=== PATIENT | female | born 2000 | race Caucasian/White ===

== ENCOUNTER → 2025-04-22 | Outpatient (CLI) | payer BC, SELFPAY ==
[2025-04-22 12:18] LABS: Absolute Lymphocyte Count 1.57 X10^3/uL (0.83-4.51); Absolute Neutrophil Count 5.7 X10^3/uL (2.0-7.7); Basophil# 0.04 X10^3/uL; Basophil% 0.5 % (0-1); Eosinophil# 0.02 X10^3/uL; Eosinophils% 0.3 % (0-5); Hematocrit 38.8 % (37-47); Hemoglobin 12.9 g/dL (12.0-15.0); Lymphocyte # 1.57 X10^3/ul (0.83-4.51); Lymphocyte % 19.8 % (19-41); Mean Corp Hgb Conc 33.2 g/dL (32-36); Mean Corpuscular Hgb 27.4 pg (27.0-32.0); Mean Corpuscular Volume 82.6 fL (81-99); Mean Platelet Vol. 10.8 fl (6.2-12.0); Monocyte# 0.48 X10^3/uL; Monocyte% 6.1 % (0-10); NRBC Flagged by Analyzer 0 % (0-5); Neutrophil # 5.73 X10^3/uL (2.7-7.7); Neutrophil % 72.4 % (47-70); Platelet Count 220 K/mm3 (150-450); RBC Distribution Width CV 13.2 % (11.6-14.6); RBC Distribution Width SD 39.8 fl (35.1-43.9); White Blood Count 7.9 K/mm3 (4.4-11.0)
[2025-04-22 12:56] LABS: HIV Nonreactive (Nonreactive); Hepatitis B Surface Antigen Nonreactive (Nonreactive); Hepatitis C Antibody Nonreactive (Nonreactive); Rubella IgG REAC (Nonreactive); Syphilis Antibodies Nonreactive (Nonreactive)
[2025-04-26 03:07] LABS: Chlamydia By Nucleic Acid AMP Negative (Negative); Gonococcus By Nucleic Acid AMP Negative (Negative)
== END | disposition home or self-care (01) ==
LOC: BWCLAB 09:10
PROVIDERS: PCP Family Medicine; Referring Provider Obstetrics & Gynecology; Visit Provider Obstetrics & Gynecology
DX: Z34.00 Encounter for supervision of normal first pregnancy, unspecified trimester (principal)
CPT/HCPCS: 36415; 84439; 84443; 85025; 86703; 86762; 86780; 86803; 86850; 86900; 86901; 87086; 87340; 87491; 87591

== ENCOUNTER 2025-07-10 08:55 | Outpatient (CLI) | payer BC, SELFPAY ==
--- OUTSIDE RECORDS SUMMARY | 2025-07-10 08:59 | XMS RPT_ITS | CCD ---
Author Organization [facility] Care Team Providers Care Campaign Assistant Name Role Phone CHERYLE BAZAN Attending Unavailable CHERYLE BAZAN Consulting Unavailable CHERYLE BAZAN Primary Care Unavailable CHERYLE BAZAN Admitting Unavailable PROVIDER, UNKNOWN Consulting Unavailable Beni CHENG, Cheryle Martinez Unavailable [phone] Beni CHENG, Cheryle Martinez Unavailable Priti FARM HAND, Radha Unavailable Gogoi (scribe), Hemanta Unavailable Unavaila jessica Gamble PA-C, Rosario Gibson Unavailable [phone] Emeka WONG, Jaye Unavailable Unavailable Senthil FARM HAND, Gwen Unavailable Unavaila ble Marthey FARM HAND, Abby Unavailable Unavailable Alexi FARM HAND, Homero Unavailable Unavailable Casi RN, Sanjaan Y Unavailable Unavailable Jasbir FARM HAND, Daija Unavailable Unavailable Dale FARM HAND, Becky M Unavailable Unavailab jamee Mueller FARM HAND, Noris Sarkar Unavailable Unavailab Anthony Young MD Unavailable Janny JETERN, Tammy Unavailable Unavailbasil Ley FARM HAND, Nisha Jernigan Unavailable Unavaila ble Lydia FARM HAND, Yuliya Unavailable Unavailable Unavailable Unavailable Modesto Bosch MD Unavailable Dr. Anthony Mercedes MD Primary Care Provider Dr. Anthony Mercedes MD Referring Provider Iris Santiago Attending Provider Dr. Tammy Cooley DO Attending Provider Dr. Tammy Cooley DO Referring Provider Keith Archuleta CNM Attending Provider Daren, Anthony Primary Care Unavailable Keith Archuleta Attending Unavailable Vaccariello, Anthony Referring Unavailable Vaccariello, Anthony Primary Care Unavailable Keith Archuleta Attending Unavailable Vaccarianuja, Anthony Referring Unavailable Tammy Cooley Attending Unavailbasil e Tammy Cooley Referring Unavailabl e Vaccarianuja, Anthony Primary Care Unavailable Tammy Cooley Attending Unavailabl e Eufemiaarianuja, Anthony Primary Care Unavailable Daren, Anthony Referring Unavailable Iris Singer NP Attending Unavailable Vaccarianuja, Anthony Primary Care Unavailable Vaccarianuja, Anthony Referring Unavailable MELODIE GARCIAS Attending Unavailable EUFEMIAARIANUJA, TAMARA Primary Care Unavailable KEITH ARCHULETA S Referring Unavailable Allergies Allergy Classification Reported Allergen(s) Allergy Type Date of Onset Reaction(s) Facility (6 sources) Chocolate; Translations: [chocolate] Allergy to substance 04-05-2025 [facility] Comment on above: Migraine headache Medications Current Medications Medication Drug Class(es) Dates Sig (Normalized) Sig (Original) busPIRone hydrochloride 5 mg oral tablet (16 sources) Start: 01-14-2025 busPIRone 5 mg tablet ; 1 (one) tablet BID for 0 days Quantity: 60 {Tablet} Refills: 5 Ordered: 14-Jan-2025 PROSPER Bazan Start: 14-Jan-2025 Start: 12-20-2024 busPIRone 5 mg tablet ; 1 (one) tablet BID for 0 days Quantity: 60 {Tablet} Refills: 5 Ordered: 20-Dec-2024 PROSPER Bazan Start: 20-Dec-2024 Start: 10-25-2024 busPIRone 5 mg tablet ; 1 (one) tablet BID for 0 days Quantity: 60 {Tablet} Refills: 1 Ordered: 25-Oct-2024 PADMINI Truong Start: 25-Oct-2024 Comment on above: Mail order. Ethinyl Estradiol / norgestimate (16 sources) Progestin, Estrogen Start: 08-10-2024 Sprintec (28) 0.25 mg-35 mcg tablet ; 1 (one) Tablet daily for 0 days Quantity: 3 {Tablet} Refills: 4 Ordered: 10-Aug-2024 PROSPER Bazan Start: 10-Aug-2024 Comments: Mail order. Start: 08-09-2024 Sprintec (28) 0.25 mg-35 mcg tablet ; 1 (one) Tablet daily for 0 days Quantity: 3 {Packet} Refills: 4 Ordered: 09-Aug-2024 PROSPER Bazan Start: 09-Aug-2024 Start: 08-09-2024 Sprintec (28) 0.25 mg-35 mcg tablet ; 1 (one) Tablet daily for 0 days Quantity: 3 {Tablet} Refills: 4 Ordered: 09-Aug-2024 PROSPER Bazan Start: 09-Aug-2024 Comments: Mail order. Comment on above: Mail order. Multivit 84-Gtxr-Mwvtzj 1-Dha (Pnv-Dha) 27 mg iron-1 mg -300 mg capsule (5 sources) Start: 04-05-2025 Multivit 47-Ir on-Folate 1-Dha (Pnv-Dha) 27 mg iron-1 mg -300 mg capsule Active NMA PO April 05, 2025 12:00am Completed/Discontinued Medications Medication Drug Class(es) Dates Sig (Normalized) Sig (Original) amoxicillin 250 mg oral capsule (14 sources) Penicillin-class Antibacterial Start: 03-07-2011 End: 08-16-2011 take 1 capsule by mouth three times daily AMOXICILLIN, 250MG (Oral Capsule) ; 1 Capsule tid for 0 days Quantity: 30 {Capsule} Refills: 0 Ordered: 16-Aug-2011 PADMINI Marcos Start: 07-Mar-2011 End: 16-Aug-2011 Status: Inactive azithromycin 500 mg oral tablet (14 sources) Macrolide Antimicrobial Start: 05-03-2019 End: 05-06-2019 take 1 tablet by mouth once daily Azithromycin 500 MG Oral Tablet ; 1 (one) Tablet daily for 3 days Quantity: 3 {Tablet} Refills: 0 Ordered: 03-May-2019 Start: 03-May-2019 End: 06-May-2019 Status: Inactive clobetasol propionate 0.5 mg/ml topical solution (20 sources) Corticosteroid Start: 08-04-2023 End: 12-13-2024 clobetasoL 0.05 % scalp solution ; 1 (one) application to affected area (ears) BID for 0 days Quantity: 50 {Milliliter} Refills: 0 Ordered: 13-Dec-2024 PADMINI Truong Start: 04-Aug-2023 End: 13-Dec-2024 Status: Inactive Comment on above: Mail order. Ethinyl Estradiol / Levonorgestrel (14 sources) Progestin, Estrogen, Progestin-containing Intrauterine Device Start: 06-13-2021 End: 07-05-2021 take 1 tablet by mouth once daily Aviane 0.1-20 MG-MCG Oral Tablet ; 1 (one) Tablet daily for 0 days Quantity: 1 {Package} Refills: 1 Ordered: 05-Jul-2021 PROSPER Bazan Start: 13-Jun-2021 End: 05-Jul-2021 Status: Inactive predniSONE 20 mg oral tablet (9 sources) Start: 12-13-2024 End: 01-16-2025 predniSONE 20 mg tablet ; 1 (one) Tablet as directed for 0 days Quantity: 20 {Tablet} Refills: 0 Ordered: 16-Jan-2025 PROSPER Bazan Start: 13-Dec-2024 End: 16-Jan-2025 Status: Inactive Comments: Take 1 tab tid for 3 days thenTake 1 tab bid for 3 days thenTake 1 tab qd for 3 days thenTake 1/2 tab qd for 4 days. Comment on above: Take 1 tab tid for 3 days thenTake 1 tab bid for 3 days thenTake 1 tab qd for 3 days thenTake 1/2 tab qd for 4 days. promethazine hydrochloride 12.5 mg rectal suppository (14 sources) Phenothiazine Start: 08-02-2010 End: 08-16-2011 PROMETHAZINE HCL, 12.5MG (Rectal Suppository) ; 1 Suppository Every 6 hours for nausea and vomiting for 0 days Quantity: 12 {Suppository} Refills: 2 Ordered: 16-Aug-2011 PADMINI Marcos Start: 02-Aug-2010 End: 16-Aug-2011 Status: Inactive Problems Active Problems Problem Classification Problem Date Documented Date Episodic/Chronic Abdominal pain (14 sources) Abdominal pain; Translations: [Unspecified abdominal pain] 02-18-2020 Episodic Acute bronchitis (14 sources) Acute bronchitis; Translations: [Acute bronchitis, unspecified] 05-03-2019 Episodic Anxiety disorders (20 sources) Anxiety; Translations: [Anxiety disorder, unspecified] 10-25-2024 Chronic Cardiac dysrhythmias (20 sources) Palpitations; Translations: [Palpitations] 08-09-2024 Episodic Contraceptive and procreative management (20 sources) Patient encounter status; Translations: [Encounter for contraceptive management, unspecified] 08-09-2024 Episodic Headache; including migraine (20 sources) Migraine; Translations: [Migraine, unspecified, not intractable, without status migrainosus] 05-28-2012 Chronic Immunizations and screening for infectious disease (20 sources) Needs influenza immunization; Translations: [Encounter for immunization] 08-09-2016 Episodic Menstrual disorders (16 sources) Secondary amenorrhea; Translations: [Secondary amenorrhea] Onset: 06-17-2025 04-05-2025 Chronic Comment on above: +UPT Other connective tissue disease (18 sources) Disorder of rotator cuff; Translations: [Unspecified disorder of synovium and tendon, left shoulder] 12-13-2024 Episodic Other inflammatory condition of skin (20 sources) Psoriasis; Translations: [Psoriasis, unspecified] 08-09-2024 Chronic Other and delivery including normal (20 sources) Normal ; Translations: [Encounter for supervision of normal first , unspecified trimester] Onset: 04-22-2025 04-05-2025 Episodic Comment on above: , [place] 11/29/25, Hu sband Jose Declined NIPT & Yates ier testing PRR, , [place] 6, Jose Other skin disorders (20 sources) [place] - lesion ; Translations: [Corns and callosities] 08-09-2024 Episodic Other upper respiratory infections (14 sources) Acute pharyngitis; Translations: [Acute pharyngitis, unspecified] 03-07-2011 Episodic Residual codes; unclassified (1 source) 16 weeks gestation of ; Translations: [16 weeks gestation of ] Onset: 06-17-2025 Episodic Thyroid disorders (20 sources) Cyst of thyroid; Translations: [Nontoxic single thyroid nodule] Onset: 06-17-2025 08-09-2024 Chronic Comment on above: no treatment to date no treatment to date Negative Receptor antibody test Unclassified (14 sources) Well child visit #4 - 13 to 17 years - The child is here for a 16 to 17 year well-child visit. The primary caregiver is the mother and father. Family status: coping adequately. There are no behavioral problems. The patient has a balanced diet. There are no eating difficulties. Meals/day: 3. The child sleeps 8 hours at night. Menstruation: regular periods (should be starting soon - is not sexually active). The child performs well in school, interacts well with peers and participates in extracurricular activities. Safety measures taken include appropriate use of safety belts, home smoke detectors, avoiding exposure to passive smoke, counseling regarding substance abuse, counseling regarding safe sex/HIV and counseling regarding control. 05-19-2019 Past or Other Problems Problem Classification Problem Date Documented Da te Episodic/Chronic Unclassified (14 sources) Well adult female - The patient feels well with minor complaints (wants thyroid checked, irregular heart rate at times, has had anxiety, not sleeping well), has good energy level and is sleeping poorly. The first day of the last menstrual period was : (08/09/2024). The current method of contraception is: oral contraceptives. The patient has a balanced diet and takes supplemental vitamins. The patient does not exercise. The patient sleeps 5 hours per night. Note for Well adult female: [place] like this with wedding planning and thought it would get better after the wedding but it hasn't. [place] it skip a beat every few minutes. Happens once or twice within a few minutes; no dizziness or SOB; notices more when lying down at night but does feel it on occasion during the day. 08-09-2024 Unclassified (14 sources) Well adult female - The patient feels well with no complaints, has good energy level and is sleeping well. The first day of the last menstrual period was : (07/14/2023). The current method of contraception is: oral contraceptives. The patient has a balanced diet and takes no supplemental vitamins & iron. The patient exercises 3 - 4 times per week. The patient sleeps 7 hours per night. 08-04-2023 Unclassified (14 sources) Warts - Note for Warts: Pt here for wart removal on side of left foot.Saw podiatry in the past and was told it was not a wart. They cut away at it but it returned.Initially started when she was working at [employer] and walking 5+ miles at work daily.Tender if puts lots of pressure on it.No recent treatment. 04-30-2023 Unclassified (14 sources) Ear pain - The onset of the pain has been acute and has been occurring in an intermittent pattern for 2 months. The course has been increasing. The pain is described as moderate. The pain is described as being located in the inner ear. The pain is felt in both ears. There has been no associated chills, decreased hearing, fever, inability to 'pop' ear drum, non-purulent discharge from ear, protrusion of ear, purulent discharge from ear, sore throat, runny nose, cough, tinnitus or vertigo. Medical History does not include ear infections, seasonal allergies or recurrent sinusitis. Note for Ear pain: Tried baby oil on it which helps temporarily.Maternal aunt with psoriasis. No other patches of scale noted on other areas of body. 03-12-2023 Unclassified (14 sources) Well adult female - The patient feels well with no complaints, has good energy level and is sleeping well. The first day of the last menstrual period was : (07/14/2022). The current method of contraception is: oral contraceptives. The patient has a balanced diet. The patient exercises 3 - 4 times per week. The patient sleeps 8 hours per night. Note for Well adult female: No concerns today. Doing well on OCP and wants to continue. 07-24-2022 Unclassified (14 sources) Well adult female - The patient feels well with no complaints, has good energy level and is sleeping well. The first day of the last menstrual period was : (06/17/2021). The patient has a balanced diet. The patient exercises daily. The patient sleeps 8 (7-8) hours per night. 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 07-05-2021 Unclassified (14 sources) Nausea - The onset of the nausea has been variable and has been occurring in an intermittent pattern for 6 days. The course has been increasing. The nausea occurs approximately one hour after meals. The symptoms are aggravated by eating. The symptoms have no relieving factors. The symptoms have been associated with abdominal pain, but there has been no associated altered sensorium, aspiration into lungs, chest pain, dark urine, diarrhea, dysentery, dysphagia, dysuria, fever, headache, hematemesis, jaundice, melena, myalgia, neck stiffness, , renal disease, tinnitus, upper respiratory infection symptoms, use of alcohol, use of medications, vertigo, weight loss or vomiting. Note for Nausea: Mother palpated on her abdomen last night and pt states she had pain in her LUQ. Has no abd pain now. When she does it is 4/10 at most. Nausea seems to be more food related to but no specific trigger. LMP was 14-16 days ago - normal. Taking OCP daily without missed doses.Having trouble with it being her senior year and not able to go back to school. Plans are set for college.Some heartburn recently. 02-18-2020 Unclassified (14 sources) Cold Symptoms - Symptoms include sneezing, sore throat (slight), hoarseness, dry cough, fever (102 over the weekend), chills, general malaise and headache, but do not include nasal congestion, runny nose, ear pain, ear fullness or facial pain. The onset was sudden 2 week(s) ago. The symptoms occur constantly. The patient describes this as moderate in severity and worsening. Current treatment includes NSAIDs. Patient denies history of seasonal allergies or asthma. Note for Upper respiratory infection: Patient reports of on going cough for a couple of weeks. 05-03-2019 Unclassified (14 sources) Well child visit #4 - 13 to 17 years - The child is here for a 16 to 17 year well-child visit. The primary caregiver is the mother and father. Family status: coping adequately. There are no behavioral problems. The patient has a balanced diet. There are no eating difficulties. Meals/day: 3. The child sleeps 8 hours at night. Menstruation: regular periods. The child performs well in school, interacts well with peers and participates in extracurricular activities. Safety measures taken include appropriate use of safety belts, home smoke detectors, avoiding exposure to passive smoke, counseling regarding substance abuse, counseling regarding safe sex/HIV and counseling regarding control. Note for Well child visit #4 - 13 to 17 years: No concerns today. 06-15-2018 Unclassified (14 sources) Well child visit #4 - 13 to 17 years - The child is here for a 15 to 16 year well-child visit. The primary caregiver is the mother and father. Family status: coping adequately. There are no behavioral problems. The patient has a balanced diet. There are no eating difficulties. Meals/day: 3. The child sleeps 8 hours at night. Menstruation: regular periods (current). The child performs well in school, interacts well with peers and participates in extracurricular activities. Safety measures taken include appropriate use of safety belts, home smoke detectors, avoiding exposure to passive smoke and counseling regarding substance abuse. Note for Well child visit #4 - 13 to 17 years: Plays basketball. 08-08-2017 Unclassified (14 sources) Well child visit #4 - 13 to 17 years - The child is here for a 14 to 15 year well-child visit. The primary caregiver is the mother and father. Family status: coping adequately. There are no behavioral problems. The patient has a balanced diet. There are no eating difficulties. Meals/day: 3. The child sleeps 8 hours at night. Menstruation: regular periods. The child performs well in school, interacts well with peers and participates in extracurricular activities. Safety measures taken include appropriate use of safety belts. Note for Well child visit #4 - 13 to 17 years: No concerns per patient. Will be playing basketball. 08-09-2016 Unclassified (14 sources) Form Completion Physicals - The patient feels well with no complaints, has good energy level and is sleeping well. There are no current symptoms. The patient exercises daily. The patient has an appropriate balanced diet, eats a variety of foods and takes no supplemental vitamins or iron and sleeps on average 8 hours per night. Safety measures include appropriate use of car seats/safety belts, appropriate use of helmets, appropriate use of safety belts, avoiding exposure to passive smoke and awareness of dangers of passenger-side air bags. There are no behavioral problems. Note for Form completion physical: Periods are regular. Will be playing basketball - needs form completed. 08-01-2015 Unclassified (14 sources) Well child visit #3 - 4 to 12 years - The child is here for a 14 year well-child visit. The primary caregiver is mother and father. Family status: coping adequately. There are no behavioral problems. The patient has a balanced diet. There are no eating difficulties. Meals/day: 3. The child sleeps 9 hours at night. The child performs well in school, interacts well with peers and participates in extracurricular activities. Safety measures taken include appropriate use of car seats/safety belts, home smoke detectors, avoiding exposure to passive smoke and pool/water/drowning precautions. Note for Well child visit #3 - 4 to 12 years: Pt is in 7th grade. No concerns. Planning to play basketball - has played x years. 07-22-2014 Unclassified (14 sources) Headache - The onset of the headache has been acute and has been occurring in a persistent pattern for 2 days. The course has been constant. The headache is characterized as severe and pounding. The headache is described as being located in the entire head. The symptoms are aggravated by bright light. The symptoms have been associated with migraine in the past (last was 07/2010 - at that point they thought there was a food trigger (chocolate) however child has not had chocolate in years, so mom mentions that she worries it might be hormonally triggered...), nausea, vertigo and vomiting, while the symptoms have not been associated with blurring of vision, confusion, ear pain, eye pain, fever, flashing lights, focal neurological deficit, head trauma, nasal discharge/stuffy nose, neck pain, neck stiffness, prodrome or sore throat. Note for Headache: Pt woke up yesterday am with c/o dizziness. Pt vomited x 1 yesterday. This am woke up with severe headache, nausea and vomiting. 05-28-2012 Unclassified (14 sources) Headache - The onset of the headache has been acute and has been occurring in a persistent (awoke with mild h/a yest am, vomitted 3 times throughout the day) pattern for 1 day. The course has been increasing in severity. The headache is characterized as severe. The symptoms are aggravated by bright light. The symptoms have been associated with migraine in the past and nausea (this am n/v with every slight movement.). 08-02-2010 Unclassified (9 sources) Shoulder pain - The onset of the shoulder pain has been gradual following an incident not at work (slept wrong, dog walking) and has been occurring in a persistent pattern for 2 weeks. The course has been increasing. The pain is characterized as a cramping. The pain is described as being located in the left shoulder and is aggravated by any movement. Relieving factors include ice. The symptoms have been associated with painful ROM and decreased ROM. Note for Shoulder pain: reviewed by [facility] 12-13-2024 Results Test Name Value Interpretation Reference Range Facility Accounts Payable Professional Office Visit Reporton 06-17-2025 Accounts Payable Professional Office Visit Report [facility] [address], [address] [place] [address] OFFICE VISIT Date of Service: 06/17/25 MR#: [id number] Acct: [id number] Name: CHARLIE GORDON Rep #: [id number] : 2000 Provider: JODI Borrero ams Age/Sex: 25/F Location: [facility] Status: Signed Intake Vital Signs 04/22/25 08:22 05/20/25 13:53 06/17/25 14:39 Height 5 ft 8 in 5 ft 8 in 5 ft 8 in Weight: 196 lb 7 oz BMI 29.8 BP 119/74 Intake Visit Reasons: 16wk ob 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: No Is patient in pain?: No Allergies chocolate Allergy (Intermediate, Verified 06/17/25 14:40) Vomiting Medications ???Medication ???Instructions ???Recorded ???Confirmed ???Type multivitamin no.47-iron fum 27 cap PO 04/05/25 06/17/25 History mg-folate no.1 1 mg-dha 300 mg capsule (PNV-DHA) Last Menstrual Period: 02/22/25 Zika: Zika virus screening: Negative : No PFSH PFSH Surgical History H/O myringotomy Family History Mother Hypertension High cholesterol Gestational diabetes Migraine Father High cholesterol Migraine Grandmother Hypertension Maternal Cancer, Onset Age: 70 - Smoker Maternal Lung cancer Thyroid disorder Maternal- Hyperthyroidism Migraine Maternal Grandfather Migraine MaTERNAL Cancer, Onset Age: 70 Lung Cancer-Maternal Smoker High cholesterol Maternal Grandmother Hypertension Paternal Dementia, Onset Age: 80 Paternal Grandfather Kidney disease Paternal Alzheimer's dementia, Onset Age: 70 Paternal Social History adopted: No household members: spouse housing: house current occupational status: employed current occupation: [employer] current occupational exposures/hazards: No pets and animals: Yes pets and animals: dog(s) history of recent travel: Yes ([place] in February) out of state: Yes out of country: No sexually active: Yes Smoking Status: Never smoker alcohol intake: never substance use type: does not use well-balanced diet: daily or most days caffeine: No eating out: 1-3 times/week during the past year weight has: remained stable what type of physical activity do you participate in: walking and bicycling frequency: 3-4 times per week duration: 15-30 minutes/day jimi/zoroastrianism: Sabianist seatbelt use: always do you feel safe at home: Yes additional social history: [employer] History 1 Elective abortions Hx Para 0 Spontaneous abortions Hx # Term Pregnancies Ectopic pregnancies Hx # Pregnancies Multiple births # of living children HPI 16wk ob Details: CHARLIE GORDON is a 25 year old who presents for routine OB visit. OB Visit [place] Calculator Estimated Delivery Date Method Current WG Current Estimate 11/29/25 LMP (Certain) 16w 3d Expected Delivery Route/Plan Labor Preferences- CB/BF classes: [] labor support person: [] labor intervention preferences: [] pain management options preferred: [] cut cord/dad catch: [] : [] PP control planned: [] discussed possible routes of delivery and associated risks: [] special requests: [] Specific Issue/Plans Covid status: [] Flu vaccine: [] Tdap vaccine: [] Rhogam: [] LARC form signed: [] Problem list reviewed and updated with the most current plan of care details and appropriate orders placed. Relevant counseling for the gestational age provided. Continue routine care and follow up unless otherwise noted in visit notes/problem list details Initial Weight: Not Recorded Date -???-???-???-???-?? ?-???-???-???-???-? ??-???-???- EGA Weight BP Urine Prot -???-???-???-???-?? ?-???-???-???-???-? ??-???-???- Glucose FHR FuHt Pres Dilation -???-???-???-???-?? ?-???-???-???-???-? ??-???-???- Effaced St Visit Note 04/22/25 -???-???-???-???-?? ?-???-???-???-???-? ??-???-???- 8w 3d 187 lb 6 oz 104/63 -???-???-???-???-?? ?-???-???-???-???-? ??-???-???- 175 -???-???-???-???-?? ?-???-???-???-???-? ??-???-???- JV- CRL cons istent with LMP. no nausea. declines NIPT. will do baseline new ob labs today. 05/20/25 -???-???-???-???-?? ?-???-???-???-???-? ??-???-???- 12w 3d 189 lb 8 oz 120/72 Negative -???-???-???-???-?? ?-???-???-???-???-? ??-???-???- Negative 163 -???-???-???-???-?? ?-???-???-???-???-? ??-???-???- kw- no vb/cr amping. anatomy US ordered. colace and magnesium for constipation 06/17/25 -???-???-???-???-?? ?-???-???-???-???-? ??-???-???- 16w 3d 196 lb 7 oz 119/74 Negative -???-???-???-???-?? ?-???-???-???-???-? ??-???-???- Negative 155 -???-???-???-???-?? ?-???-???-???-???-? ??-???-???- KW- Work in (more content not included)... Normal [facility] - Chemistry and C hemistry - challengeOrdered By: Keith Archuleta on 05-20-2025 Glucose Ql (U) Negative [facility] - UrinalysisOrder ed By: Keith Archuleta on 05-20-2025 Protein Ql (U) Negative [facility] Accounts Payable Professional Office Visit Reporton 05-20-2025 Accounts Payable Professional Office Visit Report [facility] [address], [address] [place] [address] OFFICE VISIT Date of Service: 05/20/25 MR#: [id number] Acct: [id number] Name: CHARLIE GORDON Rep #: [id number] : 2000 Provider: JODI Borrero ams Age/Sex: 25/F Location: [facility] Status: Signed Intake Vital Signs 04/22/25 08:22 05/20/25 13:53 Height 5 ft 8 in 5 ft 8 in Weight: 189 lb 8 oz BMI 28.8 BP 120/72 Intake Visit Reasons: 12 WK OB Chief Complaint: 12 Week OB 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: No Is patient in pain?: No Allergies chocolate Allergy (Intermediate, Verified 05/20/25 13:57) Vomiting Medications ???Medication ???Instructions ???Recorded ???Confirmed ???Type multivitamin no.47-iron fum 27 cap PO 04/05/25 05/20/25 History mg-folate no.1 1 mg-dha 300 mg capsule (PNV-DHA) Last Menstrual Period: 02/22/25 Zika: Zika virus screening: Negative : No PFSH PFSH Surgical History H/O myringotomy Family History Mother Hypertension High cholesterol Gestational diabetes Migraine Father High cholesterol Migraine Grandmother Hypertension Maternal Cancer, Onset Age: 70 - Smoker Maternal Lung cancer Thyroid disorder Maternal- Hyperthyroidism Migraine Maternal Grandfather Migraine MaTERNAL Cancer, Onset Age: 70 Lung Cancer-Maternal Smoker High cholesterol Maternal Grandmother Hypertension Paternal Dementia, Onset Age: 80 Paternal Grandfather Kidney disease Paternal Alzheimer's dementia, Onset Age: 70 Paternal Social History adopted: No household members: spouse housing: house current occupational status: employed current occupation: [employer] current occupational exposures/hazards: No pets and animals: Yes pets and animals: dog(s) history of recent travel: Yes ([place] in February) out of state: Yes out of country: No sexually active: Yes Smoking Status: Never smoker alcohol intake: never substance use type: does not use well-balanced diet: daily or most days caffeine: No eating out: 1-3 times/week during the past year weight has: remained stable what type of physical activity do you participate in: walking and bicycling frequency: 3-4 times per week duration: 15-30 minutes/day jimi/zoroastrianism: Sabianist seatbelt use: always do you feel safe at home: Yes additional social history: [employer]- [employer] History 1 Elective abortions Hx Para 0 Spontaneous abortions Hx # Term Pregnancies Ectopic pregnancies Hx # Pregnancies Multiple births # of living children HPI 12 WK OB Details: CHARLIE GORDON is a 25 year old who presents for routine OB visit. OB Visit [place] Calculator Estimated Delivery Date Method Current WG Current Estimate 11/29/25 LMP (Certain) 12w 3d Expected Delivery Route/Plan Labor Preferences- CB/BF classes: [] labor support person: [] labor intervention preferences: [] pain management options preferred: [] cut cord/dad catch: [] : [] PP control planned: [] discussed possible routes of delivery and associated risks: [] special requests: [] Specific Issue/Plans Covid status: [] Flu vaccine: [] Tdap vaccine: [] Rhogam: [] LARC form signed: [] Problem list reviewed and updated with the most current plan of care details and appropriate orders placed. Relevant counseling for the gestational age provided. Continue routine care and follow up unless otherwise noted in visit notes/problem list details Initial Weight: Not Recorded Date -???-???-???-???-?? ?-???-???-???-???-? ??-???-???- EGA Weight BP Urine Prot -???-???-???-???-?? ?-???-???-???-???-? ??-???-???- Glucose FHR FuHt Pres Dilation -???-???-???-???-?? ?-???-???-???-???-? ??-???-???- Effaced St Visit Note 04/22/25 -???-???-???-???-?? ?-???-???-???-???-? ??-???-???- 8w 3d 187 lb 6 oz 104/63 -???-???-???-???-?? ?-???-???-???-???-? ??-???-???- 175 -???-???-???-???-?? ?-???-???-???-???-? ??-???-???- JV- CRL cons istent with LMP. no nausea. declines NIPT. will do baseline new ob labs today. 05/20/25 -???-???-???-???-?? ?-???-???-???-???-? ??-???-???- 12w 3d 189 lb 8 oz 120/72 Negative -???-???-???-???-?? ?-???-???-???-???-? ??-???-???- Negative 163 -???-???-???-???-?? ?-???-???-???-???-? ??-???-???- kw- no vb/cr amping. anatomy US ordered. colace and magnesium for constipation ACOG First Trimester First Trimester: Desire for , Alcohol, Tobacco Cessation, Illicit/Recreationa l Drug/Substance Use, Intimate Partner Violence, Barriers to care, Unstable Housing, Communication B (more content not included)... Normal [facility] L3410.9992on 05-04-2025 [facility] Misc. COMMENT Normal . [facility] Comment on above: Order Comment: [id number] 8TSH R AB SERUM FZ Result Comment: Test Ordered: [id number] TSH Receptor Antibody (TBII) TSH Receptor Antibody (TBII) <0.3 U/L ES Reference Range: . Reference Range: Antibody Titer: <1.0 U/L = Negative 1.1 - 1.5 U/L = Equivocal >1.5 U/L = Positive Performed at: [facility] [address] [place] [id number] Production Assembly Operator: Sander Daugherty MD, Phone: [phone] Performed at: [facility] [id number] Production Assembly Operator: Fredis Pendleton PhD, Phone: [phone] Performed By: #### L 3890.6102, L100.0100, L3890.6006, BTS, L3410.9992, L506.0400, L501.9520, L3890.6301, L509.4006, L509.8002 ####[facility] [address] [place], [address] Chlamydia/GC VANCE aptimaon CHLAMY,NUC ACID Negative Normal Negative [facility] Comment on above: Performed By: #### L 7000.1800, M100.2200 #### [facility] [address] [place], [address] GC BY NUC ACID Negative Normal Negative [facility] Comment on above: Result Comment: Perf ormed at: =G - [facility] [place] [address] [place] [id number] Production Assembly Operator: Kailey Petit MD, Phone: [phone] Performed By: #### L 7000.1800, M100.2200 #### [facility] [address] [place], [place], [id number] Urine Cultureon 04-23-2025 [facility] Culture exhibits no growth. Normal [facility] Comment on above: Performed By: #### L 0.1800, M100.2200 #### [facility] [address] [place], [place], [id number] Absolute lymphocyte countOrd ered By: Tammy Wagner on 04-22-2025 Lymphocytes Auto (Unsp spec) [#/Vol] 1.57 10*3/uL 0.83-4.51 [facility] Absolute neutrophil countOrd ered By: Tammy Wagner on 04-22-2025 Neutrophils (Bld) [#/Vol] 5.7 10*3/uL 2.0-7.7 [facility] Automated lymphocyte count a s percentage of total leukocytesOrdered By: Tammy Wagner on 04-22-2025 Lymphocytes/100 WBC Auto (Unsp spec) 19.8 % 19-41 [facility] Basophil percentageOrdered B y: Tammy Wagner on 04-22-2025 Basophils/100 WBC (Bld) 0.5 % 0-1 [facility] CBC W/Diff, Automatedon 03-28 Absolute Lymph 1.57 X10 3/uL Normal 0.83-4.51 [facility] Comment on above: Performed By: #### L 3890.6102, L100.0100, L3890.6006, BTS, L3410.9992, L506.0400, L501.9520, L3890.6301, L509.4006, L509.8002 #### [facility] [address] [place], [place], [id number] Absolute Neut 5.7 X10 3/uL Normal 2.0-7.7 [facility] Comment on above: Performed By: #### L 3890.6102, L100.0100, L3890.6006, BTS, L3410.9992, L506.0400, L501.9520, L3890.6301, L509.4006, L509.8002 #### [facility] [address] [place], [address] Basophils/100 WBC (Bld) 0.5 % Normal 0-1 [facility] Comment on above: Performed By: #### L 3890.6102, L100.0100, L3890.6006, BTS, L3410.9992, L506.0400, L501.9520, L3890.6301, L509.4006, L509.8002 #### [facility] [address] [place], [address] Eosinophils/100 WBC (Bld) 0.3 % Normal 0-5 [facility] Comment on above: Performed By: #### L 3890.6102, L100.0100, L3890.6006, BTS, L3410.9992, L506.0400, L501.9520, L3890.6301, L509.4006, L509.8002 #### [facility] [address] [place], [address] Erythrocyte distribution width (RBC) [Ratio] 13.2 % Normal 11.6-14.6 [facility] Comment on above: Performed By: #### L 3890.6102, L100.0100, L3890.6006, BTS, L3410.9992, L506.0400, L501.9520, L3890.6301, L509.4006, L509.8002 #### [facility] [address] [place], [address] Hematocrit (Bld) [Volume fraction] 38.8 % Normal 37-47 [facility] Comment on above: Performed By: #### L 3890.6102, L100.0100, L3890.6006, BTS, L3410.9992, L506.0400, L501.9520, L3890.6301, L509.4006, L509.8002 #### [facility] [address] [place], [address] Hemoglobin (Bld) [Mass/Vol] 12.9 g/dL Normal 12.0-15.0 [facility] Comment on above: Performed By: #### L 3890.6102, L100.0100, L3890.6006, BTS, L3410.9992, L506.0400, L501.9520, L3890.6301, L509.4006, L509.8002 #### [facility] [address] [place], [address] IG% 0.900 Normal 0.0-0.9 [facility] Comment on above: Result Comment: IG% - Immature Granulocytes (promyelocytes, myelocytes and metamyelocytes) > 1% indicates that a LEFT SHIFT is Present. Performed By: #### L 3890.6102, L100.0100, L3890.6006, BTS, L3410.9992, L506.0400, L501.9520, L3890.6301, L509.4006, L509.8002 #### [facility] [address] [place], [address] Lymphocytes/100 WBC (Bld) 19.8 % Normal 19-41 [facility] Comment on above: Performed By: #### L 3890.6102, L100.0100, L3890.6006, BTS, L3410.9992, L506.0400, L501.9520, L3890.6301, L509.4006, L509.8002 #### [facility] [address] [place], [address] MCH (RBC) [Entitic mass] 27.4 pg Normal 27.0-32.0 [facility] Comment on above: Performed By: #### L 3890.6102, L100.0100, L3890.6006, BTS, L3410.9992, L506.0400, L501.9520, L3890.6301, L509.4006, L509.8002 #### [facility] [address] [place], [address] MCHC (RBC) [Mass/Vol] 33.2 g/dL Normal 32-36 [facility] Comment on above: Performed By: #### L 3890.6102, L100.0100, L3890.6006, BTS, L3410.9992, L506.0400, L501.9520, L3890.6301, L509.4006, L509.8002 #### [facility] [address] [place], [address] MCV (RBC) [Entitic vol] 82.6 fL Normal 81-99 [facility] Comment on above: Performed By: #### L 3890.6102, L100.0100, L3890.6006, BTS, L3410.9992, L506.0400, L501.9520, L3890.6301, L509.4006, L509.8002 #### [facility] [address] [place], [address] Monocytes/100 WBC (Bld) 6.1 % Normal 0-10 [facility] Comment on above: Performed By: #### L 3890.6102, L100.0100, L3890.6006, BTS, L3410.9992, L506.0400, L501.9520, L3890.6301, L509.4006, L509.8002 #### [facility] [address] [place], [address] Neutrophils/100 WBC (Bld) 72.4 % High 47-70 [facility] Comment on above: Performed By: #### L 3890.6102, L100.0100, L3890.6006, BTS, L3410.9992, L506.0400, L501.9520, L3890.6301, L509.4006, L509.8002 #### [facility] [address] [place], [address] Nucleated RBC (Bld) [#/Vol] 0 10*3/uL Normal 0-5 [facility] Comment on above: Performed By: #### L 3890.6102, L100.0100, L3890.6006, BTS, L3410.9992, L506.0400, L501.9520, L3890.6301, L509.4006, L509.8002 #### [facility] [address] [place], [address] Platelet mean volume (Bld) [Entitic vol] 10.8 fL Normal 6.2-12.0 [facility] Comment on above: Performed By: #### L 3890.6102, L100.0100, L3890.6006, BTS, L3410.9992, L506.0400, L501.9520, L3890.6301, L509.4006, L509.8002 #### [facility] [address] [place], [address] Platelets (Bld) [#/Vol] 220 10*3/uL Normal 150-450 [facility] Comment on above: Performed By: #### L 3890.6102, L100.0100, L3890.6006, BTS, L3410.9992, L506.0400, L501.9520, L3890.6301, L509.4006, L509.8002 #### [facility] [address] [place], [address] RBC (Bld) [#/Vol] 4.70 10*6/uL Normal 4.2-5.4 [facility] Comment on above: Performed By: #### L 3890.6102, L100.0100, L3890.6006, BTS, L3410.9992, L506.0400, L501.9520, L3890.6301, L509.4006, L509.8002 #### [facility] [address] [place], [place], [id number] (719) RDW SD 39.8 fl Normal 35.1-43.9 [facility] Comment on above: Performed By: #### L 3890.6102, L100.0100, L3890.6006, BTS, L3410.9992, L506.0400, L501.9520, L3890.6301, L509.4006, L509.8002 #### [facility] [address] [place], [address] WBC (Bld) [#/Vol] 7.9 10*3/uL Normal 4.4-11.0 [facility] Comment on above: Performed By: #### L 3890.6102, L100.0100, L3890.6006, BTS, L3410.9992, L506.0400, L501.9520, L3890.6301, L509.4006, L509.8002 #### [facility] [address] [place], [place], [id number] Chlamydia trachomatis rRNA d etection by probe and target amplification methodOrdered By: Tammy Wagner on 04-22-2025 C. trachomatis rRNA VANCE+probe Ql (Unsp spec) Negative Negative [facility] Eosinophil percentageOrdered By: Tammy Wagner on 04-22-2025 Eosinophils/100 WBC (Bld) 0.3 % 0-5 [facility] Erythrocyte distribution wid th ratioOrdered By: Tammy Wagner on 04-22-2025 Erythrocyte distribution width (RBC) [Ratio] 13.2 % 11.6-14.6 [facility] Erythrocyte distribution wid th standard deviationOrdered By: Tammy Wagner on 04-22-2025 Erythrocyte distribution width (RBC) [Ratio] 39.8 fl 35.1-43.9 [facility] HIVon 04-22-2025 HIV Non-Reactive Normal Nonreactive [facility] Comment on above: Result Comment: Non- Reactive Reactive Repeatedly reactive samples must be confirmed according to CDC recommended confirmatory algorithms. The subresults for either HIVAG or AHIV can be used as an aid in the selection of the confirmation algorithm for reactive samples. Send out specimens with Reactive results to [facility] for confirmation. Order the HIV antibody detection and differentiation: lc#[id number] Performed By: #### L 3890.6102, L100.0100, L3890.6006, BTS, L3410.9992, L506.0400, L501.9520, L3890.6301, L509.4006, L509.8002 ####[facility] [address] [place], [address] Hematocrit Auto (Bld) [Volum e fraction]Ordered By: Tammy Wagner on 04-22-2025 Hematocrit (Bld) [Volume fraction] 38.8 % 37-47 [facility] Hemoglobin measurementOrdere d By: Tammy Wagner on 04-22-2025 Hemoglobin (Bld) [Mass/Vol] 12.9 g/dL 12.0-15.0 [facility] Hepatitis C Antibodyon 04-22 Hepatitis C Ab Non-Reactive Normal Nonreactive [facility] Comment on above: Result Comment: Reac tive: Presumptive evidence of antibodies to HCV. Follow CDC recommendations for supplemental testing. Non-Reactive: Antibodies to HCV were not detected; does not exclude the possibility of exposure to HCV Reactive Results are presumptive evidence of antibodies to HCV. Follow CDC recommendations for supplemental testing. Order confirmation testing: HCV Quant by PCR testing - HCVPCR #[id number] Non Reactive: < 0.8 Equivocal: >/= 0.8 to < 1.0 Reactive: >/= 1.0 The CDC requires that a reactive/equivocal HCV antibody result be sent out for confirmation. HCV Quant by PCR testing. Performed By: #### L 3890.6102, L100.0100, L3890.6006, BTS, L3410.9992, L506.0400, L501.9520, L3890.6301, L509.4006, L509.8002 ####[facility] [id number] [facility] [place], [place], [id number] Immature granulocytes/100 WB C Auto (Bld)Ordered By: Tammy Wagner on 04-22-2025 Immature granulocytes/100 WBC (Bld) 0.900 % 0.0-0.9 [facility] Comment on above: IG% - Immature Granu locytes (promyelocytes, myelocytes and metamyelocytes) > 1% indicates that a LEFT SHIFT is Present. L3890.6102on 04-22-2025 HEP B Surf Ag Non-Reactive Normal Nonreactive [facility] Comment on above: Result Comment: Reac tive: Presumptive evidence of HBV. Repeatedly reactive samples must be confirmed using a neutralization test ([employer] HBsAg Confirmatory Test) Non-Reactive: HBsAg not detected; does not exclude the possibility of exposure to HBV Performed By: #### L 3890.6102, L100.0100, L3890.6006, BTS, L3410.9992, L506.0400, L501.9520, L3890.6301, L509.4006, L509.8002 ####[facility] [address] [place], [place], [phone] L509.4006on 04-22-2025 Rubella IgG REAC Normal Nonreactive [facility] Comment on above: Result Comment: Anti body Result: Interpretation Non-Reactive: Non-Immune Reactive: Immune The following results were obtained with the [employer] Rubella IgG assay. Results from assays of other manufacturers cannot be used interchangeably. Performed By: #### L 3890.6102, L100.0100, L3890.6006, BTS, L3410.9992, L506.0400, L501.9520, L3890.6301, L509.4006, L509.8002 #### [facility] [place], [address] Laboratory - Microbiology an d Antimicrobial susceptibilityOrdered By: Tammy Wagner on 04-22-2025 HBV surface Ag Ql (S) Non-Reactive Nonreactive [facility] Comment on above: Reactive: Presumptiv e evidence of HBV. Repeatedly reactive samples must be confirmed using a neutralization test ([employer] HBsAg Confirmatory Test)Non-Reactive: HBsAg not detected; does not exclude the possibility of exposure to HBV MCV (mean corpuscular volume ) determinationOrdered By: Tammy Wagner on 04-22-2025 MCV (RBC) [Entitic vol] 82.6 fL 81-99 [facility] Mean corpuscular hemoglobin (MCH) determinationOrdered By: Tammy Wagner on 04-22-2025 MCH (RBC) [Entitic mass] 27.4 pg 27.0-32.0 [facility] Mean corpuscular hemoglobin concentration (MCHC) determinationOrdered By: Tammy Wagner on 04-22-2025 MCHC (RBC) [Mass/Vol] 33.2 g/dL 32-36 [facility] Mean platelet volume determi nationOrdered By: Tammy Wagner on 04-22-2025 Platelet mean volume (Bld) [Entitic vol] 10.8 fL 6.2-12.0 [facility] Monocyte percentageOrdered B y: Tammy Wagner on 04-22-2025 Monocytes/100 WBC (Bld) 6.1 % 0-10 [facility] Neisseria gonorrhoeae nuclei c acid detection by amplified probe techniqueOrdered By: Tammy Wagner on 04-22-2025 N. gonorrhoeae DNA VANCE+probe Ql (Unsp spec) Negative Negative [facility] Comment on above: Performed at: = [place] [address] [id number] Director: Kailey Petit MD, Phone: [phone] Neutrophil percentageOrdered By: Tammy Wagner on 04-22-2025 Neutrophils/100 WBC (Bld) 72.4 % High 47-70 [facility] No Panel InformationOrdered By: Tammy Wagner on 04-22-2025 HIV (1&2) Antibody Non-Reactive Nonreactive [facility] Comment on above: Non-ReactiveReactive Repeatedly reactive samples must be confirmed according to CDC recommended confirmatory algorithms. The subresults for either HIVAG or AHIV can be used as an aid in the selection of the confirmation algorithm for reactive samples.Send out specimens with Reactive results to [facility] for confirmation.Order the HIV antibody detection and differentiation: #[id number] Nucleated red blood cell per centageOrdered By: Tammy Wagner on 04-22-2025 Nucleated RBC/100 WBC (Bld) [Ratio] 0 % 0-5 [facility] Accounts Payable Professional Office Visit Reporton 04-22-2025 Accounts Payable Professional Office Visit Report [facility] [address], [address] [place] [address] OFFICE VISIT Date of Service: 04/22/25 MR#: [id number] Acct: [id number] Name: CHARLIE GORDON Rep #: [id number] : 2000 Provider: Dr. Tammy Lozano DO Age/Sex: 25/F Location: [facility] Status: Signed Intake Vital Signs 04/05/25 09:08 04/22/25 08:22 Height 5 ft 8 in 5 ft 8 in Weight: 187 lb 6 oz BMI 28.5 BP 104/63 Intake Visit Reasons: *NEW* NOB LMP 02/22, [place] 2/3 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: No Is patient in pain?: No Allergies chocolate Allergy (Intermediate, Verified 04/22/25 08:23) Vomiting Medications ???Medication ???Instructions ???Recorded ???Confirmed ???Type multivitamin no.47-iron fum 27 cap PO 04/05/25 04/22/25 History mg-folate no.1 1 mg-dha 300 mg capsule (PNV-DHA) Last Menstrual Period: 02/22/25 Zika: Zika virus screening: Negative : No PFSH PFSH Surgical History H/O myringotomy Family History Mother Hypertension High cholesterol Gestational diabetes Migraine Father High cholesterol Migraine Grandmother Hypertension Maternal Cancer, Onset Age: 70 - Smoker Maternal Lung cancer Thyroid disorder Maternal- Hyperthyroidism Migraine Maternal Grandfather Migraine MaTERNAL Cancer, Onset Age: 70 Lung Cancer-Maternal Smoker High cholesterol Maternal Grandmother Hypertension Paternal Dementia, Onset Age: 80 Paternal Grandfather Kidney disease Paternal Alzheimer's dementia, Onset Age: 70 Paternal Social History adopted: No household members: spouse housing: house current occupational status: employed current occupation: [employer] current occupational exposures/hazards: No pets and animals: Yes pets and animals: dog(s) history of recent travel: Yes ([place] in February) out of state: Yes out of country: No sexually active: Yes Smoking Status: Never smoker alcohol intake: never substance use type: does not use well-balanced diet: daily or most days caffeine: No eating out: 1-3 times/week during the past year weight has: remained stable what type of physical activity do you participate in: walking and bicycling frequency: 3-4 times per week duration: 15-30 minutes/day jimi/zoroastrianism: Sabianist seatbelt use: always do you feel safe at home: Yes additional social history: [employer]- [employer] History 1 Elective abortions Hx Para 0 Spontaneous abortions Hx # Term Pregnancies Ectopic pregnancies Hx # Pregnancies Multiple births # of living children HPI *NEW* NOB LMP 02/22, [place] 11/29 Details: CHRALIE GORDON is a 25 year old who presents for New OB visit. OB Visit [place] Calculator Estimated Delivery Date Method Current WG Current Estimate 11/29/25 LMP (Certain) 8w 3d Comments: HIV: Urine Culture: Sequential Screen: NIPT Screen: Estimated Due Date: 11/29/25 Expected Delivery Route/Plan Labor Preferences- CB/BF classes: [] labor support person: [] labor intervention preferences: [] pain management options preferred: [] cut cord/dad catch: [] : [] PP control planned: [] discussed possible routes of delivery and associated risks: [] special requests: [] Specific Issue/Plans Covid status: [] Flu vaccine: [] Tdap vaccine: [] Rhogam: [] LARC form signed: [] Problem list reviewed and updated with the most current plan of care details and appropriate orders placed. Relevant counseling for the gestational age provided. Continue routine care and follow up unless otherwise noted in visit notes/problem list details Initial Weight: Not Recorded Date -???-???-???-???-?? ?-???-???-???-???-? ??-???-???- EGA Weight BP Urine Prot -???-???-???-???-?? ?-???-???-???-???-? ??-???-???- Glucose FHR FuHt Pres Dilation -???-???-???-???-?? ?-???-???-???-???-? ??-???-???- Effaced St Visit Note 04/22/25 -???-???-???-???-?? ?-???-???-???-???-? ??-???-???- 8w 3d 187 lb 6 oz 104/63 -???-???-???-???-?? ?-???-???-???-???-? ??-???-???- 175 -???-???-???-???-?? ?-???-???-???-???-? ??-???-???- JV- CRL cons istent with LMP. no nausea. declines NIPT. will do baseline new ob labs today. Menstrual History Last Menstrual Period: 02/22/25 Reported LMP: definite Normal amount/duration: Yes Frequency in days: 28 On hormonal BC at conception: No hCG+: 03/21/25 Antepartum Record Genetic Screening: Congenital Heart Defect: Other, Neural Tube Defect: Other, Hemoglobinopathy Or Carrier: Other, Cystic Fibrosis: Other, Chromosome Abnormality: Other, Brodie-Sachs: Other, Hemophilia: (more content not included)... Normal [facility] Platelet countOrdered By: Ranjan craig Kristy on 04-22-2025 Platelets (Bld) [#/Vol] 220 10*3/uL 150-450 [facility] RBC Auto (Bld) [#/Vol]Ordere d By: Tammy Wagner on 04-22-2025 RBC (Bld) [#/Vol] 4.70 10*6/uL 4.2-5.4 [facility] Syphilis Antibodieson 2024 Syphilis Abs Non-Reactive Normal Nonreactive [facility] Comment on above: Performed By: #### L 3890.6102, L100.0100, L3890.6006, BTS, L3410.9992, L506.0400, L501.9520, L3890.6301, L509.4006, L509.8002 #### [facility] [address] [place], [place], [id number] T4 Free Directon 04-22-2025 T4 FREE DIRECT 1.20 ng/dL Normal 0.76-1.46 [facility] Comment on above: Performed By: #### L 3890.6102, L100.0100, L3890.6006, BTS, L3410.9992, L506.0400, L501.9520, L3890.6301, L509.4006, L509.8002 #### [facility] [address] [place], [place], [id number] T4 freeOrdered By: Tammy Wagner on 04-22-2025 Free T4 [Mass/Vol] 1.20 ng/dL 0.76-1.46 [facility] TSH DL <= 0.005 mIU/L QnOrde red By: Tammy Wagner on 04-22-2025 TSH Qn 1.250 uIU/mL 0.300-4.200 [facility] Thyroid Stim Hormone (TSH)on 04-22-2025 TSH 1.250 uIU/mL Normal 0.300-4.200 [facility] Comment on above: Performed By: #### L 3890.6102, L100.0100, L3890.6006, BTS, L3410.9992, L506.0400, L501.9520, L3890.6301, L509.4006, L509.8002 #### [facility] [address] [place], [address] Type AND Screenon 04-22-2025 Ab SCREEN GEL Negative Normal [facility] Comment on above: Order Comment: PN Performed By: #### L 3890.6102, L100.0100, L3890.6006, BTS, L3410.9992, L506.0400, L501.9520, L3890.6301, L509.4006, L509.8002 ####[facility] [address] [place], [place], [id number] Urine cultureOrdered By: Nell Wagner on 04-22-2025 Bacteria identified Cx Nom (U) Culture exhibits no growth. [facility] White blood cell (WBC) count Ordered By: Tammy Wagner on 04-22-2025 WBC (Bld) [#/Vol] 7.9 10*3/uL 4.4-11.0 [facility] Laboratory - Chemistry and C hemistry - challengeOrdered By: Iris Singer on 04-05-2025 HCG ( test) Ql (U) Positive [facility] Office Visit Reporton 2024 Office Visit Report [facility] [address] [place] [address] OFFICE VISIT Date of Service: 04/05/25 MR#: [id number] Acct: [id number] Patient: CHARLIE GORDON Rep #: [id number] : 2000 Provider: JOANNA brasher Age/Sex: 25/F Location: [facility] Status: Signed Intake Vital Signs 04/05/25 09:08 Height 5 ft 8 in Weight: 186 lb 8 oz BMI 28.3 BP 108/58 L Blood Pressure Location Lt brachial Position Sitting Intake Visit Reasons: Pre new ob, confirm preg, vitals 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: No Is patient in pain?: No Allergies chocolate Allergy (Intermediate, Verified 04/05/25 09:10) Vomiting Medications ???Medication ???Instructions ???Recorded ???Confirmed ???Type multivitamin no.47-iron fum 27 cap PO 04/05/25 04/05/25 History mg-folate no.1 1 mg-dha 300 mg capsule (PNV-DHA) Is last menstrual period known: Yes Last menstrual period: 02/22/25 Post menopausal: No Patient : Yes Current gender identity: female Nurse's Note: Pt here for secondary amenorrhea. Office UPT: positive. Vitals WNL. PNOB questions completed. Problem list, allergies, and medications updated. First trimester ACOG education completed. Results POC Urine Office , Urine Positive Last Edit by Mel Givens on 04/05/25 09:12 Assessment and Plan Assessment and Plan (1) Secondary amenorrhea: Status: Acute Comment: +UPT Orders: Orders POC Urine Today N91.1 - Secondary amenorrhea Plan confirmed. RTO NOB appointment 04/05/25 1027 Date Iris Singer NP FACILITY PRACTICE SPECIALIST-C Cosigner Signature: Date (if applicable) CC: Normal [facility] CBC (INCLUDES DIFF/PLT)on Basophils (Bld) [#/Vol] 0.03 10*3/uL Normal 0-200 [facility] Comment on above: Performed By: #### 6 399, 724, 866, 41165 #### [facility] [address], [address] [place] [address] Register In Chancery: Tucker Hoyos MD Basophils/100 WBC (Bld) 0.7 % Normal [facility] Comment on above: Performed By: #### 6 399, 899, 866, 81775 #### [facility] of [address], [address] [place] [address] Register In Chancery: Tucker Hoyos MD Eosinophils (Bld) [#/Vol] 0.039 10*3/uL Normal 15-500 [facility] Comment on above: Performed By: #### 6 399, 899, 866, 46424 #### [facility] of [address], [address] [place] [address] Register In Chancery: Tucker Hoyos MD Eosinophils/100 WBC (Bld) 0.9 % Normal [facility] Comment on above: Performed By: #### 6 399, 899, 866, 11099 #### [facility] of [place] [address] Register In Chancery: Tucker Hoyos MD Erythrocyte distribution width (RBC) [Ratio] 13.2 % Normal 11.0-15.0 [facility] Comment on above: Performed By: #### 6 399, 899, 866, 37027 #### [facility] of [place] [address] Register In Chancery: Tucker Hoyos MD Hematocrit (Bld) [Volume fraction] 41.5 % Normal 35.0-45.0 [facility] Comment on above: Performed By: #### 6 399, 899, 866, 56059 #### [facility] of [place] [address] Register In Chancery: Tucker Hoyos MD Hemoglobin (Bld) [Mass/Vol] 13.7 g/dL Normal 11.7-15.5 [facility] Comment on above: Performed By: #### 6 399, 899, 866, 00936 #### [facility] of [place] [address] Register In Chancery: Tucker Hoyos MD Lymphocytes (Bld) [#/Vol] 1.509 10*3/uL Normal 850-3900 [facility] Comment on above: Performed By: #### 6 399, 899, 866, 83774 #### [facility] of [address], [address] [place] [address] Register In Chancery: Tucker Hoyos MD Lymphocytes/100 WBC (Bld) 35.1 % Normal [facility] Comment on above: Performed By: #### 6 399, 899, 866, 72724 #### [facility] of [place] [address] Register In Chancery: Tucker Hoyos MD MCH (RBC) [Entitic mass] 27.2 pg Normal 27.0-33.0 [facility] Comment on above: Performed By: #### 6 399, 899, 866, 04765 #### [facility] of [place] [address] Register In Chancery: Tucker Hoyos MD MCHC (RBC) [Mass/Vol] 33.0 g/dL Normal 32.0-36.[address] [facility] Comment on above: Result Comment: For adults, a slight decrease in the calculated MCHC value (in the range of 30 to 32 g/dL) is most likely not clinically significant; however, it should be interpreted with caution in correlation with other red cell parameters and the patient's clinical condition. Performed By: #### 6 399, 899, 866, 91608 #### [facility] of [place] [address] Register In Chancery: Tucker Hoyos MD MCV (RBC) [Entitic vol] 82.5 fL Normal 80.0-100.0 [facility] Comment on above: Performed By: #### 6 399, 899, 866, 43280 #### [facility] of [place] [address] Register In Chancery: Tucker Hoyos MD Monocytes (Bld) [#/Vol] 0.262 10*3/uL Normal 200-950 [facility] Comment on above: Performed By: #### 6 399, 899, 866, 51587 #### [facility] of [place] [address] Register In Chancery: Tucker Hoyos MD Monocytes/100 WBC (Bld) 6.1 % Normal [facility] Comment on above: Performed By: #### 6 399, 899, 866, 35877 #### [facility] of [address], [address] [place] [address] Register In Chancery: Tucker Hoyos MD Neutrophils (Bld) [#/Vol] 2.46 10*3/uL Normal 0636-2179 [facility] Comment on above: Performed By: #### 6 399, 899, 866, 77270 #### [facility] of [address], [address] [place] [address] Register In Chancery: Tucker Hoyos MD Neutrophils/100 WBC (Bld) 57.2 % Normal [facility] Comment on above: Performed By: #### 6 399, 899, 866, 63030 #### [facility] of [address], [address] [place] [address] Register In Chancery: Tucker Hoyos MD Platelet mean volume (Bld) [Entitic vol] 11.3 fL Normal 7.5-12.5 [facility] Comment on above: Performed By: #### 6 399, 899, 866, 93765 #### [facility] of [address], [address] [place] [address] Register In Chancery: Tucker Hoyos MD Platelets (Bld) [#/Vol] 225 10*3/uL Normal 140-400 [facility] Comment on above: Performed By: #### 6 399, 899, 866, 91545 #### [facility] of [address], [address] [place] [address] Register In Chancery: Tucker Hoyos MD RBC (Bld) [#/Vol] 5.03 10*6/uL Normal 3.80-5.10 [facility] Comment on above: Performed By: #### 6 399, 899, 866, 73331 #### [facility] of [address], [address] [place] [address] Register In Chancery: Tucker Hoyos MD WBC (Bld) [#/Vol] 4.3 10*3/uL Normal 3.8-10.8 [facility] Comment on above: Performed By: #### 6 399, 899, 866, 22574 #### [facility] of [address], [address] [place] [address] Register In Chancery: Tucker Hoyos MD [facility] 08-10-2024 Albumin [Mass/Vol] 4.2 g/dL Normal 3.6-5.1 [facility] Comment on above: Performed By: #### 6 399, 899, 866, 72806 #### [facility] of [place] [address] Register In Chancery: Tucker Hoyos MD Albumin/Globulin [Mass ratio] 1.7 {ratio} Normal 1.0-2.5 [facility] Comment on above: Performed By: #### 6 399, 899, 866, 47953 #### [facility] of [address], [address] [place] [address] Register In Chancery: Tucker Hoyos MD ALP [Catalytic activity/Vol] 39 U/L Normal 31-125 [facility] Comment on above: Performed By: #### 6 399, 899, 866, 18637 #### [facility] of [place] [address] Register In Chancery: Tucker Hoyos MD ALT [Catalytic activity/Vol] 17 U/L Normal 6-29 [facility] Comment on above: Performed By: #### 6 399, 899, 866, 15709 #### [facility] of [address], [address] [place] [address] Register In Chancery: Tucker Hoyos MD AST [Catalytic activity/Vol] 17 U/L Normal 10-30 [facility] Comment on above: Performed By: #### 6 399, 899, 866, 83226 #### [facility] of [place] [address] Register In Chancery: Tucker Hoyos MD Bilirubin [Mass/Vol] 0.7 mg/dL Normal 0.2-1.2 [facility] Comment on above: Performed By: #### 6 399, 899, 866, 84916 #### [facility] [place] [address] Register In Chancery: Tucker Hoyos MD BUN/CREATININE RATIO SEE NOTE: Normal 6-22 [facility] Comment on above: Result Comment: Not Reported: BUN and Creatinine are within reference range. Performed By: #### 6 399, 899, 866, 81889 #### [facility] [place] [address] Register In Chancery: Tucker Hoyos MD Calcium [Mass/Vol] 9.1 mg/dL Normal 8.6-10.2 [facility] Comment on above: Performed By: #### 6 399, 899, 866, 09698 #### [facility] [place] [address] Register In Chancery: Tucker Hoyos MD Chloride [Moles/Vol] 106 mmol/L Normal 98-110 [facility] Comment on above: Performed By: #### 6 399, 899, 866, 97482 #### [facility] [place] [address] Register In Chancery: Tucker Hoyos MD CO2 [Moles/Vol] 26 mmol/L Normal 20-32 [facility] Comment on above: Performed By: #### 6 399, 899, 866, 22483 #### [facility] [place] [address] Register In Chancery: Tucker Hoyos MD Creatinine [Mass/Vol] 0.74 mg/dL Normal 0.50-0.[address] [facility] [address] [facility] Comment on above: Performed By: #### 6 399, 899, 866, 60115 #### [facility] [place] [address] Register In Chancery: Tucker Hoyos MD GFR/1.73 sq M.predicted among non-blacks MDRD (S/P/Bld) [Vol rate/Area] 117 mL/min/{1.73_m2} Normal > OR = 60 [facility] Comment on above: Performed By: #### 6 399, 899, 866, 49213 #### [facility] [address], [address] [place] [address] Register In Chancery: Tucker Hoyos MD Globulin (S) [Mass/Vol] 2.5 g/dL Normal 1.9-3.7 [facility] Comment on above: Performed By: #### 6 399, 899, 866, 48099 #### [facility] [place] [address] Register In Chancery: Tucker Hoyos MD Glucose [Mass/Vol] 81 mg/dL Normal 65-99 [facility] Comment on above: Result Comment: Fasting reference interval Performed By: #### 6 399, 899, 866, 23271 #### [facility] of [address], [address] [place] [address] Register In Chancery: Tucker Hoyos MD Potassium [Moles/Vol] 4.1 mmol/L Normal 3.5-5.[address] [facility] Comment on above: Performed By: #### 6 399, 899, 866, 15140 #### [facility] [place] [address] Register In Chancery: Tucker Hoyos MD Protein [Mass/Vol] 6.7 g/dL Normal 6.1-8.1 [facility] Comment on above: Performed By: #### 6 399, 899, 866, 33376 #### [facility] of [place] [address] Register In Chancery: Tucker Hoyos MD Sodium [Moles/Vol] 138 mmol/L Normal 135-146 [facility] Comment on above: Performed By: #### 6 399, 899, 866, 34526 #### [facility] [place] [address] Register In Chancery: Tucker Hoyos MD Urea nitrogen [Mass/Vol] 11 mg/dL Normal 7-25 [facility] Comment on above: Performed By: #### 6 399, 899, 866, 62553 #### [facility] [place] [address] Register In Chancery: Tucker Hoyos MD FERRITINon 08-10-2024 Ferritin [Mass/Vol] 36 ng/mL Normal 16-154 [facility] Comment on above: Performed By: #### 6 399, 899, 866, 97299 #### [facility] [place] [address] Register In Chancery: Tucker Hoyos MD T4, FREEon 08-10-2024 Free T4 [Mass/Vol] 1.4 ng/dL Normal 0.8-1.8 [facility] Comment on above: Performed By: #### 6 399, 899, 866, 32239 #### [facility] [place] [address] Register In Chancery: Tucker Hoyos MD TSHon 08-10-2024 TSH Qn 1.18 m[IU]/L Normal [facility] Comment on above: Result Comment: Refe rence Range > or = 20 Years 0.40-4.50 Ranges First trimester 0.26-2.66 Second trimester 0.55-2.73 Third trimester 0.43-2.91 Performed By: #### 6 399, 899, 866, 31035 #### [facility] [place] [address] Register In Chancery: Tucker Hoyos MD Laboratory - Chemistry and C hemistry - challengeon 08-09-2024 Albumin [Mass/Vol] 4.2 g/dL Normal 3.6 - 5.1 g/dL [facility], [facility].; [facility] Albumin/Globulin [Mass ratio] 1.7 {ratio} Normal 1.0 - 2.5 [facility], [facility].; [facility] ALP [Catalytic activity/Vol] 39 U/L Normal 31 - 125 U/L [facility], [facility].; [facility], [facility]. ALT [Catalytic activity/Vol] 17 U/L Normal 6 - 29 U/L [facility].; [facility], [facility]. AST [Catalytic activity/Vol] 17 U/L Normal 10 - 30 U/L [facility], [facility].; [facility], [facility] Bilirubin [Mass/Vol] 0.7 mg/dL Normal 0.2 - 1 .2 mg/dL [facility].; [facility], [facility]. Calcium [Mass/Vol] 9.1 mg/dL Normal 8.6 - 10. 2 mg/dL [facility], [facility].; [facility], [facility] Chloride [Moles/Vol] 106 mmol/L Normal 98 - 11 0 mmol/L [facility].; [facility], [facility]. CO2 [Moles/Vol] 26 mmol/L Normal 20 - 32 mmol/L [facility].; [facility], [facility] Creatinine [Mass/Vol] 0.74 mg/dL Normal 0.50 - 0.96 mg/dL [facility], [facility].; [facility], [facility]. Ferritin [Mass/Vol] 36 ng/mL Normal 16 - 154 ng/mL [facility]; [facility], [facility] Free T4 [Mass/Vol] 1.4 ng/dL Normal 0.8 - 1.8 ng/dL [facility], [facility].; [facility], [facility] GFR/1.73 sq M.predicted among non-blacks MDRD (S/P/Bld) [Vol rate/Area] 117 mL/min/{1.73_m2} Normal [facility], [facility].; [facility], [facility] Glucose [Mass/Vol] 81 mg/dL Normal 65 - 99 mg/dL [facility].; [facility], [facility]. Potassium [Moles/Vol] 4.1 mmol/L Normal 3.5 - 5.3 mmol/L [facility], [facility].; [facility], [facility] Protein [Mass/Vol] 6.7 g/dL Normal 6.1 - 8.1 g/dL [facility] [employer] [facility]. Sodium [Moles/Vol] 138 mmol/L Normal 135 - 146 mmol/L [facility].; [email or web address] [email or web address] [facility]. TSH Qn 1.18 m[IU]/L Normal [facility].; [place] [employer], [facility] Urea nitrogen [Mass/Vol] 11 mg/dL Normal 7 - 25 mg/d L [facility].; [place] [employer] [facility]. Laboratory - Hematology and Cell countson 08-09-2024 Basophils (Bld) [#/Vol] 0.03 10*3/uL Normal 0 - 200 {cells/uL} [facility].; [email or web address] [email or web address] [facility] Basophils/100 WBC (Bld) 0.7 % Normal [facility].; [email or web address] [email or web address] [facility], [facility] Eosinophils (Bld) [#/Vol] 0.039 10*3/uL Normal 15 - 500 {cells/uL} [email or web address] [facility].; [place] [employer]. Eosinophils/100 WBC (Bld) 0.9 % Normal [email or web address] [facility].; [place] [employer]. Erythrocyte distribution width (RBC) [Ratio] 13.2 % Normal 11.0 - 15.0 % [facility].; [place] [email or web address] [facility], [facility]. Hematocrit (Bld) [Volume fraction] 41.5 % Normal 35.0 - 45.0 % [email or web address] [facility].; [place] [employer], [facility]. Hemoglobin (Bld) [Mass/Vol] 13.7 g/dL Normal 11.7 - 15.5 g/dL [email or web address] [facility].; [place] [employer] [facility]. Lymphocytes (Bld) [#/Vol] 1.509 10*3/uL Normal 850 - 3900 {cells/uL} [place] [employer] [facility].; [place] [employer]. Lymphocytes/100 WBC (Bld) 35.1 % Normal [email or web address] [facility].; [place] [employer], [employer] MCH (RBC) [Entitic mass] 27.2 pg Normal 27.0 - 33.0 pg [place] [employer] [facility].; [place] [employer], [employer] MCHC (RBC) [Mass/Vol] 33.0 g/dL Normal 32.0 - 36.0 g/dL [facility], [facility].; [place] [employer], [employer] MCV (RBC) [Entitic vol] 82.5 fL Normal 80.0 - 100.0 fL [facility], [facility].; [facility] [employer] Monocytes (Bld) [#/Vol] 0.262 10*3/uL Normal 200 - 950 {cells/uL} [facility] [place] [employer] Monocytes/100 WBC (Bld) 6.1 % Normal [facility], [facility].; [place] [employer] Neutrophils (Bld) [#/Vol] 2.46 10*3/uL Normal 1500 - 7800 {cells/uL} [facility] [employer], [facility].; [place] [employer] Neutrophils/100 WBC (Bld) 57.2 % Normal [facility], [facility].; [place] [employer] Platelet mean volume (Bld) [Entitic vol] 11.3 fL Normal 7.5 - 12.5 fL [facility], [facility].; [place] [employer] Platelets (Bld) [#/Vol] 225 10*3/uL Normal 140 - 400 [place] [employer] [facility].; [place] [employer] RBC (Bld) [#/Vol] 5.03 10*6/uL Normal 3.80 - 5.1 0 {Million/uL} [place] [employer], [facility].; [place] [employer] WBC (Bld) [#/Vol] 4.3 10*3/uL Normal 3.8 - 10.8 [place] [employer], [employer] [place] [employer] No Panel Informationon 08-09 BUN/CREATININE RATIO SEE NOTE: Normal 6 - 22 [facility] [employer] GLOBULIN 2.5 Normal 1.9 - 3.7 [place] [employer], [employer] [place] [employer] No Panel Informationon 08-04 [id number] SEE NOTE Normal [place] [employer] CLINICAL INFORMATION: SEE NOTE Normal [facility], [facility].; [employer] CAD MANAGER: SEE NOTE Normal [place] [employer] INTERPRETATION/RESULT: SEE NOTE Normal [facility] [employer] LMP: SEE NOTE Normal [employer] PREV. BX: SEE NOTE Normal [employer] PREV. PAP: SEE NOTE Normal [employer] SOURCE: SEE NOTE Normal [employer] STATEMENT OF ADEQUACY: SEE NOTE Normal [facility] [employer] THYROIDon 07-11-2021 [place] [address] Patient: CHARLIE HESS Phone#: : 2000 Age: 21 Gender: F Pt. Type: Out Account: [id number] Location: Ordering: [facility] Exam Date: 07/11/2021/11:48 Family Phys: Charge Code: [id number] Physician: Isabela Order #: [id number] [id number] Dose#: PROCEDURE: THYROID ULTRASOUND COMPARISON: None. INDICATIONS: Enlarged thyroid. TECHNIQUE: High-resolution ultrasound was performed of the thyroid gland. FINDINGS: RIGHT LOBE: Normal. No visible mass, cyst, calcification, enlargement, or abnormal echotexture. Right lobe measures 4.9 x 1.5 x 1.3 cm, with a volume of 4.5 mL. LEFT LOBE: There is a small cyst containing punctate echogenicity in the left upper pole measuring 0.2 x 0.4 cm, not meeting criteria for follow-up. The left thyroid measures 4.3 x 1.0 x 1.6 cm with a volume of 3.3 mL. ISTHMUS: Normal. No visible mass, cyst, calcification, enlargement, or abnormal echotexture. Isthmus measures 0.2 cm. OTHER: None. CONCLUSION: 1. Small left thyroid cyst. Otherwise unremarkable thyroid ultrasound. Dictated by: Magy Blanco MD on 07/11/2021 at 13:38 Approved by: Magy Blanco MD on 07/11/2021 at 13:42 Normal [facility] Laboratory - Chemistry and C hemistry - challengeon 07-05-2021 Free T4 [Mass/Vol] 1.2 ng/dL Normal 0.8 - 1.4 ng/dL [facility].; [facility], [facility] [facility] TSH Qn 1.27 m[IU]/L Normal [facility]; [facility] Vital Signs Date Time Vital Sign Value Performing Clinician Facility 06-17-2025 14:39-0400 Body height 172.[address] Anthony Mercedes MD Work Phone: 3(941)[phone] [address] 06-17-2025 14:39-0400 Body mass index (BMI) [Ratio] 29.8 kg/m2 Dr. Anthony Mercedes MD Work Phone: 4(491)745-426505 [address] 06-17-2025 14:39-0400 Body weight 89.[address] Anthony Mercedes MD Work Phone: 7(093)[phone] [address] 06-17-2025 14:39-0400 Diastolic blood pressure 74 mm[Hg] Dr. Anthony Mercedes MD Work Phone: 2(295)325-550405 [address] 06-17-2025 14:39-0400 Systolic blood pressure 119 mm[Hg] Dr. Anthony Mercedes MD Work Phone: 6(187)557-680013 [place] [address] 05-20-2025 13:53-0400 Body height 172.[address] Anthony Mercedes MD Work Phone: 0(890)[phone] [address] 05-20-2025 13:53-0400 Body mass index (BMI) [Ratio] 28.8 kg/m2 Dr. Anthony Mercedes MD Work Phone: 4(431)182-211905 [address] 05-20-2025 13:53-0400 Body weight 85.[address] Anthony Mercedes MD Work Phone: 9(779)493-874205 [address] 05-20-2025 13:53-0400 Diastolic blood pressure 72 mm[Hg] Dr. Anthony Mercedes MD Work Phone: 9(755)946-466805 [address] 05-20-2025 13:53-0400 Systolic blood pressure 120 mm[Hg] Dr. Anthony Mercedes MD Work Phone: 5(341)407-440713 [place] [address] 04-22-2025 08:22-0400 Body height 172.[address] Anthony Mercedes MD Work Phone: 3(756)606-549105 [address] 04-22-2025 08:22-0400 Body mass index (BMI) [Ratio] 28.5 kg/m2 Dr. Anthony Mercedes MD Work Phone: 1(546)650-292418 [place] [address] 04-22-2025 08:22-0400 Body weight 84.[address] Anthony Mercedes MD Work Phone: 1(152)438-783118 [place] [address] 04-22-2025 08:22-0400 Diastolic blood pressure 63 mm[Hg] Dr. Anthony Mercedes MD Work Phone: 8(366)503-538118 [place] [address] 04-22-2025 08:22-0400 Systolic blood pressure 104 mm[Hg] Dr. Anthony Mercedes MD Work Phone: 0(025)043-033918 [place] [address] 04-05-2025 09:08-0400 Body mass index (BMI) [Ratio] 28.3 kg/m2 Dr. Anthony Mercedes MD Work Phone: 7(950)593-370018 [place] [address] 04-05-2025 09:08-0400 Body weight 84.[address] Anthony Mercedes MD Work Phone: 3(231)763-002418 [place] [address] 04-05-2025 09:08-0400 Diastolic blood pressure 58 mm[Hg] Dr. Anthony Mercedes MD Work Phone: 0(003)220-466418 [place] [address] 04-05-2025 09:08-0400 Systolic blood pressure 108 mm[Hg] Dr. Anthony Mercedes MD Work Phone: 0(568)005-049918 [place] [address] 12-13-2024 09:29-0500 Body height 172.72 cm Homero Truong LPN [facility], [facility].; [facility]. 12-13-2024 09:29-0500 Body mass index (BMI) [Ratio] 27.22 kg/m2 Homero Truong LPN [facility], [facility].; [facility]. 12-13-2024 09:29-0500 Body surface area Derived from formula 1.95 m2 Homero Alexichava [place] [facility], [facility].; [facility], [facility]. 12-13-2024 09:29-0500 Body weight 81.19 kg Homero Alexi [place] [facility], [facility]. 12-13-2024 09:29-0500 Diastolic blood pressure 75 mm[Hg] Homero Alexichava [place] [facility], [facility].; [place] [email or web address] [facility], [employer] Comment on above: Patient Position: Sitting; Cuff Location : Left Arm; Cuff Size: Standard 12-13-2024 09:29-0500 Heart rate 88 /min Homero Alexi FARM HAND [facility], [facility].; [facility] Comment on above: Pattern: Regular 12-13-2024 09:29-0500 Systolic blood pressure 114 mm[Hg] Homero Alexi FARM HAND [facility], [facility].; [place] [email or web address] [facility], [employer]. Comment on above: Patient Position: Sitting; Cuff Location : Left Arm; Cuff Size: Standard 08-09-2024 09:16-0400 Body height 168.91 cm Becky Hunter FARM HAND [facility], [facility].; [place] [email or web address] [facility], [facility]. 08-09-2024 09:16-0400 Body mass index (BMI) [Ratio] 28.14 kg/m2 Becky Hunter FARM [employer] [facility], [facility].; [facility], [facility]. 08-09-2024 09:160400 Body surface area Derived from formula 1.91 m2 Becky Hunter FARM HAND [facility], [facility].; [facility], [facility]. 08-09-2024 09:16-0400 Body weight 80.29 kg Becky Hunter [facility], [facility].; [place] [email or web address] [facility], [facility]. 08-09-2024 09:16-0400 Diastolic blood pressure 73 mm[Hg] Becky Hunter FARM HAND [facility], [facility].; [place] [employer], [employer] Comment on above: Patient Position: Sitting; Cuff Location : Left Arm; Cuff Size: Standard 08-09-2024 09:16-0400 Heart rate 81 /min Becky Wilson Dale [facility], [facility].; [employer] [facility] Comment on above: Pattern: Regular 08-09-2024 09:16-0400 Systolic blood pressure 117 mm[Hg] Becky Hunter [facility] [employer]. Comment on above: Patient Position: Sitting; Cuff Location : Left Arm; Cuff Size: Standard 08-04-2023 09:31-0400 Body height 168.91 cm Becky Wilson Dale [facility], [facility].; [place] [email or web address] [facility] 08-04-2023 09:31-0400 Body mass index (BMI) [Ratio] 28.94 kg/m2 Becky Wilson Dale [facility], [facility].; [employer], [employer] 08-04-2023 09:31-0400 Body surface area Derived from formula 1.93 m2 Becky Wilson Dale [facility], [facility].; [employer]. 08-04-2023 09:31-0400 Body weight 82.56 kg Becky Espinozalabach [facility], [facility].; [employer]. 08-04-2023 09:31-0400 Diastolic blood pressure 77 mm[Hg] Becky Hunter [facility], [facility].; [employer]. Comment on above: Patient Position: Sitting; Cuff Location : Left Arm; Cuff Size: Standard 08-04-2023 09:31-0400 Heart rate 81 /min Becky Espinozalabach [facility], [facility].; [employer]. Comment on above: Pattern: Regular 08-04-2023 09:31-0400 Systolic blood pressure 127 mm[Hg] Beck[facility] [employer]. Comment on above: Patient Position: Sitting; Cuff Location : Left Arm; Cuff Size: Standard 04-30-2023 08:51-0400 Body weight 81.65 kg Homero Truong [facility], [employer].; [employer]. 04-30-2023 08:51-0400 Diastolic blood pressure 61 mm[Hg] Homero Truong LPN [facility], [facility].; [place] [email or web address] [facility], [employer]. Comment on above: Patient Position: Sitting; Cuff Location : Left Arm; Cuff Size: Standard 04-30-2023 08:51-0400 Heart rate 87 /min Homero Truong LPN [facility] [employer] Comment on above: Pattern: Regular 04-30-2023 08:51-0400 Systolic blood pressure 106 mm[Hg] Homero Truong LPN [facility], [facility].; [employer] Comment on above: Patient Position: Sitting; Cuff Location : Left Arm; Cuff Size: Standard 03-12-2023 08:110400 Body height 168.91 cm Jaye Hendrickson MA [facility], [facility].; [place] [email or web address] [facility], [facility]. 03-12-2023 08:11-0400 Body mass index (BMI) [Ratio] 28.78 kg/m2 Jaye Hendrickson MA [facility], [facility].; [place] [email or web address] [facility], [facility]. 03-12-2023 08:11-0400 Body surface area Derived from formula 1.93 m2 Jaye Hendrickson MA [facility], [facility].; [facility], [facility]. 03-12-2023 08:11-0400 Body weight 82.1 kg Jaye Hendrickson MA [facility], [facility].; [place] [email or web address] [facility], [facility]. 03-12-2023 08:11-0400 Diastolic blood pressure 80 mm[Hg] Jaye Hendrickson MA [facility], [facility].; [employer] [facility], [employer]. Comment on above: Patient Position: Sitting; Cuff Location : Left Arm; Cuff Size: Standard 03-12-2023 08:11-0400 Heart rate 76 /min Jaye Hendrickson MA [facility], [facility].; [employer], [employer]. Comment on above: Pattern: Regular 03-12-2023 08:11-0400 Systolic blood pressure 116 mm[Hg] Jaye Hendrickson MA [facility], [facility].; [employer], [employer] Comment on above: Patient Position: Sitting; Cuff Location : Left Arm; Cuff Size: Standard 07-24-2022 09:18-0400 Body height 168.91 cm Becky Hunter LPN [facility], [facility].; [place] [email or web address] [facility]. 07-24-2022 09:18-0400 Body mass index (BMI) [Ratio] 26.87 kg/m2 Becky Wilson [place] [facility].; [place] [email or web address] [facility]. 07-24-2022 09:18-0400 Body surface area Derived from formula 1.87 m2 Becky Wilson Dale [facility], [facility].; [place] [email or web address] [facility]. 07-24-2022 09:18-0400 Body weight 76.66 kg Becky Wilson [place] [facility], [facility].; [place] [email or web address] [facility]. 07-24-2022 09:18-0400 Diastolic blood pressure 69 mm[Hg] Becky Wilson Dale [facility].; [employer]. Comment on above: Patient Position: Sitting; Cuff Location : Left Arm; Cuff Size: Standard 07-24-2022 09:18-0400 Heart rate 71 /min Becky Wilson Dale [facility].; [employer]. Comment on above: Pattern: Regular 07-24-2022 09:18-0400 Systolic blood pressure 111 mm[Hg] Becky Espinozalabach [facility], [facility].; [place] [employer]. Comment on above: Patient Position: Sitting; Cuff Location : Left Arm; Cuff Size: Standard 07-05-2021 14:16-0400 Body height 168.91 cm Daija Martell LPN [facility], [facility].; [place] [email or web address] [facility] 07-05-2021 14:16-0400 Body mass index (BMI) [Percentile] Per age and sex 82 % Daija Martell [facility], [facility].; [employer]. 07-05-2021 14:16-0400 Body mass index (BMI) [Ratio] 25.44 kg/m2 Daija Martell LPN [facility], [facility].; [employer]. 07-05-2021 14:16-0400 Body surface area Derived from formula 1.83 m2 Daija Martell LPN [place] [email or web address] [facility], [facility].; [employer]. 07-05-2021 14:16-0400 Body weight 72.58 kg Daija Martell [facility], [facility].; [place] [email or web address] [facility], [facility]. 07-05-2021 14:16-0400 Diastolic blood pressure 71 mm[Hg] Daija Martell [facility], [facility].; [employer], [employer] Comment on above: Patient Position: Sitting; Cuff Location : Left Arm; Cuff Size: Standard 07-05-2021 14:16-0400 Heart rate 76 /min Daija Martell [facility], [facility].; [employer] Comment on above: Pattern: Regular 07-05-2021 14:16-0400 Systolic blood pressure 115 mm[Hg] Daija Martell [facility], [facility].; [place] [email or web address] [facility], [facility] Comment on above: Patient Position: Sitting; Cuff Location : Left Arm; Cuff Size: Standard 02-18-2020 08:22-0400 Body height 168.91 cm Yuliya Freeman LPN [facility], [facility].; [place] [email or web address] [facility], [facility]. 02-18-2020 08:22-0400 Body mass index (BMI) [Percentile] Per age and sex 83 % Yuliya Freeman [facility], [facility].; [place] [email or web address] [facility], [facility]. 02-18-2020 08:22-0400 Body mass index (BMI) [Ratio] 25.12 kg/m2 Yuliya Freeman FARM HAND [facility] [employer], [facility]. 02-18-2020 08:22-0400 Body surface area Derived from formula 1.82 m2 Yuliya Freeman LPN [facility], [facility].; [employer], [facility]. 02-18-2020 08:22-0400 Body temperature 98.9 [degF] Yuliya Freeman [facility] [email or web address] [facility], [facility].; [employer], [employer] Comment on above: Method: Tympanic 02-18-2020 08:22-0400 Body weight 71.67 kg Yuliya Freeman LPN [place] [email or web address] [facility], [facility].; [employer], [employer] 02-18-2020 08:22-0400 Diastolic blood pressure 84 mm[Hg] Yuliya Freeman LPN [place] [employer], [employer] Comment on above: Patient Position: Sitting; Cuff Location : Left Arm; Cuff Size: Standard 02-18-2020 08:22-0400 Heart rate 109 /min Yuliya Freeman LPN [place] [email or web address] [facility], [facility] [employer] Comment on above: Pattern: Regular 02-18-2020 08:22-0400 Systolic blood pressure 127 mm[Hg] Yuliya Freeman F[employer] HAND [place] [employer], [employer] Comment on above: Patient Position: Sitting; Cuff Location : Left Arm; Cuff Size: Standard 05-19-2019 13:46-0400 Body height 168.91 cm Tammy Soliman LPN [email or web address] [email or web address] [facility], [facility].; [employer], [employer] 05-19-2019 13:46-0400 Body mass index (BMI) [Percentile] Per age and sex 86 % Tammy Soliman LPN [place] [employer] 05-19-2019 13:46-0400 Body mass index (BMI) [Ratio] 25.62 kg/m2 Tammy Soliman LPN [place] [employer] 05-19-2019 13:46-0400 Body surface area Derived from formula 1.83 m2 Tammy Soliman LPN [place] [email or web address] [facility], [facility].; [employer], [employer] 05-19-2019 13:46-0400 Body weight 73.09 kg Tammy Soliman LPN [place] [employer], [employer] 05-19-2019 13:46-0400 Diastolic blood pressure 71 mm[Hg] Tammy Soliman LPN [employer], [employer].; [employer], [employer] Comment on above: Patient Position: Sitting; Cuff Location : Left Arm; Cuff Size: Standard 05-19-2019 13:46-0400 Heart rate 77 /min Tammy Soliman LPN [place] [employer], [employer] Comment on above: Pattern: Regular 05-19-2019 13:46-0400 Systolic blood pressure 115 mm[Hg] Tammy Wengerd [facility].; [employer] [facility]. Comment on above: Patient Position: Sitting; Cuff Location : Left Arm; Cuff Size: Standard 05-03-2019 10:41-0400 Body height 171.45 cm Noris Mueller [facility].; [employer], [employer] 05-03-2019 10:41-0400 Body mass index (BMI) [Percentile] Per age and sex 82 % Noris Mueller [facility].; [place] [email or web address] [facility], [employer]. 05-03-2019 10:41-0400 Body mass index (BMI) [Ratio] 24.69 kg/m2 Shasta Ervin [facility] [employer], [employer] 05-03-2019 10:41-0400 Body surface area Derived from formula 1.85 m2 Noris Mueller [facility] [employer], [employer]. 05-03-2019 10:41-0400 Body temperature 98.1 [degF] Noris Mueller [facility].; [employer]. Comment on above: Method: Tympanic 05-03-2019 10:41-0400 Body weight 72.58 kg Noris Mueller [facility] [employer], [employer] 05-03-2019 10:41-0400 Inhaled oxygen concentration 21 % ShastaAntonina Mueller [facility] [employer]. Comment on above: Room air 05-03-2019 10:41-0400 SaO2% (BldA) [Mass fraction] 99 % Noris Mueller [facility] [employer], [employer] 06-15-2018 10:56-0400 Body height 170.18 cm Tammy Soliman [facility], [employer].; [employer] 06-15-2018 10:56-0400 Body mass index (BMI) [Percentile] Per age and sex 92 % Tammy Soliman [facility].; [place] [employer]. 06-15-2018 10:56-0400 Body mass index (BMI) [Ratio] 27.27 kg/m2 Tammy Welisandro [place] [facility] [employer] 06-15-2018 10:56-0400 Body surface area Derived from formula 1.91 m2 Tammy Janny [place] [facility] [employer] 06-15-2018 10:56-0400 Body weight 78.98 kg [facility]anny [facility].; [employer], [employer] 06-15-2018 10:56-0400 Diastolic blood pressure 64 mm[Hg] Tammy Janny [facility] [employer] Comment on above: Patient Position: Sitting; Cuff Location : Left Arm; Cuff Size: Standard 06-15-2018 10:56-0400 Heart rate 76 /min Tammy Janny [place] [facility] [employer] Comment on above: Pattern: Regular 06-15-2018 10:56-0400 Systolic blood pressure 105 mm[Hg] Tammy Welisandro [place] [email or web address] [facility], [facility] [employer] Comment on above: Patient Position: Sitting; Cuff Location : Left Arm; Cuff Size: Standard 08-08-2017 15:070400 Body height 167.64 cm Tammy Janny [place] [email or web address] [facility] [employer] 08-08-2017 15:07-0400 Body mass index (BMI) [Percentile] Per age and sex 93 % Tammycarleen Soliman LPN [place] [email or web address] [facility], [facility] [employer] 08-08-2017 15:07-0400 Body mass index (BMI) [Ratio] 26.95 kg/m2 Tammy Janny [facility] [email or web address] [facility], [facility].; [employer] 08-08-2017 15:07-0400 Body surface area Derived from formula 1.85 m2 Tammy Janny [place] [email or web address] [facility], [facility].; [employer] 08-08-2017 15:070400 Body weight 75.75 kg Tammy Soliman LPN [place] [email or web address] [facility], [facility].; [employer] 08-08-2017 15:07-0400 Diastolic blood pressure 69 mm[Hg] Tammy Janny [place] [email or web address] [facility], [facility].; [employer], [employer] Comment on above: Patient Position: Sitting; Cuff Location : Left Arm; Cuff Size: Standard 08-08-2017 15:07-0400 Heart rate 61 /min Tammy Soliman LPN [place] [email or web address] [facility], [facility].; [employer], [employer] Comment on above: Pattern: Regular 08-08-2017 15:07-0400 Systolic blood pressure 112 mm[Hg] Tammy Janny JETERN [employer].; [employer], [employer] Comment on above: Patient Position: Sitting; Cuff Location : Left Arm; Cuff Size: Standard 08-09-2016 15:42-0400 Body height 167.64 cm Tammycarleen Soliman LPN [place] [email or web address] [facility], [facility].; [employer], [employer] 08-09-2016 15:42-0400 Body mass index (BMI) [Percentile] Per age and sex 93 % [facility] [employer] 08-09-2016 15:42-0400 Body mass index (BMI) [Ratio] 26.15 kg/m2 Tammycarleen Soliman LPN [place] [employer] [employer] 08-09-2016 15:42-0400 Body surface area Derived from formula 1.83 m2 Tammy Soliman LPN [place] [email or web address] [facility], [facility].; [employer], [employer] 08-09-2016 15:42-0400 Body weight 73.48 kg Tammycarleen Soliman LPAl[facility] ClinicBancha, Inc.; [employer], [employer] 08-09-2016 15:42-0400 Diastolic blood pressure 76 mm[Hg] Tammy Soliman LPN [employer], [employer] Comment on above: Patient Position: Sitting; Cuff Location : Left Arm; Cuff Size: Standard 08-09-2016 15:42-0400 Heart rate 60 /min Tammy Soliman LPN [employer].; [employer]. Comment on above: Pattern: Regular 08-09-2016 15:42-0400 Systolic blood pressure 121 mm[Hg] Tammy Soliman LPN [employer].; [employer]. Comment on above: Patient Position: Sitting; Cuff Location : Left Arm; Cuff Size: Standard 08-01-2015 16:36-0400 Body height 163.83 cm Cheryle Michelle Talberter PA-C Work Phone: [employer].; [employer]. 08-01-2015 16:36-0400 Body mass index (BMI) [Percentile] Per age and sex 95 % Cheryle Michelle Bazan PA-C Work Phone: [employer].; [employer]. 08-01-2015 16:36-0400 Body mass index (BMI) [Ratio] 26.53 kg/m2 Cheryle Martinez Bazan PA-C Work Phone: [employer]; [employer]. 08-01-2015 16:36-0400 Body surface area Derived from formula 1.77 m2 Cheryle Martinez Bazan PA-C Work Phone: [employer]; [employer]. 08-01-2015 16:36-0400 Body weight 71.22 kg Cheryle Martinez Bazan PA-C Work Phone: [employer].; [employer]. 08-01-2015 16:36-0400 Heart rate 79 /min Cheryle Martinez Bazan PA-C Work Phone: [employer].; [employer]. Comment on above: Pattern: Regular 07-22-2014 15:26-0400 Body height 162.56 cm Tammy Soliman LPN [employer].; [employer]. 07-22-2014 15:26-0400 Body mass index (BMI) [Percentile] Per age and sex 93 % Tammy Soliman LPN [facility], [facility].; [facility], [facility]. 07-22-2014 15:26-0400 Body mass index (BMI) [Ratio] 24.56 kg/m2 Tammy Janny [place] [facility], [facility].; [facility], [facility]. 07-22-2014 15:26-0400 Body surface area Derived from formula 1.7 m2 Tammy Soliman LPN [facility], [facility].; [place] [email or web address] [facility], [facility]. 07-22-2014 15:26-0400 Body weight 64.89 kg Tammy Janny [place] [facility], [facility].; [place] [email or web address] [facility], [facility]. 07-22-2014 15:26-0400 Diastolic blood pressure 64 mm[Hg] Tammy Janny [place] [facility], [facility].; [place] [email or web address] [facility], [employer] Comment on above: Patient Position: Sitting; Cuff Location : Left Arm; Cuff Size: Standard 07-22-2014 15:26-0400 Heart rate 73 /min Tammy Soliman LPN [facility], [facility].; [place] [employer] Comment on above: Pattern: Regular 07-22-2014 15:26-0400 Systolic blood pressure 111 mm[Hg] Tammy Janny [place] [facility], [facility].; [place] [email or web address] [facility], [employer] Comment on above: Patient Position: Sitting; Cuff Location : Left Arm; Cuff Size: Standard 05-28-2012 08:06-0400 Body temperature 97.7 [degF] Sanjana Lance RN [facility], [facility].; [place] [employer]. Comment on above: Method: Tympanic 05-28-2012 08:06-0400 Body weight 45.36 kg Sanjana Lance RN [facility], [facility].; [place] [email or web address] [facility]. 05-28-2012 08:06-0400 Diastolic blood pressure 77 mm[Hg] Sanjana Lance RN [facility].; [place] [employer], [employer] Comment on above: Patient Position: Sitting; Cuff Location : Left Arm; Cuff Size: Standard 05-28-2012 08:06-0400 Heart rate 108 /min Sanjana Lance RN [facility], [employer]; [facility]. Comment on above: Pattern: Regular 05-28-2012 08:06-0400 Systolic blood pressure 122 mm[Hg] Sanjana Lance RN [facility]; [facility] Comment on above: Patient Position: Sitting; Cuff Location : Left Arm; Cuff Size: Standard 08-02-2010 08:52-0400 Body temperature 98.3 [degF] Technical Machine PA-C Work Phone: [facility] [place]; [facility] Comment on above: Method: Tympanic 08-02-2010 08:52-0400 Body weight 36.29 kg Technical Machine PA-C [facility] Phone: [facility] En[facility]ters Encounter Date Encounter Type Care Provider Facility Start: 07-05-2025 End: 07-05-2025 ambulatory [facility] Start: 06-17-2025 End: 06-17-2025 Patient encounter procedure Keith Archuleta CNM -[facility] Work Phone: Start: 06-17-2025 End: 06-17-[address] Anthony Mercedes MD Work Phone: [facility] Start: 05-20-2025 End: 05-20-2025 Patient encounter procedure Keith Archuleta CNM -[facility] Work Phone: Start: 05-20-2025 End: 05-20-[address] Anthony Mercedes MD Work Phone: -[facility] Start: 04-22-2025 End: 04-22-[address] Tammy Cooley DO -[facility] Work Phone: Start: 04-22-2025 End: 04-22-[address] Anthony Mercedes MD Work Phone: [facility] Work Phone: Start: 04-22-2025 End: 04-22-2025 ambulatory Tammy Cooley Facility:[facility] Start: 04-05-2025 End: 04-05-2025 Patient encounter procedure Iris ERICC -[facility] Work Phone: Start: 04-05-2025 End: 04-05-[address] Anthony Mercedes MD Work Phone: [facility] Work Phone: Start: 12-13-2024 End: 12-13-2024 Office outpatient visit 15 minutes Cheryle Bazan PA-C Work Phone: [facility]. Start: 12-13-2024 Review Cheryle Bazan PA-C Work Phone: [facility]. Start: 10-25-2024 End: 10-25-2024 Medication Cheryle Bazan PA-C Work Phone: [facility]. Start: 08-09-2024 End: 08-09-2024 Patient encounter procedure Cheryle Martinez Bazan PA-C Work Phone: [facility]. Start: 08-09-2024 End: 08-09-2024 Periodic preventive med est patient 18-39 yrs Cheryle Bazan PA-C Work Phone: [facility]. Start: 09-03-2023 End: 09-04-2023 Orders Cheryle Bazan PA-C Work Phone: [facility]. Start: 08-04-2023 End: 08-04-2023 Medication Cheryle Bazan PA-C Work Phone: [facility]. Start: 08-04-2023 End: 08-04-2023 Patient encounter procedure Cheryle Talberter PA-C Work Phone: [facility]. Start: 08-04-2023 End: 08-04-2023 Patient encounter status Cheryle Talberter PA-C Work Phone: [facility] Start: 04-30-2023 End: 04-30-2023 Patient encounter procedure Cheryle Bazan PA-C [facility] Phone: [facility] Start: 03-12-2023 End: 03-12-2023 Patient encounter procedure Cheryle Talberter PA-C Work Phone: [facility]. Start: 08-22-2022 End: 08-23-2022 Orders Cheryle Talberter PA-C Work Phone: [facility] [employer]. Start: 07-24-2022 End: 07-24-2022 Patient encounter procedure Cherylekatie Talberter PA-C Work Phone: [facility] Start: 10-08-2021 End: 10-08-2021 Nursing evaluation of patient and report Cheryle Talberter PA-C Work Phone: [facility]. Start: 07-11-2021 End: 07-11-2021 ambulatory CHERYLE BAZAN [facility] Start: 07-05-2021 End: 07-05-2021 Patient encounter procedure Cheryle Talberter PA-C [facility] Phone: [facility] Start: 09-04-2020 End: 09-04-2020 Nursing evaluation of patient and report Cheryle Talberter PA-C Work Phone: [facility] Start: 02-18-2020 End: 02-18-2020 Patient encounter procedure Cheryle Bazan PA-C Work Phone: [facility] Start: 08-11-2019 End: 08-11-2019 Nursing evaluation of patient and report Cherylekatie Talberter PA-C Work Phone: [facility] Start: 07-22-2019 End: 07-22-2019 Medication Cheryle Talberter PA-C Work Phone: [facility] Start: 05-19-2019 End: 05-19-2019 Patient encounter procedure Cheryle Bazan PA-C Work Phone: [facility]. Start: 05-19-2019 End: 05-19-2019 Patient encounter status Cheryle Bazan PA-C Work Phone: [facility].; [facility]. Start: 05-03-2019 End: 05-03-2019 Office outpatient visit 15 minutes Cheryle Bazan PA-C Work Phone: [facility]. Start: 08-13-2018 End: 08-13-2018 Nursing evaluation of patient and report Cheryle Bazan PA-C Work Phone: [facility]. Start: 06-15-2018 End: 06-15-2018 Patient encounter procedure Cheryle Bazan PA-C Work Phone: [facility]. Start: 06-15-2018 End: 06-15-2018 Patient encounter status Tammy Soliman LPN [facility].; [facility]. Start: 08-08-2017 End: 08-08-2017 Patient encounter procedure Cheryle Bazan PA-C Work Phone: [facility]. Start: 08-08-2017 End: 08-08-2017 Patient encounter status Cheryle Bazan PA-C Work Phone: [facility]. Start: 08-09-2016 End: 08-09-2016 Patient encounter procedure Cheryle Bazan PA-C Work Phone: [facility]. Start: 08-09-2016 End: 08-09-2016 Patient encounter status Cheryle DELGADILLO-C Work Phone: [facility]. Start: 08-01-2015 End: 08-01-2015 Patient encounter procedure Cheryle SAUNDERSC Work Phone: [facility]. Start: 08-01-2015 End: 08-01-2015 Patient encounter status Cheryle Bazan PA-C Work Phone: [facility]. Start: 09-02-2014 End: 09-02-2014 Historical Summary Cheryle DELGADILLO-C Work Phone: [facility]. Start: 07-22-2014 End: 07-22-2014 Patient encounter procedure Cheryle Bazan PA-C Work Phone: [facility]. Start: 07-22-2014 End: 07-22-2014 Routine or child health check Cheryle Bazan PA-C Work Phone: [facility].; [facility]. Start: 03-16-2014 End: 03-16-2014 Nursing evaluation of patient and report Cheryle Bazan PA-C Work Phone: [facility] Start: 08-12-2013 End: 08-12-2013 Office outpatient visit 5 minutes Cheryle Bazan PA-C Work Phone: [facility] Start: 09-01-2012 End: 09-01-2012 Nursing evaluation of patient and report Cheryle Talberter PA-C Work Phone: [facility] Start: 05-28-2012 End: 05-28-2012 Patient encounter procedure Cheryle Bazan PA-C Work Phone: [facility] Start: 08-16-2011 End: 08-16-2011 Nursing evaluation of patient and report Cheryle Talberter PA-C Work Phone: [facility]. Start: 03-07-2011 End: 03-07-2011 Medication Cheryle Talberter PA-C Work Phone: [facility]. Start: 09-01-2010 End: 09-01-2010 Nursing evaluation of patient and report Cheryle Talberter PA-C Work Phone: [facility] Start: 08-02-2010 End: 08-02-2010 Patient encounter procedure Cherylekatie Talberter PA-C Work Phone: [facility] Patient encounter status Becky [place] [facility]; [facility] Patient encounter status Cheryle Bazan PA-C Work Phone: [facility]; [facility] Procedures Date Procedure Procedure Detail Performing Clinician Start: 04-22-[address] Anthony Mercedes MD Work Phone: Start: 04-22-2025 Hep[address] C antibody measurement Dr. Anthony Mercedes MD Work Phone: Comment on above: Reactive: Presumptiv e evidence of antibodies to HCV. Follow CDC recommendations for supplemental testing.Non-Reactive: Antibodies to HCV were not detected; does not exclude the possibility of exposure to HCVReactive Results are presumptive evidence of antibodies to HCV. Follow CDC recommendations for supplemental testing.Order confirmation testing: HCV Quant by PCR testing - HCVPCR #[id number] Non Reactive: < 0.8 Equivocal: >/= 0.8 to < 1.0 Reactive: >/= 1.0The CDC requires that a reactive/equivocal HCV antibody result be sent out for confirmation. HCV Quant by PCR testing. Start: 04-22-[address] Anthony abernathy MD Work Phone: Comment on above: Test Ordered: [id number] TSH Receptor Antibody (TBII)TSH Receptor Antibody (TBII) <0.3 U/L ES Reference Range: .Reference Range:Antibody Titer:<1.0 U/L = Negative1.1 - 1.5 U/L = Equivocal>1.5 U/L = PositivePerformed at: ES - [facility] [id number] [place], [place] [id number] Director: Sander Daugherty MD, Phone: [phone] at: - [facility] [id number] Director: Fredis Pendleton PhD, Phone: [phone] Start: 04-22-[address] Anthony Mercedes MD Work Phone: Comment on above: Antibody Result: Int erpretationNon-Reactive: Non- ImmuneReactive: ImmuneThe following results were obtained with the [employer] Rubella IgG assay. Results from assays of other manufacturers cannot be used interchangeably. Start: 04-22-2025 Serologic test for syphilis Dr. Anthony Mercedes MD Work Phone: Start: 08-09-2024 End: 08-09-2024 Depression screening Cheryle Talberter PA -C Work Phone: Start: 08-09-2024 End: 08-09-2024 Flu immunize order/admin Cheryle Talberte r PA-C Work Phone: Start: 08-09-2024 End: 08-09-2024 Scr dep neg, no plan reqd Cheryle Martinez Palm er PA-C Work Phone: Start: 09-03-2023 End: 09-03-2023 Flu immunize order/admin Cheryle Talberte r PA-C Work Phone: Start: 08-04-2023 End: 08-04-2023 Depression screening Cheryle Martinez Bazan PA -C Work Phone: Start: 08-04-2023 End: 08-04-2023 Scr dep neg, no plan reqd Cheryle Martinez Palm er PA-C Work Phone: Start: 03-12-2023 End: 03-12-2023 No Known Past Surgical History Becky Hunter LPN Start: 08-22-2022 End: 08-22-2022 Flu immunize order/admin Cheryle Talberte r PA-C Work Phone: Start: 07-24-2022 End: 07-24-2022 Depression screening Cheryle Martinez Bazan PA -C Work Phone: Start: 07-24-2022 End: 07-24-2022 Scr dep neg, no plan reqd Cheryle Martinez Palm er PA-C Work Phone: Start: 07-05-2021 End: 07-11-2021 Us soft tissue head & neck real time imge docm Cheryle Martinez Bazan PA-C Work Phone: Start: 07-05-2021 End: 07-05-2021 Depression screening Cheryle Talberter PA -C Work Phone: Start: 07-05-2021 End: 07-05-2021 Scr dep neg, no plan reqd Cheryle Talbert er PA-C Work Phone: Start: 09-04-2020 End: 09-04-2020 Flu immunize order/admin FLOAT NURSE Start: 05-19-2019 End: 05-19-2019 Screening test visual acuity quantitative tera Talberter PA-C Work Phone: Start: 06-15-2018 End: 06-15-2018 Screening test visual acuity quantitative tera Talberter PA-C Work Phone: Start: 08-08-2017 End: 08-08-2017 Screening test visual acuity quantitative tera Martinez Bazan PA-C Work Phone: Start: 08-09-2016 End: 08-09-2016 Screening test visual acuity quantitative tera Martinez Bazan PA-C Work Phone: Start: 08-01-2015 End: 08-01-2015 Screening test visual acuity quantitative tera Martinez Bazan PA-C Work Phone: Start: 07-22-2014 End: 07-22-2014 Screening test visual acuity quantitative bilchioma Martinez Bazan PA-C Work Phone: Start: 05-28-2012 End: 05-28-2012 Ketorolac tromethamine inj Rosario acs PA-C Work Phone: Comment on above: 45mg Start: 08-02-2010 End: 09-26-2010 Iv infusion hydration initial 31 min-1 hour Anthony Mercedes MD Work Phone: Comment on above: admin. 500cc normal saline iv Start: 08-02-2010 End: 08-02-2010 Meperidine hydrochl /100 MG Anthony parsons MD Work Phone: Comment on above: giving 6.25 mg IM wi th phenergan IM combined giving 12.5 mg im Plan of Treatment Date Care Activity Detail Author Start: 04-22-2025 CBC W Auto Differential panel - Blood [facility] Start: 04-22-2025 Hepatitis C antibody measurement [facility] Start: 04-22-2025 Procedure [facility] Start: 04-22-2025 Rubella IgG measurement [facility] Start: 04-22-2025 Serologic test for syphilis [facility] Start: 04-22-2025 T4 free measurement [facility] Start: 04-22-2025 Thyroid stimulating hormone measurement [facility] Start: 04-22-2025 [facility] Start: 08-09-2024 Iiv4 vacc presrv free 0.5 ml dos for im use Influenza vaccine, quadrivalent (40091) Date: 09-Aug-2024 [facility]; [facility] Start: 08-09-2024 Provider Instructions for Treatment [facility] HM Issues, 20-39 female Indication: Annual physical exam Start: 09-Aug-2024 Instruction Type: Provider Instructions for Treatment [facility]; [facility] Start: 08-09-2024 Assay of free thyroxine T4 FREE (45683) Start: 09-Aug-2024 09:51-04:00 Request [facility]; [facility] Start: 08-09-2024 Assay of thyroid stimulating hormone tsh TSH (THYROID STIMULATING HORMONE) (96762) Start: 09-Aug-2024 09:50-04:00 Request [facility]; [facility]. Start: 08-09-2024 Comprehensive metabolic panel CMP w/ GFR* (84613) Start: 09-Aug-2024 09:50-04:00 Request [facility]; [facility] Start: 08-09-2024 Assay of ferritin FERRITIN (12344) Start: 09-Aug-2024 09:50-04:00 Request [facility]; [facility] Start: 08-09-2024 Blood count complete auto&auto difrntl wbc CBC, PLATELETS & AUT DIFF (F) (22434) Start: 09-Aug-2024 09:50-04:00 [facility]. Chlamydia deoxyribon ucleic acid detection [facility] Erythrocyte mean corpuscular volume determination [facility] Hematocrit [Volume Fraction] of Blood [facility] Hemoglobin [Mass/vol ume] in Blood [facility] Hepatitis B virus roberson rface Ag [Presence] in Serum [facility] Leukocytes [#/volume ] in Blood [facility] Mean corpuscular hem oglobin concentration determination [facility] Mean corpuscular hem oglobin determination [facility] Neutrophil count [facility] Neutrophil percent differential count [facility] Platelets [#/volume] in Blood [facility] Red blood cell count [facility] Red cell distributio n width determination [facility] Phenergan 50 mg/ mL injection solution Ordered: 02-Aug-2010 MD Anthony Mercedes Intent [facility], [facility]. Work Phone: Phenergan 50 mg/ mL injection solution Ordered: 28-May-2012 PROSPER Gamble Intent [facility].; [facility], [facility]. Work Phone: Influenza vaccin e, quadrivalent (IIV4), 0.5 mL Scheduled for Administration [facility].; [facility], [facility]. Immunizations Immunization Date Immunization Notes Care Provider Scott watts 08-09-2024 influenza, injectabl e, quadrivalent, preservative free Cheryle Bazan PA-C Work Phone: [facility]. Comment on above: Site: Right DeltoidV IS Given: * Influenza (Flu) Vaccine (Inactivated or Recombinant) (06/01/21) 09-03-2023 influenza, injectabl e, quadrivalent, preservative free Cheryle Bazan PA-C Work Phone: [facility].; [employer]. Comment on above: Site: Right ArmVIS G iven: * Influenza (Flu) Vaccine (Inactivated or Recombinant) (06/01/21) 08-22-2022 influenza, injectabl e, quadrivalent, contains preservative Cheryle Bazan PA-C Work Phone: [facility]; [facility]. Comment on above: Site: Right ArmVIS Dilcia iven: * Influenza Inactivated (06/01/21) 10-08-2021 influenza, injectabl e, quadrivalent, contains preservative Cheryle Bazan PA-C Work Phone: [facility].; [facility]. Comment on above: Site: Left DeltoidVI S Given: * Influenza - Inactivated (06/10/19) 09-04-2020 influenza, injectabl e, quadrivalent, contains preservative Cheryle Bazan PA-C Work Phone: [facility]; [facility]. Comment on above: Site: Right DeltoidV IS Given: * Influenza - Inactivated (06/10/19) 08-11-2019 influenza, injectabl e, quadrivalent, contains preservative Cheryle Bazan PA-C Work Phone: [facility].; [facility]. Comment on above: Site: Right DeltoidV IS Given: * Influenza - Inactivated (06/02/15) 08-11-2019 Counseled parent on risks/benefits of vaccines (77571) Cheryle Bazan PA-C Work Phone: [facility].; [facility]. 05-19-2019 Meningococcal, MCV4, unspecified conjugate formulation(groups A, C, Y and W-135) Cheryle Bazan PA-C Work Phone: [facility]. 05-19-2019 Counseled parent on risks/benefits of vaccines (98230) Cheryle Bazan PA-C Work Phone: [facility].; [facility]. 05-19-2019 meningococcal polysaccharide (groups A, C, Y and W-135) diphtheria toxoid conjugate vaccine (MCV4P) Cheryle Bazan PA-C Work Phone: [facility]; [facility] Comment on above: Site: Left DeltoidVI S Given: * MenACWY (06/19/18) 08-13-2018 influenza, injectabl e, quadrivalent, contains preservative Cheryle Bazan PA-C Work Phone: [facility]; [facility] Comment on above: Site: Left DeltoidVI S Given: * Influenza - Inactivated (06/02/15) 08-13-2018 Counseled parent on risks/benefits of vaccines (40029) Cheryle Bazan PA-C Work Phone: [facility]; [facility] 08-08-2017 influenza, injectabl e, quadrivalent, contains preservative Cheryle Bazan PA-C Work Phone: [facility]; [facility] Comment on above: Site: Deltoid (Left) VIS Given: * Influenza - Inactivated (06/02/15) 08-09-2016 influenza, injectabl e, quadrivalent, contains preservative Cheryle Bazan PA-C Work Phone: [facility]; [facility]. Comment on above: Site: Deltoid (Left) VIS Given: * Influenza - Inactivated (06/02/15) 08-09-2016 unknown vaccine or i mmune globulin Cheryle Bazan PA-C Work Phone: [facility]; [facility]. 08-01-2015 influenza, seasonal, injectable Cheryle Bazan PA-C Work Phone: [facility]; [facility] Comment on above: Site: Deltoid (Left) VIS Given: * Inactivated Influenza (06/02/2015) 08-01-2015 IMMUNIZATION ADMIN ([id number]) Cheryle Bazan PA-C Work Phone: [facility]; [facility]. 09-02-2014 influenza, seasonal, injectable Cheryle Bazan PA-C Work Phone: [facility]; [facility] Comment on above: Site: Deltoid (Left) VIS Given: * Influenza, Inactivated ([phone]) 09-02-2014 IMMUNIZATION ADMIN ([id number]) Cheryle Bazan PA-C Work Phone: [facility]; [facility]. 03-16-2014 tetanus toxoid, redu ranjan diphtheria toxoid, and acellular pertussis vaccine, adsorbed Cheryle Bazan PA-C Work Phone: [facility]; [facility]. Comment on above: VIS Given: * TDAP, T d (03/04/2013) * Tetanus/Diphtheria/(Pertussis) (Td/Tdap) (09/13/08) * Tetanus/Diptheria/Pertussis (Tdap/Td) 11/19/11 08-12-2013 influenza, seasonal, injectable Cheryle Bazan PA-C Work Phone: [facility]; [facility]. Comment on above: Site: Deltoid (Left) VIS Given: * Inactivated Influenza Vaccine (06/06/09) * Inactivated Influenza Vaccine (05/21/11) * Influenza vaccine , inactivated (04/27/2012) * VIS Given (Unspecified) 08-12-2013 IMMUNIZATION ADMIN ([id number]) Cheryle Bazan PA-C Work Phone: [facility]; [facility]. 09-01-2012 influenza, seasonal, injectable Cheryle Bazan PA-C Work Phone: [facility]; [facility] Comment on above: Site: Deltoid (Left) VIS Given: * Inactivated Influenza Vaccine (06/06/09) * Inactivated Influenza Vaccine (05/21/11) * Influenza vaccine , inactivated (04/27/2012) * VIS Given (Unspecified) 09-01-2012 IMMUNIZATION ADMIN ([id number]) Cheryle Bazan PA-C Work Phone: [facility]; [facility] 08-16-2011 influenza, seasonal, injectable Cheryle Bazan PA-C [facility] Phone: [facility]; [facility]. Comment on above: Site: Deltoid (Left) VIS Given: * Inactivated Influenza Vaccine (06/06/09) * Inactivated Influenza Vaccine (05/21/11) * Inactivated Influenza Vaccine (05/21/11) * Inactivated Influenza Vaccine (05/21/11) * Inactivated Influenza Vaccine (05/21/11) * Inactivated Influenza Vaccine (05/21/11) * Inactivated Influenza Vaccine (05/21/11) * VIS Given (Unspecified) * VIS Given (Unspecified) 08-16-2011 IMMUNIZATION ADMIN ([id number]) Cheryle Bazan PA-C Work Phone: [facility]; [facility]. 09-01-2010 influenza, seasonal, injectable Cheryle Bazan PA-C Work Phone: [facility]; [facility]. Comment on above: Site: Deltoid (Left) VIS Given: * Inactivated Influenza Vaccine (06/06/09) 09-01-2010 IMMUNIZATION ADMIN ([id number]) Cheryle Bazan PA-C Work Phone: [facility]; [facility] 09-22-2009 Influenza, pandemic formulation, split, adj, IM Cheryle Bazan PA-C Work Phone: [facility].; [facility]. 08-15-2009 Influenza, pandemic formulation, split, adj, IM Cheryle Bazan PA-C Work Phone: [facility].; [facility]. 05-08-2007 diphtheria, tetanus toxoids and pertussis vaccine Cheryle Bazan PA-C Work Phone: [facility].; [facility]. 05-08-2007 measles, mumps and rubella virus vaccine Cheryle Bazan PA-C Work Phone: [facility].; [facility] 05-08-2007 poliovirus vaccine, inactivated Cheryle Bazan PA-C Work Phone: [facility].; [facility] 07-26-2003 diphtheria, tetanus toxoids and pertussis vaccine Cheryle Bazan PA-C Work Phone: [facility].; [facility] 07-26-2003 poliovirus vaccine, inactivated Cheryle Bazan PA-C Work Phone: [facility].; [facility] 04-18-2003 haemophilus influenz ae type b conjugate and Hepatitis B vaccine Cheryle Bazan PA-C Work Phone: [facility].; [facility] 01-24-2003 measles, mumps and rubella virus vaccine Cheryle Bazan PA-C Work Phone: [facility].; [facility] 2002 diphtheria, tetanus toxoids and pertussis vaccine Cheryle Bazan PA-C Work Phone: [facility].; [facility] 2002 diphtheria, tetanus toxoids and pertussis vaccine Cheryle Bazan PA-C Work Phone: [facility].; [facility] 2002 haemophilus influenz ae type b conjugate and Hepatitis B vaccine Cheryle Bazan PA-C Work Phone: [facility].; [facility] 2002 poliovirus vaccine, inactivated Cheryle Bazan PA-C Work Phone: [facility].; [facility] 2002 diphtheria, tetanus toxoids and pertussis vaccine Cheryle Bazan PA-C Work Phone: [facility].; [facility] 2002 haemophilus influenz ae type b conjugate and Hepatitis B vaccine Cheryle Bazan PA-C Work Phone: [facility]. 2002 poliovirus vaccine, inactivated Cheryle Talbertdawit CHENG Work Phone: [facility]; [facility]. varicella virus vaccine Liane Bazan PROSPER Work Phone: [facility].; [facility]. Comment on above: had disease Payers Date Payer Category Payer Self-pay 2025 Unknown [id number] 2007 Unknown MARIA DEL CARMEN [id number] 2002 Unknown [id number] 2002 Unknown [id number] Unknown [id number] Unknown Unknown [id number] 2.16.8 [id number] Unknown [id number] 2.16.8 [id number] Unknown [id number] 2.16.8 [id number] Unknown [id number] 2.16.8 [id number] Unknown [id number] 2.16.8 [id number] Social History Date Type Detail Facility Caffeine Use Caffeine Use [facility]. Tobacco/Smoke Exposure: Tobacco/Smoke Exposure: ; None. [facility]. Start: 2002 Female [facility] None [facility]; [facility]. Work Phone: Start: 04-05-2025 Tobacco smoking stat us NHIS Never smoked tobacco (finding) [facility] Gender Identity Identifies as fe male gender (finding) [facility] Clinical Notes 04-05-2025 to 06-17-2025 Note Date & Type Note Facility 06-17-2025 Progress note [facility] 06-17-2025 Progress note Note Date/Time June 17, 2025 3:12pm [facility] [address], [address] [place] [address] OFFICE VISIT Date of Service: 06/17/25 MR#: [id number] Acct: [id number] Name: CHARLIE GORDON Rep #: [id number] : 2000 Provider: JODI Archuleta Age/Sex: 25/F Location: [facility] Status: Signed Intake Vital Signs 04/22/25 08:22 05/20/25 13:53 06/17/25 14:39 Height 5 ft 8 in 5 ft 8 in 5 ft 8 in Weight: 196 lb 7 oz BMI 29.8 BP 119/74 Intake Visit Reasons: 16wk ob 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: No Is patient in pain?: No Allergies chocolate Allergy (Intermediate, Verified 06/17/25 14:40) Vomiting Medications ?Medication ?Instructions ?Recorded ?Confirmed ?Type multivitamin no.47-iron fum 27 cap PO 04/05/25 5 History mg-folate no.1 1 mg-dha 300 mg capsule (PNV-DHA) Last Menstrual Period: 02/22/25 Zika: Zika virus screening: Negative : No PFSH PFSH Surgical History H/O myringotomy Family History Mother Hypertension High cholesterol Gestational diabetes Migraine Father High cholesterol Migraine Grandmother Hypertension Maternal Cancer, Onset Age: 70 - Smoker Maternal Lung cancer Thyroid disorder Maternal- Hyperthyroidism Migraine Maternal Grandfather Migraine MaTERNAL Cancer, Onset Age: 70 Lung Cancer-Maternal Smoker High cholesterol Maternal Grandmother Hypertension Paternal Dementia, Onset Age: 80 Paternal Grandfather Kidney disease Paternal Alzheimer's dementia, Onset Age: 70 Paternal Social History adopted: No household members: spouse housing: house current occupational status: employed current occupation: [employer] current occupational exposures/hazards: No pets and animals: Yes pets and animals: dog(s) history of recent travel: Yes ([place] in February) out of state: Yes out of country: No sexually active: Yes Smoking Status: Never smoker alcohol intake: never substance use type: does not use well-balanced diet: daily or most days caffeine: No eating out: 1-3 times/week during the past year weight has: remained stable what type of physical activity do you participate in: walking and bicycling frequency: 3-4 times per week duration: 15-30 minutes/day jimi/zoroastrianism: Sabianist seatbelt use: always do you feel safe at home: Yes additional social history: [employer] History 1 Elective abortions Hx Para 0 Spontaneous abortions Hx # Term Pregnancies Ectopic pregnancies Hx # Pregnancies Multiple births # of living children HPI 16wk ob Details: CHARLIE GORDON is a 25 year old who presents for routine OB visit. OB Visit [place] Calculator Estimated Delivery Date Method Current WG Current Estimate 11/29/25 LMP (Certain) 16w 3d Expected Delivery Route/Plan Labor Preferences- CB/BF classes: [] labor support person: [] labor intervention preferences: [] pain management options preferred: [] cut cord/dad catch: [] : [] PP control planned: [] discussed possible routes of delivery and associated risks: [] special requests: [] Specific Issue/Plans Covid status: [] Flu vaccine: [] Tdap vaccine: [] Rhogam: [] LARC form signed: [] Problem list reviewed and updated with the most current plan of care details and appropriate orders placed. Relevant counseling for the gestational age provided. Continue routine care and follow up unless otherwise noted in visit notes/problem list details Initial Weight: Not Recorded Date -?-?-?-?-?-?-?-?-?-?-?-?- EGA Weight BP Urine Prot -?-?-?-?-?-?-?-?-?-?-?-?- Glucose FHR FuHt Pres Dilation -?-?-?-?-?-?-?-?-?-?-?-?- Effaced St Visit Note 04/22/25 -?-?-?-?-?-?-?-?-?-?-?-?- 8w 3d 187 lb 6 oz 104/63 -?-?-?-?-?-?-?-?-?-?-?-?- 175 -?-?-?-?-?-?-?-?-?-?-?-?- JV- CRL consiste nt with LMP. no nausea. declines NIPT. will do baseline new ob labs today. 05/20/25 -?-?-?-?-?-?-?-?-?-?-?-?- 12w 3d 189 lb 8 oz 120/72 Nega tive -?-?-?-?-?-?-?-?-?-?-?-?- Negative 163 -?-?-?-?-?-?-?-?-?-?-?-?- kw- no vb/crampi ng. anatomy US ordered. 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 no vb/cramping. declines AFP. US scheduled. no concerns ACOG First Trimester First Trimester: Desire for , Alcohol, Tobacco Cessation, Illicit/Recreational Drug/Substance Use, Intimate Partner Violence, Barriers to care, Unstable Housing, Communication Barriers, Environmental/Work Hazards, Anticipated Course of Care, Toxoplasmosis Precations, Use of Any medications, Sexual activity, Exercise, Dental Care, Sauna/Hot tub use, Seat Belt use, Childbirth classes/Hospital facilities, Travel, Indications for Ultrasound and Screening for Aneuploidy; Discussed ROS Const Reports system reviewed and no additional complaints, except as documented Eyes Reports system reviewed and no additional complaints, except as documented ENT Reports system reviewed and no additional complaints, except as documented Card Reports system reviewed and no additional complaints, except as documented Resp Reports system reviewed and no additional complaints, except as documented GI Reports system reviewed and no additional complaints, except as documented, Denies nausea and Denies vomiting Reports system reviewed and no additional complaints, except as documented Musc Reports system reviewed and no additional complaints, except as documented Skin/Breast Reports system reviewed and no additional complaints, except as documented Neuro Yes system reviewed and no additional complaints, except as documented Psych Reports system reviewed and no additional complaints, except as documented Endo Reports system reviewed and no additional complaints, except as documented Arley/Lymph Reports system reviewed and no additional complaints, except as documented Aller/Immun Reports system reviewed and no additional complaints, except as documented Exam Const General: cooperative, healthy appearing and no acute distress Orientation: alert, awake and oriented x3 Neck Neck: normal visual inspection and full ROM Resp Effort & Inspection: normal respiratory effort, able to speak in complete sentences and symmetric chest movement GI Inspection: normal to inspection Palpation: soft and other Other: gravid Skin General: no rashes or lesions noted Neuro General: patient alert, patient awake and patient oriented x3 Cognition: normal cognition Speech: speech normal Gait: normal gait Motor: muscle tone normal throughout Extrem General: normal to inspection and full ROM Psych Appearance: grossly normal Mental Status: mental status grossly normal Mood: congruent mood Affect: normal affect Speech and Movement: speech and movement normal Attitude: cooperative Thought Process: normal Thought Content: normal Judgment: judgment good Results POC Urinalysis 2 Dip (Clinic) Office Urine Glucose Negative Last Edit by Iris Melgoza on 06/17/25 14:45 Office Urine Protein Negative Last Edit by Iris Melgoza on 06/17/25 14:45 Coding Level of Care Code OB Routine Diagnoses Secondary amenorrhea N91.1 Supervision of normal first Z34.00 16 weeks gestation of Z3A.16 Weeks of gestation: 16 weeks Thyroid nodule E04.1 Assessment and Plan Assessment and Plan (1) Secondary amenorrhea: Status: Acute Comment: +UPT (2) Supervision of normal first : Status: Acute Comment: PRR, , [place] 11/29/25, [place] (3) : Status: Acute Qualifiers: Weeks of gestation: 16 weeks Qualified Code(s): Z3A.16 - 16 weeks gestation of Comment: Declined NIPT & Carrier testing (4) Thyroid nodule: Status: Acute Comment: no treatment to date Negative Receptor antibody test Orders: Orders POC Urinalysis 2 Dip (Clinic) Today Plan Details Additional Comments: ACOG trimester education reviewed and updated. see problem list details for updated plan management information and see below for orders placed at this visit. [place] appropriate handout given. 06/17/25 1512 <Electronically signed by Keith fox CNM> Date _ Keith Archuleta CNM [facility] Signature: Date (if applicable) CC: ~ [employer] Work Phone: [phone]) 971-499507-25-2025 [facility] [address], [address] [place] [address] OFFICE VISIT Date of Service: 05/20/25 MR#: [id number] Acct: [id number] Name: CHARLIE GORDON Rep #: [id number] : 2000 Provider: JODI Archuleta Age/Sex: 25/F Location: [facility] [place] Status: Signed Intake Vital Signs 04/22/25 08:22 05/20/25 13:53 Height 5 ft 8 in 5 ft 8 in Weight: 189 lb 8 oz BMI 28.8 BP 120/72 Intake Visit Reasons: 12 WK OB Chief Complaint: 12 Week OB 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: No Is patient in pain?: No Allergies chocolate Allergy (Intermediate, Verified 05/20/25 13:57) Vomiting Medications ?Medication ?Instructions ?Recorded ?Confirmed ?Type multivitamin no.47-iron fum 27 cap PO 04/05/25 5 History mg-folate no.1 1 mg-dha 300 mg capsule (PNV-DHA) Last Menstrual Period: 02/22/25 Zika: Zika virus screening: Negative : No PFSH PFSH Surgical History H/O myringotomy Family History Mother Hypertension High cholesterol Gestational diabetes Migraine Father High cholesterol Migraine Grandmother Hypertension Maternal Cancer, Onset Age: 70 - Smoker Maternal Lung cancer Thyroid disorder Maternal- Hyperthyroidism Migraine Maternal Grandfather Migraine MaTERNAL Cancer, Onset Age: 70 Lung Cancer-Maternal Smoker High cholesterol Maternal Grandmother Hypertension Paternal Dementia, Onset Age: 80 Paternal Grandfather Kidney disease Paternal Alzheimer's dementia, Onset Age: 70 Paternal Social History adopted: No household members: spouse housing: house current occupational status: employed current occupation: [employer] current occupational exposures/hazards: No pets and animals: Yes pets and animals: dog(s) history of recent travel: Yes ([place] in February) out of state: Yes out of country: No sexually active: Yes Smoking Status: Never smoker alcohol intake: never substance use type: does not use well-balanced diet: daily or most days caffeine: No eating out: 1-3 times/week during the past year weight has: remained stable what type of physical activity do you participate in: walking and bicycling frequency: 3-4 times per week duration: 15-30 minutes/day jimi/zoroastrianism: Sabianist seatbelt use: always do you feel safe at home: Yes additional social history: [employer] History 1 Elective abortions Hx Para 0 Spontaneous abortions Hx # Term Pregnancies Ectopic pregnancies Hx # Pregnancies Multiple births # of living children HPI 12 WK OB Details: CHARLIE GORDON is a 25 year old who presents for routine OB visit. OB Visit [place] Calculator Estimated Delivery Date Method Current WG Current Estimate 11/29/25 LMP (Certain) 12w 3d Expected Delivery Route/Plan Labor Preferences- CB/BF classes: [] labor support person: [] labor intervention preferences: [] pain management options preferred: [] cut cord/dad catch: [] : [] PP control planned: [] discussed possible routes of delivery and associated risks: [] special requests: [] Specific Issue/Plans Covid status: [] Flu vaccine: [] Tdap vaccine: [] Rhogam: [] LARC form signed: [] Problem list reviewed and updated with the most current plan of care details and appropriate ordersplaced. Relevant counseling for the gestational age provided. Continue routine care and follow up unless otherwise noted in visit notes/problem list details Initial Weight: Not Recorded Date -?-?-?-?-?-?-?-?-?-?-?-?- EGA Weight BP Urine Prot -?-?-?-?-?-?-?-?-?-?-?-?- Glucose FHR FuHt Pres Dilation -?-?-?-?-?-?-?-?-?-?-?-?- Effaced St Visit Note 04/22/25 -?-?-?-?-?-?-?-?-?-?-?-?- 8w 3d 187 lb 6 oz 104/63 -?-?-?-?-?-?-?-?-?-?-?-?- 175 -?-?-?-?-?-?-?-?-?-?-?-?- JV- CRL consiste nt with LMP. no nausea. declines NIPT. will do baseline new ob labs today. 05/20/25 -?-?-?-?-?-?-?-?-?-?-?-?- 12w 3d 189 lb 8 oz 120/72 Nega tive -?-?-?-?-?-?-?-?-?-?-?-?- Negative 163 -?-?-?-?-?-?-?-?-?-?-?-?- kw- no vb/crampi ng. anatomy US ordered. colace and magnesium for constipation ACOG First Trimester First Trimester: Desire for , Alcohol, Tobacco Cessation, Illicit/Recreational Drug/Substance Use, Intimate Partner Violence, Barriers to care, Unstable Housing, Communication Barriers, Environmental/Work Hazards, Anticipated Course of Care, Toxoplasmosis Precations, Use of Any med ications, Sexual activity, Exercise, Dental Care, Sauna/Hot tub use, Seat Belt use, Childbirth classes/Hospital facilities, Travel, Indications for Ultrasound and Screening for Aneuploidy; Discussed ROS Const Reports system reviewed and no additional complaints, except as documented Eyes Reports system reviewed and no additional complaints, except as documented ENT Reports system reviewed and no additional complaints, except as documented Card Reports system reviewed and no additional complaints, except as documented Resp Reports system reviewed and no additional complaints, except as documented GI Reports system reviewed and no additional complaints, except as documented, Denies nausea and Denies vomiting Reports system reviewed and no additional complaints, except as documented Musc Reports system reviewed and no additional complaints, except as documented Skin/Breast Reports system reviewed and no additional complaints, except as documented Neuro Yes system reviewed and no additional complaints, except as documented Psych Reports system reviewed and no additional complaints, except as documented Endo Reports system reviewed and no additional complaints, except as documented Arley/Lymph Reports system reviewed and no additional complaints, except as documented Aller/Immun Reports system reviewed and no additional complaints, except as documented Exam Const General: cooperative, healthy appearing and no acute distress Orientation: alert, awake and oriented x3 Neck Neck: normal visual inspection and full ROM Resp Effort & Inspection: normal respiratory effort, able to speak in complete sentences and symmetric chest movement GI Inspection: normal to inspection Palpation: soft and other Other: gravid Skin General: no rashes or lesions noted Neuro General: patient alert, patient awake and patient oriented x3 Cognition: normal cognition Speech: speech normal Gait: normal gait Motor: muscle tone normal throughout Extrem General: normal to inspection and full ROM Psych Appearance: grossly normal Mental Status: mental status grossly normal Mood: congruent mood Affect: normal affect Speech and Movement: speech and movement normal Attitude: cooperative Thought Process: normal Thought Content: normal Judgment: judgment good Results POC Urinalysis 2 Dip (Clinic) Office Urine Glucose Negative Last Edit by Rachana Hess on 05/20/25 14 :02 Office Urine Protein Negative Last Edit by Rachana Hess on 05/20/25 14 :02 Coding Level of Care Code OB Routine Diagnoses 12 weeks gestation of Z3A.12 Weeks of gestation: 12 weeks Supervision of normal first Z34.00 Secondary amenorrhea N91.1 Thyroid nodule E04.1 Assessment and Plan Assessment and Plan (1) : Status: Acute Qualifiers: Weeks of gestation: 12 weeks Qualified Code(s): Z3A.12 - 12 weeks gestation of Comment: Declined NIPT & Carrier testing (2) Supervision of normal first : Status: Acute Comment: PRR, , [place] 11/29/25, [place] (3) Secondary amenorrhea: Status: Acute Comment: +UPT (4) Thyroid nodule: Status: Acute Comment: no treatment to date Negative Receptor antibody test Orders: Orders POC Urinalysis 2 Dip (Clinic) Today Plan Details Additional Comments: ACOG trimester education reviewed and updated. see problem list details for updated plan management information and see below for orders placed atthis visit. [place] appropriate handout given. 05/20/25 1424 s CNM> Date _ Keith Km JODI Cosigner Signature: Date (if applicable) CC: ~ [facility]07-25-2025 Progress note Author Keith Archuleta [employer] [facility] Note Date/Time May 20, 2025 2:23 pm [facility] [employer] [facility] [address], [address] [place] [address] OFFICE VISIT Date of Service: 05/20/25 MR#: [id number] Acct: [id number] Name: CHARLIE GORDON Rep #: [id number] : 2000 Provider: JODI Archuleta Age/Sex: 25/F Location: [facility] Status: Signed Intake Vital Signs 04/22/25 08:22 05/20/25 13:53 Height 5 ft 8 in 5 ft 8 in Weight: 189 lb 8 oz BMI 28.8 BP 120/72 Intake Visit Reasons: 12 WK OB Chief Complaint: 12 Week OB 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: No Is patient in pain?: No Allergies chocolate Allergy (Intermediate, Verified 05/20/25 13:57) Vomiting Medications ?Medication ?Instructions ?Recorded ?Confirmed ?Type multivitamin no.47-iron fum 27 cap PO 04/05/25 5 History mg-folate no.1 1 mg-dha 300 mg capsule (PNV-DHA) Last Menstrual Period: 02/22/25 Zika: Zika virus screening: Negative : No PFSH PFSH Surgical History H/O myringotomy Family History Mother Hypertension High cholesterol Gestational diabetes Migraine Father High cholesterol Migraine Grandmother Hypertension Maternal Cancer, Onset Age: 70 - Smoker Maternal Lung cancer Thyroid disorder Maternal- Hyperthyroidism Migraine Maternal Grandfather Migraine MaTERNAL Cancer, Onset Age: 70 Lung Cancer-Maternal Smoker High cholesterol Maternal Grandmother Hypertension Paternal Dementia, Onset Age: 80 Paternal Grandfather Kidney disease Paternal Alzheimer's dementia, Onset Age: 70 Paternal Social History adopted: No household members: spouse housing: house current occupational status: employed current occupation: [employer] current occupational exposures/hazards: No pets and animals: Yes pets and animals: dog(s) history of recent travel: Yes ([place] in February) out of state: Yes out of country: No sexually active: Yes Smoking Status: Never smoker alcohol intake: never substance use type: does not use well-balanced diet: daily or most days caffeine: No eating out: 1-3 times/week during the past year weight has: remained stable what type of physical activity do you participate in: walking and bicycling frequency: 3-4 times per week duration: 15-30 minutes/day jimi/zoroastrianism: Sabianist seatbelt use: always do you feel safe at home: Yes additional social history: [employer] History 1 Elective abortions Hx Para 0 Spontaneous abortions Hx # Term Pregnancies Ectopic pregnancies Hx # Pregnancies Multiple births # of living children HPI 12 WK OB Details: CHARLIE GORDON is a 25 year old who presents for routine OB visit. OB Visit [place] Calculator Estimated Delivery Date Method Current WG Current Estimate 11/29/25 LMP (Certain) 12w 3d Expected Delivery Route/Plan Labor Preferences- CB/BF classes: [] labor support person: [] labor intervention preferences: [] pain management options preferred: [] cut cord/dad catch: [] : [] PP control planned: [] discussed possible routes of delivery and associated risks: [] special requests: [] Specific Issue/Plans Covid status: [] Flu vaccine: [] Tdap vaccine: [] Rhogam: [] LARC form signed: [] Problem list reviewed and updated with the most current plan of care details and appropriate orders placed. Relevant counseling for the gestational age provided. Continue routine care and follow up unless otherwise noted in visit notes/problem list details Initial Weight: Not Recorded Date -?-?-?-?-?-?-?-?-?-?-?-?- EGA Weight BP Urine Prot -?-?-?-?-?-?-?-?-?-?-?-?- Glucose FHR FuHt Pres Dilation -?-?-?-?-?-?-?-?-?-?-?-?- Effaced St Visit Note 04/22/25 -?-?-?-?-?-?-?-?-?-?-?-?- 8w 3d 187 lb 6 oz 104/63 -?-?-?-?-?-?-?-?-?-?-?-?- 175 -?-?-?-?-?-?-?-?-?-?-?-?- JV- CRL consiste nt with LMP. no nausea. declines NIPT. will do baseline new ob labs today. 05/20/25 -?-?-?-?-?-?-?-?-?-?-?-?- 12w 3d 189 lb 8 oz 120/72 Nega tive -?-?-?-?-?-?-?-?-?-?-?-?- Negative 163 -?-?-?-?-?-?-?-?-?-?-?-?- kw- no vb/crampi ng. anatomy US ordered. colace and magnesium for constipation ACOG First Trimester First Trimester: Desire for , Alcohol, Tobacco Cessation, Illicit/Recreational Drug/Substance Use, Intimate Partner Violence, Barriers to care, Unstable Housing, Communication Barriers, Environmental/Work Hazards, Anticipated Course of Care, Toxoplasmosis Precations, Use of Any medications, Sexual activity, Exercise, Dental Care, Sauna/Hot tub use, Seat Belt use, Childbirth classes/Hospital facilities, Travel, Indications for Ultrasound and Screening for Aneuploidy; Discussed ROS Const Reports system reviewed and no additional complaints, except as documented Eyes Reports system reviewed and no additional complaints, except as documented ENT Reports system reviewed and no additional complaints, except as documented Card Reports system reviewed and no additional complaints, except as documented Resp Reports system reviewed and no additional complaints, except as documented GI Reports system reviewed and no additional complaints, except as documented, Denies nausea and Denies vomiting Reports system reviewed and no additional complaints, except as documented Musc Reports system reviewed and no additional complaints, except as documented Skin/Breast Reports system reviewed and no additional complaints, except as documented Neuro Yes system reviewed and no additional complaints, except as documented Psych Reports system reviewed and no additional complaints, except as documented Endo Reports system reviewed and no additional complaints, except as documented Arley/Lymph Reports system reviewed and no additional complaints, except as documented Aller/Immun Reports system reviewed and no additional complaints, except as documented Exam Const General: cooperative, healthy appearing and no acute distress Orientation: alert, awake and oriented x3 Neck Neck: normal visual inspection and full ROM Resp Effort & Inspection: normal respiratory effort, able to speak in complete sentences and symmetric chest movement GI Inspection: normal to inspection Palpation: soft and other Other: gravid Skin General: no rashes or lesions noted Neuro General: patient alert, patient awake and patient oriented x3 Cognition: normal cognition Speech: speech normal Gait: normal gait Motor: muscle tone normal throughout Extrem General: normal to inspection and full ROM Psych Appearance: grossly normal Mental Status: mental status grossly normal Mood: congruent mood Affect: normal affect Speech and Movement: speech and movement normal Attitude: cooperative Thought Process: normal Thought Content: normal Judgment: judgment good Results POC Urinalysis 2 Dip (Clinic) Office Urine Glucose Negative Last Edit by Rachana Hess on 05/20/25 14 :02 Office Urine Protein Negative Last Edit by Rachana Hess on 05/20/25 14 :02 Coding Level of Care Code OB Routine Diagnoses 12 weeks gestation of Z3A.12 Weeks of gestation: 12 weeks Supervision of normal first Z34.00 Secondary amenorrhea N91.1 Thyroid nodule E04.1 Assessment and Plan Assessment and Plan (1) : Status: Acute Qualifiers: Weeks of gestation: 12 weeks Qualified Code(s): Z3A.12 - 12 weeks gestation of Comment: Declined NIPT & Carrier testing (2) Supervision of normal first : Status: Acute Comment: PRR, , [place] 11/29/25, [place] (3) Secondary amenorrhea: Status: Acute Comment: +UPT (4) Thyroid nodule: Status: Acute Comment: no treatment to date Negative Receptor antibody test Orders: Orders POC Urinalysis 2 Dip (Clinic) Today Plan Details Additional Comments: ACOG trimester education reviewed and updated. see problem list details for updated plan management information and see below for orders placed at this visit. [place] appropriate handout given. 05/20/25 1424 <Electronically signed by Keith fox CNM> Date _ Keith Archuleta CNM Cosign Signature: Date (if applicable) CC: ~ [employer] Work Phone: [phone]) 716-697806-27-2025 [facility] [address], [address] [place] [address] OFFICE VISIT Date of Service: 04/22/25 MR#: [id number] Acct: [id number] Name: CHARLIE GORDON Rep #: [id number] : 2000 Provider: Dr. Niurka Cooley DO Age/Sex: 25/F Location: [facility] Status: Signed Intake Vital Signs 04/05/25 09:08 04/22/25 08:22 Height 5 ft 8 in 5 ft 8 in Weight: 187 lb 6 oz BMI 28.5 BP 104/63 Intake Visit Reasons: *NEW* NOB LMP 02/22, [place] 2/3 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: No Is patient in pain?: No Allergies chocolate Allergy (Intermediate, Verified 04/22/25 08:23) Vomiting Medications ?Medication ?Instructions ?Recorded ?Confirmed ?Type multivitamin no.47-iron fum 27 cap PO 04/05/25 5 History mg-folate no.1 1 mg-dha 300 mg capsule (PNV-DHA) Last Menstrual Period: 02/22/25 Zika: Zika virus screening: Negative : No PFSH PFSH Surgical History H/O myringotomy Family History Mother Hypertension High cholesterol Gestational diabetes Migraine Father High cholesterol Migraine Grandmother Hypertension Maternal Cancer, Onset Age: 70 - Smoker Maternal Lung cancer Thyroid disorder Maternal- Hyperthyroidism Migraine Maternal Grandfather Migraine MaTERNAL Cancer, Onset Age: 70 Lung Cancer-Maternal Smoker High cholesterol Maternal Grandmother Hypertension Paternal Dementia, Onset Age: 80 Paternal Grandfather Kidney disease Paternal Alzheimer's dementia, Onset Age: 70 Paternal Social History adopted: No household members: spouse housing: house current occupational status: employed current occupation: [employer] current occupational exposures/hazards: No pets and animals: Yes pets and animals: dog(s) history of recent travel: Yes ([place] in February) out of state: Yes out of country: No sexually active: Yes Smoking Status: Never smoker alcohol intake: never substance use type: does not use well-balanced diet: daily or most days caffeine: No eating out: 1-3 times/week during the past year weight has: remained stable what type of physical activity do you participate in: walking and bicycling frequency: 3-4 times per week duration: 15-30 minutes/day jimi/zoroastrianism: Sabianist seatbelt use: always do you feel safe at home: Yes additional social history: [employer] History 1 Elective abortions Hx Para 0 Spontaneous abortions Hx # Term Pregnancies Ectopic pregnancies Hx # Pregnancies Multiple births # of living children HPI *NEW* NOB LMP 02/22, [place] 2/ Details: CHARLIE GORDON is a 25 year old who presents for New OB visit. OB Visit [place] Calculator Estimated Delivery Date Method Current WG Current Estimate 11/29/25 LMP (Certain) 8w 3d Comments: HIV: Urine Culture: Sequential Screen: NIPT Screen: Estimated Due Date: 11/29/25 Expected Delivery Route/Plan Labor Preferences- CB/BF classes: [] labor support person: [] labor intervention preferences: [] pain management options preferred: [] cut cord/dad catch: [] : [] PP control planned: [] discussed possible routes of delivery and associated risks: [] special requests: [] Specific Issue/Plans Covid status: [] Flu vaccine: [] Tdap vaccine: [] Rhogam: [] LARC form signed: [] Problem list reviewed and updated with the most current plan of care details and appropriate ordersplaced. Relevant counseling for the gestational age provided. Continue routine care and follow up unless otherwise noted in visit notes/problem list details Initial Weight: Not Recorded Date -?-?-?-?-?-?-?-?-?-?-?-?- EGA Weight BP Urine Prot -?-?-?-?-?-?-?-?-?-?-?-?- Glucose FHR FuHt Pres Dilation -?-?-?-?-?-?-?-?-?-?-?-?- Effaced St Visit Note 04/22/25 -?-?-?-?-?-?-?-?-?-?-?--?- 8w 3d 187 lb 6 oz 104/63 -?-?-?-?-?-?-?-?-?-?-?-?- 175 -?-?-?-?-?-?-?-?-?-?-?-?- JV- CRL consiste nt with LMP. no nausea. declines NIPT. will do baseline new ob labs today. Menstrual History Last Menstrual Period: 02/22/25 Reported LMP: definite Normal amount/duration: Yes Frequency in days: 28 On hormonal BC at conception: No hCG+: 03/21/25 Antepartum Record Genetic Screening: Congenital Heart Defect: Other, Neural Tube Defect: Other, Hemoglobinopathy Or Carrier: Other, Cystic Fibrosis: Other, Chromosome Abnormality: Other, Brodie-Sachs: Other, Hemophilia: Other, Intellectual Disability/Autism: Other, Recurrent Loss/Stillbirth: Other, Other Structural Defect: Other, Other Genetic Disease: Other and Maternal Metabolic Disorder: Patient (Mother) Infection History: Live with someone with TB or Exposed to TB: No, Patient or Partner has history of Genital Herpes: No, Rash or Viral illness since last mentrual period: No, Prior GBS-Infected child: No, History of STD: No, HIV Infection: No, History of Hepatitis: No, Recent travel outside of [place]: No, Concern for hepatitis exposure: No, Varicella immune: Yes (immune- virus) and Covid Vaccinated: Yes (J&J, No Boosters) Medical History Medical History: Positive: Thyroid dysfunction (thyroid nodule), Drug/latex allergies/reactions (Chocolate), Operations/hospitalizations (myringotomy) and Relevant family history (See PFSH) and Negative: Diabetes, Hypertension, Heart disease, Auto-immune disorder, Kidney disease/UTI, Neurologic/epilepsy, Psychiatric, Depression/ depression, Hepatitis/liver disease, Varicosities/phlebitis, Trauma/domestic violence, History of blood transfusions, D (Rh) Sensitized, Pulmonary (e.g.,TB,Asthma), Seasonal allergies, Breast, Crystalizer Tender surgery, Anesthetic complications, History of abnormal pap (Last pap 2022), Uterine anomaly/hermelinda, Infertility, Anti-retroviral treatment and Other ACOG First Trimester First Trimester: Desire for , Alcohol, Tobacco Cessation, Illicit/Recreational Drug/Substance Use, Intimate Partner Violence, Barriers to care, Unstable Housing, Communication Barriers, Environmental/Work Hazards, Anticipated Course of Care, Nurtrition and weight gain, Toxoplasmosis Precations, Use of Any medications, Sexual activity, Exercise, Dental Care, Sauna/Hot tub use, Seat Belt use, Childbirth classes/Hospital facilities, Travel, Indications for Ultrasound and Screening for Aneuploidy; Discussed ROS Const Reports system reviewed and no additional complaints, except as documented, Reports fatigue and Denies fever(s) Eyes Reports system reviewed and no additional complaints, except as documented ENT Reports system reviewed and no additional complaints, except as documented Card Denies chest pain and Denies dyspnea Resp Reports system reviewed and no additional complaints, except as documented, Denies cough and Deniesdyspnea GI Denies abdominal pain and Reports nausea Reports system reviewed and no additional complaints, except as documented Musc Reports system reviewed and no additional complaints, except as documented Skin/Breast Reports system reviewed and no additional complaints, except as documented Neuro Yes system reviewed and no additional complaints, except as documented Psych Reports system reviewed and no additional complaints, except as documented Endo Reports system reviewed and no additional complaints, except as documented and Reports fatigue Exam Const General: healthy appearing, comfortable and no acute distress Orientation: alert [facility] Head: normal to inspection, normocephalic and atraumatic Ears: hearing grossly normal bilaterally and external ears normal Nose: external nose normal and nares normal Mouth: oral mucosae normal Teeth and gingiva: dentition normal Eyes General: appearance normal, both eyes and all related structures Neck Neck: normal visual inspection, no lymphadenopathy and supple Thyroid: thyroid normal Chest Chest palpation & inspection: normal inspection of the chest Breast inspection: normal inspection of the breasts and normal inspection of the axillae Breast palpation: normal palpation of the breasts and normal palpation of the axillae Resp Effort & Inspection: normal respiratory effort GI Inspection: normal to inspection Palpation: soft and no hepatosplenomegaly General: bladder normal to palpation External Female Exam: normal external appearance and normal appearance of the urethra Urethra: normal appearance of the urethra Speculum Exam - Vagina: normal appearance of the vagina and normal vaginal discharge Speculum Exam - Cervix: normal appearance of the cervix Bimanual Exam- Vagina & Uterus: normal bimanual exam, bladder normal to palpation, non-tender and other Bimanual Exam- Adnexa, other: non-tender Skin General: no rashes or lesions noted Neuro Motor: muscle tone normal throughout and no movement abnormalities noted Extrem General: normal to inspection and full ROM Supplemental Info ACOG book given and patient encouraged to read about nutrition, exercise, weight gain, and food avoidance in . Coding Level of Care Code OB Routine Diagnoses Secondary amenorrhea N91.1 Supervision of normal first Z34.00 Z34.90 Thyroid nodule E04.1 Assessment and Plan Assessment and Plan (1) Secondary amenorrhea: Status: Acute Comment: +UPT (2) Supervision of normal first : Status: Acute Comment: , [place] 11/29/25, [place] (3) : Status: Acute Comment: Declined NIPT & Carrier testing (4) Thyroid nodule: Status: Acute Comment: no treatment to date Orders: Orders CBC W/Diff, Automated 04/05/25 Z34.00 - Encounter for supervision of normal first , unspecified trimester Type & Screen 04/05/25 Z34.00 - Encounter for supervision of normal first , unspecified trimester Rubella IgG 04/05/25 Z34.00 - Encounter for supervision of normal first , unspecified trimester Hepatitis C Antibody 04/05/25 Z34.00 - Encounter for supervision of normal first , unspecified trimester Hepatitis B Surface Antigen 04/05/25 Z34.00 - Encounter for supervision of normal first , unspecified trimester Culture, Urine 04/05/25 Z34.00 - Encounter for supervision of normal first , unspecified trimester Syphilis Antibodies 04/05/25 Z34.00 - Encounter for supervision of normal first , unspecified trimester Chlamydia/GC VANCE aptima 04/05/25 Z34.00 - Encounter for supervision of normal first , unspecified trimester HIV 04/05/25 Z34.00 - Encounter for supervision of normal first , unspecified trimester Thyroid Stim Hormone (TSH) 04/05/25 Z34.00 - Encounter for supervision of normal first , unspecified trimester T4 Free Direct 04/05/25 Z34.00 - Encounter for supervision of normal first , unspecified trimester [facility] Misc. 04/05/25 Z34.00 - Encounter for supervision of normal first , unspecified trimester Plan Patient oriented to practice and discussed care expectations and screenings. ACOG book offered to patient. Discussed routine and specially indicated labs if needed- patient consents to testing. See problem list details for plan information. Optional screening including maternal carrier screenings, neural tube defect screening, genetic screening options including quad screen, nuchal translucency, sequential screening, and NIPT screening offered to patient and patient chose: none 04/22/25 0910 e Kristy DO> Date _ Tammy Cooley DO Giovany Signature: Date (if applicable) CC: ~ [facility]06-10-2025 Evaluation note* Diagnosis Onset Date Resolution Status Admit Date Secondary amenorrhea acute April 05, 2025 7:54am acute April 22 8:16am Secondary amenorrhea acute April 22, 2025 8:16am Supervision of normal first acute April 22, 2025 8:16am Thyroid nodule acute April 22, 2025 8:16am [facility] Work Phone: [phone] Evaluation note* Diagnosis Onset Date Resolution Status Admit Date Secondary amenorrhea acute April 05, 2025 7:54am acute April 22 8:16am Secondary amenorrhea acute April 22, 2025 8:16am Supervision of normal first acute April 22, 2025 8:16am Thyroid nodule acute April 22, 2025 8:16am acute May 20 1:50pm Secondary amenorrhea acute May 20, 2025 1:50pm Supervision of normal first acute May 20, 2025 1:50pm Thyroid nodule acute May 20, 2025 1:50pm [facility] Work Phone: [phone] Evaluation note* Diagnosis Onset Date Resolution Status Admit Date Secondary amenorrhea acute April 05, 2025 7:54am acute April 22 8:16am Secondary amenorrhea acute April 22, 2025 8:16am Supervision of normal first acute April 22, 2025 8:16am Thyroid nodule acute April 22, 2025 8:16am acute May 20 1:50pm Secondary amenorrhea acute May 20, 2025 1:50pm Supervision of normal first acute May 20, 2025 1:50pm Thyroid nodule acute May 20, 2025 1:50pm acute June 17 2:28pm Secondary amenorrhea acute 2024 2:28pm Supervision of normal first acute June 17 2:28pm Thyroid nodule acute May 2:28pm [facility] Work Phone: Evaluation noteNo assessment information available [facility] Work Phone: Progress note Author Tammy Wagner [facility] Note Date/Time April 22, 2025 9:10 am [facility] [address] [place] [address], [address] [place] [id number] OFFICE VISIT Date of Service: 04/22/25 MR#: [id number] Acct: [id number] Name: CHARLIE GORDON Rep #: [id number] : 2000 Provider: Dr. Niurka Cooley DO Age/Sex: 25/F Location: [facility] Status: Signed Intake Vital Signs 04/05/25 09:08 04/22/25 08:22 Height 5 ft 8 in 5 ft 8 in Weight: 187 lb 6 oz BMI 28.5 BP 104/63 Intake Visit Reasons: *NEW* NOB LMP 02/22, [place] 2/3 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: No Is patient in pain?: No Allergies chocolate Allergy (Intermediate, Verified 04/22/25 08:23) Vomiting Medications ?Medication ?Instructions ?Recorded ?Confirmed ?Type multivitamin no.47-iron fum 27 cap PO 04/05/25 5 History mg-folate no.1 1 mg-dha 300 mg capsule (PNV-DHA) Last Menstrual Period: 02/22/25 Zika: Zika virus screening: Negative : No PFSH PFSH Surgical History H/O myringotomy Family History Mother Hypertension High cholesterol Gestational diabetes Migraine Father High cholesterol Migraine Grandmother Hypertension Maternal Cancer, Onset Age: 70 - Smoker Maternal Lung cancer Thyroid disorder Maternal- Hyperthyroidism Migraine Maternal Grandfather Migraine MaTERNAL Cancer, Onset Age: 70 Lung Cancer-Maternal Smoker High cholesterol Maternal Grandmother Hypertension Paternal Dementia, Onset Age: 80 Paternal Grandfather Kidney disease Paternal Alzheimer's dementia, Onset Age: 70 Paternal Social History adopted: No household members: spouse housing: house current occupational status: employed current occupation: [employer] current occupational exposures/hazards: No pets and animals: Yes pets and animals: dog(s) history of recent travel: Yes ([place] in February) out of state: Yes out of country: No sexually active: Yes Smoking Status: Never smoker alcohol intake: never substance use type: does not use well-balanced diet: daily or most days caffeine: No eating out: 1-3 times/week during the past year weight has: remained stable what type of physical activity do you participate in: walking and bicycling frequency: 3-4 times per week duration: 15-30 minutes/day jimi/zoroastrianism: Sabianist seatbelt use: always do you feel safe at home: Yes additional social history: [employer] History 1 Elective abortions Hx Para 0 Spontaneous abortions Hx # Term Pregnancies Ectopic pregnancies Hx # Pregnancies Multiple births # of living children HPI *NEW* NOB LMP 02/22, [place] 2/3 Details: CHARLIE GORDON is a 25 year old who presents for New OB visit. OB Visit [place] Calculator Estimated Delivery Date Method Current WG Current Estimate 11/29/25 LMP (Certain) 8w 3d Comments: HIV: Urine Culture: Sequential Screen: NIPT Screen: Estimated Due Date: 11/29/25 Expected Delivery Route/Plan Labor Preferences- CB/BF classes: [] labor support person: [] labor intervention preferences: [] pain management options preferred: [] cut cord/dad catch: [] : [] PP control planned: [] discussed possible routes of delivery and associated risks: [] special requests: [] Specific Issue/Plans Covid status: [] Flu vaccine: [] Tdap vaccine: [] Rhogam: [] LARC form signed: [] Problem list reviewed and updated with the most current plan of care details and appropriate orders placed. Relevant counseling for the gestational age provided. Continue routine care and follow up unless otherwise noted in visit notes/problem list details Initial Weight: Not Recorded Date -?-?-?-?-?-?-?-?-?-?-?-?- EGA Weight BP Urine Prot -?-?-?-?-?-?-?-?-?-?-?-?- Glucose FHR FuHt Pres Dilation -?-?-?-?-?-?-?-?-?-?-?-?- Effaced St Visit Note 04/22/25 -?-?-?-?-?-?-?-?-?-?-?--?- 8w 3d 187 lb 6 oz 104/63 -?-?-?-?-?-?-?-?-?-?-?-?- 175 -?-?-?-?-?-?-?-?-?-?-?-?- JV- CRL consiste nt with LMP. no nausea. declines NIPT. will do baseline new ob labs today. Menstrual History Last Menstrual Period: 02/22/25 Reported LMP: definite Normal amount/duration: Yes Frequency in days: 28 On hormonal BC at conception: No hCG+: 03/21/25 Antepartum Record Genetic Screening: Congenital Heart Defect: Other, Neural Tube Defect: Other, Hemoglobinopathy Or Carrier: Other, Cystic Fibrosis: Other, Chromosome Abnormality: Other, Brodie-Sachs: Other, Hemophilia: Other, Intellectual Disability/Autism: Other, Recurrent Loss/Stillbirth: Other, Other Structural Defect: Other, Other Genetic Disease: Other and Maternal Metabolic Disorder: Patient (Mother) Infection History: Live with someone with TB or Exposed to TB: No, Patient or Partner has history of Genital Herpes: No, Rash or Viral illness since last mentrual period: No, Prior GBS-Infected child: No, History of STD: No, HIV Infection: No, History of Hepatitis: No, Recent travel outside of [place]: No, Concern for hepatitis exposure: No, Varicella immune: Yes (immune- virus) and Covid Vaccinated: Yes (J&J, No Boosters) Medical History Medical History: Positive: Thyroid dysfunction (thyroid nodule), Drug/latex allergies/reactions (Chocolate), Operations/hospitalizations (myringotomy) and Relevant family history (See PFSH) and Negative: Diabetes, Hypertension, Heart disease, Auto-immune disorder, Kidney disease/UTI, Neurologic/epilepsy, Psychiatric, Depression/ depression, Hepatitis/liver disease, Varicosities/phlebitis, Trauma/domestic violence, History of blood transfusions, D (Rh) Sensitized, Pulmonary (e.g.,TB,Asthma), Seasonal allergies, Breast, Crystalizer Tender surgery, Anesthetic complications, History of abnormal pap (Last pap 2022), Uterine anomaly/hermelinda, Infertility, Anti-retroviral treatment and Other ACOG First Trimester First Trimester: Desire for , Alcohol, Tobacco Cessation, Illicit/Recreational Drug/Substance Use, Intimate Partner Violence, Barriers to care, Unstable Housing, Communication Barriers, Environmental/Work Hazards, Anticipated Course of Care, Nurtrition and weight gain, Toxoplasmosis Precations, Use of Any medications, Sexual activity, Exercise, Dental Care, Sauna/Hot tub use, Seat Belt use, Childbirth classes/Hospital facilities, Travel, Indications for Ultrasound and Screening for Aneuploidy; Discussed ROS Const Reports system reviewed and no additional complaints, except as documented, Reports fatigue and Denies fever(s) Eyes Reports system reviewed and no additional complaints, except as documented ENT Reports system reviewed and no additional complaints, except as documented Card Denies chest pain and Denies dyspnea Resp Reports system reviewed and no additional complaints, except as documented, Denies cough and Denies dyspnea GI Denies abdominal pain and Reports nausea Reports system reviewed and no additional complaints, except as documented Musc Reports system reviewed and no additional complaints, except as documented Skin/Breast Reports system reviewed and no additional complaints, except as documented Neuro Yes system reviewed and no additional complaints, except as documented Psych Reports system reviewed and no additional complaints, except as documented Endo Reports system reviewed and no additional complaints, except as documented and Reports fatigue Exam Const General: healthy appearing, comfortable and no acute distress Orientation: alert [facility] Head: normal to inspection, normocephalic and atraumatic Ears: hearing grossly normal bilaterally and external ears normal Nose: external nose normal and nares normal Mouth: oral mucosae normal Teeth and gingiva: dentition normal Eyes General: appearance normal, both eyes and all related structures Neck Neck: normal visual inspection, no lymphadenopathy and supple Thyroid: thyroid normal Chest Chest palpation & inspection: normal inspection of the chest Breast inspection: normal inspection of the breasts and normal inspection of the axillae Breast palpation: normal palpation of the breasts and normal palpation of the axillae Resp Effort & Inspection: normal respiratory effort GI Inspection: normal to inspection Palpation: soft and no hepatosplenomegaly General: bladder normal to palpation External Female Exam: normal external appearance and normal appearance of the urethra Urethra: normal appearance of the urethra Speculum Exam - Vagina: normal appearance of the vagina and normal vaginal discharge Speculum Exam - Cervix: normal appearance of the cervix Bimanual Exam- Vagina & Uterus: normal bimanual exam, bladder normal to palpation, non-tender and other Bimanual Exam- Adnexa, other: non-tender Skin General: no rashes or lesions noted Neuro Motor: muscle tone normal throughout and no movement abnormalities noted Extrem General: normal to inspection and full ROM Supplemental Info ACOG book given and patient encouraged to read about nutrition, exercise, weight gain, and food avoidance in . Coding Level of Care Code OB Routine Diagnoses Secondary amenorrhea N91.1 Supervision of normal first Z34.00 Z34.90 Thyroid nodule E04.1 Assessment and Plan Assessment and Plan (1) Secondary amenorrhea: Status: Acute Comment: +UPT (2) Supervision of normal first : Status: Acute Comment: , [place] 11/29/25, [place] (3) : Status: Acute Comment: Declined NIPT & Carrier testing (4) Thyroid nodule: Status: Acute Comment: no treatment to date Orders: Orders CBC W/Diff, Automated 04/05/25 Z34.00 - Encounter for supervision of normal first , unspecified trimester Type & Screen 04/05/25 Z34.00 - Encounter for supervision of normal first , unspecified trimester Rubella IgG 04/05/25 Z34.00 - Encounter for supervision of normal first , unspecified trimester Hepatitis C Antibody 04/05/25 Z34.00 - Encounter for supervision of normal first , unspecified trimester Hepatitis B Surface Antigen 04/05/25 Z34.00 - Encounter for supervision of normal first , unspecified trimester Culture, Urine 04/05/25 Z34.00 - Encounter for supervision of normal first , unspecified trimester Syphilis Antibodies 04/05/25 Z34.00 - Encounter for supervision of normal first , unspecified trimester Chlamydia/GC VANCE aptima 04/05/25 Z34.00 - Encounter for supervision of normal first , unspecified trimester HIV 04/05/25 Z34.00 - Encounter for supervision of normal first , unspecified trimester Thyroid Stim Hormone (TSH) 04/05/25 Z34.00 - Encounter for supervision of normal first , unspecified trimester T4 Free Direct 04/05/25 Z34.00 - Encounter for supervision of normal first , unspecified trimester [facility] Misc. 04/05/25 Z34.00 - Encounter for supervision of normal first , unspecified trimester Plan Patient oriented to practice and discussed care expectations and screenings. ACOG book offered to patient. Discussed routine and specially indicated labs if needed- patient consents to testing. See problem list details for plan information. Optional screening including maternal carrier screenings, neural tube defect screening, genetic screening options including quad screen, nuchal translucency, sequential screening, and NIPT screening offered to patient and patient chose: none 04/22/25 0910 <Electronically signed by Tammy Murphy DO> Date _ Tammy Cooley DO Cosigner Signature: Date (if applicable) CC: ~ [facility] Work Phone: Reason for referral (narrative)No reason for referral information available[facility] Work Phone: Summary Purpose Family History No Family History Records Found Lung Cancer Status:Active Comments:Materna l Grandfather. Lung Cancer Status:Active Comments:Materna l Grandfather. Lung Cancer Status:Active Comments:Materna l Grandfather. Lung Cancer Status:Active Comments:Materna l Grandfather. Lung Cancer Status:Active Comments:Materna l Grandfather. Lung Cancer Status:Active Comments:Materna l Grandfather. Lung Cancer Status:Active Comments:Materna l Grandfather. Lung Cancer Status:Active Comments:Materna l Grandfather. Lung Cancer Status:Active Comments:Materna l Grandfather. Lung Cancer Status:Active Comments:Materna l Grandfather. Relationship Condition Age at Onset Recorded Date/T maksim mother Hypertension Unknown High blood cholesterol Unknown Gestational diabetes mellitus (GDM) Unkno wn Migraine headache Unknown father High blood cholesterol Unknown grandmother Hypertension Unknown Malignant neoplasm 70 Disorder of thyroid Unknown grandfather Migraine headache Unknown Dementia 80 grandfather Kidney disorder Unknown Alzheimer's dementia 70 Lung Cancer Status:Active Comments:Materna l Grandfather. Lung Cancer Status:Active Comments:Materna l Grandfather. Lung Cancer Status:Active Comments:Materna l Grandfather. Lung Cancer Status:Active Comments:Materna l Grandfather. Advance Directives No Advanced Directives Records FoundNo Advanced Directives Records FoundNo Advanced Directives Records FoundNo Advanced Directives Records Found Chief Complaint and Reason for Visit Chief Complaint Admit Date Pre new ob, confirm preg, vitals April 052024 7:54am Chief Complaint Admit Date Pre new ob, confirm preg, vitals April 052024 7:54am *NEW* NOB LMP 02/22, [place] 2/April 22, 025 8:16am Reason for Visit Admit Date Secondary amenorrhea April 05, 2025 7:5 4am April 22, 2025 8:16 am Secondary amenorrhea April 22, 2025 8:1 6am Supervision of normal first Ju ne 2024 8:16am Thyroid nodule April 22, 2025 8:16 am Chief Complaint Admit Date Pre new ob, confirm preg, vitals April 052024 7:54am *NEW* NOB LMP 02/22, [place] 11/29April 22, 2 025 8:16am 12 WK OB May 20, 2025 1:50 pm Reason for Visit Admit Date Secondary amenorrhea April 05, 2025 7:5 4am April 22, 2025 8:16 am Secondary amenorrhea April 22, 2025 8:1 6am Supervision of normal first Ju ne 2024 8:16am Thyroid nodule April 22, 2025 8:16 am May 20, 2025 1:50 pm Secondary amenorrhea May 20, 2025 1:5 0pm Supervision of normal first Ju ly 2024 1:50pm Thyroid nodule May 20, 2025 1:50 pm Chief Complaint Admit Date Pre new ob, confirm preg, vitals April 052024 7:54am *NEW* NOB LMP 02/22, [place] 11/29April 22, 2 025 8:16am 12 WK OB May 20, 2025 1:50 pm 16wk ob June 17, 2025 2: 28pm Reason for Visit Admit Date Secondary amenorrhea April 05, 2025 7:5 4am April 22, 2025 8:16 am Secondary amenorrhea April 22, 2025 8:1 6am Supervision of normal first Ju ne 2024 8:16am Thyroid nodule April 22, 2025 8:16 am May 20, 2025 1:50 pm Secondary amenorrhea May 20, 2025 1:5 0pm Supervision of normal first Ju ly 2024 1:50pm Thyroid nodule May 20, 2025 1:50 pm June 17, 2025 2: 28pm Secondary amenorrhea June 17, 2025 2 :28pm Supervision of normal first Au alyson 2024 2:28pm Thyroid nodule June 17, 2025 2: 28pm Additional Source Comments INFORMATION SOURCE (unrecogn ized section and content) DATE CREATED AUTHOR 07/13/2021 Esau Lozada [facility] DATE CREATED AUTHOR AUTHOR'S ORGANIZ ATION 08/11/2024 [facility] DATE CREATED AUTHOR AUTHOR'S ORGANIZ ATION 06/19/2025 [facility] DATE CREATED AUTHOR AUTHOR'S ORGANIZ ATION 07/07/2025 [facility] Teams (unrecognized sec tion and content) Team Status: Active Member Role Status Dates Dr. Anthony Mercedes MD Family Provider Active Dr. Anthony Mercedes MD Primary Care Provider Active Team Status: Inactive Member Role Status Dates Dr. Anthony Mercedes MD Primary Care Provider Active Start: April 05, 2025 End: April 05, 2025 Dr. Anthony Mercedes MD Referring Provider Active Start: April 05, 2025 End: April 05, 2025 Iris Singer FACILITY PRACTICE SPECIALIST, FACILITY PRACTICE SPECIALIST-C Attending Provider Active Start: April 05, 2025 End: April 05, 2025 Team Status: Active Member Role Status Dates Dr. Anthony Mercedes MD Primary Care Provider Active Team Status: Inactive Member Role Status Dates Dr. Anthony Mercedes MD Primary Care Provider Active Start: April 22, 2025 End: April 22, 2025 Dr. Anthony Mercedes MD Referring Provider Active Start: April 22, 2025 End: April 22, 2025 Dr. Tammy Cooley DO Attending Provider Activ e Start: April 22, 2025 End: April 22, 2025 Team Status: Active Member Role Status Dates Dr. Anthony Mercedes MD Primary Care Provider Active Start: April 22, 2025 Dr. Tammy Cooley DO Attending Provider Activ e Start: April 22, 2025 Dr. Tammy Cooley DO Referring Provider Activ e Start: April 22, 2025 Team Status: Active Member Role/Relationship Status Dates Dr. Anthony Mercedes MD Primary Care Provider Active Team Status: Inactive Member Role/Relationship Status Dates Dr. Anthony Mercedes MD Primary Care Provider Active Start: April 05, 2025 End: April 05, 2025 Dr. Anthony Mercedes MD Referring Provider Active Start: April 05, 2025 End: April 05, 2025 Iris Singer NP, FACILITY PRACTICE SPECIALIST-C Attending Provider Active Start: April 05, 2025 End: April 05, 2025 Team Status: Inactive Member Role/Relationship Status Dates Dr. Anthony Mercedes MD Primary Care Provider Active Start: April 22, 2025 End: April 22, 2025 Dr. Anthony Mercedes MD Referring Provider Active Start: April 22, 2025 End: April 22, 2025 Dr. Tammy Cooley DO Attending Provider Activ e Start: April 22, 2025 End: April 22, 2025 Team Status: Inactive Member Role/Relationship Status Dates Dr. Anthony Mercedes MD Primary Care Provider Active Start: April 22, 2025 End: April 22, 2025 Dr. Tammy Cooley DO Attending Provider Activ e Start: April 22, 2025 End: April 22, 2025 Dr. Tammy Cooley DO Referring Provider Activ e Start: April 22, 2025 End: April 22, 2025 Team Status: Inactive Member Role/Relationship Status Dates Dr. Anthony Mercedes MD Primary Care Provider Active Start: May 20, 2025 End: May 20, 2025 Dr. Anthony Mercedes MD Referring Provider Active Start: May 20, 2025 End: May 20, 2025 Keith Archuleta CNM Attending Provider Active S tart: May 20, 2025 End: May 20, 2025 Team Status: Inactive Member Role/Relationship Status Dates Dr. Anthony Mercedes MD Primary Care Provider Active Start: June 17, 2025 End: June 17, 2025 Dr. Anthony Mercedes MD Referring Provider Active Start: June 17, 2025 End: June 17, 2025 Keith Archuleta CNM Attending Provider Active S tart: June 17, 2025 End: June 17, 2025 Goals (unrecognized section and content) Goals may be documented in a n alternate sectionGoals may be documented in an alternate sectionGoals may be documented in an alternate sectionGoals may be documented in an alternate sectionGoals may be documented in an alternate section FOR RECORDS PERTAINING TO PATIENTS WHO ARE OR HAVE BEEN ENROLLED IN A CHEMICAL DEPENDENCY/SUBSTANCEABUSE PROGRAM, SOME INFORMATION MAY BE OMITTED. This clinical summary was aggregated from multiple sources. Caution should be exercised in using it in the provision of clinical care. This summary normalizes information from multiple sources, and as a consequence, information in this document may materially change the coding, format and clinical context of patient data. In addition, data may be omitted in some cases. CLINICAL DECISIONS SHOULD BE BASED ON THE PRIMARY CLINICAL RECORDS. [facility] [employer] provides no warranty or guarantee of the accuracy or completeness of information in this document.
[2025-07-10 09:48] VITALS: BP 124/58; PULSE 79; O2SAT 96
[2025-07-10 09:49] VITALS: RESP 16; TEMP 37
[2025-07-10 10:07] LABS: Glucose, Dipstick Normal (Normal); Ketone-Dipstick Negative (Negative); Leukocyte Esterase-Dipstick Negative /ul (Negative); Nitrite-Dipstick Negative (Negative); Occult Blood-Urine 250 /ul (Negative); Protein-Dipstick 30 mg/dl (Negative); Specific Gravity, Urine 1.010 (1.002-1.030); Urine Bilirubin Dipstick Negative (Negative)
[2025-07-10 10:07] LABS: Hematocrit 34.0 % (37-47); Hemoglobin 11.5 g/dL (12.0-15.0); Immature Granulocytes Count 0.140 X10^3/uL (0.0-0.0); Mean Corp Hgb Conc 33.8 g/dL (32-36); Mean Corpuscular Volume 80.8 fL (81-99); Mean Platelet Vol. 10.9 fl (6.2-12.0); NRBC Flagged by Analyzer 0 % (0-5); Platelet Count 163 K/mm3 (150-450); RBC Distribution Width CV 13.3 % (11.6-14.6); RBC Distribution Width SD 38.5 fl (35.1-43.9); Red Blood Count 4.21 M/mm3 (4.2-5.4); White Blood Count 10.1 K/mm3 (4.4-11.0)
[2025-07-10 10:15] LABS: Color, Urine SEE COMMENT BELOW (Yellow)
[2025-07-10 10:27] VITALS: BMI 30.2
--- NOTE | 2025-07-10 10:53 | US_ITS ---
PROCEDURE: KIDNEY AND BLADDER 07/10/2025 REASON FOR EXAM: RULE OUT KIDNEY STONE 2nd trimester . TECHNIQUE: Procedure Code: USKI Modality: US Procedure: KIDNEY AND BLADDER COMPARISON: None FINDINGS: Kidneys: The right kidney measures 13.4 x 6.7 x 5.3 cm. Moderate hydronephrosis. Likely more than anticipated for stage of . The left kidney measures 11.9 x 5.6 x 5.9 cm. No hydronephrosis. Normal echotexture. Retroperitoneum: Negative. Urinary bladder: Urinary bladder negative. Bilateral ureteral jets. Other findings: US/Kidney and Bladder IMPRESSION: Moderate right hydronephrosis more than anticipated for patient's stage of preg kalee. However both ureteral jets are patent and functional.. Reading Location: [id number]
--- NOTE | 2025-07-10 11:25 | OB.TRI.HP_ITS ---
HPI - General General Date of Admission: 07/10/25 Date of Service: 07/10/25 HPI Narrative CHARLIE GORDON, is a 25 F who presents with bleeding. Patient unsure if it is vaginal she sees it with upon wiping. She denies any regular cramping but has some right lower abdominal pain especially with urination. Patient has no history of UTIs or kidney stones. She denies any regular contractions or pelvic pressure. Maternal Data Information [place] Calculator Estimated Delivery Date Method Current WG Current Estimate 11/29/25 LMP (Certain) 19w 5d PFSH PFSH Home Medications ?Medication ?Instructions ?Recorded ?Last Taken ?Type multivitamin no.47-iron fum 27 1 cap PO DAILY pregnanc y 04/05/25 07/09/25 20:00 History mg-folate no.1 1 mg-dha 300 mg 1 cap capsule (PNV-DHA) Allergy/AdvReac Type Severity Reaction Status Date / Time chocolate Allergy Intermediate Vomiting Verified 07/10/25 10:48 Family History Mother Hypertension High cholesterol Gestational diabetes Migraine Father High cholesterol Migraine Grandmother Hypertension Maternal Cancer, Onset Age: 70 - Smoker Maternal Lung cancer Thyroid disorder Maternal- Hyperthyroidism Migraine Maternal Grandfather Migraine MaTERNAL Cancer, Onset Age: 70 Lung Cancer-Maternal Smoker High cholesterol Maternal Grandmother Hypertension Paternal Dementia, Onset Age: 80 Paternal Grandfather Kidney disease Paternal Alzheimer's dementia, Onset Age: 70 Paternal Surgical History H/O myringotomy Social History adopted: No household members: spouse housing: house current occupational status: employed current occupation: [employer] current occupational exposures/hazards: No pets and animals: Yes pets and animals: dog(s) history of recent travel: Yes ([place] in February) out of state: Yes out of country: No sexually active: Yes Smoking Status: Never smoker alcohol intake: never substance use type: does not use well-balanced diet: daily or most days caffeine: No eating out: 1-3 times/week during the past year weight has: remained stable what type of physical activity do you participate in: walking and bicycling frequency: 3-4 times per week duration: 15-30 minutes/day jimi/adventist: Shinto seatbelt use: always do you feel safe at home: Yes additional social history: [employer]- [employer] History 1 Elective abortions Hx Para 0 Spontaneous abortions Hx # Term Pregnancies Ectopic pregnancies Hx # Pregnancies Multiple births # of living children Visit Details Expected Delivery Route/Plan Labor Preferences- CB/BF classes: [] labor support person: [] labor intervention preferences: [] pain management options preferred: [] cut cord/dad catch: [] : [] PP control planned: [] discussed possible routes of delivery and associated risks: [] special requests: [] Plans Covid status: [] Flu vaccine: [] Tdap vaccine: [] Rhogam: [] LARC form signed: [] Problem list reviewed and updated with the most current plan of care details and appropriate orders placed. Relevant counseling for the gestational age provided. Continue routine care and follow up unless otherwise noted in visit notes/problem list details OB Flowsheet Initial Weight: Not Recorded Date -?-?-?-?-?-?-?-?-?-?-?-?- EGA Weight BP Urine Prot -?-?-?-?-?-?-?-?-?-?-?-?- Glucose FHR FuHt Pres Dilation -?-?-?-?-?-?-?-?-?-?-?-?- Effaced St Visit Note 04/22/25 -?-?-?-?-?-?-?-?--?-?-?-?- 8w 3d 187 lb 6 oz 104/63 -?-?-?-?-?-?-?-?-?-?-?-?- 175 -?-?-?-?-?-?-?-?-?-?-?-?- JV- CRL consiste nt with LMP. no nausea. declines NIPT. will do baseline new ob labs today. 05/20/25 -?-?-?-?-?-?-?-?-?-?-?-?- 12w 3d 189 lb 8 oz 120/72 Nega tive -?-?-?-?-?-?-?-?-?-?-?-?- Negative 163 -?-?-?-?-?-?-?-?-?-?-?-?- kw- no vb/crampi ng. anatomy US ordered. 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 no vb/cramping. declines AFP. US scheduled. no concerns ROS Constitutional Constitutional: Reports systems reviewed and no addt'l complaints, except as documented Gastrointestinal Gastrointestinal: Reports as per HPI Physical Exam Const alert, oriented x3 and no apparent distress HEENT Head and Scalp: normocephalic and atraumatic Neck full ROM and no lymphadenopathy Chest inspection of chest normal Resp normal respiratory effort GI GI Narrative: gravid, abdomen nontender, AGA NST FHR Rate Baby A Baseline: 140 Assessment & Plan (1) Nephrolithiasis: COMMENT: Suspected, renal ultrasound ordered. Keflex ordered urine culture sent (2) Hematuria: (3) : QUALIFIERS: Weeks of gestation: 16 weeks Qualified Code(s): Z3A.16 - 16 weeks gestation of COMMENT: Declined NIPT & Carrier testing (4) Supervision of normal first : COMMENT: PRR, , [place] 11/29/25, Jose (5) Rh negative status during : COMMENT: RhoGAM given 07/10/2025 in triage PLAN: Plan CBC type and screen RhoGAM given due to bleeding. Renal ultrasound ordered, oral fluid resuscitation. Keflex given. Will discharge home with Keflex prescription UA and culture sent Charges/Coding Multi Select Codes Visit Charges Office Visit/Consults: 61294 OV L3 Est 20min
[2025-07-10 12:32] VITALS: BP 128/61; PULSE 70
[2025-07-10 12:33] VITALS: RESP 16; TEMP 36.6
[2025-07-10] MEDS: Rho(D) Immune Globulin 300 MCG (1500 Unit) Syringe IV (12:34)
[2025-07-10] MEDS: 0.9% Saline Lock 10 ML Syringe IV (12:34)
== END 2025-07-10 14:40 | disposition home or self-care (01) ==
LOC: WPOUT 08:57 → WP 08:59
PROVIDERS: PCP Family Medicine; Visit Provider Obstetrics & Gynecology
DX: O99.891 Other specified diseases and conditions complicating pregnancy (principal); N20.0 Calculus of kidney; Z3A.16 16 weeks gestation of pregnancy; R31.9 Hematuria, unspecified
CPT/HCPCS: 96374; 59050; 76770; 81002; 85025; 85461; 86850; 86900; 86901; 87086; 90384; 99221; A4216; G0378; J2790; J2791

== ENCOUNTER → 2025-09-09 | Outpatient (CLI) | payer BC, SELFPAY ==
[2025-09-09 17:10] LABS: Hematocrit 34.0 % (37-47); Hemoglobin 11.2 g/dL (12.0-15.0); Immature Granulocytes Count 0.320 X10^3/uL (0.0-0.0); Mean Corp Hgb Conc 32.9 g/dL (32-36); Mean Corpuscular Volume 83.1 fL (81-99); Mean Platelet Vol. 11.4 fl (6.2-12.0); NRBC Flagged by Analyzer 0 % (0-5); Platelet Count 151 K/mm3 (150-450); RBC Distribution Width CV 13.3 % (11.6-14.6); RBC Distribution Width SD 40.0 fl (35.1-43.9); Red Blood Count 4.09 M/mm3 (4.2-5.4); White Blood Count 9.3 K/mm3 (4.4-11.0)
--- OUTSIDE RECORDS SUMMARY | 2025-09-09 17:12 | XMS RPT_ITS | CCD ---
Author Organization [facility] Care Team Providers Care Door Framer Name Role Phone CHERYLE BAZAN Attending Unavailable CHERYLE BAZAN Consulting Unavailable CHERYLE BAZAN Primary Care Unavailable CHERYLE BAZAN Admitting Unavailable PROVIDER, UNKNOWN Consulting Unavailable Beni CHENG, Cheryle Martinez Unavailable [phone] Beni CHENG, Cheryle Martinez Unavailable Priti RETURNED GOODS SORTER, Radha Unavailable Gogoi (scribe), Hemanta Unavailable Unavaila jessica Gamble PA-C, Rosario Gibson Unavailable Emeka WONG, Jaye Unavailable Unavailable Senthil RETURNED GOODS SORTER, Gwen Unavailable Unavaila ble Marthey RETURNED GOODS SORTER, Abby Unavailable Unavailable Alexi RETURNED GOODS SORTER, Homero Unavailable Unavailable Casi RN, Sanjana Y Unavailable Unavailable Jasbir RETURNED GOODS SORTER, Daija Unavailable Unavailable Dale RETURNED GOODS SORTER, Becky M Unavailable Unavailab jamee Mueller RETURNED GOODS SORTER, Noris Sarkar Unavailable Unavailab Anthony Young MD Unavailable Janny JETERN, Tammy Unavailable Unavailbasil Ley RETURNED GOODS SORTER, Nisha Jernigan Unavailable Unavaila ble Zawalter RETURNED GOODS SORTER, Yuliya Unavailable Unavailable Unavailable Unavailable Modesto Bosch MD Unavailable Dr. Anthony Mercedes MD Primary Care Provider Dr. Anthony Mercedes MD Referring Provider [phone] Iris Santiago Attending Provider Dr. Tammy Cooley DO Attending Provider Dr. Tammy Cooley DO Referring Provider Keith Archuleta CNM Attending Provider [phone] Dr. Tiffany Melendez MD Attending Provider [phone] Nora FELDMAN, Dr. Allen Other Provider [phone] MELODIE GARCIAS Attending Unavailable KEITH ARCHULETA S Referring Unavailable VACCARIELLO, TAMARA Primary Care Unavailable OZIEL DALTON Attending Unavailable KEITH ARCHULETA S Referring Unavailable VACCARIELLO, TAMARA Primary Care Unavailable Daren FELDMAN, Dr. Cruz Primary Care Physician Lucrecia FROTHING MACHINE OPERATOR-Iris Givens Attending Physician [phone] Dr. Tammy Cooley DO Attending Physician Km ZAPATA, Keith Attending Physician [phone] Nora FELDMAN, Dr. Allen Attending Physician Nora FELDMAN, Dr. Allen Nurse Practitioner Daren FELDMAN, Dr. Cruz Primary Care Physician Daren FELDMAN, Dr. Cruz Referring Provider Vaccariello, Anthony Primary Care Unavailable Tammy Cooley Attending Unavailabl e Tammy Cooley Referring Unavailabl e Keith Archuleta Attending Unavailable Vaccariello, Anthony Primary Care Unavailable Vaccariello, Anthony Referring Unavailable Vaccariello, [facility] Primary Care Unavailable Tiffany Melendez Consulting Unavailable Tiffany Melendez Attending Unavailable Vaccariello, Anthony Primary Care Unavailable Keith Archuleta Attending Unavailable Vaccariello, Anthony Referring Unavailable Vaccariello, Anthony Primary Care Unavailable Keith Archuleta Attending Unavailable Vaccariello, Anthony Referring Unavailable Vaccariello, Anthony Primary Care Unavailable Tiffany Melendez Attending Unavailable Vaccariello, Anthony Referring Unavailable Vaccariello, Anthony Primary Care Unavailable Iris Singer NP Attending Unavailable Vaccariello, Anthony Referring Unavailable Vaccariello, Anthony Primary Care Unavailable Tammy Cooley Attending Unavailabl e Vaccariello, Anthony Referring Unavailable Keith Archuleta Attending Unavailable Vaccariello, Anthony Primary Care Unavailable Vaccariello, Anthony Referring Unavailable MarcanthTiffany carney Attending Unavailable Vaccariello, Anthony Primary Care Unavailable Allergies Allergy Classification Reported Allergen(s) Allergy Type Date of Onset Reaction(s) Facility (9 sources) Chocolate; Translations: [chocolate] Allergy to substance 04-05-2025 [facility] Comment on above: Migraine headache Medications Current [...] order. Comment on above: Mail order. Multivit 76-Kflo-Mdsvrs 1-Dha (Pnv-Dha) 27 mg iron-1 mg -300 mg capsule (8 sources) Start: 04-05-2025 Multivit 47-Ir on-Folate 1-Dha (Pnv-Dha) 27 mg iron-1 mg -300 mg capsule Active 1 NMA PO DAILY April 05, 2025 12:00am Complies with drug therapy Start: 04-05-2025 Multivit 47-Ir on-Folate 1-Dha (Pnv-Dha) 27 mg iron-1 mg -300 mg capsule Active 1 NMA PO DAILY April 05, 2025 12:00am Start: 04-05-2025 Multivit 47-Ir on-Folate 1-Dha (Pnv-Dha) [...] 03-May-2019 Start: 03-May-2019 End: 06-May-2019 Status: Inactive cephalexin 500 mg oral capsule (3 sources) Cephalosporin Antibacterial Start: 07-10-2025 End: 08-12-2025 take 1 capsule by mouth every eight hours Cephalexin 500 mg capsule Discontinued 500 mg PO Q8H 21 7 0 July 10, 2025 12:00am August 12, 2025 4:08pm clobetasol propionate 0.5 mg/ml topical solution (20 [...] Anxiety; Translations: [Anxiety disorder, unspecified] 10-25-2024 Chronic Calculus of urinary tract (10 sources) Kidney stone; Translations: [Calculus of kidney] Onset: 07-15-2025 07-10-2025 Episodic Comment on above: Suspected, renal ult rasound ordered. Keflex ordered urine culture sent Cardiac dysrhythmias (20 sources) Palpitations; Translations: [Palpitations] 08-09-2024 Episodic Contraceptive and procreative management (20 sources) Patient encounter status; Translations: [Encounter for contraceptive management, unspecified] 08-09-2024 Episodic Genitourinary symptoms and ill-defined conditions (10 sources) Blood in urine; Translations: [Hematuria, unspecified] Onset: 07-15-2025 07-10-2025 Episodic Headache; including migraine (20 sources) Migraine; Translations: [Migraine, unspecified, not intractable, without status migrainosus] 05-28-2012 Chronic Immunizations and screening for infectious disease (20 sources) Needs influenza immunization; Translations: [Encounter for immunization] 08-09-2016 Episodic Menstrual disorders (20 sources) Secondary amenorrhea; Translations: [Secondary amenorrhea] Onset: 07-15-2025 04-05-2025 Chronic Comment on above: +UPT Other complications of (6 sources) ultrasound scan abnormal; Translations: [Abnormal ultrasonic finding on screening of mother] 07-08-2025 Episodic Comment on above: ICEF offer NIPT Other complications of (9 sources) RhD negative; Translations: [Other specified related conditions, unspecified trimester] 07-10-2025 Episodic Comment on above: RhoGAM given 07/10/20 25 in triage Other complications of (2 sources) Other specified related conditions, unspecified trimester; Translations: [Other specified related conditions, unspecified trimester] Onset: 07-22-2025 Episodic Other complications of (1 source) Abnormal ultrasonic finding on screening of mother; Translations: [Abnormal ultrasonic finding on screening of mother] Onset: 08-12-2025 Episodic Other connective tissue disease (18 sources) Disorder [...] Comment on above: , [place] 11/29/25, Hu rk Garcia Declined NIPT & Yates ier testing PRR, , [place] 6, Jose PRR, , [place] 6, girl lilia Jose Declined NIPT & Yates ier testing. nl anatomy Other skin disorders (20 sources) [place] - lesion ; Translations: [Corns and callosities] 08-09-2024 Episodic Other upper respiratory infections (14 sources) Acute pharyngitis; Translations: [Acute pharyngitis, unspecified] 03-07-2011 Episodic Residual codes; unclassified (2 sources) Unspecified blood type, Rh negative; Translations: [Unspecified blood type, Rh negative] Onset: 07-22-2025 Episodic Residual codes; unclassified (1 source) 24 weeks gestation of ; Translations: [24 weeks gestation of ] Onset: 08-12-2025 Episodic Residual codes; unclassified (1 source) 20 weeks gestation of ; Translations: [20 weeks gestation of ] Onset: 07-15-2025 Episodic Residual codes; unclassified (2 sources) 16 weeks gestation of ; Translations: [16 weeks gestation of ] Onset: 06-17-2025 Episodic Thyroid disorders (20 sources) Cyst of thyroid; Translations: [Nontoxic single thyroid nodule] Onset: 08-12-2025 08-09-2024 Chronic Comment on above: no treatment [...] safe sex/HIV and counseling regarding control. 05-19-2019 Unclassified (1 source) Other specified diseases and conditions complicating ; Translations: [Other specified diseases and conditions complicating ] Onset: 07-22-2025 Past or Other Problems Problem Classification Problem [...] sleeps 5 hours per night. Note for "Well adult female": [place] like this with wedding planning and thought it would get better after the wedding but it hasn't. [place] it skip a beat every few minutes. [...] Unclassified (14 sources) Warts - Note for "Warts": Pt here for wart removal on side of left foot.Saw podiatry in the past and was told it was not a wart. They cut away at it but it returned.Initially started when she was working at [employer] and walking 5+ miles at work daily.Tender [...] seasonal allergies or recurrent sinusitis. Note for "Ear pain": Tried baby oil on it which helps [...] sleeps 8 hours per night. Note for "Well adult female": No concerns today. Doing well on OCP [...] 8 (7-8) hours per night. 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 07-05-2021 Unclassified (14 sources) Nausea - The [...] vertigo, weight loss or vomiting. Note for "Nausea": Mother palpated on her abdomen last night [...] of seasonal allergies or asthma. Note for "Upper respiratory infection": Patient reports of on going cough for [...] child visit #4 - 13 to 17 years": No concerns today. 06-15-2018 Unclassified (14 sources) [...] and counseling regarding substance abuse. Note for "Well child visit #4 - 13 to 17 years": Plays basketball. 08-08-2017 Unclassified (14 sources) Well [...] child visit #4 - 13 to 17 years": No concerns per patient. Will be playing [...] There are no behavioral problems. Note for "Form completion physical": Periods are regular. Will be playing basketball [...] child visit #3 - 4 to 12 years": Pt is in 7th grade. No concerns. [...] stiffness, prodrome or sore throat. Note for "Headache": Pt woke up yesterday am with c/o [...] painful ROM and decreased ROM. Note for "Shoulder pain": reviewed by [facility] 12-13-2024 Results Test Name Value Interpretation Reference Range Facility Senior Finance Manager Office Visit Reporton 08-12-2025 Senior Finance Manager Office Visit Report [facility] [address], [address] [place] [address] OFFICE VISIT Date of Service: 08/12/25 MR#: [id number] Acct: [id number] Name: CHARLIE GORDON Rep #: [id number] : 2000 Provider: Dr. Tiffany braun MD Age/Sex: 25/F [place] [facility] [place]: [place] Intake Vital Signs 05/20/25 13:53 07/15/25 15:10 08/12/25 16:08 08/12/25 16:14 Height 5 ft 8 in 5 ft 8 in 5 ft 8 in 5 ft 8 in Weight: 208 lb 6 oz BMI 31.6 BP 108/69 Intake Visit Reasons: 24w 3d OB Pipe Installer Required: No Is patient in pain?: No Allergies chocolate Allergy (Intermediate, Verified 08/12/25 16:07) Vomiting Medications ???Medication ???Instructions ???Recorded ???Confirmed ???Type multivitamin no.47-iron fum 27 1 cap PO DAILY 04/05/25 08/12/25 History mg-folate no.1 1 mg-dha 300 mg [...] house current occupational status: employed current occupation: [employer] current occupational exposures/hazards: No pets and animals: Yes pets and animals: dog(s) history of recent travel: [place] out of state: Yes out [...] 3-4 times per week duration: 15-30 minutes/day jimi/jehovah's witness: Rastafarian seatbelt use: always do you feel safe at home: Yes additional social history: [employer] History 1 Elective abortions Hx Para 0 Spontaneous abortions Hx # Term Pregnancies Ectopic pregnancies Hx # Pregnancies Multiple births # of living children HPI 24w 3d OB Details: CHARLIE GORDON is a 25 year old who presents for routine OB visit. OB Visit [place] Calculator Estimated Delivery Date Method Current WG Current Estimate 11/29/25 LMP (Certain) 24w 3d Expected Delivery Route/Plan Labor Preferences- CB/BF classes: [] labor support person: [] labor intervention preferences: [] pain management options preferred: [] cut cord/dad catch: [] : [] PP control planned: [] discussed possible routes of delivery and associated risks: [] special requests: [] Specific Issue/Plans Covid status: [] Flu vaccine: given Tdap vaccine: [] Rhogam: [] LARC form [...] oz 119/74 Negative -???-???-???-???-?? ?-???-???-???-???-? ??-???-???- Negative 15 (more content not included)... Normal [facility] - Chemistry and C hemistry - challengeOrdered By: Keith Archuleta on 07-15-2025 Glucose Ql (U) Negative [facility] - UrinalysisOrder ed By: Keith Archuleta on 07-15-2025 Protein Ql (U) Negative [facility] Senior Finance Manager Office Visit Reporton 07-15-2025 Senior Finance Manager Office Visit Report [facility] [address], [address] [place] [address] OFFICE VISIT Date of Service: 07/15/25 MR#: [id number] Acct: [id number] Name: CHARLIE GORDON Rep #: [id number] : 2000 Provider: JODI Borrero ams Age/Sex: 25/F [place] [facility] [place]: Signed Intake Vital Signs 04/22/25 08:22 07/10/25 10:27 07/15/25 15:09 07/15/25 15:10 Height 5 ft 8 in 5 ft 8 in 5 ft 8 in 5 ft 8 in Weight: 202 lb 1 oz BMI 30.7 BP 116/71 Intake Visit Reasons: 20wk ob Pipe Installer Required: No Is patient in pain?: No Allergies chocolate Allergy (Intermediate, Verified 07/15/25 15:09) Vomiting Medications ???Medication ???Instructions ???Recorded ???Confirmed ???Type multivitamin no.47-iron fum 27 1 cap PO DAILY 04/05/25 07/15/25 History mg-folate no.1 1 mg-dha 300 mg capsule (PNV-DHA) cephalexin 500 mg capsule 500 mg PO Q8H 7 days #21 caps 06/2707/15/25 Rx Last Menstrual Period: 02/22/25 Zika: Zika virus screening: Negative : No Have you fallen in the past year?: No PFSH PFSH Surgical History H/O myringotomy [...] house current occupational status: employed current occupation: [employer] current occupational exposures/hazards: No pets and animals: Yes pets and animals: dog(s) history of recent travel: [place] out of state: Yes out [...] 3-4 times per week duration: 15-30 minutes/day jimi/jehovah's witness: Rastafarian seatbelt use: always do you feel safe at home: Yes additional social history: [employer]- [employer] History 1 Elective abortions Hx Para 0 Spontaneous abortions Hx # Term Pregnancies Ectopic pregnancies Hx # Pregnancies Multiple births # of living children HPI 20wk ob Details: CHARLIE GORDON is a 25 year old who presents for routine OB visit. OB Visit [place] Calculator Estimated Delivery Date Method Current WG Current Estimate 11/29/25 LMP (Certain) 20w 3d Expected Delivery Route/Plan Labor Preferences- CB/BF [...] for constipation 06/17/25 -???-???-???-???-?? ?-???-???-???-???-? ??-???-???- 16w 3 (more content not included)... Normal [facility] Urine Cultureon 07-11-2025 URC Culture exhibits no growth. Normal [facility] Comment on above: Performed By: #### M 100.2200 #### [facility] [address] [place], [address] Absolute lymphocyte countOrd ered By: Tiffany Brownnaresh on 07-10-2025 Lymphocytes Auto (Unsp spec) [#/Vol] 1.32 10*3/uL 0.83-4.51 [facility] Absolute neutrophil countOrd ered By: Tiffany Brownnaresh on 07-10-2025 Neutrophils (Bld) [#/Vol] 8.1 10*3/uL High 2.0-7.7 [facility] Automated lymphocyte count a s percentage of total leukocytesOrdered By: Tiffany Brownnaresh on 07-10-2025 Lymphocytes/100 WBC Auto (Unsp spec) 13.1 % Low 19-41 [facility] BRho(D) IGon 07-10-2025 Rho(D) IG Normal [facility] Comment on above: Result Comment: [id number] Rho(D) IG PRSMD TRFSD 07/10/25 1210 Performed By: #### B Rho(D) IG, BRHNM #### [facility] [address] [place], [address] Basophil percentageOrdered B y: Tiffany Brownnaresh on 07-10-2025 Basophils/100 WBC (Bld) 0.4 % 0-1 [facility] Bilirubin Test strip Ql (U)O rdered By: Tiffany Brownnaresh on 07-10-2025 Bilirubin Ql (U) Negative Negative [facility] CBC W/Diff, Automatedon 09-1 Absolute Lymph 1.32 X10 3/uL Normal 0.83-4.51 [facility] Comment on above: Performed By: #### L 100.0100 #### [facility] [address] [place], [address] Absolute Neut 8.1 X10 3/uL High 2.0-7.7 [facility] Comment on above: Performed By: #### L 100.0100 #### [facility] [address] [place], [address] Basophils/100 WBC (Bld) 0.4 % Normal 0-1 [facility] Comment on above: Performed By: #### L 100.0100 #### [facility] [address] [place], [address] Eosinophils/100 WBC (Bld) 0.3 % Normal 0-5 [facility] Comment on above: Performed By: #### L 100.0100 #### [facility] [address] [place], [address] Erythrocyte distribution width (RBC) [Ratio] 13.3 % Normal 11.6-14.6 [facility] Comment on above: Performed By: #### L 100.0100 #### [facility] [address] [place], [address] Hematocrit (Bld) [Volume fraction] 34.0 % Low 37-47 [facility] Comment on above: Performed By: #### L 100.0100 #### [facility] [address] [place], [address] Hemoglobin (Bld) [Mass/Vol] 11.5 g/dL Low 12.0-15.0 [facility] Comment on above: Performed By: #### L 100.0100 #### [facility] [address] [place], [address] IG% 1.400 High 0.0-0.9 [facility] Comment on above: Result Comment: IG% - Immature Granulocytes (promyelocytes, myelocytes and metamyelocytes) > 1% indicates that a LEFT SHIFT is Present. Performed By: #### L 100.0100 #### [facility] [address] [place], [address] Lymphocytes/100 WBC (Bld) 13.1 % Low 19-41 [facility] Comment on above: Performed By: #### L 100.0100 #### [facility] [address] [place], [address] MCH (RBC) [Entitic mass] 27.3 pg Normal 27.0-32.0 [facility] Comment on above: Performed By: #### L 100.0100 #### [facility] [address] [place], [address] MCHC (RBC) [Mass/Vol] 33.8 g/dL Normal 32-36 [facility] Comment on above: Performed By: #### L 100.0100 #### [facility] [address] [place], [address] MCV (RBC) [Entitic vol] 80.8 fL Low 81-99 [facility] Comment on above: Performed By: #### L 100.0100 #### [facility] [address] [place], [address] Monocytes/100 WBC (Bld) 4.8 % Normal 0-10 [facility] Comment on above: Performed By: #### L 100.0100 #### [facility] [address] [place], [address] Neutrophils/100 WBC (Bld) 80.0 % High 47-70 [facility] Comment on above: Performed By: #### L 100.0100 #### [facility] [address] [place], [address] Nucleated RBC (Bld) [#/Vol] 0 10*3/uL Normal 0-5 [facility] Comment on above: Performed By: #### L 100.0100 #### [facility] [address] [place], [address] Platelet mean volume (Bld) [Entitic vol] 10.9 fL Normal 6.2-12.0 [facility] Comment on above: Performed By: #### L 100.0100 #### [facility] [address] [place], [address] Platelets (Bld) [#/Vol] 163 10*3/uL Normal 150-450 [facility] Comment on above: Performed By: #### L 100.0100 #### [facility] [address] [place], [address] RBC (Bld) [#/Vol] 4.21 10*6/uL Normal 4.2-5.4 [facility] Comment on above: Performed By: #### L 100.0100 #### [facility] [address] [place], [address] RDW SD 38.5 fl Normal 35.1-43.9 [facility] Comment on above: Performed By: #### L 100.0100 #### [facility] [address] [place], [address] WBC (Bld) [#/Vol] 10.1 10*3/uL Normal 4.4-11.0 [facility] Comment on above: Performed By: #### L 100.0100 #### [facility] [address] [place], [address] Eosinophil percentageOrdered By: Tiffany Melendez on 07-10-2025 Eosinophils/100 WBC (Bld) 0.3 % 0-5 [facility] Erythrocyte distribution wid th ratioOrdered By: Tiffany Melendez on 07-10-2025 Erythrocyte distribution width (RBC) [Ratio] 13.3 % 11.6-14.6 [facility] Erythrocyte distribution wid th standard deviationOrdered By: Tiffany Melendez on 07-10-2025 Erythrocyte distribution width (RBC) [Ratio] 38.5 fl 35.1-43.9 [facility] Hematocrit Auto (Bld) [Volum e fraction]Ordered By: Tiffany Melendez on 07-10-2025 Hematocrit (Bld) [Volume fraction] 34.0 % Low 37-47 [facility] Hemoglobin measurementOrdere d By: Tiffany Melendez on 07-10-2025 Hemoglobin (Bld) [Mass/Vol] 11.5 g/dL Low 12.0-15.0 [facility] Immature granulocytes/100 WB C Auto (Bld)Ordered By: Tiffany Melendez on 07-10-2025 Immature granulocytes/100 WBC (Bld) 1.400 % High 0.0-0.9 [facility] Comment on above: IG% - Immature Granu locytes (promyelocytes, myelocytes and metamyelocytes) > 1% indicates that a LEFT SHIFT is Present. Ketones Test strip Ql (U)Ord ered By: Tiffany Melendez on 07-10-2025 Ketones Ql (U) Negative Negative [facility] Kidney and Bladderon 025 Kidney and Bladder [facility] [address] [place], [place] [address] Kidney and Bladder MR#: [id number] Acct: [id number] Name: CHARLIE GORDON Rep #: [id number] : 2000 F 25 From: Lino Phillip MD PCP: Dr. Anthony Mercedes MD Status: REG CLI Study: Kidney and Bladder Date of Exam: 07/10/25 Exam# [id number] Ordering Dr: Tiffany Melendez PROCEDURE: KIDNEY AND BLADDER 07/10/2025 REASON FOR EXAM: RULE OUT KIDNEY STONE 2nd trimester . TECHNIQUE: Procedure Code: USKI Modality: US Procedure: KIDNEY AND BLADDER COMPARISON: None FINDINGS: Kidneys: The right kidney measures 13.4 x 6.7 x 5.3 cm. Moderate hydronephrosis. Likely more than anticipated for stage of . The left kidney measures 11.9 x 5.6 x 5.9 cm. No hydronephrosis. Normal echotexture. Retroperitoneum: Negative. Urinary bladder: Urinary bladder negative. Bilateral ureteral jets. Other findings: US/Kidney and Bladder IMPRESSION: Moderate right hydronephrosis more than anticipated for patient's stage of . However both ureteral jets are patent and functional.. Reading Location: [id number] CC: Dr. Anthony Mercedes MD; Dr. Tiffany Melendez MD Photoengraving Retoucher: Signed Normal [facility] MCV (mean corpuscular volume ) determinationOrdered By: Tiffany Melendez on 07-10-2025 MCV (RBC) [Entitic vol] 80.8 fL Low 81-99 [facility] Mean corpuscular hemoglobin (MCH) determinationOrdered By: Tiffany Melendez on 07-10-2025 MCH (RBC) [Entitic mass] 27.3 pg 27.0-32.0 [facility] Mean corpuscular hemoglobin concentration (MCHC) determinationOrdered By: Tiffany Melendez on 07-10-2025 MCHC (RBC) [Mass/Vol] 33.8 g/dL 32-36 [facility] Mean platelet volume determi nationOrdered By: Tiffany Melendez on 07-10-2025 Platelet mean volume (Bld) [Entitic vol] 10.9 fL 6.2-12.0 [facility] Monocyte percentageOrdered B y: Tiffany Melendez on 07-10-2025 Monocytes/100 WBC (Bld) 4.8 % 0-10 [facility] Neutrophil percentageOrdered By: Tiffany Melendez on 07-10-2025 Neutrophils/100 WBC (Bld) 80.0 % High 47-70 [facility] Nitrite Test strip Ql (U)Ord ered By: Tiffany Melendez on 07-10-2025 Nitrite Ql (U) Negative Negative [facility] Nucleated red blood cell per centageOrdered By: Tiffany Melendez on 07-10-2025 Nucleated RBC/100 WBC (Bld) [Ratio] 0 % 0-5 [facility] OB Triage Physician Noteon 0 07-10-2025 OB Triage Physician Note [facility] Medical Records Department [address] [place] [address] OB Triage Physician Note 07/10/25 1125 MR#: [id number] Acct: [id number] Name: CHARLIE GORDON Rep #: [id number] : 2000 25 From: Tiffany Melendez MD PCP: Dr. Anthony Mercedes MD Status:REG CLI Y Location: [address] HPI - General General Date of Admission: 07/10/25 Date of Service: 07/10/25 HPI Narrative CHARLIE GORDON, is a 25 F who presents with bleeding. Patient unsure if it is vaginal she sees it with upon wiping. She denies any regular cramping but has some right lower abdominal pain especially with urination. Patient has no history of UTIs or kidney stones. She denies any regular contractions or pelvic pressure. Maternal Data Information [place] Calculator Estimated Delivery Date Method Current WG Current Estimate 11/29/25 LMP (Certain) 19w 5d PFSH PFSH Home Medications ???Medication ???Instructions ???Recorded ???Last Taken ???Type multivitamin no.47-iron fum 27 1 cap PO DAILY 04/05/25 07/09/25 20:00 History mg-folate no.1 1 mg-dha 300 mg 1 cap capsule (PNV-DHA) Allergy/AdvReac Type Severity Reaction Status Date / Time chocolate Allergy Intermediate Vomiting Verified 07/10/25 10:48 Family History Mother Hypertension High cholesterol Gestational diabetes Migraine Father High cholesterol Migraine Grandmother Hypertension Maternal Cancer, Onset Age: 70 - Smoker Maternal Lung cancer Thyroid disorder Maternal- Hyperthyroidism Migraine Maternal Grandfather Migraine MaTERNAL Cancer, Onset Age: 70 Lung Cancer-Maternal Smoker High cholesterol Maternal Grandmother Hypertension Paternal Dementia, Onset Age: 80 Paternal Grandfather Kidney disease Paternal Alzheimer's dementia, Onset Age: 70 Paternal Surgical History H/O myringotomy Social History adopted: No household members: spouse housing: house current occupational status: employed current occupation: [employer] current occupational exposures/hazards: No pets and animals: Yes pets and animals: dog(s) history of recent [place]: [place] out of state: Yes out [...] 3-4 times per week duration: 15-30 minutes/day jimi/jehovah's witness: Rastafarian seatbelt use: always do you feel safe at home: Yes additional social history: [employer] History 1 Elective abortions Hx Para 0 Spontaneous abortions Hx # Term Pregnancies Ectopic pregnancies Hx # Pregnancies Multiple births # of living children Visit Details Expected Delivery Route/Plan Labor Preferences- CB/BF classes: [] labor support person: [] labor intervention preferences: [] pain management options preferred: [] cut cord/dad catch: [] : [] PP control planned: [] discussed possible routes of delivery and associated risks: [] special requests: [] Plans Covid status: [] Flu vaccine: [] Tdap vaccine: [] Rhogam: [] LARC form signed: [] Problem list reviewed and updated with the most current plan of care details and appropriate orders placed. Relevant counseling for the gestational age provided. Continue routine care and follow up unless otherwise noted in visit notes/problem list details OB Flowsheet Initial Weight: Not Recorded Date -???-???-???-???-?? ?-???-???-???-???-? [...] lb 7 oz 119/74 Negative -???-???-???-???-?? ?-???-???-???-???-? ??-???-?? (more content not included)... Normal [facility] Platelet countOrdered By: Dereck Melendez on 07-10-2025 Platelets (Bld) [#/Vol] 163 10*3/uL 150-450 [facility] Protein Test strip Ql (U)Ord ered By: Tiffany Melendez on 07-10-2025 Protein Ql (U) 30 mg/dl High Negative [facility] RBC Auto (Bld) [#/Vol]Ordere d By: Tiffany Melendez on 07-10-2025 RBC (Bld) [#/Vol] 4.21 10*6/uL 4.2-5.4 [facility] Rh Negative Mom Workupon ABO and Rh group Nom (Bld) PRESUMED RH POS Normal [facility] Comment on above: Order Comment: Comme nts: Age > 13 Weeks SHE @WAS A FALL. NO BABY INFO AT THIS TIME PT IS NOT IN LABOR 0 0 0 Performed By: #### B Rho(D) IG, BRHNM #### [facility] [address] [place], [address] DIRECT ANTIGLOB TNP Normal NEGATIVE [facility] Comment on above: Order Comment: Comme nts: Age > 13 Weeks SHE @WAS A FALL. NO BABY INFO AT THIS TIME PT IS NOT IN LABOR 0 0 0 Performed By: #### B Rho(D) IG, BRHNM #### [facility] [address] [place], [place], [id number] ABO and Rh group Nom (Bld) Blood group O Rh(D) negative Normal [facility] Comment on above: Order Comment: Comme nts: Age > 13 Weeks SHE @WAS A FALL. NO BABY INFO AT THIS TIME PT IS NOT IN LABOR 0 0 0 Performed By: #### B Rho(D) IG, BRHNM #### [facility] [address] [place], [place], [id number] SCREEN Negative Normal NEGATIVE [facility] Comment on above: Order Comment: Comme nts: Age > 13 Weeks SHE @WAS A FALL. NO BABY INFO AT THIS TIME PT IS NOT IN LABOR 0 0 0 Performed By: #### B Rho(D) IG, GULSHANM #### [facility] [address] [place], [address] MOM'S ABS Negative Normal [facility] Comment on above: Order Comment: Comme nts: Age > 13 Weeks SHE @WAS A FALL. NO BABY INFO AT THIS TIME PT IS NOT IN LABOR 0 0 0 Performed By: #### B Rho(D) IG, GULSHANM #### [facility] [address] [place], [address] Type AND Screenon 07-10-2025 ABO and Rh group Nom (Bld) Blood group O Rh(D) negative Normal [facility] Comment on above: Order Comment: Has p t arrived? Y R Performed By: #### B TS #### [facility] [address] [place], [address] Urinalysis, Routine (Dipstic k)on 07-10-2025 Color (U) SEE COMMENT BELOW Normal Yellow [facility] Comment on above: Order Comment: ZEUS JURADO TO SPECIFY Result Comment: Visu al Urine Color: PINK Performed By: #### L 400.2010 #### [facility] [address] [place], [address] BILIRUBIN URINE Negative Normal Negative [facility] Comment on above: Order Comment: ZEUS JURADO TO SPECIFY Performed By: #### L 400.2010 #### [facility] [address] [place], [address] Clarity (U) Cloudy Normal Clear [facility] Comment on above: Order Comment: ZEUS JURADO TO SPECIFY Performed By: #### L 400.2010 #### [facility] [address] [place], [address] GLUCOSE, UR Normal Normal Normal [facility] Comment on above: Order Comment: COLLE CTOR TO SPECIFY Performed By: #### L 400.2010 #### [facility] [address] [place], [address] KETONE UR Negative Normal Negative [facility] Comment on above: Order Comment: COLLE CTOR TO SPECIFY Performed By: #### L 400.2010 #### [facility] [address] [place], [address] LEUK ESTERASE Negative Normal Negative [facility] Comment on above: Order Comment: COLLE CTOR TO SPECIFY Performed By: #### L 400.2010 #### [facility] [address] [place], [address] Nitrite Ql (U) Negative Normal Negative [facility] Comment on above: Order Comment: COLLE CTOR TO SPECIFY Performed By: #### L 400.2010 #### [facility] [address] [place], [address] OCCULT BLOOD-UR 250 /ul Abnormal Negative [facility] Comment on above: Order Comment: COLLE CTOR TO SPECIFY Performed By: #### L 400.2010 #### [facility] [address] [place], [address] pH UR 8.0 Normal 5.0 - 8.0 [facility] Comment on above: Order Comment: COLLE CTOR TO SPECIFY Performed By: #### L 400.2010 #### [facility] [address] [place], [address] PROT DIPSTX 30 mg/dl Abnormal Negative [facility] Comment on above: Order Comment: COLLE CTOR TO SPECIFY Performed By: #### L 400.2010 #### [facility] [address] [place], [address] SP.GR. DIPSTX 1.010 Normal 1.002-1.030 [facility] Comment on above: Order Comment: COLLE CTOR TO SPECIFY Performed By: #### L 400.2010 #### [facility] [address] [place], [place], [address] UROBILI Normal Normal Normal [facility] Comment on above: Order Comment: COLLE CTOR TO SPECIFY Performed By: #### L 400.2010 #### [facility] [address] [place], [address] Urine clarityOrdered By: Aj Melendez on 07-10-2025 Clarity (U) Cloudy Clear [facility] Urine color determinationOrd ered By: Tiffany Melendez on 07-10-2025 Color (U) SEE COMMENT BELOW Yellow [facility] Comment on above: Visual Urine Color: PINK Urine cultureOrdered By: Aj Melendez on 07-10-2025 Bacteria identified Cx Nom (U) Culture exhibits no growth. [facility] Urine glucose detectionOrder ed By: Tiffany Melendez on 07-10-2025 Glucose Ql (U) Normal mg/dl Normal [facility] Urine leukocyte esterase det ection by dipstickOrdered By: Tiffany Melendez on 07-10-2025 Leukocyte esterase Test strip Ql (U) Negative Negative [facility] Urine pHOrdered By: Tiffany flynn on 07-10-2025 pH (U) 8.0 [pH] 5.0 - 8.0 [facility] Urine specific gravity measu rementOrdered By: Tiffany Melendez on 07-10-2025 Specific gravity (U) [Rel density] 1.010 1.002-1.030 [facility] Urine urobilinogen measureme ntOrdered By: Tiffany Melendez on 07-10-2025 Urobilinogen Ql (U) Normal mg/dl Normal [facility] White blood cell (WBC) count Ordered By: Tiffany Melendez on 07-10-2025 WBC (Bld) [#/Vol] 10.1 10*3/uL 4.4-11.0 [facility] - Chemistry and C hemistry - challengeOrdered By: Tiffany Melendez on 06-17-2025 Glucose Ql (U) Negative [facility] - UrinalysisOrder ed By: Tiffany Melendez on 06-17-2025 Protein Ql (U) Negative [facility] Senior Finance Manager Office Visit Reporton 06-17-2025 Senior Finance Manager Office Visit Report [facility] [address], [address] [place] [address] OFFICE VISIT Date of Service: 06/17/25 MR#: [id number] Acct: [id number] Name: CHARLIE GORDON Rep #: [id number] : 2000 Provider: JODI Borrero ams Age/Sex: 25/F [place] [facility] [place]: [place]igned Intake Vital Signs 04/22/25 08:22 05/20/25 13:53 06/17/25 14:39 Height 5 ft 8 in 5 ft 8 in 5 ft 8 in Weight: 196 lb 7 oz BMI 29.8 BP 119/74 Intake Visit Reasons: 16wk ob Pipe Installer Required: No Is patient in pain?: No [...] house current occupational status: employed current occupation: [employer] current occupational exposures/hazards: No pets and animals: Yes pets and animals: dog(s) history of recent [place]: [place]) out of state: Yes out [...] 3-4 times per week duration: 15-30 minutes/day jimi/jehovah's witness: Rastafarian seatbelt use: always do you feel safe [...] Work in (more content not included)... Normal [facility] - Chemistry and C hemistry - challengeOrdered By: Keith Archuleta on 05-20-2025 Glucose Ql (U) Negative [facility] - UrinalysisOrder ed By: Keith Archuleta on 05-20-2025 Protein Ql (U) Negative [facility] Senior Finance Manager Office Visit Reporton 05-20-2025 Senior Finance Manager Office Visit Report [facility] [address], [address] [place] [address] OFFICE VISIT Date of Service: 05/20/25 MR#: [id number] Acct: [id number] Name: CHARLEI GORDON Rep #: [id number] : 2000 Provider: JODI Borrero ams Age/Sex: 25/F [place] [facility] [place]: Signed Intake Vital Signs 04/22/25 08:22 05/20/25 13:53 Height 5 ft 8 in 5 ft 8 in Weight: 189 lb 8 oz BMI 28.8 BP 120/72 Intake Visit Reasons: 12 WK OB Chief Complaint: 12 Week OB Pipe Installer Required: No Is patient in pain?: No [...] house current occupational status: employed current occupation: [employer] current occupational exposures/hazards: No pets and animals: Yes pets and animals: dog(s) history of recent [place]: [place] out of state: Yes out [...] 3-4 times per week duration: 15-30 minutes/day jimi/jehovah's witness: Rastafarian seatbelt use: always do you feel safe [...] Communication B (more content not included)... Normal [facility] L3410.9992on 05-04-2025 [facility] Misc. COMMENT Normal . [facility] Comment on above: Order Comment: Comme nts: Age > 13 Weeks SHE @WAS A FALL. NO BABY INFO AT THIS TIME PT IS NOT IN LABOR 0 0 0 Result Comment: Test Ordered: [id number] TSH Receptor Antibody (TBII) TSH Receptor Antibody (TBII) <0.3 U/L ES Reference Range: . Reference Range: Antibody Titer: <1.0 U/L = Negative 1.1 - 1.5 U/L = Equivocal >1.5 U/L = Positive Performed at: [facility] [address] [place] [id number] Steam Pressure Chamber Operator: Sander Daugherty MD, Phone: [phone] Performed at: [facility] [id number] Steam Pressure Chamber Operator: Fredis Pendleton PhD, Phone: [phone] Performed By: #### B Rho(D) IG, BRHNM #### [facility] [address] [place], [address] Chlamydia/GC VANCE aptimaon CHLAMY,NUC ACID Negative Normal Negative [facility] Comment on above: Performed By: #### B Rho(D) IG, BRHNM #### [facility] [address] [place], [address] GC BY NUC ACID Negative Normal Negative [facility] Comment on above: Result Comment: Perf ormed at: =G - [facility] [address] [id number] Steam Pressure Chamber Operator: Kailey Petit MD, Phone: [phone] Performed By: #### B Rho(D) IG, BRHNM #### [facility] [address] [place], [place], [id number] Urine Cultureon 04-23-2025 [facility] Culture exhibits no growth. Normal [facility] Comment on above: Performed By: #### Mehrdad Sandhu(Arthur) ROSALVA THOMAS #### [facility] [address] [place], [place], [id number] Absolute lymphocyte countOrd ered By: Tammy Kristy on 04-22-2025 Lymphocytes Auto (Unsp spec) [#/Vol] 1.57 10*3/uL 0.83-4.51 [facility] Absolute neutrophil countOrd ered By: Tammy Kristy on 04-22-2025 Neutrophils (Bld) [#/Vol] 5.7 10*3/uL 2.0-7.7 [facility] Automated lymphocyte count a s percentage of total leukocytesOrdered By: Tammy Kristy on 04-22-2025 Lymphocytes/100 WBC Auto (Unsp spec) 19.8 % 19-41 [facility] Basophil percentageOrdered B y: Tammy Arevalocara on 04-22-2025 Basophils/100 WBC (Bld) 0.5 % 0-1 [facility] CBC W/Diff, Automatedon 03-28 Absolute Lymph 1.57 X10 3/uL Normal 0.83-4.51 [facility] Comment on above: Performed By: #### L 509.4006, L509.8002, L3890.6102, L100.0100, L3890.6006, BTS, L3410.9992, L506.0400, L501.9520, L3890.6301 #### [facility] [address] [place], [place], [id number] Absolute Neut 5.7 X10 3/uL Normal 2.0-7.7 [facility] Comment on above: Performed By: #### L 509.4006, L509.8002, L3890.6102, L100.0100, L3890.6006, BTS, L3410.9992, L506.0400, L501.9520, L3890.6301 #### [facility] [address] [facility] [place], [address] Basophils/100 WBC (Bld) 0.5 % Normal 0-1 [facility] Comment on above: Performed By: #### L 509.4006, L509.8002, L3890.6102, L100.0100, L3890.6006, BTS, L3410.9992, L506.0400, L501.9520, L3890.6301 #### [facility] [address] [facility] [place], [address] Eosinophils/100 WBC (Bld) 0.3 % Normal 0-5 [facility] Comment on above: Performed By: #### L 509.4006, L509.8002, L3890.6102, L100.0100, L3890.6006, BTS, L3410.9992, L506.0400, L501.9520, L3890.6301 #### [facility] [address] [facility] [place], [place], [address] Erythrocyte distribution width (RBC) [Ratio] 13.2 % Normal 11.6-14.6 [facility] Comment on above: Performed By: #### L 509.4006, L509.8002, L3890.6102, L100.0100, L3890.6006, BTS, L3410.9992, L506.0400, L501.9520, L3890.6301 #### [facility] [address] [place], [address] Hematocrit (Bld) [Volume fraction] 38.8 % Normal 37-47 [facility] Comment on above: Performed By: #### L 509.4006, L509.8002, L3890.6102, L100.0100, L3890.6006, BTS, L3410.9992, L506.0400, L501.9520, L3890.6301 #### [facility] [address] [place], [address] Hemoglobin (Bld) [Mass/Vol] 12.9 g/dL Normal 12.0-15.0 [facility] Comment on above: Performed By: #### L 509.4006, L509.8002, L3890.6102, L100.0100, L3890.6006, BTS, L3410.9992, L506.0400, L501.9520, L3890.6301 #### [facility] [address] [place], [address] IG% 0.900 Normal 0.0-0.9 [facility] Comment on above: Result Comment: IG% - Immature Granulocytes (promyelocytes, myelocytes and metamyelocytes) > 1% indicates that a LEFT SHIFT is Present. Performed By: #### L 509.4006, L509.8002, L3890.6102, L100.0100, L3890.6006, BTS, L3410.9992, L506.0400, L501.9520, L3890.6301 #### [facility] [address] [place] [place], [address] Lymphocytes/100 WBC (Bld) 19.8 % Normal 19-41 [facility] Comment on above: Performed By: #### L 509.4006, L509.8002, L3890.6102, L100.0100, L3890.6006, BTS, L3410.9992, L506.0400, L501.9520, L3890.6301 #### [facility] [address] [place] [place], [address] MCH (RBC) [Entitic mass] 27.4 pg Normal 27.0-32.0 [facility] Comment on above: Performed By: #### L 509.4006, L509.8002, L3890.6102, L100.0100, L3890.6006, BTS, L3410.9992, L506.0400, L501.9520, L3890.6301 #### [facility] [address] [place], [address] MCHC (RBC) [Mass/Vol] 33.2 g/dL Normal 32-36 [facility] Comment on above: Performed By: #### L 509.4006, L509.8002, L3890.6102, L100.0100, L3890.6006, BTS, L3410.9992, L506.0400, L501.9520, L3890.6301 #### [facility] [address] [place], [address] MCV (RBC) [Entitic vol] 82.6 fL Normal 81-99 [facility] Comment on above: Performed By: #### L 509.4006, L509.8002, L3890.6102, L100.0100, L3890.6006, BTS, L3410.9992, L506.0400, L501.9520, L3890.6301 #### [facility] [address] [facility] [address] [facility] [place], [address] Monocytes/100 WBC (Bld) 6.1 % Normal 0-10 [facility] Comment on above: Performed By: #### L 509.4006, L509.8002, L3890.6102, L100.0100, L3890.6006, BTS, L3410.9992, L506.0400, L501.9520, L3890.6301 #### [facility] [address] [facility] [place], [address] Neutrophils/100 WBC (Bld) 72.4 % High 47-70 [facility] Comment on above: Performed By: #### L 509.4006, L509.8002, L3890.6102, L100.0100, L3890.6006, BTS, L3410.9992, L506.0400, L501.9520, L3890.6301 #### [facility] [address] [facility] [place], [address] Nucleated RBC (Bld) [#/Vol] 0 10*3/uL Normal 0-5 [facility] Comment on above: Performed By: #### L 509.4006, L509.8002, L3890.6102, L100.0100, L3890.6006, BTS, L3410.9992, L506.0400, L501.9520, L3890.6301 #### [facility] [address] [facility] [place], [address] Platelet mean volume (Bld) [Entitic vol] 10.8 fL Normal 6.2-12.0 [facility] Comment on above: Performed By: #### L 509.4006, L509.8002, L3890.6102, L100.0100, L3890.6006, BTS, L3410.9992, L506.0400, L501.9520, L3890.6301 #### [facility] [address] [facility] [place], [address] Platelets (Bld) [#/Vol] 220 10*3/uL Normal 150-450 [facility] Comment on above: Performed By: #### L 509.4006, L509.8002, L3890.6102, L100.0100, L3890.6006, BTS, L3410.9992, L506.0400, L501.9520, L3890.6301 #### [facility] [address] [facility] [place], [address] RBC (Bld) [#/Vol] 4.70 10*6/uL Normal 4.2-5.4 [facility] Comment on above: Performed By: #### L 509.4006, L509.8002, L3890.6102, L100.0100, L3890.6006, BTS, L3410.9992, L506.0400, L501.9520, L3890.6301 #### [facility] [address] [place], [address] RDW SD 39.8 fl Normal 35.1-43.9 [facility] Comment on above: Performed By: #### L 509.4006, L509.8002, L3890.6102, L100.0100, L3890.6006, BTS, L3410.9992, L506.0400, L501.9520, L3890.6301 #### [facility] [address] [facility] [place], [address] WBC (Bld) [#/Vol] 7.9 10*3/uL Normal 4.4-11.0 [facility] Comment on above: Performed By: #### L 509.4006, L509.8002, L3890.6102, L100.0100, L3890.6006, BTS, L3410.9992, L506.0400, L501.9520, L3890.6301 #### [facility] [address] [facility] [place], [place], [id number] (470) Chlamydia trachomatis rRNA d etection by probe and target amplification methodOrdered By: Tammy Wagner on 04-22-2025 C. trachomatis rRNA VANCE+probe Ql (Unsp spec) Negative Negative [facility] Eosinophil percentageOrdered By: Tammy Wagner on 04-22-2025 Eosinophils/100 WBC (Bld) 0.3 % 0-5 [facility] Erythrocyte distribution wid th ratioOrdered By: Tammy Wagner on 04-22-2025 Erythrocyte distribution width (RBC) [Ratio] 13.2 % 11.6-14.6 [facility] Erythrocyte distribution wid th standard deviationOrdered By: Tammy Wagner on 04-22-2025 Erythrocyte distribution width (RBC) [Ratio] 39.8 fl 35.1-43.9 [facility] HIVon 04-22-2025 HIV Non-Reactive Normal Nonreactive [facility] Comment on above: Result Comment: Non- Reactive Reactive Repeatedly reactive samples must be confirmed according to CDC recommended confirmatory algorithms. The subresults for either HIVAG or AHIV can be used as an aid in the selection of the confirmation algorithm for reactive samples. Send out specimens with Reactive results to [facility] for confirmation. Order the HIV antibody detection and differentiation: #[id number] Performed By: #### B Rho(D) IGGULSHANM #### [facility] [address] [place], [address] Hematocrit Auto (Bld) [Volum e fraction]Ordered By: Tammy Wagner on 04-22-2025 Hematocrit (Bld) [Volume fraction] 38.8 % 37-47 [facility] Hemoglobin measurementOrdere d By: Tammy Wagner on 04-22-2025 Hemoglobin (Bld) [Mass/Vol] 12.9 g/dL 12.0-15.0 [facility] Hepatitis C Antibodyon 04-22 Hepatitis C Ab Non-Reactive Normal Nonreactive [facility] Comment on above: Result Comment: Reac tive: Presumptive evidence of antibodies to HCV. Follow CDC recommendations for supplemental testing. Non-Reactive: Antibodies to HCV were not detected; does not exclude the possibility of exposure to HCV Reactive Results are presumptive evidence of antibodies to HCV. Follow CDC recommendations for supplemental testing. Order confirmation testing: HCV Quant by PCR testing - [facility]PCR #[id number] Non Reactive: < 0.8 Equivocal: >/= 0.8 to < 1.0 Reactive: >/= 1.0 The CDC requires that a reactive/equivocal HCV antibody result be sent out for confirmation. HCV Quant by PCR testing. Performed By: #### B Rho(D) IG, BRHNM #### [facility] [address] [place], [address] Immature granulocytes/100 WB C Auto (Bld)Ordered By: Tammy Wagner on 04-22-2025 Immature granulocytes/100 WBC (Bld) 0.900 % 0.0-0.9 [facility] Comment on above: IG% - Immature Granu locytes (promyelocytes, myelocytes and metamyelocytes) > 1% indicates that a LEFT SHIFT is Present. L3890.6102on 04-22-2025 HEP B Surf Ag Non-Reactive Normal Nonreactive [facility] Comment on above: Result Comment: Reac tive: Presumptive evidence of HBV. Repeatedly reactive samples must be confirmed using a neutralization test ([facility] HBsAg Confirmatory Test) Non-Reactive: HBsAg not detected; does not exclude the possibility of exposure to HBV Performed By: #### B Rho(D) IG, BRHNM #### [facility] [address] [place], [place], [address] L509.4006on 04-22-2025 Rubella IgG REAC Normal Nonreactive [facility] Comment on above: Result Comment: Anti body Result: Interpretation Non-Reactive: Non-Immune Reactive: Immune The following results were obtained with the [employer] Rubella IgG assay. Results from assays of other manufacturers cannot be used interchangeably. Performed By: #### B Rho(D) IG, BRHNM #### [facility] [address] [place], [place], [id number] Laboratory - Microbiology an d Antimicrobial susceptibilityOrdered By: Tammy Wagner on 04-22-2025 HBV surface Ag Ql (S) Non-Reactive Nonreactive [facility] Comment on above: Reactive: Presumptiv e evidence of HBV. Repeatedly reactive samples must be confirmed using a neutralization test ([employer] HBsAg Confirmatory Test)Non-Reactive: HBsAg not detected; does not exclude the possibility of exposure to HBV MCV (mean corpuscular volume ) determinationOrdered By: Tammy Wagner on 04-22-2025 MCV (RBC) [Entitic vol] 82.6 fL 81-99 [facility] Mean corpuscular hemoglobin (MCH) determinationOrdered By: Tammy Wagner on 04-22-2025 MCH (RBC) [Entitic mass] 27.4 pg 27.0-32.0 [facility] Mean corpuscular hemoglobin concentration (MCHC) determinationOrdered By: Tammy Wagner on 04-22-2025 MCHC (RBC) [Mass/Vol] 33.2 g/dL 32-36 [facility] Mean platelet volume determi nationOrdered By: Tammy Wagner on 04-22-2025 Platelet mean volume (Bld) [Entitic vol] 10.8 fL 6.2-12.0 [facility] Monocyte percentageOrdered B y: Tammy Wagner on 04-22-2025 Monocytes/100 WBC (Bld) 6.1 % 0-10 [facility] Neisseria gonorrhoeae nuclei c acid detection by amplified probe techniqueOrdered By: aTmmy Wagner on 04-22-2025 N. gonorrhoeae DNA VANCE+probe Ql (Unsp spec) Negative Negative [facility] Comment on above: Performed at: =[address] [id number] Director: Kailey Petit MD, Phone: [phone] Neutrophil percentageOrdered By: Tammy Wagner on 04-22-2025 Neutrophils/100 WBC (Bld) 72.4 % High 47-70 [facility] No Panel InformationOrdered By: Tammy Wagner on 04-22-2025 HIV (1&2) Antibody Non-Reactive Nonreactive [facility] Comment on above: Non-ReactiveReactive Repeatedly reactive samples must be confirmed according to CDC recommended confirmatory algorithms. The subresults for either HIVAG or AHIV can be used as an aid in the selection of the confirmation algorithm for reactive samples.Send out specimens with Reactive results to [facility] for confirmation.Order the HIV antibody detection and differentiation: #[id number] Nucleated red blood cell per centageOrdered By: Tammy Wagner on 04-22-2025 Nucleated RBC/100 WBC (Bld) [Ratio] 0 % 0-5 [facility] Senior Finance Manager Office Visit Reporton 04-22-2025 Senior Finance Manager Office Visit Report [facility] [address], [address] [place] [address] OFFICE VISIT Date of Service: 04/22/25 MR#: [id number] Acct: [id number] Name: CHARLIE GORDON EVERARDO Rep #: [id number] : 2000 Provider: Dr. Tammy Lozano, DO Age/Sex: 25/F [place] [facility] [place]: Signed Intake Vital Signs 04/05/25 09:08 04/22/25 08:22 Height 5 ft 8 in 5 ft 8 in Weight: 187 lb 6 oz BMI 28.5 BP 104/63 Intake Visit Reasons: *NEW* NOB LMP 02/22, [place] 2/3 Pipe Installer Required: No Is patient in pain?: No [...] house current occupational status: employed current occupation: [employer] current occupational exposures/hazards: No pets and animals: Yes pets and animals: dog(s) history of recent [place]: [place] out of state: Yes out [...] 3-4 times per week duration: 15-30 minutes/day jimi/jehovah's witness: Rastafarian seatbelt use: always do you feel safe at home: Yes additional social history: [employer] History 1 Elective abortions Hx Para 0 Spontaneous abortions Hx # Term Pregnancies Ectopic pregnancies Hx # Pregnancies Multiple births # of living children HPI *NEW* NOB LMP 02/22, [place] 2 Details: CHARLIE GORDON is a 25 year [...] Other, Hemophilia: (more content not included)... Normal [facility] Platelet countOrdered By: Ranjan Wagner on 04-22-2025 Platelets (Bld) [#/Vol] 220 10*3/uL 150-450 [facility] RBC Auto (Bld) [#/Vol]Ordere d By: Tammy Wagner on 04-22-2025 RBC (Bld) [#/Vol] 4.70 10*6/uL 4.2-5.4 [facility] Syphilis Antibodieson 2024 Syphilis Abs Non-Reactive Normal Nonreactive [facility] Comment on above: Performed By: #### B Rho(D) IG, BRHNM #### [facility] [address] [place], [address] T4 Free Directon 04-22-2025 T4 FREE DIRECT 1.20 ng/dL Normal 0.76-1.46 [facility] Comment on above: Performed By: #### L 509.4006, L509.8002, L3890.6102, L100.0100, L3890.6006, BTS, L3410.9992, L506.0400, L501.9520, L3890.6301 #### [facility] [address] [place], [place], [id number] T4 freeOrdered By: Tammy Wagner on 04-22-2025 Free T4 [Mass/Vol] 1.20 ng/dL 0.76-1.46 [facility] TSH DL <= 0.005 mIU/L QnOrde red By: Tammy Wagner on 04-22-2025 TSH Qn 1.250 uIU/mL 0.300-4.200 [facility] Thyroid Stim Hormone (TSH)on 04-22-2025 TSH 1.250 uIU/mL Normal 0.300-4.200 [facility] Comment on above: Performed By: #### L 509.4006, L509.8002, L3890.6102, L100.0100, L3890.6006, BTS, L3410.9992, L506.0400, L501.9520, L3890.6301 #### [facility] [address] [place], [address] Type AND Screenon 04-22-2025 Ab SCREEN GEL Negative Normal [facility] Comment on above: Order Comment: Comme nts: Age > 13 Weeks SHE @WAS A FALL. NO BABY INFO AT THIS TIME PT IS NOT IN LABOR 0 0 0 Performed By: #### B Rho(D) IG, BRHNM #### [facility] [address] [place], [place], [id number] Urine cultureOrdered By: Nell Wagner on 04-22-2025 Bacteria identified Cx Nom (U) Culture exhibits no growth. [facility] White blood cell (WBC) count Ordered By: Tammy Wagner on 04-22-2025 WBC (Bld) [#/Vol] 7.9 10*3/uL 4.4-11.0 [facility] - Chemistry and C hemistry - challengeOrdered By: Iris Singer on 04-05-2025 HCG ( test) Ql (U) Positive [facility] Office Visit Reporton 2024 Office Visit Report [facility] [address] [place] [address] OFFICE VISIT Date of Service: 04/05/25 MR#: [id number] Acct: [id number] Patient: CHARLIE GORDON Rep #: [id number] : 2000 Provider: JOANNA brasher Age/Sex: 25/F [place] [facility] [place]: Signed Intake Vital Signs 04/05/25 09:08 Height 5 ft 8 in Weight: 186 lb 8 oz BMI 28.3 BP 108/58 L Blood Pressure Location Lt brachial Position Sitting Intake Visit Reasons: Pre new ob, confirm preg, vitals 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 Required: No Is patient in pain?: No [...] RTO NOB appointment 04/05/25 1027 Date Iris Chavisigndawit Signature: Date (if applicable) CC: Normal [facility] CBC (INCLUDES DIFF/PLT)on Basophils (Bld) [#/Vol] 0.03 10*3/uL Normal 0-200 [facility] Comment on above: Performed By: #### 6 399, 899, 866, 68298 #### [facility] of [address], [address] [place] [address] Manager Trust: Tucker Hoyos MD Basophils/100 WBC (Bld) 0.7 % Normal [facility] Comment on above: Performed By: #### 6 399, 899, 866, 29778 #### [facility] of [place] [address] Manager Trust: Tucker Hoyos MD Eosinophils (Bld) [#/Vol] 0.039 10*3/uL Normal 15-500 [facility] Comment on above: Performed By: #### 6 399, 899, 866, 67927 #### [facility] of [place] [address] Manager Trust: Tucker Hoyos MD Eosinophils/100 WBC (Bld) 0.9 % Normal [facility] Comment on above: Performed By: #### 6 399, 899, 866, 98968 #### [facility] of [place] [address] Manager Trust: Tucker Hoyos MD Erythrocyte distribution width (RBC) [Ratio] 13.2 % Normal 11.0-15.0 [facility] Comment on above: Performed By: #### 6 399, 899, 866, 25042 #### [facility] of [place] [address] Manager Trust: Tucker Hoyos MD Hematocrit (Bld) [Volume fraction] 41.5 % Normal 35.0-45.0 [facility] Comment on above: Performed By: #### 6 399, 899, 866, 13167 #### [facility] of [address] [place] [address] Manager Trust: Tucker Hoyos MD Hemoglobin (Bld) [Mass/Vol] 13.7 g/dL Normal 11.7-15.5 [facility] Comment on above: Performed By: #### 6 399, 899, 866, 75261 #### [facility] [address], [address] [place] [address] Manager Trust: Tucker Hoyos MD Lymphocytes (Bld) [#/Vol] 1.509 10*3/uL Normal 850-3900 [facility] Comment on above: Performed By: #### 6 399, 899, 866, 19335 #### [facility] of [place] [address] Manager Trust: Tucker Hoyos MD Lymphocytes/100 WBC (Bld) 35.1 % Normal [facility] Comment on above: Performed By: #### 6 399, 899, 866, 23494 #### [facility] of [place] [address] Manager Trust: Tucker Hoyos MD MCH (RBC) [Entitic mass] 27.2 pg Normal 27.0-33.0 [facility] Comment on above: Performed By: #### 6 399, 899, 866, 39735 #### [facility] [place] [address] Manager Trust: Tucker Hoyos MD MCHC (RBC) [Mass/Vol] 33.0 g/dL Normal 32.0-36.[address] [facility] Comment on above: Result Comment: For adults, a slight decrease in the calculated MCHC value (in the range of 30 to 32 g/dL) is most likely not clinically significant; however, it should be interpreted with caution in correlation with other red cell parameters and the patient's clinical condition. Performed By: #### 6 399, 899, 866, 19947 #### [facility] [place] [address] Manager Trust: Tucker Hoyos MD MCV (RBC) [Entitic vol] 82.5 fL Normal 80.0-100.0 [facility] Comment on above: Performed By: #### 6 399, 899, 866, 25424 #### [facility] of [place] [address] Manager Trust: Tucker Hoyos MD Monocytes (Bld) [#/Vol] 0.262 10*3/uL Normal 200-950 [facility] Comment on above: Performed By: #### 6 399, 899, 866, 16396 #### [facility] of [address], [address] [place] [address] Manager Trust: Tucker Hoyos MD Monocytes/100 WBC (Bld) 6.1 % Normal [facility] Comment on above: Performed By: #### 6 399, 899, 866, 74398 #### [facility] of [place] [address] Manager Trust: Tucker Hoyos MD Neutrophils (Bld) [#/Vol] 2.46 10*3/uL Normal 0429-1366 [facility] Comment on above: Performed By: #### 6 399, 899, 866, 94728 #### [facility] of [place] [address] Manager Trust: Tucker Hoyos MD Neutrophils/100 WBC (Bld) 57.2 % Normal [facility] Comment on above: Performed By: #### 6 399, 899, 866, 49658 #### [facility] [place] [address] Manager Trust: Tucker Hoyos MD Platelet mean volume (Bld) [Entitic vol] 11.3 fL Normal 7.5-12.5 [facility] Comment on above: Performed By: #### 6 399, 899, 866, 43391 #### [facility] [place] [address] Manager Trust: Tucker Hoyos MD Platelets (Bld) [#/Vol] 225 10*3/uL Normal 140-400 [facility] Comment on above: Performed By: #### 6 399, 899, 866, 22661 #### [facility] of [address], [address] [place] [address] Manager Trust: Tucker Hoyos MD RBC (Bld) [#/Vol] 5.03 10*6/uL Normal 3.80-5.10 [facility] Comment on above: Performed By: #### 6 399, 899, 866, 32704 #### [facility] of [address], [address] [place] [address] Manager Trust: Tucker Hoyos MD WBC (Bld) [#/Vol] 4.3 10*3/uL Normal 3.8-10.8 [facility] Comment on above: Performed By: #### 6 399, 899, 866, 85481 #### [facility] of [address], [address] [place] [address] Manager Trust: Tucker Hoyos MD [facility] 08-10-2024 Albumin [Mass/Vol] 4.2 g/dL Normal 3.6-5.1 [facility] Comment on above: Performed By: #### 6 399, 899, 866, 03805 #### [facility] of [place] [address] Manager Trust: Tucker Hoyos MD Albumin/Globulin [Mass ratio] 1.7 {ratio} Normal 1.0-2.5 [facility] Comment on above: Performed By: #### 6 399, 899, 866, 57164 #### [facility] of [place] [address] Manager Trust: Tucker Hoyos MD ALP [Catalytic activity/Vol] 39 U/L Normal 31-125 [facility] Comment on above: Performed By: #### 6 399, 899, 866, 91256 #### [facility] of [place] [address] Manager Trust: Tucker Hoyos MD ALT [Catalytic activity/Vol] 17 U/L Normal 6-29 [facility] Comment on above: Performed By: #### 6 399, 899, 866, 61391 #### [facility] of [place] [address] Manager Trust: Tucker Hoyos MD AST [Catalytic activity/Vol] 17 U/L Normal 10-30 [facility] Comment on above: Performed By: #### 6 399, 899, 866, 77759 #### [facility] [place] [address] Manager Trust: Tucker Hoyos MD Bilirubin [Mass/Vol] 0.7 mg/dL Normal 0.2-1.2 [facility] Comment on above: Performed By: #### 6 399, 899, 866, 93220 #### [facility] [place] [address] Manager Trust: Tucker Hoyos MD BUN/CREATININE RATIO SEE NOTE: Normal 6-22 [facility] Comment on above: Result Comment: Not Reported: BUN and Creatinine are within reference range. Performed By: #### 6 399, 899, 866, 06535 #### [facility] [place] [address] Manager Trust: Tucker Hoyos MD Calcium [Mass/Vol] 9.1 mg/dL Normal 8.6-10.2 [facility] Comment on above: Performed By: #### 6 399, 899, 866, 07842 #### [facility] [place] [address] Manager Trust: Tucker Hoyos MD Chloride [Moles/Vol] 106 mmol/L Normal 98-110 [facility] Comment on above: Performed By: #### 6 399, 899, 866, 96590 #### [facility] [place] [address] Manager Trust: Tucker Hoyos MD CO2 [Moles/Vol] 26 mmol/L Normal 20-32 [facility] Comment on above: Performed By: #### 6 399, 899, 866, 57525 #### [facility] [place] [address] Manager Trust: Tucker Hoyos MD Creatinine [Mass/Vol] 0.74 mg/dL Normal 0.50-0.[address] [facility] [address] [facility] Comment on above: Performed By: #### 6 399, 899, 866, 28196 #### [facility] [address], [address] [place] [address] Manager Trust: Tucker Hoyos MD GFR/1.73 sq M.predicted among non-blacks MDRD (S/P/Bld) [Vol rate/Area] 117 mL/min/{1.73_m2} Normal > OR = 60 [facility] Comment on above: Performed By: #### 6 399, 899, 866, 76985 #### [facility] [place] [address] Manager Trust: Tucker Hoyos MD Globulin (S) [Mass/Vol] 2.5 g/dL Normal 1.9-3.7 [facility] Comment on above: Performed By: #### 6 399, 899, 866, 92161 #### [facility] [place] [address] Manager Trust: Tucker Hoyos MD Glucose [Mass/Vol] 81 mg/dL Normal 65-99 [facility] Comment on above: Result Comment: Fasting reference interval Performed By: #### 6 399, 899, 866, 81641 #### [facility] of [address], [address] [place] [address] Manager Trust: Tucker Hoyos MD Potassium [Moles/Vol] 4.1 mmol/L Normal 3.5-5.[address] [facility] Comment on above: Performed By: #### 6 399, 899, 866, 81940 #### [facility] [place] [address] Manager Trust: Tucker Hoyos MD Protein [Mass/Vol] 6.7 g/dL Normal 6.1-8.1 [facility] Comment on above: Performed By: #### 6 399, 899, 866, 69402 #### [facility] of [place] [address] Manager Trust: Tucker Hoyos MD Sodium [Moles/Vol] 138 mmol/L Normal 135-146 [facility] Comment on above: Performed By: #### 6 399, 899, 866, 32653 #### [facility] of [place] [address] Manager Trust: Tucker Hoyos MD Urea nitrogen [Mass/Vol] 11 mg/dL Normal 7-25 [facility] Comment on above: Performed By: #### 6 399, 899, 866, 92447 #### [facility] of [place] [address] Manager Trust: Tucker Hoyos MD FERRITINon 08-10-2024 Ferritin [Mass/Vol] 36 ng/mL Normal 16-154 [facility] Comment on above: Performed By: #### 6 399, 899, 866, 32322 #### [facility] of [place] [address] Manager Trust: Tucker Hoyos MD T4, FREEon 08-10-2024 Free T4 [Mass/Vol] 1.4 ng/dL Normal 0.8-1.8 [facility] Comment on above: Performed By: #### 6 399, 899, 866, 98912 #### [facility] of [place] [address] Manager Trust: Tucker Hoyos MD TSHon 08-10-2024 TSH Qn 1.18 m[IU]/L Normal [facility] Comment on above: Result Comment: Refe rence Range > or = 20 Years 0.40-4.50 Ranges First trimester 0.26-2.66 Second trimester 0.55-2.73 Third trimester 0.43-2.91 Performed By: #### 6 399, 899, 866, 42266 #### [facility] [address] [facility], [address] [place] [address] Manager Trust: Tucker Hoyos MD Laboratory - Chemistry and C hemistry - challengeon 08-09-2024 Albumin [Mass/Vol] 4.2 g/dL Normal 3.6 - 5.1 g/dL [facility], [facility].; [facility], [facility]. Albumin/Globulin [Mass ratio] 1.7 {ratio} Normal 1.0 - 2.5 [facility], [facility].; [facility], [facility]. ALP [Catalytic activity/Vol] 39 U/L Normal 31 - 125 U/L [facility], [facility].; [facility] [employer] ALT [Catalytic activity/Vol] 17 U/L Normal 6 - 29 U/L [facility], [facility].; [facility] AST [Catalytic activity/Vol] 17 U/L Normal 10 - 30 U/L [facility], [facility].; [facility], [facility]. Bilirubin [Mass/Vol] 0.7 mg/dL Normal 0.2 - 1 .2 mg/dL [facility], [facility].; [facility] Calcium [Mass/Vol] 9.1 mg/dL Normal 8.6 - 10. 2 mg/dL [facility], [facility].; [facility] Chloride [Moles/Vol] 106 mmol/L Normal 98 - 11 0 mmol/L [facility], [facility].; [facility] CO2 [Moles/Vol] 26 mmol/L Normal 20 - 32 mmol/L [facility], [facility].; [facility] Creatinine [Mass/Vol] 0.74 mg/dL Normal 0.50 - 0.96 mg/dL [facility], [facility].; [employer] Ferritin [Mass/Vol] 36 ng/mL Normal 16 - 154 ng/mL [facility], [facility].; [facility] Free T4 [Mass/Vol] 1.4 ng/dL Normal 0.8 - 1.8 ng/dL [facility], [facility].; [facility] GFR/1.73 sq M.predicted among non-blacks MDRD (S/P/Bld) [Vol rate/Area] 117 mL/min/{1.73_m2} Normal [facility]; [facility], [facility] Glucose [Mass/Vol] 81 mg/dL Normal 65 - 99 mg/dL [facility], [facility] Potassium [Moles/Vol] 4.1 mmol/L Normal 3.5 - 5.3 mmol/L [facility]; [facility], [facility] Protein [Mass/Vol] 6.7 g/dL Normal 6.1 - 8.1 g/dL [facility]; [facility], [facility] Sodium [Moles/Vol] 138 mmol/L Normal 135 - 146 mmol/L [facility]; [facility], [facility] TSH Qn 1.18 m[IU]/L Normal [facility]; [facility], [facility] Urea nitrogen [Mass/Vol] 11 mg/dL Normal 7 - 25 mg/d L [facility]; [facility], [facility] Laboratory - Hematology and Cell countson 08-09-2024 Basophils (Bld) [#/Vol] 0.03 10*3/uL Normal 0 - 200 {cells/uL} [facility].; [facility], [facility]. Basophils/100 WBC (Bld) 0.7 % Normal [facility]; [facility], [facility] Eosinophils (Bld) [#/Vol] 0.039 10*3/uL Normal 15 - 500 {cells/uL} [facility].; [facility], [facility] Eosinophils/100 WBC (Bld) 0.9 % Normal [facility]; [facility], [facility] Erythrocyte distribution width (RBC) [Ratio] 13.2 % Normal 11.0 - 15.0 % [facility], [facility].; [facility], [facility] Hematocrit (Bld) [Volume fraction] 41.5 % Normal 35.0 - 45.0 % [facility], [facility].; [facility], [facility] Hemoglobin (Bld) [Mass/Vol] 13.7 g/dL Normal 11.7 - 15.5 g/dL [facility], [facility].; [facility] [employer] [facility]. Lymphocytes (Bld) [#/Vol] 1.509 10*3/uL Normal 850 - 3900 {cells/uL} [facility], [facility].; [facility] [employer] Lymphocytes/100 WBC (Bld) 35.1 % Normal [facility], [facility].; [facility], [facility]. MCH (RBC) [Entitic mass] 27.2 pg Normal 27.0 - 33.0 pg [facility], [facility].; [employer], [facility]. MCHC (RBC) [Mass/Vol] 33.0 g/dL Normal 32.0 - 36.0 g/dL [facility], [facility].; [employer] MCV (RBC) [Entitic vol] 82.5 fL Normal 80.0 - 100.0 fL [facility], [facility].; [facility] [employer] [facility]. Monocytes (Bld) [#/Vol] 0.262 10*3/uL Normal 200 - 950 {cells/uL} [facility], [facility].; [employer] Monocytes/100 WBC (Bld) 6.1 % Normal [facility] [employer] [facility].; [facility], [facility]. Neutrophils (Bld) [#/Vol] 2.46 10*3/uL Normal 1500 - 7800 {cells/uL} [facility] [employer] Neutrophils/100 WBC (Bld) 57.2 % Normal [facility], [facility].; [employer] Platelet mean volume (Bld) [Entitic vol] 11.3 fL Normal 7.5 - 12.5 fL [facility], [facility].; [employer] Platelets (Bld) [#/Vol] 225 10*3/uL Normal 140 - 400 [facility] [employer] [facility].; [employer] RBC (Bld) [#/Vol] 5.03 10*6/uL Normal 3.80 - 5.1 0 {Million/uL} [facility] [employer] WBC (Bld) [#/Vol] 4.3 10*3/uL Normal 3.8 - 10.8 [employer]. No Panel Informationon 08-09 BUN/CREATININE RATIO SEE NOTE: Normal 6 - 22 [facility] [employer] GLOBULIN 2.5 Normal 1.9 - 3.7 [employer], [employer]. No Panel Informationon 08-04 [id number] SEE NOTE Normal [employer]. CLINICAL INFORMATION: SEE NOTE Normal [facility] [employer] MOHEL: SEE NOTE Normal [employer]. INTERPRETATION/RESULT: SEE NOTE Normal [facility] [employer] LMP: SEE NOTE Normal [employer], [employer] PREV. BX: SEE NOTE Normal [employer]. PREV. PAP: SEE NOTE Normal [employer] SOURCE: SEE NOTE Normal [employer] [employer]. STATEMENT OF ADEQUACY: SEE NOTE Normal [facility] [employer] THYROIDon 07-11-2021 [place] [address] Patient: CHARLIE DUMONT Phone#: : [phone] Age: 21 Gender: F Pt. Type: Out Account: [id number] [facility]: [facility] Exam Date: 07/11/2021/11:48 Family Phys: Charge Code: [id number] Physician: [place] Order #: [id number] DLP Dose#: PROCEDURE: THYROID ULTRASOUND COMPARISON: None. [...] Blanco MD on 07/11/2021 at 13:42 Normal [facility] Laboratory - Chemistry and C hemistry - challengeon 07-05-2021 Free T4 [Mass/Vol] 1.2 ng/dL Normal 0.8 - 1.4 ng/dL [facility], [facility].; [facility], [facility] TSH Qn 1.27 m[IU]/L Normal [facility]; [facility], [facility]. Vital Signs Date Time Vital Sign Value Performing Clinician Facility 08-12-2025 16:14-0400 Body height 172.[address] Anthony Mercedes MD Work Phone: [facility] 08-12-2025 16:08-0400 Body mass index (BMI) [Ratio] 31.6 kg/m2 Dr. Anthony Mercedes MD Work Phone: [facility] 08-12-2025 16:08-0400 Body weight 94.[address] Anthony Mercedes MD Work Phone: [facility] 08-12-2025 16:08-0400 Diastolic blood pressure 69 mm[Hg] Dr. Anthony Mercedes MD Work Phone: [facility] 08-12-2025 16:08-0400 Systolic blood pressure 108 mm[Hg] Dr. Anthony Mercedes MD Work Phone: [facility] 07-15-2025 15:10-0400 Body height 172.[address] Anthony Mercedes MD Work Phone: 0(466)583-847060 [address] 07-15-2025 15:09-0400 Body mass index (BMI) [Ratio] 30.7 kg/m2 Dr. Anthony Mercedes MD Work Phone: 4(382)982-907997 [place] [address] 07-15-2025 15:09-0400 Body weight 91.[address] Anthony Mercedes MD Work Phone: 7(250)097-305797 [place] [address] 07-15-2025 15:09-0400 Diastolic blood pressure 71 mm[Hg] Dr. Anthony Mercedes MD Work Phone: 0(907)955-153597 [place] [address] 07-15-2025 15:09-0400 Systolic blood pressure 116 mm[Hg] Dr. Anthony Mercedes MD Work Phone: 4(491)519-880997 [place] [address] 07-10-2025 12:33-0400 Body temperature 97.8 [degF] Dr. Anthony Mercedes MD Work Phone: 3(526)836-744097 [place] [address] 07-10-2025 12:33-0400 Respiratory rate 16 /min Dr. Anthony Mercedes MD Work Phone: 5(054)364-649397 [place] [address] 07-10-2025 12:32-0400 Diastolic blood pressure 61 mm[Hg] Dr. Anthony Mercedes MD Work Phone: 6(178)325-606497 [place] [address] 07-10-2025 12:32-0400 Heart rate 70 /min Dr. Anthony Mercedes MD Work Phone: 5(359)591-189797 [place] [address] 07-10-2025 12:32-0400 Systolic blood pressure 128 mm[Hg] Dr. Anthony Mercedes MD Work Phone: 9(074)173-330997 [place] [address] 07-10-2025 10:27-0400 Body height 172.[address] Anthony Mercedes MD Work Phone: 8(748)674-885897 [place] [address] 07-10-2025 10:27-0400 Body mass index (BMI) [Ratio] 30.2 kg/m2 Dr. Anthony Mercedes MD Work Phone: 4(754)292-214197 [place] [address] 07-10-2025 10:27-0400 Body weight [address] Anthony Mercedes MD Work Phone: 6(853)302-284680 [place] [address] 07-10-2025 09:48-0400 SaO2% (BldA) [Mass fraction] 96 % Dr. Anthony Mercedes MD Work Phone: 1(925)126-707160 [address] 06-17-2025 14:39-0400 Body height 172.[address] Anthony Mercedes MD Work Phone: 9(091)112-791297 [place] [address] 06-17-2025 14:39-0400 Body mass index (BMI) [Ratio] 29.8 kg/m2 Dr. Anthony Mercedes MD Work Phone: 8(395)380-060597 [place] [address] 06-17-2025 14:39-0400 Body weight 89.[address] Anthony Mercedes MD Work Phone: 0(534)886-967297 [place] [address] 06-17-2025 14:39-0400 Diastolic blood pressure 74 mm[Hg] Dr. Anthony Mercedes MD Work Phone: 0(516)790-486797 [place] [address] 06-17-2025 14:39-0400 Systolic blood pressure 119 mm[Hg] Dr. Anthony Mercedes MD Work Phone: 5(965)687-438397 [place] [address] 05-20-2025 13:53-0400 Body height 172.[address] Anthony Mercedes MD Work Phone: 8(860)059-137397 [place] [address] 05-20-2025 13:53-0400 Body mass index (BMI) [Ratio] 28.8 kg/m2 Dr. Anthony Mercedes MD Work Phone: 5(518)441-719760 [address] 05-20-2025 13:53-0400 Body weight 85.[address] Anthony Mercedes MD Work Phone: 3(589)958-094097 [place] [address] 05-20-2025 13:53-0400 Diastolic blood pressure 72 mm[Hg] Dr. Anthony Mercedes MD Work Phone: 0(296)578-637897 [place] [address] 05-20-2025 13:53-0400 Systolic blood pressure 120 mm[Hg] Dr. Anthony Mercedes MD Work Phone: 0(132)167-373297 [place] [address] 04-22-2025 08:22-0400 Body height 172.[address] Anthony Mercedes MD Work Phone: 3(061)622-019980 [place] [address] 04-22-2025 08:22-0400 Body mass index (BMI) [Ratio] 28.5 kg/m2 Dr. Anthony Mercedes MD Work Phone: 7(468)716-910460 [address] 04-22-2025 08:22-0400 Body weight 84.[address] Anthony Mercedes MD Work Phone: 1(386)660-639660 [address] 04-22-2025 08:22-0400 Diastolic blood pressure 63 mm[Hg] Dr. Anthony Mercedes MD Work Phone: 0(494)199-437097 [place] [address] 04-22-2025 08:22-0400 Systolic blood pressure 104 mm[Hg] Dr. Anthony Mercedes MD Work Phone: 3(881)900-157960 [address] 04-05-2025 09:08-0400 Body mass index (BMI) [Ratio] 28.3 kg/m2 Dr. Anthony Mercedes MD Work Phone: 2(411)650-108360 [address] 04-05-2025 09:08-0400 Body weight 84.[address] Anthony Mercedes MD Work Phone: 7(358)486-624960 [address] 04-05-2025 09:08-0400 Diastolic blood pressure 58 mm[Hg] Dr. Anthony Mercedes MD Work Phone: 2(242)788-765060 [address] 04-05-2025 09:08-0400 Systolic blood pressure 108 mm[Hg] Dr. Anthony Mercedes MD Work Phone: 2(669)242-135460 [address] 12-13-2024 09:29-0500 Body height 172.72 cm Homero Truong LPN [facility], [facility].; [facility], [facility]. 12-13-2024 09:29-0500 Body mass index (BMI) [Ratio] 27.22 kg/m2 Homero Truong LPN [facility].; [facility], [facility]. 12-13-2024 09:29-0500 Body surface area Derived from formula 1.95 m2 oHmero Truong LPN [facility], [facility].; [facility], [facility]. 12-13-2024 09:29-0500 Body weight 81.19 kg Homero Alexichava [place] [facility], [facility].; [facility], [employer]. 12-13-2024 09:29-0500 Diastolic blood pressure 75 mm[Hg] Homero Alexichava [place] [facility], [employer]. Comment on above: Patient Position: Sitting; Cuff Location : Left Arm; Cuff Size: Standard 12-13-2024 09:29-0500 Heart rate 88 /min Homero Alexichava [place] [facility].; [facility] Comment on above: Pattern: Regular 12-13-2024 09:29-0500 Systolic blood pressure 114 mm[Hg] Homeromarylin Truong PADMINI [facility], [facility].; [facility] Comment on above: Patient Position: Sitting; Cuff Location : Left Arm; Cuff Size: Standard 08-09-2024 09:16-0400 Body height 168.91 cm Becky Hunter LPN [facility], [facility].; [facility] 08-09-2024 09:16-0400 Body mass index (BMI) [Ratio] 28.14 kg/m2 Becky Hunter [facility], [facility].; [facility] 08-09-2024 09:16-0400 Body surface area Derived from formula 1.91 m2 Becky Hunter [employer] [facility], [facility].; [facility], [facility]. 08-09-2024 09:16-0400 Body weight 80.29 kg Becky Hunter [employer] [facility], [facility].; [facility], [employer]. 08-09-2024 09:16-0400 Diastolic blood pressure 73 mm[Hg] Becky Hunter [employer] [facility], [facility].; [facility], [employer]. Comment on above: Patient Position: Sitting; Cuff Location : Left Arm; Cuff Size: Standard 08-09-2024 09:16-0400 Heart rate 81 /min Becky Hunter [employer] [facility], [facility].; [employer] Comment on above: Pattern: Regular 08-09-2024 09:16-0400 Systolic blood pressure 117 mm[Hg] Becky Hunter [facility], Inc.; [employer]. Comment on above: Patient Position: Sitting; Cuff Location : Left Arm; Cuff Size: Standard 08-04-2023 09:31-0400 Body height 168.91 cm Becky Hunter [facility], Inc.; [place]. 08-04-2023 09:31-0400 Body mass index (BMI) [Ratio] 28.94 kg/m2 Becky [facility], [employer]. 08-04-2023 [id number] Body surface area Derived from formula 1.93 m2 [facility]y M [facility], [facility].; [facility], [employer]. 08-04-2023 09:31-0400 Body weight 82.56 kg Becky Wilson Dale [facility], [employer].; [employer] 08-04-2023 09:31-0400 Diastolic blood pressure 77 mm[Hg] Becky Hunter [facility], [employer].; [employer]. Comment on above: Patient Position: Sitting; Cuff Location : Left Arm; Cuff Size: Standard 08-04-2023 09:31-0400 Heart rate 81 /min Becky Hunter [facility], [employer].; [employer]. Comment on above: Pattern: Regular 08-04-2023 09:31-0400 Systolic blood pressure 127 mm[Hg] Becky Hunter [facility], [employer].; [employer]. Comment on above: Patient Position: Sitting; Cuff Location : Left Arm; Cuff Size: Standard 04-30-2023 08:51-0400 Body weight 81.65 kg Homero Truong [employer] [facility].; [employer] 04-30-2023 08:51-0400 Diastolic blood pressure 61 mm[Hg] Homero Truong [facility], [employer].; [employer]. Comment on above: Patient Position: Sitting; Cuff Location : Left Arm; Cuff Size: Standard 04-30-2023 08:51-0400 Heart rate 87 /min Homero Truong LPN [facility], [facility].; [employer]. Comment on above: Pattern: Regular 04-30-2023 08:51-0400 Systolic blood pressure 106 mm[Hg] Homero Truong LPN [facility], [facility].; [employer]. Comment on above: Patient Position: Sitting; Cuff Location : Left Arm; Cuff Size: Standard 03-12-2023 08:11-0400 Body height 168.91 cm Jaye Hendrickson MA [facility], [facility].; [employer]. 03-12-2023 08:11-0400 Body mass index (BMI) [Ratio] 28.78 kg/m2 Jaye Hendrickson MA [facility], [facility].; [employer]. 03-12-2023 08:11-0400 Body surface area Derived from formula 1.93 m2 Jaye Hendrickson MA [facility], [facility].; [employer] [facility]. 03-12-2023 08:11-0400 Body weight 82.1 kg Jaye Hendrickson MA [facility], [facility].; [facility]. 03-12-2023 08:11-0400 Diastolic blood pressure 80 mm[Hg] Jaye Hendrickson MA [facility].; [employer] Comment on above: Patient Position: Sitting; Cuff Location : Left Arm; Cuff Size: Standard 03-12-2023 08:11-0400 Heart rate 76 /min Jaye Hendrickson MA [facility], [facility].; [employer]. Comment on above: Pattern: Regular 03-12-2023 08:11-0400 Systolic blood pressure 116 mm[Hg] Jaye Hendrickson MA [facility].; [employer] Comment on above: Patient Position: Sitting; Cuff Location : Left Arm; Cuff Size: Standard 07-24-2022 09:18-0400 Body height 168.91 cm Becky Hunter LPN [facility], [employer].; [employer] 07-24-2022 09:18-0400 Body mass index (BMI) [Ratio] 26.87 kg/m2 Becky Wilson Dale [facility], [facility].; [facility]. 07-24-2022 09:18-0400 Body surface area Derived from formula 1.87 m2 Becky Wilson Dale [facility], [facility].; [facility], [facility]. 07-24-2022 09:18-0400 Body weight 76.66 kg Becky Wilson Dale [facility], [facility].; [employer] [facility]. 07-24-2022 09:18-0400 Diastolic blood pressure 69 mm[Hg] Becky Wilson Dale [facility], [facility].; [facility], [employer]. Comment on above: Patient Position: Sitting; Cuff Location : Left Arm; Cuff Size: Standard 07-24-2022 09:18-0400 Heart rate 71 /min Becky Wilson Dale [facility], [facility].; [employer]. Comment on above: Pattern: Regular 07-24-2022 09:18-0400 Systolic blood pressure 111 mm[Hg] Becky Wilson Dale [facility], [facility].; [employer]. Comment on above: Patient Position: Sitting; Cuff Location : Left Arm; Cuff Size: Standard 07-05-2021 14:16-0400 Body height 168.91 cm Daija Martell LPN [facility], [facility].; [employer] 07-05-2021 14:16-0400 Body mass index (BMI) [Percentile] Per age and sex 82 % Daija Martell LPN [facility], [facility].; [employer] 07-05-2021 14:16-0400 Body mass index (BMI) [Ratio] 25.44 kg/m2 Daija Martell [facility], [facility].; [employer] 07-05-2021 14:16-0400 Body surface area Derived from formula 1.83 m2 Daija Martell LPN [facility], [facility].; [employer] 07-05-2021 14:16-0400 Body weight 72.58 kg Daija Martell [facility], [facility].; [employer]. 07-05-2021 14:16-0400 Diastolic blood pressure 71 mm[Hg] Daija Mart[facility], [facility].; [facility], [facility]. Comment on above: Patient Position: Sitting; Cuff Location : Left Arm; Cuff Size: Standard 07-05-2021 14:16-0400 Heart rate 76 /min Daija Martell [facility], Inc.; [facility] Comment on above: Pattern: Regular 07-05-2021 14:16-0400 Systolic blood pressure 115 mm[Hg] Daija Martell [facility], [facility].; [facility], [facility]. Comment on above: Patient Position: Sitting; Cuff Location : Left Arm; Cuff Size: Standard 02-18-2020 08:22-0400 Body height 168.91 cm Yuliya Freeman [facility], [facility].; [facility], [facility]. 02-18-2020 08:22-0400 Body mass index (BMI) [Percentile] Per age and sex 83 % Yuliya Freeman [facility], [facility].; [facility], [facility]. 02-18-2020 08:22-0400 Body mass index (BMI) [Ratio] 25.12 kg/m2 Yuliya Freeman [facility], [facility].; [facility], [facility]. 02-18-2020 08:22-0400 Body surface area Derived from formula 1.82 m2 Yuliya Freeman [facility], [facility].; [facility], [facility]. 02-18-2020 08:22-0400 Body temperature 98.9 [degF] Yuliya Freeman [facility], [facility].; [facility], [employer]. Comment on above: Method: Tympanic 02-18-2020 08:22-0400 Body weight 71.67 kg Yuliya Lydia [facility], [facility].; [facility], [facility]. 02-18-2020 08:22-0400 Diastolic blood pressure 84 mm[Hg] Yuliya Freeman LPN [facility], [facility].; [employer], [employer]. Comment on above: Patient Position: Sitting; Cuff Location : Left Arm; Cuff Size: Standard 02-18-2020 08:22-0400 Heart rate 109 /min Yuliya Freeman PADMINI [facility].; [employer], [employer]. Comment on above: Pattern: Regular 02-18-2020 08:22-0400 Systolic blood pressure 127 mm[Hg] Yuliya Freeman [employer] [facility].; [employer], [employer]. Comment on above: Patient Position: Sitting; Cuff Location : Left Arm; Cuff Size: Standard 05-19-2019 13:46-0400 Body height 168.91 cm Tammy Soliman LPN [facility].; [employer], [employer]. 05-19-2019 13:46-0400 Body mass index (BMI) [Percentile] Per age and sex 86 % Tammy Soliman LP[facility], [facility].; [employer], [employer] 05-19-2019 13:46-0400 Body mass index (BMI) [Ratio] 25.62 kg/m2 Tammy Soliman LPN [employer], [employer]. 05-19-2019 13:46-0400 Body surface area Derived from formula 1.83 m2 Tammycarleen Soliman LPN [employer] [employer].; [employer], [employer] 05-19-2019 13:46-0400 Body weight 73.09 kg Tammy Laminelisandro [place] [facility].; [employer], [employer] 05-19-2019 13:46-0400 Diastolic blood pressure 71 mm[Hg] Tammy Soliman LPN [employer] [employer].; [employer], [employer]. Comment on above: Patient Position: Sitting; Cuff Location : Left Arm; Cuff Size: Standard 05-19-2019 13:46-0400 Heart rate 77 /min Tammy Soliman LPN [facility] [employer], [employer]. Comment on above: Pattern: Regular 05-19-2019 13:46-0400 Systolic blood pressure 115 mm[Hg] Tammy Soliman LPN [facility].; [employer], [employer]. Comment on above: Patient Position: Sitting; Cuff Location : Left Arm; Cuff Size: Standard 05-03-2019 10:41-0400 Body height 171.45 cm Noris Mueller LPN [facility] [employer]. 05-03-2019 10:41-0400 Body mass index (BMI) [Percentile] Per age and sex 82 % Noris Mueller LPN [facility].; [employer], [employer]. 05-03-2019 10:41-0400 Body mass index (BMI) [Ratio] 24.69 kg/m2 Noris Mueller [facility].; [employer]. 05-03-2019 10:41-0400 Body surface area Derived from formula 1.85 m2 Noris Mueller [facility], [employer].; [employer]. 05-03-2019 10:41-0400 Body temperature 98.1 [degF] Noris Mueller [facility].; [employer]. Comment on above: Method: Tympanic 05-03-2019 10:41-0400 Body weight 72.58 kg Noris Mueller [facility], [facility].; [employer]. 05-03-2019 10:41-0400 Inhaled oxygen concentration 21 % Noris Mueller [facility], [employer].; [employer]. Comment on above: Room air 05-03-2019 10:41-0400 SaO2% (BldA) [Mass fraction] 99 % Noris Mueller [facility] [employer]. 06-15-2018 10:56-0400 Body height 170.18 cm Tammy Soliman LPN [facility] [employer]. 06-15-2018 10:56-0400 Body mass index (BMI) [Percentile] Per age and sex 92 % Tammy Soliman LPN [facility] [employer]. 06-15-2018 10:56-0400 Body mass index (BMI) [Ratio] 27.27 kg/m2 Tammy Soliman [employer] [facility], [employer]. 06-15-2018 10:56-0400 Body surface area Derived from formula 1.91 m2 Tammycarleen Soliman LPN [facility].; [facility] 06-15-2018 10:56-0400 Body weight 78.98 kg Tammy Janny [place] [facility].; [employer] 06-15-2018 10:56-0400 Diastolic blood pressure 64 mm[Hg] Tammy Soliman LPN [facility].; [employer], [employer]. Comment on above: Patient Position: Sitting; Cuff Location : Left Arm; Cuff Size: Standard 06-15-2018 10:56-0400 Heart rate 76 /min Tammy Soliman LPN [facility].; [employer], [employer]. Comment on above: Pattern: Regular 06-15-2018 10:56-0400 Systolic blood pressure 105 mm[Hg] Tammycarleen Soliman LPN [facility].; [employer], [employer]. Comment on above: Patient Position: Sitting; Cuff Location : Left Arm; Cuff Size: Standard 08-08-2017 [id number] Body height 167.64 cm Tammycarleen Soliman LPN [facility], [employer]. 08-08-2017 15:07-0400 Body mass index (BMI) [Percentile] Per age and sex 93 % Tammycarleen Soliman LPN [facility] 08-08-2017 15:07-0400 Body mass index (BMI) [Ratio] 26.95 kg/m2 Tammy Soliman LPN [facility], [employer]. 08-08-2017 15:07-0400 Body surface area Derived from formula 1.85 m2 Tammy Soliman LPN [employer] [employer].; [facility] 08-08-2017 15:07-0400 Body weight 75.75 kg Tammy Soliman LPN [facility] [employer] [employer], [employer]. 08-08-2017 15:07-0400 Diastolic blood pressure 69 mm[Hg] Tammy Ramanlisandro [place] [facility].; [employer], [employer]. Comment on above: Patient Position: Sitting; Cuff Location : Left Arm; Cuff Size: Standard 08-08-2017 15:07-0400 Heart rate 61 /min Tammy Welisandro JETERN [facility].; [employer], [employer] Comment on above: Pattern: Regular 08-08-2017 15:07-0400 Systolic blood pressure 112 mm[Hg] Tammy Ramanlisandro JETERN [facility].; [employer], [employer]. Comment on above: Patient Position: Sitting; Cuff Location : Left Arm; Cuff Size: Standard 08-09-2016 15:42-0400 Body height 167.64 cm Tammy Welisandro [place] [facility].; [employer] 08-09-2016 15:42-0400 Body mass index (BMI) [Percentile] Per age and sex 93 % Tammy Welisandro [place] [facility].; [employer] 08-09-2016 15:42-0400 Body mass index (BMI) [Ratio] 26.15 kg/m2 Tammy Ramanlisandro [employer] [facility].; [employer] 08-09-2016 15:42-0400 Body surface area Derived from formula 1.83 m2 Tammy Ramanlisandro [place] [facility].; [employer], [employer] 08-09-2016 15:42-0400 Body weight 73.48 kg Tammy Welisandro [place] [facility].; [employer], [employer]. 08-09-2016 15:42-0400 Diastolic blood pressure 76 mm[Hg] Tammy Ramanlisandro JETERN [facility].; [employer], [employer]. Comment on above: Patient Position: Sitting; Cuff Location : Left Arm; Cuff Size: Standard 08-09-2016 15:42-0400 Heart rate 60 /min Tammy Welisandro JETERN [facility].; [employer]. Comment on above: Pattern: Regular 08-09-2016 15:42-0400 Systolic blood pressure 121 mm[Hg] Tammy Soliman LPN [employer] Comment on above: Patient Position: Sitting; Cuff Location : Left Arm; Cuff Size: Standard 08-01-2015 16:36-0400 Body height 163.83 cm Cheryle Talberter PA-C Work Phone: [employer] [employer] 08-01-2015 16:36-0400 Body mass index (BMI) [Percentile] Per age and sex 95 % Cheryle Martinez Bazan PA-C Work Phone: [employer].; [employer]. 08-01-2015 16:36-0400 Body mass index (BMI) [Ratio] 26.53 kg/m2 Cheryle Martinez Bazan PA-C Work Phone: [employer]; [facility]. 08-01-2015 16:36-0400 Body surface area Derived from formula 1.77 m2 Cheryle Martinez Bazan PA-C Work Phone: [employer] [employer]. 08-01-2015 16:36-0400 Body weight 71.22 kg Cheryle Talberter PA-C Work Phone: [employer]; [employer]. 08-01-2015 16:36-0400 Heart rate 79 /min Cheryle Martinez Bazan PA-C Work Phone: [employer].; [employer]. Comment on above: Pattern: Regular 07-22-2014 15:26-0400 Body height 162.56 cm Tammy Soliman LPN [employer] [employer]. 07-22-2014 15:26-0400 Body mass index (BMI) [Percentile] Per age and sex 93 % Tammy Soliman LPN [employer].; [employer]. 07-22-2014 15:26-0400 Body mass index (BMI) [Ratio] 24.56 kg/m2 Tammy Soliman PADMINI [facility], [facility].; [facility], [facility]. 07-22-2014 15:26-0400 Body surface area Derived from formula 1.7 m2 Tammy Ramanlisandro [place] [facility], [facility].; [facility] 07-22-2014 15:26-0400 Body weight 64.89 kg Tammy Soliman [facility], [facility].; [facility] [employer], [facility]. 07-22-2014 15:26-0400 Diastolic blood pressure 64 mm[Hg] Tammy Soliman [facility]ADMINI [facility].; [facility], [employer]. Comment on above: Patient Position: Sitting; Cuff Location : Left Arm; Cuff Size: Standard 07-22-2014 15:26-0400 Heart rate 73 /min Tammy Ramanlisandro [place] [facility], [facility].; [employer]. Comment on above: Pattern: Regular 07-22-2014 15:26-0400 Systolic blood pressure 111 mm[Hg] Tammy Soliman PADMINI [facility].; [employer]. Comment on above: Patient Position: Sitting; Cuff Location : Left Arm; Cuff Size: Standard 05-28-2012 08:06-0400 Body temperature 97.7 [degF] Sanjana Lance RN [facility], [facility].; [employer]. Comment on above: Method: Tympanic 05-28-2012 08:06-0400 Body weight 45.36 kg Sanjana Lance RN [facility], [facility].; [employer]. 05-28-2012 08:06-0400 Diastolic blood pressure 77 mm[Hg] Sanjana Lance RN [place] [facility].; [employer]. Comment on above: Patient Position: Sitting; Cuff Location : Left Arm; Cuff Size: Standard 05-28-2012 08:06-0400 Heart rate 108 /min Sanjana Lance RN [place] [facility].; [employer]. Comment on above: Pattern: Regular 05-28-2012 08:06-0400 Systolic blood pressure 122 mm[Hg] Sanjana Lance RN [facility] Comment on above: Patient Position: Sitting; Cuff Location : Left Arm; Cuff Size: Standard 08-02-2010 08:52-0400 Body temperature 98.3 [degF] Cheryle Bazan PA-C Work Phone: [facility]; [facility] Comment on above: Method: Tympanic 08-02-2010 08:52-0400 Body weight 36.29 kg Cheryle Bazan PA-C Work Phone: [facility]; [facility] Encounters Encounter Date Encounter Type Care Provider Facility Start: 09-09-2025 ambulatory Anthony Galloway ty:[facility] Start: 08-12-2025 End: 08-12-[address] Tiffany Melendez MD -[facility] Work Phone: Start: 08-12-2025 End: 08-12-[address] Anthony Mercedes MD Work Phone: -[facility] Start: 07-19-2025 End: 07-19-2025 ambulatory [facility] Start: 07-15-2025 End: 07-15-2025 Patient encounter procedure Keith RHOADES -[facility] Work Phone: Start: 07-15-2025 End: 07-15-[address] Anthony Mercedes MD Work Phone: -[facility] Start: 07-10-2025 ambulatory Anthony Galloway ty:[facility] Start: 07-10-2025 Non-patient / Non-visit Dr. Tiffany Melendez MD -[facility] Start: 07-10-2025 End: 07-10-[address] Tiffany Melendez MD -[facility] Work Phone: Start: 07-10-2025 End: 07-10-[address] Anthony Mercedes MD Work Phone: -[facility] Start: 07-05-2025 End: 07-05-2025 ambulatory MELODIE GARCI[facility] Start: 06-17-2025 End: 06-17-2025 Patient encounter procedure Keith Archuleta CN -[facility] Work Phone: Start: 06-17-2025 End: 06-17-[address] Anthony Mercedes MD Work Phone: -[facility] Start: 05-20-2025 End: 05-20-2025 Patient encounter procedure Keith Archuleta CN -[facility] Work Phone: Start: 05-20-2025 End: 05-20-[address] Anthony Mercedes MD Work Phone: -[facility] Start: 04-22-2025 End: 04-22-[address] Tammy Cooley DO -[facility] Work Phone: Start: 04-22-2025 End: 04-22-[address] Anthony Mercedes MD Work Phone: [facility] Work Phone: Start: 04-22-2025 End: 04-22-2025 ambulatory Anthony Mercedes Facility:[facility] Start: 04-05-2025 End: 04-05-2025 Patient encounter procedure Iris MARSHALL -[facility] Work Phone: Start: 04-05-2025 End: 04-05-[address] Anthony Mercedes MD Work Phone: [facility] Work Phone: Start: 12-13-2024 End: 12-13-2024 Office outpatient visit 15 minutes Cheryle Bazan PA-C Work Phone: [facility] Start: 12-13-2024 Review Cheryle Bazan PA-C Work Phone: [facility] Start: 10-25-2024 End: 10-25-2024 Medication Cheryle Bazan PA-C Work Phone: [facility] [employer]. Start: 08-09-2024 End: 08-09-2024 Patient encounter procedure Cheryle Bazan PA-C Work Phone: [facility] [employer].; [employer]. Start: 08-09-2024 End: 08-09-2024 Periodic preventive med est patient 18-39 yrs Cheryle Bazan PA-C Work Phone: [employer]. Start: 09-03-2023 End: 09-04-2023 Orders Cheryle Bazan PA-C [facility] Start: 08-04-2023 End: 08-04-2023 Medication Cheryle Bazan PA-C Work Phone: [employer]. Start: 08-04-2023 End: 08-04-2023 Patient encounter procedure Cheryle Bazan PA-C Work Phone: [employer]. Start: 08-04-2023 End: 08-04-2023 Patient encounter status Cheryle Bazan PA-C Work Phone: [employer].; [facility]. Start: 04-30-2023 End: 04-30-2023 Patient encounter procedure Cheryle Bazan PA-C Work Phone: [employer]. Start: 03-12-2023 End: 03-12-2023 Patient encounter procedure Cheryle Bazan PA-C Work Phone: [employer]. Start: 08-22-2022 End: 08-23-2022 Orders Cheryle Talberter PA-C Work Phone: [employer]. Start: 07-24-2022 End: 07-24-2022 Patient encounter procedure Cherylekatie Talberter PA-C Work Phone: [employer]. Start: 10-08-2021 End: 10-08-2021 Nursing evaluation of patient and report Cheryle Bazan PA-C Work Phone: [facility]. Start: 07-11-2021 End: 07-11-2021 ambulatory CHERYLE BAZAN Es[facility] Start: 07-05-2021 End: 07-05-2021 Patient encounter procedure Cheryle Bazan PA-C Work Phone: [employer] Start: 09-04-2020 End: 09-04-2020 Nursing evaluation of patient and report Cheryle Bazan PA-C Work Phone: [employer] Start: 02-18-2020 End: 02-18-2020 Patient encounter procedure Cheryle Bazan PA-C Work Phone: [employer] Start: 08-11-2019 End: 08-11-2019 Nursing evaluation of patient and report Cheryle Bazan PA-C Work Phone: [employer] Start: 07-22-2019 End: 07-22-2019 Medication Cheryle Bazan PA-C Work Phone: [facility]. Start: 05-19-2019 End: 05-19-2019 Patient encounter procedure Cheryle Bazan PA-C Work Phone: [employer] Start: 05-19-2019 End: 05-19-2019 Patient encounter status Cheryle Bazan PA-C Work Phone: [employer]; [employer]. Start: 05-03-2019 End: 05-03-2019 Office outpatient visit 15 minutes Cheryle Bazan PA-C Work Phone: [employer] Start: 08-13-2018 End: 08-13-2018 Nursing evaluation of patient and report Cheryle Bazan PA-C Work Phone: [employer] Start: 06-15-2018 End: 06-15-2018 Patient encounter procedure Cheryle Bazan PA-C Work Phone: [facility] Start: 06-15-2018 End: 06-15-2018 Patient encounter status Tammy Janny [place] [employer] [employer]. Start: 08-08-2017 End: 08-08-2017 Patient encounter procedure Cheryle Bazan PA-C Work Phone: [employer]. Start: 08-08-2017 End: 08-08-2017 Patient encounter status Cheryle Bazan PA-C Work Phone: [employer]. Start: 08-09-2016 End: 08-09-2016 Patient encounter procedure Cheryle Bazan PA-C Work Phone: [employer]. Start: 08-09-2016 End: 08-09-2016 Patient encounter status Cheryle Bazan PA-C Work Phone: [employer] [employer]. Start: 08-01-2015 End: 08-01-2015 Patient encounter procedure Cheryle Bazan PA-C Work Phone: [employer]. Start: 08-01-2015 End: 08-01-2015 Patient encounter status Cheryle Bazan PA-C Work Phone: [employer] [employer]. Start: 09-02-2014 End: 09-02-2014 Historical Summary Cheryle Bazan PA-C Work Phone: [employer]. Start: 07-22-2014 End: 07-22-2014 Patient encounter procedure Cheryle Bazan PA-C Work Phone: [employer]. Start: 07-22-2014 End: 07-22-2014 Routine or child health check Cheryle Bazan PA-C Work Phone: [employer] [employer]. Start: 03-16-2014 End: 03-16-2014 Nursing evaluation of patient and report Cheryle Bazan PA-C Work Phone: [facility] Start: 08-12-2013 End: 08-12-2013 Office outpatient visit 5 minutes Cher[facility]azan [facility]-C [facility] Start: 09-01-2012 End: 09-01-2012 Nursing evaluation of patient and report Cheryle DELGADILLO-C Work Phone: [employer] Start: 05-28-2012 End: 05-28-2012 Patient encounter procedure Cheryle DELGADILLO-C Work Phone: [employer] Start: 08-16-2011 End: 08-16-2011 Nursing evaluation of patient and report Cheryle DELGADILLO-Chon Work Phone: [employer] Start: 03-07-2011 End: 03-07-2011 Medication Cheryle DELGADILLO-C Work Phone: [employer] Start: 09-01-2010 End: 09-01-2010 Nursing evaluation of patient and report Cheryle DELGADILLO-C Work Phone: [employer] Start: 08-02-2010 End: 08-02-2010 Patient encounter procedure Cheryle SAUNDERSC [facility]: [facility] Patient encounter status Becky Hunter LPN [facility] Patient encounter status Cheryle DELGADILLO-Chon Work Phone: [employer]; [employer] Procedures Date Procedure Procedure Detail Performing Clinician Start: 07-10-[address] Anthony Mercedes MD Work Phone: Start: 07-10-2025 Complete ultrasound of kidneys and bladder Dr. Anthony Mercedes MD Work Phone: Start: 07-10-2025 Urnls dip stick/tabl et reagent auto microscopy Dr. Anthony Mercedes MD Work Phone: Start: 04-22-[address] Anthony Mercedes [...] HCV Quant by PCR testing - HCVPCR #[id number] Non Reactive: < 0.8 Equivocal: >/= 0.8 to < 1.0 Reactive: >/= 1.0The CDC requires that a reactive/equivocal HCV antibody result be sent out for confirmation. HCV Quant by PCR testing. Start: 04-22-[address] Anthony abernathy MD Work Phone: Comment on above: Test Ordered: [id number] TSH Receptor Antibody (TBII)TSH Receptor Antibody (TBII) <0.3 U/L Reference Range: .Reference Range:Antibody Titer:<1.0 U/L = Negative1.1 - 1.5 U/L = Equivocal>1.5 U/L = PositivePerformed at: [facility] [employer] [address] [id number] Director: Sander Daugherty MD, Phone: [phone] at: [facility] [employer] [id number] Director: Fredis Pendleton PhD, Phone: [phone] Start: 04-22-[address] Anthony Mercedes MD Work Phone: Comment on above: Antibody Result: Int erpretationNon-Reactive: Non- ImmuneReactive: ImmuneThe following results were obtained with the [employer] Rubella IgG assay. Results from assays of other manufacturers cannot be used interchangeably. Start: 04-22-2025 Serologic test for syphilis Dr. Anthony Mercedes MD Work Phone: Start: 08-09-2024 End: 08-09-2024 Depression screening Cheryle Barney Work Phone: Start: 08-09-2024 End: 08-09-2024 Flu immunize order/admin Cheryle Talberte r PA-C Work Phone: Start: 08-09-2024 End: 08-09-2024 Scr dep neg, no plan reqd Cheryle Martinez Palm er PA-C Work Phone: Start: 09-03-2023 End: 09-03-2023 Flu immunize order/admin Cheryle Bishop r PA-C Work Phone: Start: 08-04-2023 End: 08-04-2023 Depression screening Cheryle Martinez Bazan PA -C Work Phone: Start: 08-04-2023 End: 08-04-2023 Scr dep neg, no plan reqd Cheryle Martinez Palm er PA-C Work Phone: Start: 03-12-2023 End: 03-12-2023 No Known Past Surgical History Becky Hunter LPN Start: 08-22-2022 End: 08-22-2022 Flu immunize order/admin Cheryle Martinez Palme r PA-C Work Phone: Start: 07-24-2022 End: 07-24-2022 Depression screening Cheryle Martinez Bazan PA -C Work Phone: Start: 07-24-2022 End: 07-24-2022 Scr dep neg, no plan reqd Cheryle Martinez Palm er PA-C Work Phone: Start: 07-05-2021 End: 07-11-2021 Us soft tissue head & neck real time imge docm Cheryle Martinez Bazan PA-C Work Phone: Start: 07-05-2021 End: 07-05-2021 Depression screening Cheryle Martinez Bazan PA -C Work Phone: Start: 07-05-2021 End: 07-05-2021 Scr dep neg, no plan reqd Cheryle Martinez Palm er PA-C Work Phone: Start: 09-04-2020 End: 09-04-2020 Flu immunize order/admin FLOAT NURSE Start: 05-19-2019 End: 05-19-2019 Screening test visual acuity quantitative tera Martinez Bazan PA-C Work Phone: Start: 06-15-2018 End: 06-15-2018 Screening test visual acuity quantitative tera Martinez Bazan PA-C Work Phone: Start: 08-08-2017 End: 08-08-2017 Screening test visual acuity quantitative tera Martinez Bazan PA-C Work Phone: Start: 08-09-2016 End: 08-09-2016 Screening test visual acuity quantitative tera Martinez Bazan PA-C Work Phone: Start: 08-01-2015 End: 08-01-2015 Screening test visual acuity quantitative tera Martinez Bazan PA-C Work Phone: Start: 07-22-2014 End: 07-22-2014 Screening test visual acuity quantitative tera Martinez Bazan PA-C Work Phone: Start: 05-28-2012 End: 05-28-2012 Ketorolac tromethamine inj Rosario Holt osorios PA-C Work Phone: Comment on above: 45mg [...] Treatment Date Care Activity Detail Author Start: 08-12-2025 Measurement of glucose 2 hours after glucose challenge for glucose tolerance test [facility] Start: 08-12-2025 Serologic test for syphilis [facility] Start: 08-12-2025 [facility] Start: 07-10-2025 Administration of drug or medicament by intravenous push THER/PROPH/DIAG INJ IV PUSH [facility] Start: 07-10-2025 Bacteria identified in Urine by Culture Urine Culture [facility] Start: 07-10-2025 End: 07-10-2025 [facility] Start: 07-10-2025 Administration of blood product [facility] Start: 07-10-2025 Obstetric monitoring [facility] Start: 07-10-2025 Vital signs measurements [facility] Start: 07-10-2025 Patient discharge [facility] Start: 04-22-2025 CBC W Auto Differential panel - Blood [facility] Start: 04-22-2025 Hepatitis C antibody measurement [facility] Start: 04-22-2025 Procedure [facility] Start: 04-22-2025 Rubella IgG measurement [facility] Start: 04-22-2025 Serologic test for syphilis [facility] Start: 04-22-2025 T4 free measurement [facility] Start: 04-22-2025 Thyroid stimulating hormone measurement [facility] Start: 04-22-2025 [facility] Start: 08-09-2024 Iiv4 vacc presrv free 0.5 ml dos for im use Influenza vaccine, quadrivalent (33008) Date: 09-Aug-2024 [employer]; [facility]. Start: 08-09-2024 Provider Instructions for Treatment [facility] HM Issues, 20-39 female Indication: Annual physical exam Start: 09-Aug-2024 Instruction Type: Provider Instructions for Treatment [facility]. Start: 08-09-2024 Assay of free thyroxine T4 FREE (91857) Start: 09-Aug-2024 09:51-04:00 Request [facility].; [facility]. Start: 08-09-2024 Assay of thyroid stimulating hormone tsh TSH (THYROID STIMULATING HORMONE) (66615) Start: 09-Aug-2024 09:50-04:00 Request [facility].; [employer], [employer]. Start: 08-09-2024 Comprehensive metabolic panel CMP w/ GFR* (31159) Start: 09-Aug-2024 09:50-04:00 Request [facility].; [facility] Start: 08-09-2024 Assay of ferritin FERRITIN (14720) Start: 09-Aug-2024 09:50-04:00 Request [facility] [employer] [employer] Start: 08-09-2024 Blood count complete auto&auto difrntl wbc CBC, PLATELETS & AUT DIFF (F) (97161) Start: 09-Aug-2024 09:50-04:00 Request [employer].; [facility]. CBC W Auto Different ial panel - Blood [facility] Chlamydia deoxyribon ucleic acid detection [facility] Erythrocyte mean corpuscular volume determination [facility] Hematocrit [Volume Fraction] of Blood [facility] Hemoglobin [Mass/vol ume] in Blood [facility] Hepatitis B virus roberson rface Ag [Presence] in Serum [facility] Leukocytes [#/volume ] in Blood [facility] Mean corpuscular hem oglobin concentration determination [facility] Mean corpuscular hem oglobin determination [facility] Neutrophil count [facility] Neutrophil percent differential count [facility] Platelets [#/volume] in Blood [facility] Red blood cell count [facility] Red cell distributio n width determination [facility] Urine culture [facility] Phenergan 50 mg/ mL injection solution Ordered: 02-Aug-2010 MD Anthony eMrcedes Intent [facility] [employer]. Work Phone: Phenergan 50 mg/ mL injection solution Ordered: 28-May-2012 PROSPER Gamble Intent [facility] [employer].; [employer]. Work Phone: Influenza vaccin e, quadrivalent (IIV4), 0.5 mL Scheduled for Administration Intent [employer].; [employer]. Immunizations Immunization Date Immunization Notes Care Provider Scott watts 08-09-2024 influenza, injectabl e, quadrivalent, preservative free Cheryle Bazan PA-C Work Phone: [employer].; [employer]. Comment on above: Site: Right DeltoidV IS Given: * Influenza (Flu) Vaccine (Inactivated or Recombinant) (06/01/21) 09-03-2023 influenza, injectabl e, quadrivalent, preservative free Cheryle Bazan PA-C Work Phone: [employer]; [employer] Comment on above: Site: Right Yinka Ha iven: * Influenza (Flu) Vaccine (Inactivated or Recombinant) (06/01/21) 08-22-2022 influenza, injectabl e, quadrivalent, contains preservative Cheryle Bazan PA-C Work Phone: [employer]; [employer] Comment on above: Site: Right Yinka Ha iven: * Influenza Inactivated (06/01/21) 10-08-2021 influenza, injectabl e, quadrivalent, contains preservative Cheryle Bazan PA-C Work Phone: [employer]; [employer] Comment on above: Site: Left DeltoidVI S Given: * Influenza - Inactivated (06/10/19) 09-04-2020 influenza, injectabl e, quadrivalent, contains preservative Cheryle Bazan PA-C Work Phone: [employer]; [employer] Comment on above: Site: Right DeltoidV IS Given: * Influenza - Inactivated (06/10/19) 08-11-2019 influenza, injectabl e, quadrivalent, contains preservative Cheryle Bazan PA-C Work Phone: [employer]; [employer] Comment on above: Site: Right DeltoidV IS Given: * Influenza - Inactivated (06/02/15) 08-11-2019 Counseled parent on risks/benefits of vaccines (18517) Cheryle Bazan PA-C Work Phone: [employer]; [employer] 05-19-2019 Meningococcal, MCV4, unspecified conjugate formulation(groups A, C, Y and W-135) Cheryle Bazan PA-C Work Phone: [employer]; [facility] 05-19-2019 Counseled parent on risks/benefits of vaccines (13594) Cheryle Bazan PA-C Work Phone: [employer]; [employer] 05-19-2019 meningococcal polysaccharide (groups A, C, Y and W-135) diphtheria toxoid conjugate vaccine (MCV4P) Cheryle Bazan PA-C Work Phone: [employer]; [employer] Comment on above: Site: Left DeltoidVI S Given: * MenACWY (06/19/18) 08-13-2018 influenza, injectabl e, quadrivalent, contains preservative Cheryle Bazan PA-C Work Phone: [employer]; [employer] Comment on above: Site: Left DeltoidVI S Given: * Influenza - Inactivated (06/02/15) 08-13-2018 Counseled parent on risks/benefits of vaccines (94872) Cheryle Bazan PA-C Work Phone: [employer]; [employer]. 08-08-2017 influenza, injectabl e, quadrivalent, contains preservative Cheryle Bazan PA-C Work Phone: [employer]; [employer]. Comment on above: Site: Deltoid (Left) VIS Given: * Influenza - Inactivated (06/02/15) 08-09-2016 influenza, injectabl e, quadrivalent, contains preservative Cheryle Bazan PA-C Work Phone: [facility]; [facility] Comment on above: Site: Deltoid (Left) VIS Given: * Influenza - Inactivated (06/02/15) 08-09-2016 unknown vaccine or i mmune globulin Cheryle Bazan PA-C Work Phone: [employer]; [employer]. 08-01-2015 influenza, seasonal, injectable Cheryle Bazan PA-C Work Phone: [employer]; [facility]. Comment on above: Site: Deltoid (Left) VIS Given: * Inactivated Influenza (06/02/2015) 08-01-2015 IMMUNIZATION ADMIN ([id number]) Cheryle Bazan PA-C Work Phone: [employer]; [facility]. 09-02-2014 influenza, seasonal, injectable Cheryle Bazan PA-C Work Phone: [employer]; [employer] Comment on above: Site: Deltoid (Left) VIS Given: * Influenza, Inactivated () 09-02-2014 IMMUNIZATION ADMIN ([id number]) Cheryle Bazan PA-C Work Phone: [employer]; [facility]. 03-16-2014 tetanus toxoid, redu ranjan diphtheria toxoid, and acellular pertussis vaccine, adsorbed Cheryle Bazan PA-C Work Phone: [employer]; [facility]. Comment on above: VIS Given: * TDAP, T d (03/04/2013) * Tetanus/Diphtheria/(Pertussis) (Td/Tdap) (09/13/08) * Tetanus/Diptheria/Pertussis (Tdap/Td) 11/19/11 08-12-2013 influenza, seasonal, injectable Cheryle Bazan PA-C Work Phone: [employer]; [facility]. Comment on above: Site: Deltoid (Left) VIS Given: * Inactivated Influenza Vaccine (06/06/09) * Inactivated Influenza Vaccine (05/21/11) * Influenza vaccine [id number], inactivated (04/27/2012) * VIS Given (Unspecified) 08-12-2013 IMMUNIZATION ADMIN ([id number]) Cheryle Bazan PA-C Work Phone: [employer]; [facility]. 09-01-2012 influenza, seasonal, injectable Cheryle Bazan PA-C Work Phone: [employer] [employer]. Comment on above: Site: Deltoid (Left) VIS Given: * Inactivated Influenza Vaccine (06/06/09) * Inactivated Influenza Vaccine (05/21/11) * Influenza vaccine [id number], inactivated (04/27/2012) * VIS Given (Unspecified) 09-01-2012 IMMUNIZATION ADMIN ([id number]) Cheryle Bazan PA-C Work Phone: [employer].; [employer]. 08-16-2011 influenza, seasonal, injectable Cheryle Bazan PA-C Work Phone: [employer].; [employer]. Comment on above: Site: Deltoid (Left) VIS Given: * Inactivated Influenza Vaccine (06/06/09) * Inactivated Influenza Vaccine (05/21/11) * Inactivated Influenza Vaccine (05/21/11) * Inactivated Influenza Vaccine (05/21/11) * Inactivated Influenza Vaccine (05/21/11) * Inactivated Influenza Vaccine (05/21/11) * Inactivated Influenza Vaccine (05/21/11) * VIS Given (Unspecified) * VIS Given (Unspecified) 08-16-2011 IMMUNIZATION ADMIN ([id number]) Cheryle Bazan PA-C Work Phone: [employer] [employer]. 09-01-2010 influenza, seasonal, injectable Cheryle Bazan PA-C Work Phone: [employer] [employer]. Comment on above: Site: Deltoid (Left) VIS Given: * Inactivated Influenza Vaccine (06/06/09) 09-01-2010 IMMUNIZATION ADMIN ([id number]) Cheryle Bazan PA-C Work Phone: [employer] [employer]. 09-22-2009 Influenza, pandemic formulation, split, adj, IM Cheryle Bazan PA-C Work Phone: [employer] [employer]. 08-15-2009 Influenza, pandemic formulation, split, adj, IM Cheryle Bazan PA-C Work Phone: [facility] [facility] 05-08-2007 diphtheria, tetanus toxoids and pertussis vaccine Cheryle Bazan PA-C Work Phone: [facility] 05-08-2007 measles, mumps and rubella virus vaccine Cheryle Bazan PA-C Work Phone: [facility] 05-08-2007 poliovirus vaccine, inactivated Cheryle Bazan PA-C Work Phone: [facility] 07-26-2003 diphtheria, tetanus toxoids and pertussis vaccine Cheryle Bazan PA-C Work Phone: [facility] 07-26-2003 poliovirus vaccine, inactivated Cheryle Bazan PA-C Work Phone: [facility] 04-18-2003 haemophilus influenz ae type b conjugate and Hepatitis B vaccine Cheryle Bazan PA-C Work Phone: [facility] 01-24-2003 measles, mumps and rubella virus vaccine Cheryle Bazan PA-C Work Phone: [facility] 2002 diphtheria, tetanus toxoids and pertussis vaccine Cheryle Bazan PA-C Work Phone: [facility] 2002 diphtheria, tetanus toxoids and pertussis vaccine Cheryle Bazan PA-C Work Phone: [facility] 2002 haemophilus influenz ae type b conjugate and Hepatitis B vaccine Cheryle Bazan PA-C Work Phone: [facility] 2002 poliovirus vaccine, inactivated Cheryle [facility]azan [facility]-C [facility] 2002 diphtheria, tetanus toxoids and pertussis vaccine Cheryle Bazan PA-C Work Phone: [facility] 2002 haemophilus influenz ae type b conjugate and Hepatitis B vaccine Cheryle Bazan PA-C Work Phone: [facility] 2002 poliovirus vaccine, inactivated Cheryle Bazan PA-C Work Phone: [facility] varicella virus vaccine Liane Bazan PA-C Work Phone: [facility]. Comment on above: had disease Payers Date Payer Category Payer Self-pay 2025 Unknown [id number] 2007 Unknown MARIA DEL CARMEN [id number] 2002 Unknown [id number] 2.16.84 [id number] 2002 Unknown [id number] 2.16. [id number] 2002 Unknown [id number] 2.16. [id number] Unknown [id number] Unknown Unknown [id number] 2.16.8 [id number] Unknown [id number] 2.16.8 [id number] Unknown [id number] 2.16.8 [id number] Unknown [id number] 2.16.8 [id number] Unknown [id number] 2.16.8 [id number] Unknown [id number] 2.16.8 [id number] Unknown [id number] 2.16.8 [id number] Unknown [id number] 2.16.8 [id number] Unknown [id number] 2.16.8 [id number] Unknown [id number] 2.16.8 [id number] Social History Date Type Detail Facility Caffeine Use [facility]affeine Use [facility] Tobacco/Smoke Exposure: Tobacco/Smoke Exposure: ; [facility]. [facility] Start: [address] [facility] None [place] [facility] [employer] Work Phone: Start: 04-05-2025 Tobacco smoking stat us RIIS Never smoked tobacco (finding) [facility] Gender Identity Identifies as fe male gender (finding) [facility] Clinical Notes 04-05-2025 to 08-12-2025 Note Date & Type Note Facility 08-12-2025 Progress note [facility] 08-12-2025 Progress note Note Date/Time August 12, 2025 4:33pm [facility] [address], [address] [place] [address] OFFICE VISIT Date of Service: 08/12/25 MR#: [id number] Acct: [id number] Name: CHARLIE GORDON Rep #: [id number] : 2000 Provider: Dr. Paulino Melendez MD Age/Sex: 25/F [place] [facility] [place]: Signed Intake Vital Signs 05/20/25 13:53 07/15/25 15:10 08/12/25 16:08 10/17/25 16:14 Height 5 ft 8 in 5 ft 8 in 5 ft 8 in 5 ft 8 in Weight: 208 lb 6 oz BMI 31.6 BP 108/69 Intake Visit Reasons: 24w 3d OB Pipe Installer Required: No Is patient in pain?: No Allergies chocolate Allergy (Intermediate, Verified 08/12/25 16:07) Vomiting Medications ?Medication ?Instructions ?Recorded ?Confirmed ?Type multivitamin no.47-iron fum 27 1 cap PO DAILY pregnanc y 04/05/25 08/12/25 History mg-folate no.1 1 mg-dha 300 mg [...] house current occupational status: employed current occupation: [employer] current occupational exposures/hazards: No pets and animals: Yes pets and animals: dog(s) history of recent [place]: [place] out of state: Yes out [...] 3-4 times per week duration: 15-30 minutes/day jimi/jehovah's witness: Rastafarian seatbelt use: always do you feel safe at home: Yes additional social history: [employer] History 1 Elective abortions Hx Para 0 Spontaneous abortions Hx # Term Pregnancies Ectopic pregnancies Hx # Pregnancies Multiple births # of living children HPI 24w 3d OB Details: CHARLIE GORDON is a 25 year old who presents for routine OB visit. OB Visit [place] Calculator Estimated Delivery Date Method Current WG Current Estimate 11/29/25 LMP (Certain) 24w 3d Expected Delivery Route/Plan Labor Preferences- CB/BF classes: [] labor support person: [] labor intervention preferences: [] pain management options preferred: [] cut cord/dad catch: [] : [] PP control planned: [] discussed possible routes of delivery and associated risks: [] special requests: [] Specific Issue/Plans Covid status: [] Flu vaccine: given Tdap vaccine: [] Rhogam: [] LARC form [...] vb/cramping. declines AFP. US scheduled. no concerns 07/15/25 -?-?-?-?-?-?-?-?-?-?-?-?- 20w 3d 202 lb 1 oz 116/71 Nega tive -?-?-?-?-?-?-?-?-?-?-?-?- Negative 150 20 -?-?-?-?-?-?-?-?-?-?-?-?- KW- no vb/lof/ct x. moni fm. reviewed US and has follow up on . ACOG First Trimester First Trimester: Desire for , Alcohol, Tobacco Cessation, Illicit/Recreational Drug/Substance Use, Intimate Partner Violence, Barriers to care, Unstable Housing, Communication Barriers, Environmental/Work Hazards, Anticipated Course of Care, Toxoplasmosis Precations, Use of Any medications, Sexual activity, Exercise, Dental Care, Sauna/Hot tub use, Seat Belt use, Childbirth classes/Hospital facilities, Travel, Indications for Ultrasound and Screening for Aneuploidy; Discussed Coding Level of Care Code OB Routine Diagnoses Rh negative status during O26.899; Z67.91 Abnormal ultrasound O28.3 Supervision of normal first Z34.00 24 weeks gestation of Z3A.24 Weeks of gestation: 24 weeks Thyroid nodule E04.1 Assessment and Plan Assessment and Plan (1) Rh negative status during : Status: Acute Comment: RhoGAM given 07/10/2025 in triage (2) Abnormal ultrasound: Status: Acute Comment: ICEF offer NIPT (3) Supervision of normal first : Status: Acute Comment: PRR, , [place] 2/3/26, girl lilia Jose (4) : Status: Acute Qualifiers: Weeks of gestation: 24 weeks Qualified Code(s): Z3A.24 - 24 weeks gestation of Comment: Declined NIPT & Carrier testing. nl anatomy (5) Thyroid nodule: Status: Acute Comment: no treatment to date Negative Receptor antibody test Orders: Orders POC Urinalysis 2 Dip (Clinic) Today Z34.00 - Encounter for supervision of normal first , unspecified trimester CBC W/Diff, Automated Today Z34.00 - Encounter for supervision of normal first , unspecified trimester Glucose Challenge Gest 1H 50g Today Z13.1 - Encounter for screening for diabetes mellitus, Z34.00 - Encounter for supervision of normal first , unspecified trimester Type & Screen Today Z34.00 - Encounter for supervision of normal first , unspecified trimester HIV Today Z34.00 - Encounter for supervision of normal first , unspecified trimester Syphilis Antibodies Today Z34.00 - Encounter for supervision of normal first , unspecified trimester 08/12/25 1633 <Electronically signed by Tiffany arredondo MD> Date _ Tiffany Melendez MD [facility] Signature: Date (if applicable) CC: ~ [facility] Work Phone: 1(728) 987-910509-19-2025 Progress [facility] [address] [place] [address], [address] [place] [address] OFFICE VISIT Date of Service: 07/15/25 MR#: [id number] Acct: [id number] Name: CHARLIE GORDON Rep #: [id number] : 2000 Provider: JODI Archuleta Age/Sex: 25/F [place] [facility] [place]: Signed Intake Vital Signs 04/22/25 08:22 07/10/25 10:27 07/15/25 15:09 09/19/25 15:10 Height 5 ft 8 in 5 ft 8 in 5 ft 8 in 5 ft 8 in Weight: 202 lb 1 oz BMI 30.7 BP 116/71 Intake Visit Reasons: 20wk ob Pipe Installer Required: No Is patient in pain?: No Allergies chocolate Allergy (Intermediate, Verified 07/15/25 15:09) Vomiting Medications ?Medication ?Instructions ?Recorded ?Confirmed ?Type multivitamin no.47-iron fum 27 1 cap PO DAILY pregnanc y 04/05/25 07/15/25 History mg-folate no.1 1 mg-dha 300 mg capsule (PNV-DHA) cephalexin 500 mg capsule 500 mg PO Q8H 7 days #21 cap s 07/10/25 07/15/25 Rx Last Menstrual Period: 02/22/25 Zika: Zika virus screening: Negative : No Have you fallen in the past year?: No PFSH PFSH Surgical History H/O myringotomy [...] house current occupational status: employed current occupation: [employer] current occupational exposures/hazards: No pets and animals: Yes pets and animals: dog(s) history of recent [place]: [place] out of state: Yes out [...] 3-4 times per week duration: 15-30 minutes/day jimi/jehovah's witness: Rastafarian seatbelt use: always do you feel safe at home: Yes additional social history: [employer] History 1 Elective abortions Hx Para 0 Spontaneous abortions Hx # Term Pregnancies Ectopic pregnancies Hx # Pregnancies Multiple births # of living children HPI 20wk ob Details: CHARLIE GORDON is a 25 year old who presents for routine OB visit. OB Visit [place] Calculator Estimated Delivery Date Method Current WG Current Estimate 11/29/25 LMP (Certain) 20w 3d Expected Delivery Route/Plan Labor Preferences- CB/BF [...] vb/cramping. declines AFP. US scheduled. no concerns 07/15/25 -?-?-?-?-?-?-?-?-?-?-?-?- 20w 3d 202 lb 1 oz 116/71 Nega tive -?-?-?-?-?-?-?-?-?-?-?-?- Negative 150 20 -?-?-?-?-?-?-?-?-?-?-?-?- KW- no vb/lof/ct monik. moni loza. reviewed US and has follow up on . ACOG First Trimester First Trimester: Desire for [...] Office Urine Glucose Negative Last Edit by Malini Angulo on 07/15/25 15:13 Office Urine Protein Negative Last Edit by Malini Angulo on 07/15/25 15:13 Coding Level of Care Code OB Routine Diagnoses Rh negative status during O26.899; Z67.91 Hematuria R31.9 Nephrolithiasis N20.0 Abnormal ultrasound O28.3 Secondary amenorrhea N91.1 Supervision of normal first Z34.00 20 weeks gestation of Z3A.20 Weeks of gestation: 20 weeks Thyroid nodule E04.1 Assessment and Plan Assessment and Plan (1) Rh negative status during : Status: Acute Comment: RhoGAM given 07/10/2025 in triage (2) Hematuria: Status: Acute (3) Nephrolithiasis: Status: Acute Comment: Suspected, renal ultrasound ordered. Keflex ordered urine culture sent (4) Abnormal ultrasound: Status: Acute Comment: ICEF offer NIPT (5) Secondary amenorrhea: Status: Acute Comment: +UPT (6) Supervision of normal first : Status: Acute Comment: PRR, , [place] 11/29/25, Jose (7) : Status: Acute Qualifiers: Weeks of gestation: 20 weeks Qualified Code(s): Z3A.20 - 20 weeks gestation of Comment: Declined NIPT & Carrier testing (8) Thyroid nodule: Status: Acute Comment: no treatment to date Negative Receptor antibody test Orders: Orders POC Urinalysis 2 Dip (Clinic) Today Plan Details Additional Comments: ACOG trimester education reviewed and updated. see problem list details for updated plan management information and see below for orders placed atthis visit. GA appropriate handout given. Clinical Quality Measures Falls Risk Screening/Assistive Devices Have you fallen in the past year?: No 07/15/25 1524 s CNM> Date _ Keith Archuleta CNM Cosigner Signature: Date (if applicable) CC: ~ [facility]09-19-2025 Progress note Author Keith Archuleta [facility] Note Date/Time July 15, 2025 3:24pm [facility] [address], [place] [address] OFFICE VISIT Date of Service: 07/15/25 MR#: [id number] Acct: [id number] Name: CHARLIE GORDON Rep #: [id number] : 2000 Provider: JODI Archuleta Age/Sex: 25/F [place] [facility] [place]: Signed Intake Vital Signs 04/22/25 08:22 07/10/25 10:27 07/15/25 15:09 07/15/25 15:10 Height 5 ft 8 in 5 ft 8 in 5 ft 8 in 5 ft 8 in Weight: 202 lb 1 oz BMI 30.7 BP 116/71 Intake Visit Reasons: 20wk ob Pipe Installer Required: No Is patient in pain?: No Allergies chocolate Allergy (Intermediate, Verified 07/15/25 15:09) Vomiting Medications ?Medication ?Instructions ?Recorded ?Confirmed ?Type multivitamin no.47-iron fum 27 1 cap PO DAILY pregnanc y 04/05/25 07/15/25 History mg-folate no.1 1 mg-dha 300 mg capsule (PNV-DHA) cephalexin 500 mg capsule 500 mg PO Q8H 7 days #21 cap s 07/10/25 07/15/25 Rx Last Menstrual Period: 02/22/25 Zika: Zika virus screening: Negative : No Have you fallen in the past year?: No PFSH PFSH Surgical History H/O myringotomy [...] house current occupational status: employed current occupation: [employer] current occupational exposures/hazards: No pets and animals: Yes pets and animals: dog(s) history of recent [place]: [place] out of state: Yes out [...] 3-4 times per week duration: 15-30 minutes/day jimi/jehovah's witness: Rastafarian seatbelt use: always do you feel safe at home: Yes additional social history: [employer] History 1 Elective abortions Hx Para 0 Spontaneous abortions Hx # Term Pregnancies Ectopic pregnancies Hx # Pregnancies Multiple births # of living children HPI 20wk ob Details: CHARLIE GORDON is a 25 year old who presents for routine OB visit. OB Visit [place] Calculator Estimated Delivery Date Method Current WG Current Estimate 11/29/25 LMP (Certain) 20w 3d Expected Delivery Route/Plan Labor Preferences- CB/BF [...] vb/cramping. declines AFP. US scheduled. no concerns 07/15/25 -?-?-?-?-?-?-?-?-?-?-?-?- 20w 3d 202 lb 1 oz 116/71 Nega tive -?-?-?-?-?-?-?-?-?-?-?-?- Negative 150 20 -?-?-?-?-?-?-?-?-?-?-?-?- KW- no vb/lof/ct x. moni fm. reviewed US and has follow up on . ACOG First Trimester First Trimester: Desire for [...] Office Urine Glucose Negative Last Edit by Malini Angulo on 07/15/25 15:13 Office Urine Protein Negative Last Edit by Malini Angulo on 07/15/25 15:13 Coding Level of Care Code OB Routine Diagnoses Rh negative status during O26.899; Z67.91 Hematuria R31.9 Nephrolithiasis N20.0 Abnormal ultrasound O28.3 Secondary amenorrhea N91.1 Supervision of normal first Z34.00 20 weeks gestation of Z3A.20 Weeks of gestation: 20 weeks Thyroid nodule E04.1 Assessment and Plan Assessment and Plan (1) Rh negative status during : Status: Acute Comment: RhoGAM given 07/10/2025 in triage (2) Hematuria: Status: Acute (3) Nephrolithiasis: Status: Acute Comment: Suspected, renal ultrasound ordered. Keflex ordered urine culture sent (4) Abnormal ultrasound: Status: Acute Comment: ICEF offer NIPT (5) Secondary amenorrhea: Status: Acute Comment: +UPT (6) Supervision of normal first : Status: Acute Comment: PRR, , [place] 11/29/25, Jose (7) : Status: Acute Qualifiers: Weeks of gestation: 20 weeks Qualified Code(s): Z3A.20 - 20 weeks gestation of Comment: Declined NIPT & Carrier testing (8) Thyroid nodule: Status: Acute Comment: no treatment to date Negative Receptor antibody test Orders: Orders POC Urinalysis 2 Dip (Clinic) Today Plan Details Additional Comments: ACOG trimester education reviewed and updated. see problem list details for updated plan management information and see below for orders placed at this visit. GA appropriate handout given. Clinical Quality Measures Falls Risk Screening/Assistive Devices Have you fallen in the past year?: No 07/15/25 1524 <Electronically signed by Keith fox CNM> Date _ Keith Archuleta CNM Cosigner Signature: Date (if applicable) CC: ~ [facility] Work Phone: 1(217) 857-900409-14-2025 Radiology Diagnostic study note [facility] Imaging Services [address] [place] [address] Kidney and Bladder MR#: [id number] Acct: [id number] Name: CHARLIE GORDON Rep #: [id number] : 2000 F 25 From: Albaro Phillip MD PCP: Dr. Anthony Mercedes MD Status: R EG CLI Study:Kidney and Bladder Date of Exam: 0 07/10/25 Exam# [id number] Ordering Dr: Tiffany Hung MD PROCEDURE: KIDNEY AND BLADDER 07/10/2025 REASON FOR EXAM: RULE OUT KIDNEY STONE 2nd trimester . TECHNIQUE: Procedure Code: USKI Modality: US Procedure: KIDNEY AND BLADDER COMPARISON: None FINDINGS: Kidneys: The right kidney measures 13.4 x 6.7 x 5.3 cm. Moderate hydronephrosis. Likely more than anticipated for stage of . The left kidney measures 11.9 x 5.6 x 5.9 cm. No hydronephrosis. Normal echotexture. Retroperitoneum: Negative. Urinary bladder: Urinary bladder negative. Bilateral ureteral jets. Other findings: US/Kidney and Bladder IMPRESSION: Moderate right hydronephrosis more than anticipated for patient's stage of . However both ureteral jets are patent and functional.. Reading Location: [id number] CC: Dr. Anthony Mercedes MD; Dr. Tiffany Melendez MD ~ [employer]: Signed [facility]09-14-2025 Hospital Discharge instructionsAdditional Instructions Increase oral fluids - adding drinks higher in acidity such as orange juice and lemonade Tylenol for pain Antibiotic as ordered [facility] Work Phone: 1(399) 758-947009-14-2025 History and physical note Author Tiffany Melendez [facility] Note Date/Time July 10, 2025 11:30am [facility] Medical Records Department [address] [place] [address] OB Triage Physician Note 07/10/25 1125 MR#: [id number] Acct: [id number] Name: CHARLIE GORDON Rep #:[id number] : 2000 25 From: Tiffany carney MD PCP: Dr. Anthony Mercedes MD Status:R EG CLI Y Location: [id number] HPI - General General Date of Admission: 07/10/25 Date of Service: 07/10/25 HPI Narrative CHARLIE GORDON, is a 25 F who presents with bleeding. Patient unsure if it is vaginal she sees it with upon wiping. She denies any regular cramping but has some right lower abdominal pain especially with urination. Patient has no history of UTIs or kidney stones. She denies any regular contractions or pelvicpressure. Maternal Data Information [place] Calculator Estimated Delivery Date Method Current WG Current Estimate 11/29/25 LMP (Certain) 19w 5d PFSH PFSH Home Medications ?Medication ?Instructions ?Recorded ?Last Taken ?Type multivitamin no.47-iron fum 27 1 cap PO DAILY pregnanc y 04/05/25 07/09/25 20:00 History mg-folate no.1 1 mg-dha 300 mg 1 cap capsule (PNV-DHA) Allergy/AdvReac Type Severity Reaction Status Date / Time chocolate Allergy Intermediate Vomiting Verified 07/10/25 10:48 Family History Mother Hypertension High cholesterol Gestational diabetes Migraine Father High cholesterol Migraine Grandmother Hypertension Maternal Cancer, Onset Age: 70 - Smoker Maternal Lung cancer Thyroid disorder Maternal- Hyperthyroidism Migraine Maternal Grandfather Migraine MaTERNAL Cancer, Onset Age: 70 Lung Cancer-Maternal Smoker High cholesterol Maternal Grandmother Hypertension Paternal Dementia, Onset Age: 80 Paternal Grandfather Kidney disease Paternal Alzheimer's dementia, Onset Age: 70 Paternal Surgical History H/O myringotomy Social History adopted: No household members: spouse housing: house current occupational status: employed current occupation: [employer] current occupational exposures/hazards: No pets and animals: Yes pets and animals: dog(s) history of recent [place] out of state: Yes out [...] 3-4 times per week duration: 15-30 minutes/day jimi/jehovah's witness: Rastafarian seatbelt use: always do you feel safe at home: Yes additional social history: [employer] History 1 Elective abortions Hx Para 0 Spontaneous abortions Hx # Term Pregnancies Ectopic pregnancies Hx # Pregnancies Multiple births # of living children Visit Details Expected Delivery Route/Plan Labor Preferences- CB/BF classes: [] labor support person: [] labor intervention preferences: [] pain management options preferred: [] cut cord/dad catch: [] : [] PP control planned: [] discussed possible routes of delivery and associated risks: [] special requests: [] Plans Covid status: [] Flu vaccine: [] Tdap vaccine: [] Rhogam: [] LARC form signed: [] Problem list reviewed and updated with the most current plan of care details and appropriate orders placed. Relevant counseling for the gestational age provided. Continue routine care and follow up unless otherwise noted in visit notes/problem list details OB Flowsheet Initial Weight: Not Recorded Date -?-?-?-?-?-?-?-?-?-?-?-?- EGA [...] vb/cramping. declines AFP. US scheduled. no concerns ROS Constitutional Constitutional: Reports systems reviewed and no addt'l complaints, except as documented Gastrointestinal Gastrointestinal: Reports as per HPI Physical Exam Const alert, oriented x3 and no apparent distress HEENT Head and Scalp: normocephalic and atraumatic Neck full ROM and no lymphadenopathy Chest inspection of chest normal Resp normal respiratory effort GI GI Narrative: gravid, abdomen nontender, AGA NST FHR Rate Baby A Baseline: 140 Assessment & Plan (1) Nephrolithiasis: COMMENT: Suspected, renal ultrasound ordered. Keflex ordered urine culture sent (2) Hematuria: (3) : QUALIFIERS: Weeks of gestation: 16 weeks Qualified Code(s): Z3A.16 - 16 weeks gestation of COMMENT: Declined NIPT & Carrier testing (4) Supervision of normal first : COMMENT: PRR, , [place] 11/29/25, Jose (5) Rh negative status during : COMMENT: RhoGAM given 07/10/2025 in triage PLAN: Plan CBC type and screen RhoGAM given due to bleeding. Renal ultrasound ordered, oral fluid resuscitation. Keflex given. Will discharge home with Keflex prescription UA and culture sent Charges/Coding Multi Select Codes Visit Charges Office Visit/Consults: 53217 OV L3 Est 20min 07/10/25 1130 <Electronically signed by Tiffany arredondo MD> Date _ Tiffany Melendez MD Cosigner Signature (if applicable): Date CC: Dr. Anthony Mercedes MD; Dr. Tiffany Melendez MD ~ Signed [facility] Work Phone: 1(753) 411-816509-14-2025 History and physical note [facility] Medical Records Department [address] [place] [address] OB Triage Physician Note 07/10/25 1125 MR#: [id number] Acct: [id number] Name: CHARLIE GORDON Rep #:[id number] : 2000 25 From: Tiffany carney MD PCP: Dr. Anthony Mercedes MD Status:R EG CLI Y Location: [place] [address] HPI - General General Date of Admission: 07/10/25 Date of Service: 07/10/25 HPI Narrative CHARLIE GORDON, is a 25 F who presents with bleeding. Patient unsure if it is vaginal she sees it withupon wiping. She denies any regular cramping but has some right lower abdominal pain especially with urination. Patient has no history of UTIs or kidney stones. She denies any regular contractions or pelvicpressure. Maternal Data Information [place] Calculator Estimated Delivery Date Method Current WG Current Estimate 11/29/25 LMP (Certain) 19w 5d PFSH PFSH Home Medications ?Medication ?Instructions ?Recorded ?Last Taken ?Type multivitamin no.47-iron fum 27 1 cap PO DAILY pregnanc y 04/05/25 07/09/25 20:00 History mg-folate no.1 1 mg-dha 300 mg 1 cap capsule (PNV-DHA) Allergy/AdvReac Type Severity Reaction Status Date / Time chocolate Allergy Intermediate Vomiting Verified 07/10/25 10:48 Family History Mother Hypertension High cholesterol Gestational diabetes Migraine Father High cholesterol Migraine Grandmother Hypertension Maternal Cancer, Onset Age: 70 - Smoker Maternal Lung cancer Thyroid disorder Maternal- Hyperthyroidism Migraine Maternal Grandfather Migraine MaTERNAL Cancer, Onset Age: 70 Lung Cancer-Maternal Smoker High cholesterol Maternal Grandmother Hypertension Paternal Dementia, Onset Age: 80 Paternal Grandfather Kidney disease Paternal Alzheimer's dementia, Onset Age: 70 Paternal Surgical History H/O myringotomy Social History adopted: No household members: spouse housing: house current occupational status: employed current occupation: [employer] current occupational exposures/hazards: No pets and animals: Yes pets and animals: dog(s) history of recent [place]: [place] out of state: Yes out [...] 3-4 times per week duration: 15-30 minutes/day jimi/jehovah's witness: Rastafarian seatbelt use: always do you feel safe at home: Yes additional social history: [employer] History 1 Elective abortions Hx Para 0 Spontaneous abortions Hx # Term Pregnancies Ectopic pregnancies Hx # Pregnancies Multiple births # of living children Visit Details Expected Delivery Route/Plan Labor Preferences- CB/BF classes: [] labor support person: [] labor intervention preferences: [] pain management options preferred: [] cut cord/dad catch: [] : [] PP control planned: [] discussed possible routes of delivery and associated risks: [] special requests: [] Plans Covid status: [] Flu vaccine: [] Tdap vaccine: [] Rhogam: [] LARC form signed: [] Problem list reviewed and updated with the most current plan of care details and appropriate ordersplaced. Relevant counseling for the gestational age provided. Continue routine care and follow up unless otherwise noted in visit notes/problem list details OB Flowsheet Initial Weight: Not Recorded Date -?-?-?-?-?-?-?-?-?-?-?-?- EGA [...] vb/cramping. declines AFP. US scheduled. no concerns ROS Constitutional Constitutional: Reports systems reviewed and no addt'l complaints, except as documented Gastrointestinal Gastrointestinal: Reports as per HPI Physical Exam Const alert, oriented x3 and no apparent distress HEENT Head and Scalp: normocephalic and atraumatic Neck full ROM and no lymphadenopathy Chest inspection of chest normal Resp normal respiratory effort GI GI Narrative: gravid, abdomen nontender, AGA NST FHR Rate Baby A Baseline: 140 Assessment & Plan (1) Nephrolithiasis: COMMENT: Suspected, renal ultrasound ordered. Keflex ordered urine culture sent (2) Hematuria: (3) : QUALIFIERS: Weeks of gestation: 16 weeks Qualified Code(s): Z3A.16 - 16 weeks gestation of COMMENT: Declined NIPT & Carrier testing (4) Supervision of normal first : COMMENT: PRR, , [place] 11/29/25, Jose (5) Rh negative status during : COMMENT: RhoGAM given 07/10/2025 in triage PLAN: Plan CBC type and screen RhoGAM given due to bleeding. Renal ultrasound ordered, oral fluid resuscitation. Keflex given. Will discharge home with Keflex prescription UA and culture sent Charges/Coding Multi Select Codes Visit Charges Office Visit/Consults: 71426 OV L3 Est 20min 07/10/25 1130 arnulfo FELDMAN> Date _ Tiffany Melendez MD Cosigner Signature (if applicable): Date CC: Dr. Anthony Mercedes MD; Dr. Tiffany Melendez MD ~ Signed [facility]08-22-2025 Progress [facility] [address], [address] [place] [address] OFFICE VISIT Date of Service: 06/17/25 MR#: [id number] Acct: [id number] Name: CAHRLIE GORDON Rep #: [id number] : 2000 Provider: JODI Archuleta Age/Sex: 25/F [place] [facility] [place]: Signed Intake Vital Signs 04/22/25 08:22 05/20/25 13:53 06/17/25 14:39 Height 5 ft 8 in 5 ft 8 in 5 ft 8 in Weight: 196 lb 7 oz BMI 29.8 BP 119/74 Intake Visit Reasons: 16wk ob Pipe Installer Required: No Is patient in pain?: No [...] house current occupational status: employed current occupation: [employer] current occupational exposures/hazards: No pets and animals: Yes pets and animals: dog(s) history of recent [place]: [place] out of state: Yes out [...] 3-4 times per week duration: 15-30 minutes/day jimi/jehovah's witness: Rastafarian seatbelt use: always do you feel safe [...] placed atthis visit. GA appropriate handout given. 06/17/25 1512 s CNM> Date _ Keith Km JODI Cosigner Signature: Date (if applicable) CC: ~ [facility]08-22-2025 Progress note Author Keith Archuleta [facility] Note Date/Time June 17, 2025 3: 12pm [facility] [address], [address] [place] [address] OFFICE VISIT Date of Service: 06/17/25 MR#: [id number] Acct: [id number] Name: CHARLIE GORDON Rep #: [id number] : 2000 Provider: JODI Archuleta Age/Sex: 25/F [place] [facility] [place]: Signed Intake Vital Signs 04/22/25 08:22 05/20/25 13:53 06/17/25 14:39 Height 5 ft 8 in 5 ft 8 in 5 ft 8 in Weight: 196 lb 7 oz BMI 29.8 BP 119/74 Intake Visit Reasons: 16wk ob Pipe Installer Required: No Is patient in pain?: No [...] house current occupational status: employed current occupation: [employer] current occupational exposures/hazards: No pets and animals: Yes pets and animals: dog(s) history of recent [place]: [place] out of [place]: Yes out [...] 3-4 times per week duration: 15-30 minutes/day jimi/jehovah's witness: Rastafarian seatbelt use: always do you feel safe [...] this visit. GA appropriate handout given. 06/17/25 7212 <Electronically signed by Keith fox CNM> Date _ Keith Archuleta CNM Cosigner Signature: Date (if applicable) CC: ~ [facility] Work Phone: 1(646) 337-567307-25-2025 Evaluation note* Diagnosis Onset Date Resolution Status Admit Date acute May 20 1:50pm Supervision of normal first acute May 20, 2025 1:50pm Thyroid nodule acute May 20, 2025 1:50pm Secondary amenorrhea resolved May 20, 2025 1:50pm acute June 17, 2 025 2:28pm Supervision of normal first acute June 17 2:28pm Thyroid nodule acute May 2:28pm Secondary amenorrhea resolved 2024 2:28pm acute June 8:55am Rh negative status during acute July 10, 2025 8:55am Supervision of normal first acute July 10, 2025 8:55am Hematuria resolved June 8:55am Nephrolithiasis resolved July 10, 2025 8:55am Abnormal ultrasound acute July 15, 2025 3:05pm acute June 3:05pm Rh negative status during acute July 15, 2025 3:05pm Supervision of normal first acute July 15, 2025 3:05pm Thyroid nodule acute July 15, 2025 3:05pm Hematuria resolved June 3:05pm Nephrolithiasis resolved July 15, 2025 3:05pm Secondary amenorrhea resolved Jun 3:05pm Abnormal ultrasound acute August 12, 2025 3:56pm acute August 12, 2025 3:56pm Rh negative status during acute August 12 3:56pm Supervision of normal first acute August 12 3:56pm Thyroid nodule acute August 122024 3:56pm [facility] Work Phone: 1(631) 556-878607-25-2025 Progress [facility] [address] [place] [address], [address] [place] [address] OFFICE VISIT Date of Service: 05/20/25 MR#: [id number] Acct: [id number] Name: CHARLIE GORDON Rep #: [id number] : 2000 Provider: JODI Archuleta Age/Sex: 25/F [place] [facility] [place]: Signed Intake Vital Signs 04/22/25 08:22 05/20/25 13:53 Height 5 ft 8 in 5 ft 8 in Weight: 189 lb 8 oz BMI 28.8 BP 120/72 Intake Visit Reasons: 12 WK OB Chief Complaint: 12 Week OB Pipe Installer Required: No Is patient in pain?: No [...] house current occupational status: employed current occupation: [employer] current occupational exposures/hazards: No pets and animals: Yes pets and animals: dog(s) history of recent [place]: [place] out of [place]: Yes out [...] 3-4 times per week duration: 15-30 minutes/day jimi/jehovah's witness: Rastafarian seatbelt use: always do you feel safe [...] Urine Glucose Negative Last Edit by Rachana Dumont on 05/20/25 14 :02 Office Urine Protein Negative Last Edit by Rachana Dumont on 05/20/25 14 :02 Coding Level of [...] Cosigner Signature: Date (if applicable) CC: ~ [facility]07-25-2025 Progress note Author Keith Archuleta [facility] Note Date/Time May 20, 2025 2:23 pm [facility] [address], [address] [place] [address] OFFICE VISIT Date of Service: 05/20/25 MR#: [id number] Acct: [id number] Name: CHARLIE GORDON Rep #: [id number] : 2000 Provider: JODI Archuleta Age/Sex: 25/F [place] [facility] [place] Status: Signed Intake Vital Signs 04/22/25 08:22 05/20/25 13:53 Height 5 ft 8 in 5 ft 8 in Weight: 189 lb 8 oz BMI 28.8 BP 120/72 Intake Visit Reasons: 12 WK OB Chief Complaint: 12 Week OB Pipe Installer Required: No Is patient in pain?: No [...] house current occupational status: employed current occupation: [employer] current occupational exposures/hazards: No pets and animals: Yes pets and animals: dog(s) history of recent [place]: [place] out of state: Yes out [...] 3-4 times per week duration: 15-30 minutes/day jimi/jehovah's witness: Rastafarian seatbelt use: always do you feel safe [...] Urine Glucose Negative Last Edit by Rachana Dumont on 05/20/25 14 :02 Office Urine Protein Negative Last Edit by Rachana Dumont on 05/20/25 14 :02 Coding Level of [...] fox CNM> Date _ Keith Archuleta CNM [facility] Signature: Date (if applicable) CC: ~ [facility] Work Phone: 1(765) 699-427606-27-2025 Progress [facility] [address], [address] [place] [id number] OFFICE VISIT Date of Service: 04/22/25 MR#: [id number] Acct: [id number] Name: CHARLIE GORDON Rep #: [id number] : 2000 Provider: Dr. Niurka Cooley DO Age/Sex: 25/F [place] [facility] [place]: Signed Intake Vital Signs 04/05/25 09:08 04/22/25 08:22 Height 5 ft 8 in 5 ft 8 in Weight: 187 lb 6 oz BMI 28.5 BP 104/63 Intake Visit Reasons: *NEW* NOB LMP 02/22, [place] 2/3 Pipe Installer Required: No Is patient in pain?: No [...] house current occupational status: employed current occupation: [employer] current occupational exposures/hazards: No pets and animals: Yes pets and animals: dog(s) history of recent [place]: [place] out of state: Yes out [...] 3-4 times per week duration: 15-30 minutes/day jimi/jehovah's witness: Rastafarian seatbelt use: always do you feel safe at home: Yes additional social history: [employer] History 1 Elective abortions Hx Para 0 Spontaneous abortions Hx # Term Pregnancies Ectopic pregnancies Hx # Pregnancies Multiple births # of living children HPI *NEW* NOB LMP 02/22, [place] 11/29 Details: CHARLIE GORDON is a 25 year [...] (Rh) Sensitized, Pulmonary (e.g.,TB,Asthma), Seasonal allergies, Breast, [employer] Associate surgery, Anesthetic complications, History of abnormal pap [...] comfortable and no acute distress Orientation: alert [facility] Head: normal to inspection, normocephalic and atraumatic [...] patient and patient chose: none 04/22/25 0910 haile Wagner DO> Date _ Tammy Cooley DO [place] Signature: Date (if applicable) CC: ~ [facility]06-10-2025 Evaluation note* Diagnosis Onset Date Resolution Status Admit Date Secondary amenorrhea acute April 05, 2025 7:54am acute April 22 8:16am Secondary amenorrhea acute April 22, 2025 8:16am Supervision of normal first acute April 22, 2025 8:16am Thyroid nodule acute April 22, 2025 8:16am [facility] Work Phone: [phone]) [phone] Evaluation note* Diagnosis Onset Date Resolution Status [...] Thyroid nodule acute May 20, 2025 1:50pm [facility] Work Phone: 1(324) 690-729406-10-2025 Evaluation note* Diagnosis Onset Date Resolution Status [...] acute May 20, 2025 1:50pm acute June 17, 025 2:28pm Secondary amenorrhea acute 2024 2:28pm Supervision of normal first acute June 17 2:28pm Thyroid nodule acute May 2:28pm [facility] Work Phone: 1(798) 212-278806-10-2025 Evaluation note* Diagnosis Onset Date Resolution Status [...] acute May 20, 2025 1:50pm acute June 17, 2 025 2:28pm Secondary amenorrhea acute 2024 2:28pm Supervision of normal first acute June 17 2:28pm Thyroid nodule acute May 2:28pm Hematuria acute June 8:55am Nephrolithiasis acute July 10, 2025 8:55am acute June 8:55am Rh negative status during acute July 10, 2025 8:55am Supervision of normal first acute July 10, 2025 8:55am [facility] Work Phone: 1([phone]) 491-727206-10-2025 Evaluation note* Diagnosis Onset Date Resolution Status [...] 17 2:28pm Thyroid nodule acute May 2:28pm Hematuria acute June 8:55am Nephrolithiasis acute July 10, 2025 8:55am acute June 8:55am Rh negative status during acute July 10, 2025 8:55am Supervision of normal first acute July 10, 2025 8:55am Abnormal ultrasound acute July 15, 2025 3:05pm Hematuria acute June 3:05pm Nephrolithiasis acute July 15, 2025 3:05pm acute June 3:05pm Rh negative status during acute July 15, 2025 3:05pm Secondary amenorrhea acute Jun 3:05pm Supervision of normal first acute July 15, 2025 3:05pm Thyroid nodule acute July 15, 2025 3:05pm [facility] Work Phone: Evaluation noteNo assessment information available [facility] Work Phone: Progress note Author Tammy Wagner [facility] Note Date/Time April 22, 2025 9:10 am [facility] [address], [address] [place] [address] OFFICE VISIT Date of Service: 04/22/25 MR#: [id number] Acct: [id number] Name: CHARLIE GORDON Rep #: [id number] : 2000 Provider: Dr. Niurka Cooley DO Age/Sex: 25/F [place] [facility] [place]: Signed Intake Vital Signs 04/05/25 09:08 04/22/25 08:22 Height 5 ft 8 in 5 ft 8 in Weight: 187 lb 6 oz BMI 28.5 BP 104/63 Intake Visit Reasons: *NEW* NOB LMP 02/22, [place] 11/29 Pipe Installer Required: No Is patient in pain?: No [...] house current occupational status: employed current occupation: [employer] current occupational exposures/hazards: No pets and animals: Yes pets and animals: dog(s) history of recent [place] out of state: Yes out [...] 3-4 times per week duration: 15-30 minutes/day jimi/jehovah's witness: Rastafarian seatbelt use: always do you feel safe at home: Yes additional social history: [employer] History 1 Elective abortions Hx Para 0 Spontaneous abortions Hx # Term Pregnancies Ectopic pregnancies Hx # Pregnancies Multiple births # of living children HPI *NEW* NOB LMP 02/22, [place] 11/29 Details: CHARLIE GORDON is a 25 year [...] (Rh) Sensitized, Pulmonary (e.g.,TB,Asthma), Seasonal allergies, Breast, [employer] Associate surgery, Anesthetic complications, History of abnormal pap [...] comfortable and no acute distress Orientation: alert [facility] Head: normal to inspection, normocephalic and atraumatic [...] Cosigner Signature: Date (if applicable) CC: ~ [facility] Work Phone: Reason for referral (narrative)No reason for referral information availableP[facility] Work Phone: Summary Purpose Family History No [...] 02/22, [place] 11/29April 22, 2 025 8:16am Reason for Visit Admit Date Secondary amenorrhea April 05, 2025 7:5 4am April 22, 2025 8:16 am Secondary amenorrhea April 22, 2025 8:1 6am Supervision of normal first Ju 2024 8:16am Thyroid nodule April 22, 2025 [...] 1:5 0pm Supervision of normal first Ju 2024 1:50pm Thyroid nodule May 20, 2025 [...] Thyroid nodule June 17, 2025 2: 28pm Chief Complaint Admit Date Pre new ob, confirm preg, vitals April 052024 7:54am *NEW* NOB LMP 02/22, [place] 11/29April 22, 2 025 8:16am 12 WK OB May 20, 2025 1:50 pm 16wk ob June 17, 2025 2: 28pm VAGINAL BLEEDING July 10, 2025 8:55am VAGINAL BLEEDING July 10, 2025 11:25am Reason for Visit Admit Date Secondary amenorrhea [...] Thyroid nodule June 17, 2025 2: 28pm Hematuria July 10, 2025 8:55am Nephrolithiasis July 10, 2025 8:55am July 10, 2025 8:55am Rh negative status during Sept ember 2024 8:55am Supervision of normal first Se ptember 2024 8:55am Chief Complaint Admit Date Pre new ob, confirm preg, vitals April 052024 7:54am *NEW* NOB LMP 02/22, [place] 11/29April 22, 2 025 8:16am 12 WK OB May 20, 2025 1:50 pm 16wk ob June 17, 2025 2: 28pm VAGINAL BLEEDING July 10, 2025 8:55am VAGINAL BLEEDING July 10, 2025 11:25am 20wk ob July 15, 2025 3:05pm Reason for Visit Admit Date Secondary amenorrhea [...] Thyroid nodule June 17, 2025 2: 28pm Hematuria July 10, 2025 8:55am Nephrolithiasis July 10, 2025 8:55am July 10, 2025 8:55am Rh negative status during Jun 8:55am Supervision of normal first Se ptember 2024 8:55am Abnormal ultrasound June 3:05pm Hematuria July 15, 2025 3:05pm Nephrolithiasis July 15, 2025 3:05pm July 15, 2025 3:05pm Rh negative status during Jun 3:05pm Secondary amenorrhea July 15 3:05pm Supervision of normal first Se ptember 2024 3:05pm Thyroid nodule July 15, 2025 3:05pm Chief Complaint Admit Date 12 WK OB May 20, 2025 1:50 pm 16wk ob June 17, 2025 2: 28pm VAGINAL BLEEDING July 10, 2025 8:55am VAGINAL BLEEDING July 10, 2025 11:25am 20wk ob July 15, 2025 3:05pm 24w 3d OB August 12, 2025 3 :56pm Reason for Visit Admit Date May 20, 2025 1:50 pm Supervision of normal first Ju ly 2024 1:50pm Thyroid nodule May 20, 2025 1:50 pm Secondary amenorrhea May 20, 2025 1:5 0pm June 17, 2025 2: 28pm Supervision of normal first Au alyson 2024 2:28pm Thyroid nodule June 17, 2025 2: 28pm Secondary amenorrhea June 17, 2025 2 :28pm July 10, 2025 8:55am Rh negative status during Jun 8:55am Supervision of normal first Se ptember 2024 8:55am Hematuria July 10, 2025 8:55am Nephrolithiasis July 10, 2025 8:55am Abnormal ultrasound June 3:05pm July 15, 2025 3:05pm Rh negative status during Jun 3:05pm Supervision of normal first Se ptember 2024 3:05pm Thyroid nodule July 15, 2025 3:05pm Hematuria July 15, 2025 3:05pm Nephrolithiasis July 15, 2025 3:05pm Secondary amenorrhea July 15 3:05pm Abnormal ultrasound August 12, 2025 3:56pm August 12, 2025 3 :56pm Rh negative status during Octo 2024 3:56pm Supervision of normal first Oc tober 2024 3:56pm Thyroid nodule August 12, 2025 3 :56pm Additional Source Comments INFORMATION SOURCE (unrecogn ized section and content) DATE CREATED AUTHOR [facility]/13/2021 [facility] DATE CREATED AUTHOR AUTHOR'S ORGANIZ ATION 08/11/2024 [facility] DATE CREATED AUTHOR AUTHOR'S ORGANIZ ATION 07/20/2025 [facility] DATE CREATED AUTHOR AUTHOR'S ORGANIZ ATION 09/07/2025 [facility] Care Teams (unrecognized sec tion and content) [...] 2025 End: April 05, 2025 Iris Singer FROTHING MACHINE OPERATOR, FROTHING MACHINE OPERATOR-C Attending Provider Active Start: April 05, 2025 [...] 2025 End: April 05, 2025 Iris Singer FROTHING MACHINE OPERATOR, FROTHING MACHINE OPERATOR-C Attending Provider Active Start: April 05, 2025 [...] June 17, 2025 End: June 17, 2025 Team Status: Inactive Member Role/Relationship Status Dates Dr. Anthony Mercedes MD Primary Care Provider Active Start: July 10, 2025 End: July 10, 2025 Dr. Tiffany Melendez MD Attending Provider Active Start: July 10, 2025 End: July 10, 2025 Team Status: Active Member Role/Relationship Status Dates Dr. Anthony Mercedes MD Primary Care Provider Active Start: July 10, 2025 Dr. Tiffany Melendez MD Attending Provider Active Start: July 10, 2025 Dr. Tiffany Melendez MD Other Provider Active Start: July 10, 2025 Team Status: Active Member Role/Relationship Status Dates Dr. Anthony Mercedes MD Primary care physician Activ e Team Status: Inactive Member Role/Relationship Status Dates Dr. Anthony Mercedes MD Primary care physician Activ e Start: April 05, 2025 End: April 05, 2025 Dr. Anthony Mercedes MD Referring Provider Active Start: April 05, 2025 End: April 05, 2025 Iris Singer FROTHING MACHINE OPERATOR, FROTHING MACHINE OPERATOR-C Attending physician Active Start: April 05, 2025 End: April 05, 2025 Team Status: Inactive Member Role/Relationship Status Dates Dr. Anthony Mercedes MD Primary care physician Activ e Start: April 22, 2025 End: April 22, 2025 Dr. Anthony Mercedes MD Referring Provider Active Start: April 22, 2025 End: April 22, 2025 Dr. Tammy Cooley DO Attending physician Acti ve Start: April 22, 2025 End: April 22, 2025 Team Status: Inactive Member Role/Relationship Status Dates Dr. Anthony Mercedes MD Primary care physician Activ e Start: April 22, 2025 End: April 22, 2025 Dr. Tammy Cooley DO Attending physician Acti ve Start: April 22, 2025 End: April 22, 2025 Dr. Tammy Cooley DO Referring Provider Activ e Start: April 22, 2025 End: April 22, 2025 Team Status: Inactive Member Role/Relationship Status Dates Dr. Anthony Mercedes MD Primary care physician Activ e Start: May 20, 2025 End: May 20, 2025 Dr. Anthony Mercedes MD Referring Provider Active Start: May 20, 2025 End: May 20, 2025 Keith Archuleta CNM Attending physician Active Start: May 20, 2025 End: May 20, 2025 Team Status: Inactive Member Role/Relationship Status Dates Dr. Anthony Mercedes MD Primary care physician Activ e Start: June 17, 2025 End: June 17, 2025 Dr. Anthony Mercedes MD Referring Provider Active Start: June 17, 2025 End: June 17, 2025 Keith Archuleta CNM Attending physician Active Start: June 17, 2025 End: June 17, 2025 Team Status: Inactive Member Role/Relationship Status Dates Dr. Anthony Mercedes MD Primary care physician Activ e Start: July 10, 2025 End: July 10, 2025 Dr. Tiffany Melendez MD Attending physician Active Start: July 10, 2025 End: July 10, 2025 Team Status: Active Member Role/Relationship Status Dates Dr. Anthony Mercedes MD Primary care physician Activ e Start: July 10, 2025 Dr. Tiffany Melendez MD Attending physician Active Start: July 10, 2025 Dr. Tiffany Melendez MD Nurse Practitioner Active Start: July 10, 2025 Team Status: Inactive Member Role/Relationship Status Dates Dr. Anthony Mercedes MD Primary care physician Activ e Start: July 15, 2025 End: July 15, 2025 Dr. Anthony Mercedes MD Referring Provider Active Start: July 15, 2025 End: July 15, 2025 Keith Archuleta CNM Attending physician Active Start: July 15, 2025 End: July 15, 2025 Team Status: Inactive Member Role/Relationship Status Dates Dr. Anthony Mercedes MD Primary care physician Activ e Start: May 20, 2025 End: May 20, 2025 Dr. Anthony Mercedes MD Referring Provider Active Start: May 20, 2025 End: May 20, 2025 Keith Archuleta CNM Attending physician Active Start: May 20, 2025 End: May 20, 2025 Team Status: Inactive Member Role/Relationship Status Dates Dr. Anthony Mercedes MD Primary care physician Activ e Start: June 17, 2025 End: June 17, 2025 Dr. Anthony Mercedes MD Referring Provider Active Start: June 17, 2025 End: June 17, 2025 Keith Archuleta CNM Attending physician Active Start: June 17, 2025 End: June 17, 2025 Team Status: Inactive Member Role/Relationship Status Dates Dr. Anthony Mercedes MD Primary care physician Activ e Start: July 10, 2025 End: July 10, 2025 Dr. Tiffany Melendez MD Attending physician Active Start: July 10, 2025 End: July 10, 2025 Team Status: Active Member Role/Relationship Status Dates Dr. Anthony Mercedes MD Primary care physician Activ e Start: July 10, 2025 Dr. Tiffany Melendez MD Attending physician Active Start: July 10, 2025 Dr. Tiffany Melendez MD Nurse Practitioner Active Start: July 10, 2025 Team Status: Inactive Member Role/Relationship Status Dates Dr. Anthony Mercedes MD Primary care physician Activ e Start: July 15, 2025 End: July 15, 2025 Dr. Anthony Mercedes MD Referring Provider Active Start: July 15, 2025 End: July 15, 2025 Keith Archuleta CNM Attending physician Active Start: July 15, 2025 End: July 15, 2025 Team Status: Inactive Member Role/Relationship Status Dates Dr. Anthony Mercedes MD Primary care physician Activ e Start: August 12, 2025 End: August 12, 2025 Dr. Anthony Mercedes MD Referring Provider Active Start: August 12, 2025 End: August 12, 2025 Dr. Tiffany Melendez MD Attending physician Active Start: August 12, 2025 End: August 12, 2025 Goals (unrecognized section and content) Type Care Experience Labor Preferences-CB /BF classes: []labor support person: []labor intervention preferences: []pain management options preferred: []cut cord/dad catch: []: []PP control planned: []discussed possible routes of delivery and associated risks: []special requests: [] Type Detail Care Experience svdLabor Preferences -CB/BF classes: []labor support person: []labor intervention preferences: []pain management options preferred: []cut cord/dad catch: []: []PP control planned: []discussed possible routes of delivery and associated risks: []special requests: [] FOR RECORDS PERTAINING TO PATIENTS WHO ARE [...] BE BASED ON THE PRIMARY CLINICAL RECORDS. [employer] [facility]. provides no warranty or guarantee of the accuracy or completeness of information in this document.
[2025-09-09 17:45] LABS: Glucose Challenge Gest 1H 50g 151 mg/dL (70-140); HIV Nonreactive (Nonreactive); Syphilis Antibodies Nonreactive (Nonreactive)
== END | disposition home or self-care (01) ==
PROVIDERS: PCP Family Medicine; Visit Provider Obstetrics & Gynecology
DX: Z34.00 Encounter for supervision of normal first pregnancy, unspecified trimester (principal); Z13.1 Encounter for screening for diabetes mellitus
CPT/HCPCS: 36415; 82950; 85025; 86703; 86780; 86850; 86870; 86900; 86901

== ENCOUNTER → 2025-09-14 | Outpatient (CLI) | payer BC, SELFPAY ==
[2025-09-14 13:48] LABS: Glucose Challenge Gest 1H 50g 128 mg/dL (70-140)
== END | disposition home or self-care (01) ==
LOC: BWCLAB 08:57
PROVIDERS: PCP Family Medicine; Visit Provider Obstetrics & Gynecology
DX: Z13.1 Encounter for screening for diabetes mellitus (principal)
CPT/HCPCS: 36415; 82950

== ENCOUNTER → 2025-10-07 | Outpatient (CLI) | payer BC, SELFPAY ==
--- OUTSIDE RECORDS SUMMARY | 2025-10-07 15:54 | XMS RPT_ITS | CCD ---
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 Name Role Phone CHERLYE BAZAN Attending Unavailable CHERYLE BAZAN Consulting Unavailable CHERYLE BAZAN Primary Care Unavailable CHERYLE BAZAN Admitting Unavailable PROVIDER, UNKNOWN Consulting Unavailable Beni CHENG, Cheryle Martinez Unavailable Beni CHENG, Cheryle Martinez Unavailable Priti OPERATING ROOM ASSISTANT, Radha Unavailable Gogoi (scribe), Hemanta Unavailable Unavaila jessica Gamble PA-C, Rosario Gibson Unavailable Emeka WONG, Jaye Unavailable Unavailable Senthil OPERATING ROOM ASSISTANT, Gwen Unavailable Unavaila ble Marthey OPERATING ROOM ASSISTANT, Abby Unavailable Unavailable Alexi OPERATING ROOM ASSISTANT, Homero Unavailable Unavailable Casi RN, Sanjana Y Unavailable Unavailable Jasbir OPERATING ROOM ASSISTANT, Daija Unavailable Unavailable Dale OPERATING ROOM ASSISTANT, Becky M Unavailable Unavailab jamee Mueller OPERATING ROOM ASSISTANT, Noris Sarkar Unavailable Unavailab Anthony Young MD Unavailable Janny JETERN, Tammy Unavailable Unavailbasil Ley OPERATING ROOM ASSISTANT, Nisha Jernigan Unavailable Unavaila ble Zawalter OPERATING ROOM ASSISTANT, Yuliya Unavailable Unavailable Unavailable Unavailable Modesto Bosch MD Unavailable Dr. Anthony Mercedes MD Primary Care Provider Dr. Anthony Mercedes MD Referring Provider Iris Santiago Attending Provider Dr. Tammy Cooley DO Attending Provider Dr. Tammy Cooley DO Referring Provider Keith Archuleta CNM Attending Provider [phone] Dr. Tiffany Melendez MD Attending Provider Nora FELDMAN, Dr. Allen Other Provider [phone] MELODIE GARCIAS Attending Unavailable KEITH ARCHULETA S Referring Unavailable VACCARIELLO, TAMARA Primary Care Unavailable OZIEL DALTON Attending Unavailable KEITH ARCHULETA S Referring Unavailable VACCARIELLO, TAMARA Primary Care Unavailable Daren FELDMAN, Dr. Cruz Primary Care Physician Lucrecia IT SUPPORT SPECIALIST-Iris Givens Attending Physician [phone] Dr. Tammy Cooley [...] Care Unavailable Vaccariello, Anthony Referring Unavailable Vaccariello, [facility] Primary Care Unavailable Tiffany Melendez Consulting Unavailable [...] Chocolate; Translations: [chocolate] Allergy to substance 04-05-2025 [facility] Comment on above: Migraine headache Medications [...] order. Comment on above: Mail order. Multivit 11-Wvtq-Pjhoyz 1-Dha (Pnv-Dha) 27 mg iron-1 mg -300 [...] Quantity: 12 {Suppository} Refills: 2 Ordered: 16-Aug-2011 PADIMNI Marcos Start: 02-Aug-2010 End: 16-Aug-2011 Status: Inactive [...] nl anatomy Other skin disorders (20 sources) [place] - lesion ; Translations: [Corns and callosities] [...] per night. Note for Well adult female: [place] like this with wedding planning and thought it would get better after the wedding but it hasn't. [place] it skip a beat every few minutes. 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 07-05-2021 Unclassified (14 sources) Nausea - The [...] Test Name Value Interpretation Reference Range Facility Human Services Care Specialist Office Visit Reporton 08-12-2025 Human Services Care Specialist Office Visit Report [facility] [address], [address] [place] [address] OFFICE VISIT Date of Service: 08/12/25 MR#: [id number] Acct: [id number] Name: CHARLIE GORDON Rep #: [id number] : 2000 Provider: Dr. Tiffany braun MD Age/Sex: 25/F [place] [facility] [place]: Signed Intake Vital Signs 05/20/25 13:53 07/15/25 15:10 08/12/25 16:08 08/12/25 16:14 Height 5 ft 8 in 5 ft 8 in 5 ft 8 in 5 ft 8 in Weight: 208 lb 6 oz BMI 31.6 BP 108/69 Intake Visit Reasons: 24w 3d OB Filler Spreader Required: No Is patient in pain?: No [...] house current occupational status: employed current occupation: [employer] current occupational exposures/hazards: No pets and animals: Yes pets and animals: dog(s) history of recent travel: Yes ([place] in February) out of state: Yes out [...] 3-4 times per week duration: 15-30 minutes/day jimi/bahai: Jainism seatbelt use: always do you feel safe [...] Negative 15 (more content not included)... Normal [facility] - Chemistry and C hemistry - challengeOrdered By: Keith Archuleta on 07-15-2025 Glucose Ql (U) Negative [facility] - UrinalysisOrder ed By: Keith Archuleta on 07-15-2025 Protein Ql (U) Negative [facility] Human Services Care Specialist Office Visit Reporton 07-15-2025 Human Services Care Specialist Office Visit Report [facility] [address], [address] [place] [address] OFFICE VISIT Date of Service: 07/15/25 MR#: [id number] Acct: [id number] Name: CHARLIE GORDON Rep #: [id number] : 2000 Provider: JODI Borrero ams Age/Sex: 25/F [place] [facility] [place]: Signed Intake Vital Signs 04/22/25 08:22 07/10/25 10:27 07/15/25 15:09 07/15/25 15:10 Height 5 ft 8 in 5 ft 8 in 5 ft 8 in 5 ft 8 in Weight: 202 lb 1 oz BMI 30.7 BP 116/71 Intake Visit Reasons: 20wk ob Filler Spreader Required: No Is patient in pain?: No [...] house current occupational status: employed current occupation: [employer] current occupational exposures/hazards: No pets and animals: Yes pets and animals: dog(s) history of recent travel: Yes ([place] in February) out of state: Yes out [...] 3-4 times per week duration: 15-30 minutes/day jimi/bahai: Jainism seatbelt use: always do you feel safe [...] 16w 3 (more content not included)... Normal [facility] Urine Cultureon 07-11-2025 URC Culture exhibits no growth. Normal [facility] Comment on above: Performed By: #### M 100.2200 #### [facility] [address] [place], [address] Absolute lymphocyte countOrd ered By: Tiffany Melendez on 07-10-2025 Lymphocytes Auto (Unsp spec) [#/Vol] 1.32 10*3/uL 0.83-4.51 [facility] Absolute neutrophil countOrd ered By: Tiffany Melendez on 07-10-2025 Neutrophils (Bld) [#/Vol] 8.1 10*3/uL High 2.0-7.7 [facility] Automated lymphocyte count a s percentage of total leukocytesOrdered By: Tiffany Melendez on 07-10-2025 Lymphocytes/100 WBC Auto (Unsp spec) 13.1 % Low 19-41 [facility] BRho(D) IGon 07-10-2025 Rho(D) IG Normal [facility] Comment on above: Result Comment: RH10 7130 Rho(D) IG PRSMD TRFSD 07/10/25 1210 Performed By: #### B Rho(D) IG, BRHNM #### [facility] [address] [place], [address] Basophil percentageOrdered B y: Tiffany Melendez on 07-10-2025 Basophils/100 WBC (Bld) 0.4 % 0-1 [facility] Bilirubin Test strip Ql (U)O rdered By: Tiffany Melendez on 07-10-2025 Bilirubin Ql (U) Negative Negative [facility] CBC W/Diff, Automatedon 06-27 Absolute Lymph 1.32 X10 3/uL Normal 0.83-4.51 [facility] Comment on above: Performed By: #### L 100.0100 #### [facility] [address] [place], [address] Absolute Neut 8.1 X10 3/uL High 2.0-7.7 [facility] Comment on above: Performed By: #### L 100.0100 #### [facility] [address] [place], [address] Basophils/100 WBC (Bld) 0.4 % Normal 0-1 [facility] Comment on above: Performed By: #### L 100.0100 #### [facility] [address] [place], [address] Eosinophils/100 WBC (Bld) 0.3 % Normal 0-5 [facility] Comment on above: Performed By: #### L 100.0100 #### [facility] [address] [place], [address] Erythrocyte distribution width (RBC) [Ratio] 13.3 % Normal 11.6-14.6 [facility] Comment on above: Performed By: #### L 100.0100 #### [facility] [address] [place], [address] Hematocrit (Bld) [Volume fraction] 34.0 % Low 37-47 [facility] Comment on above: Performed By: #### L 100.0100 #### [facility] [address] [place], [address] Hemoglobin (Bld) [Mass/Vol] 11.5 g/dL Low 12.0-15.0 [facility] Comment on above: Performed By: #### L 100.0100 #### [facility] [address] [place], [address] IG% 1.400 High 0.0-0.9 [facility] Comment on above: Result Comment: IG% - Immature Granulocytes (promyelocytes, myelocytes and metamyelocytes) > 1% indicates that a LEFT SHIFT is Present. Performed By: #### L 100.0100 #### [facility] [address] [place], [address] Lymphocytes/100 WBC (Bld) 13.1 % Low 19-41 [facility] Comment on above: Performed By: #### L 100.0100 #### [facility] [address] [place], [address] MCH (RBC) [Entitic mass] 27.3 pg Normal 27.0-32.0 [facility] Comment on above: Performed By: #### L 100.0100 #### [facility] [address] [place], [address] MCHC (RBC) [Mass/Vol] 33.8 g/dL Normal 32-36 [facility] Comment on above: Performed By: #### L 100.0100 #### [facility] [address] [place], [address] MCV (RBC) [Entitic vol] 80.8 fL Low 81-99 [facility] Comment on above: Performed By: #### L 100.0100 #### [facility] [address] [place], [address] Monocytes/100 WBC (Bld) 4.8 % Normal 0-10 [facility] Comment on above: Performed By: #### L 100.0100 #### [facility] [address] [place], [address] Neutrophils/100 WBC (Bld) 80.0 % High 47-70 [facility] Comment on above: Performed By: #### L 100.0100 #### [facility] [address] [place], [address] Nucleated RBC (Bld) [#/Vol] 0 10*3/uL Normal 0-5 [facility] Comment on above: Performed By: #### L 100.0100 #### [facility] [address] [place], [address] Platelet mean volume (Bld) [Entitic vol] 10.9 fL Normal 6.2-12.0 [facility] Comment on above: Performed By: #### L 100.0100 #### [facility] [address] [place], [address] Platelets (Bld) [#/Vol] 163 10*3/uL Normal 150-450 [facility] Comment on above: Performed By: #### L 100.0100 #### [facility] [address] [place], [address] RBC (Bld) [#/Vol] 4.21 10*6/uL Normal 4.2-5.4 [facility] Comment on above: Performed By: #### L 100.0100 #### [facility] [address] [place], [address] RDW SD 38.5 fl Normal 35.1-43.9 [facility] Comment on above: Performed By: #### L 100.0100 #### [facility] [address] [place], [address] WBC (Bld) [#/Vol] 10.1 10*3/uL Normal 4.4-11.0 [facility] Comment on above: Performed By: #### L 100.0100 #### [facility] [address] [place], [address] Eosinophil percentageOrdered By: Tiffany Melendez on 07-10-2025 Eosinophils/100 WBC (Bld) 0.3 % 0-5 [facility] Erythrocyte distribution wid th ratioOrdered By: Tiffany Melendez on 07-10-2025 Erythrocyte distribution width (RBC) [Ratio] 13.3 % 11.6-14.6 [facility] Erythrocyte distribution wid th standard deviationOrdered By: Tiffany Melendez on 07-10-2025 Erythrocyte distribution width (RBC) [Ratio] 38.5 fl 35.1-43.9 [facility] Hematocrit Auto (Bld) [Volum e fraction]Ordered By: Tiffany Melendez on 07-10-2025 Hematocrit (Bld) [Volume fraction] 34.0 % Low 37-47 [facility] Hemoglobin measurementOrdere d By: Tiffany Melendez on 07-10-2025 Hemoglobin (Bld) [Mass/Vol] 11.5 g/dL Low 12.0-15.0 [facility] Immature granulocytes/100 WB C Auto (Bld)Ordered By: Tiffany Melendez on 07-10-2025 Immature granulocytes/100 WBC (Bld) 1.400 % High 0.0-0.9 [facility] Comment on above: IG% - Immature Granu locytes (promyelocytes, myelocytes and metamyelocytes) > 1% indicates that a LEFT SHIFT is Present. Ketones Test strip Ql (U)Ord ered By: Tiffany Melendez on 07-10-2025 Ketones Ql (U) Negative Negative [facility] Kidney and Bladderon 025 Kidney and Bladder [facility] Services [address] [place], [place] [address] Kidney and Bladder MR#: [id number] Acct: [id number] Name: CHARLIE GORDON Rep #: [id number] : 2000 F 25 From: Lino Phillip MD PCP: Dr. Anthony Mercedes MD Status: REG CLI Study: Kidney and Bladder Date of Exam: 07/10/25 Exam# [id number] Ordering Dr: Tiffany Melendez PROCEDURE: KIDNEY AND [...] jets are patent and functional.. Reading Location: [facility] CC: Dr. Anthony Mercedes MD; Dr. Tiffany Melendez MD Undercoater: Signed Normal [facility] MCV (mean corpuscular volume ) determinationOrdered By: Tiffany Melendez on 07-10-2025 MCV (RBC) [Entitic vol] 80.8 fL Low 81-99 [facility] Mean corpuscular hemoglobin (MCH) determinationOrdered By: Tiffany Melendez on 07-10-2025 MCH (RBC) [Entitic mass] 27.3 pg 27.0-32.0 [facility] Mean corpuscular hemoglobin concentration (MCHC) determinationOrdered By: Tiffany Melendez on 07-10-2025 MCHC (RBC) [Mass/Vol] 33.8 g/dL 32-36 [facility] Mean platelet volume determi nationOrdered By: Tiffany Melendez on 07-10-2025 Platelet mean volume (Bld) [Entitic vol] 10.9 fL 6.2-12.0 [facility] Monocyte percentageOrdered B y: Tiffany Melendez on 07-10-2025 Monocytes/100 WBC (Bld) 4.8 % 0-10 [facility] Neutrophil percentageOrdered By: Tiffany Melendez on 07-10-2025 Neutrophils/100 WBC (Bld) 80.0 % High 47-70 [facility] Nitrite Test strip Ql (U)Ord ered By: Tiffany Melendez on 07-10-2025 Nitrite Ql (U) Negative Negative [facility] Nucleated red blood cell per centageOrdered By: Tiffany Melendez on 07-10-2025 Nucleated RBC/100 WBC (Bld) [Ratio] 0 % 0-5 [facility] OB Triage Physician Noteon 0 07-10-2025 OB Triage Physician Note [facility] Medical Records Department [address] [place] [address] OB Triage Physician Note 07/10/25 1125 MR#: [id number] Acct: [id number] Name: CHARLIE GORDON Rep #: [id number] : 2000 25 From: Tiffany Melendez MD PCP: Dr. Anthony Mercedes MD Status:REG CLI Y Location: LI525-6 HPI - General General Date of Admission: [...] house current occupational status: employed current occupation: [employer] current occupational exposures/hazards: No pets and animals: Yes pets and animals: dog(s) history of recent travel: Yes ([place] in February) out of state: Yes out [...] 3-4 times per week duration: 15-30 minutes/day jimi/bahai: Jainism seatbelt use: always do you feel safe [...] ?-???-???-???-???-? ??-???-?? (more content not included)... Normal [facility] Platelet countOrdered By: Dereck Melendez on 07-10-2025 Platelets (Bld) [#/Vol] 163 10*3/uL 150-450 [facility] Protein Test strip Ql (U)Ord ered By: Tiffany Melendez on 07-10-2025 Protein Ql (U) 30 mg/dl High Negative [facility] RBC Auto (Bld) [#/Vol]Ordere d By: Tiffany Melendez on 07-10-2025 RBC (Bld) [#/Vol] 4.21 10*6/uL 4.2-5.4 [facility] Rh Negative Mom Workupon ABO and Rh group Nom (Bld) PRESUMED RH POS Normal [facility] Comment on above: Order Comment: Comme nts: Age > 13 Weeks SHE @WAS A FALL. NO BABY INFO AT THIS TIME PT IS NOT IN LABOR 0 0 0 Performed By: #### B Rho(D) IG, BRHNM #### [facility] [address] [place], [place], [address] DIRECT ANTIGLOB TNP Normal NEGATIVE [facility] Comment on above: Order Comment: Comme nts: Age > 13 Weeks SHE @WAS A FALL. NO BABY INFO AT THIS TIME PT IS NOT IN LABOR 0 0 0 Performed By: #### B Rho(D) IG, BRHNM #### [facility] [address] [place], [place], [address] ABO and Rh group Nom (Bld) Blood group O Rh(D) negative Normal [facility] Comment on above: Order Comment: Comme nts: Age > 13 Weeks SHE @WAS A FALL. NO BABY INFO AT THIS TIME PT IS NOT IN LABOR 0 0 0 Performed By: #### B Rho(D) IG, BRHNM #### [facility] [address] [place], [place], [address] SCREEN Negative Normal NEGATIVE [facility] Comment on above: Order Comment: Comme nts: Age > 13 Weeks SHE @WAS A FALL. NO BABY INFO AT THIS TIME PT IS NOT IN LABOR 0 0 0 Performed By: #### B Rho(D) IG, GIORGIHNM #### [facility] [address] [place], [address] MOM'S ABS Negative Normal [facility] Comment on above: Order Comment: Comme nts: Age > 13 Weeks SHE @WAS A FALL. NO BABY INFO AT THIS TIME PT IS NOT IN LABOR 0 0 0 Performed By: #### B Rho(D) IG, GIORGIHNM #### [facility] [address] [place], [address] Type AND Screenon 07-10-2025 ABO and Rh group Nom (Bld) Blood group O Rh(D) negative Normal [facility] Comment on above: Order Comment: Has p t arrived? Y R Performed By: #### B TS #### [facility] [address] [place], [address] Urinalysis, Routine (Dipstic k)on 07-10-2025 Color (U) SEE COMMENT BELOW Normal Yellow [facility] Comment on above: Order Comment: COLLE CTOR TO SPECIFY Result Comment: Visu al Urine Color: PINK Performed By: #### L 400.2010 #### [facility] [address] [place], [address] BILIRUBIN URINE Negative Normal Negative [facility] Comment on above: Order Comment: ZEUS CTOR TO SPECIFY Performed By: #### L 400.2010 #### [facility] [address] [place], [address] Clarity (U) Cloudy Normal Clear [facility] Comment on above: Order Comment: ZEUS CTOR TO SPECIFY Performed By: #### L 400.2010 #### [facility] [address] [place], [address] GLUCOSE, UR Normal Normal Normal [facility] Comment on above: Order Comment: ZEUS CTOR TO SPECIFY Performed By: #### L 400.2010 #### [facility] [address] [place], [address] KETONE UR Negative Normal Negative [facility] Comment on above: Order Comment: ZEUS CTOR TO SPECIFY Performed By: #### L 400.2010 #### [facility] [address] [place], [address] LEUK ESTERASE Negative Normal Negative [facility] Comment on above: Order Comment: ZEUS CTOR TO SPECIFY Performed By: #### L 400.2010 #### [facility] [address] [place], [address] Nitrite Ql (U) Negative Normal Negative [facility] Comment on above: Order Comment: ZEUS CTOR TO SPECIFY Performed By: #### L 400.2010 #### [facility] [address] [place], [address] OCCULT BLOOD-UR 250 /ul Abnormal Negative [facility] Comment on above: Order Comment: ZEUS CTOR TO SPECIFY Performed By: #### L 400.2010 #### [facility] [address] [place], [address] pH UR 8.0 Normal 5.0 - 8.0 [facility] Comment on above: Order Comment: ZEUS CTOR TO SPECIFY Performed By: #### L 400.2010 #### [facility] [address] [place], [address] PROT DIPSTX 30 mg/dl Abnormal Negative [facility] Comment on above: Order Comment: ZEUS CTOR TO SPECIFY Performed By: #### L 400.2010 #### [facility] [address] [place], [address] SP.GR. DIPSTX 1.010 Normal 1.002-1.030 [facility] Comment on above: Order Comment: ZEUS CTOR TO SPECIFY Performed By: #### L 400.2010 #### [facility] [address] [place], [address] UROBILI Normal Normal Normal [facility] Comment on above: Order Comment: COLLE CTOR TO SPECIFY Performed By: #### L 400.2010 #### [facility] [address] [place], [address] Urine clarityOrdered By: Aj Melendez on 07-10-2025 Clarity (U) Cloudy Clear [facility] Urine color determinationOrd ered By: Tiffany Melendez on 07-10-2025 Color (U) SEE COMMENT BELOW Yellow [facility] Comment on above: Visual Urine Color: PINK Urine cultureOrdered By: Aj Melendez on 07-10-2025 Bacteria identified Cx Nom (U) Culture exhibits no growth. [facility] Urine glucose detectionOrder ed By: Tiffany Melendez on 07-10-2025 Glucose Ql (U) Normal mg/dl Normal [facility] Urine leukocyte esterase det ection by dipstickOrdered By: Tiffany Melendez on 07-10-2025 Leukocyte esterase Test strip Ql (U) Negative Negative [facility] Urine pHOrdered By: Tiffany flynn on 07-10-2025 pH (U) 8.0 [pH] 5.0 - 8.0 [facility] Urine specific gravity measu rementOrdered By: Tiffany Melendez on 07-10-2025 Specific gravity (U) [Rel density] 1.010 1.002-1.030 [facility] Urine urobilinogen measureme ntOrdered By: Tiffany Melendez on 07-10-2025 Urobilinogen Ql (U) Normal mg/dl Normal [facility] White blood cell (WBC) count Ordered By: Tiffany Melendez on 07-10-2025 WBC (Bld) [#/Vol] 10.1 10*3/uL 4.4-11.0 [facility] - Chemistry and C hemistry - challengeOrdered By: Tiffany Melendez on 06-17-2025 Glucose Ql (U) Negative [facility] - UrinalysisOrder ed By: Tiffany Melendez on 06-17-2025 Protein Ql (U) Negative [facility] Human Services Care Specialist Office Visit Reporton 06-17-2025 Human Services Care Specialist Office Visit Report [facility] [address], [address] [place] [address] OFFICE VISIT Date of Service: 06/17/25 MR#: [id number] Acct: [id number] Name: CHARLIE GORDON Rep #: [id number] : 2000 Provider: JODI Borrero ams Age/Sex: 25/F [place] [facility]: Signed Intake Vital Signs 04/22/25 08:22 05/20/25 13:53 06/17/25 14:39 Height 5 ft 8 in 5 ft 8 in 5 ft 8 in Weight: 196 lb 7 oz BMI 29.8 BP 119/74 Intake Visit Reasons: 16wk ob Filler Spreader Required: No Is patient in pain?: No [...] house current occupational status: employed current occupation: [employer] current occupational exposures/hazards: No pets and animals: Yes pets and animals: dog(s) history of recent travel: Yes ([place] in February) out of state: Yes out [...] 3-4 times per week duration: 15-30 minutes/day jimi/bahai: Jainism seatbelt use: always do you feel safe [...] Work in (more content not included)... Normal [facility] - Chemistry and C hemistry - challengeOrdered By: Keith Archuleta on 05-20-2025 Glucose Ql (U) Negative [facility] - UrinalysisOrder ed By: Keith Archuleta on 05-20-2025 Protein Ql (U) Negative [facility] Human Services Care Specialist Office Visit Reporton 05-20-2025 Human Services Care Specialist Office Visit Report [facility] [address], [address] [place] [address] OFFICE VISIT Date of Service: 05/20/25 MR#: [id number] Acct: [id number] Name: CHARLIE GORDON Rep #: [id number] : 2000 Provider: JODI Borrero ams Age/Sex: 25/F [place] [facility] [place]: Signed Intake Vital Signs 04/22/25 08:22 05/20/25 13:53 Height 5 ft 8 in 5 ft 8 in Weight: 189 lb 8 oz BMI 28.8 BP 120/72 Intake Visit Reasons: 12 WK OB Chief Complaint: 12 Week OB Filler Spreader Required: No Is patient in pain?: No [...] house current occupational status: employed current occupation: [employer] current occupational exposures/hazards: No pets and animals: Yes pets and animals: dog(s) history of recent travel: Yes ([place] in February) out of state: Yes out [...] 3-4 times per week duration: 15-30 minutes/day jimi/bahai: Jainism seatbelt use: always do you feel safe [...] Communication B (more content not included)... Normal [facility] L3410.9992on 05-04-2025 [facility] COMMENT Normal . [facility] Comment on above: Order Comment: Comme nts: Age > 13 Weeks SHE @WAS A FALL. NO BABY INFO AT THIS TIME PT IS NOT IN LABOR 0 0 0 Result Comment: Test Ordered: [id number] TSH Receptor Antibody (TBII) TSH Receptor Antibody (TBII) <0.3 U/L Reference Range: . Reference Range: Antibody Titer: <1.0 U/L = Negative 1.1 - 1.5 U/L = Equivocal >1.5 U/L = Positive Performed at: [facility] [address] [place] [id number] Med Surg Rn: Sander Daugherty MD, Phone: [phone] Performed at: [facility] [id number] Med Surg Rn: Fredis Pendleton PhD, Phone: [phone] Performed By: #### B Rho(D) IG, BRHNM #### [facility] [address] [place], [place], [id number] Chlamydia/GC VANCE aptimaon CHLAMY,NUC ACID Negative Normal Negative [facility] Comment on above: Performed By: #### B Rho(D) IG, BRHNM #### [facility] [address] [place], [place], [id number] GC BY NUC ACID Negative Normal Negative [facility] Comment on above: Result Comment: Perf ormed at: =G - [facility] [address] [place] [id number] Med Surg Rn: Kailey Petit MD, Phone: [phone] Performed By: #### B Rho(D) IG, BRHNM #### [facility] [address] [place], [address] Urine Cultureon 04-23-2025 [facility] Culture exhibits no growth. Normal [facility] Comment on above: Performed By: #### B Edson(Arthur) ROSALVA THOMAS #### [facility] [address] [place], [address] Absolute lymphocyte countOrd ered By: Tammy Arevalocara on 04-22-2025 Lymphocytes Auto (Unsp spec) [#/Vol] 1.57 10*3/uL 0.83-4.51 [facility] Absolute neutrophil countOrd ered By: Tammy Arevalocara on 04-22-2025 Neutrophils (Bld) [#/Vol] 5.7 10*3/uL 2.0-7.7 [facility] Automated lymphocyte count a s percentage of total leukocytesOrdered By: Tammy Arevalocara on 04-22-2025 Lymphocytes/100 WBC Auto (Unsp spec) 19.8 % 19-41 [facility] Basophil percentageOrdered B y: Tammy Arevalocara on 04-22-2025 Basophils/100 WBC (Bld) 0.5 % 0-1 [facility] CBC W/Diff, Automatedon 03-28 Absolute Lymph 1.57 X10 3/uL Normal 0.83-4.51 [facility] Comment on above: Performed By: #### L 509.4006, L509.8002, L3890.6102, L100.0100, L3890.6006, BTS, L3410.9992, L506.0400, L501.9520, L3890.6301 #### [facility] [address] [place], [address] Absolute Neut 5.7 X10 3/uL Normal 2.0-7.7 [facility] Comment on above: Performed By: #### L 509.4006, L509.8002, L3890.6102, L100.0100, L3890.6006, BTS, L3410.9992, L506.0400, L501.9520, L3890.6301 #### [facility] [address], [address] Basophils/100 WBC (Bld) 0.5 % Normal 0-1 [facility] Comment on above: Performed By: #### L 509.4006, L509.8002, L3890.6102, L100.0100, L3890.6006, BTS, L3410.9992, L506.0400, L501.9520, L3890.6301 #### [facility] [address] [facility] [place], [address] Eosinophils/100 WBC (Bld) 0.3 % Normal 0-5 [facility] Comment on above: Performed By: #### L 509.4006, L509.8002, L3890.6102, L100.0100, L3890.6006, BTS, L3410.9992, L506.0400, L501.9520, L3890.6301 #### [facility] [address] [facility] [place], [address] Erythrocyte distribution width (RBC) [Ratio] 13.2 % Normal 11.6-14.6 [facility] Comment on above: Performed By: #### L 509.4006, L509.8002, L3890.6102, L100.0100, L3890.6006, BTS, L3410.9992, L506.0400, L501.9520, L3890.6301 #### [facility] [address] [facility] [place], [address] Hematocrit (Bld) [Volume fraction] 38.8 % Normal 37-47 [facility] Comment on above: Performed By: #### L 509.4006, L509.8002, L3890.6102, L100.0100, L3890.6006, BTS, L3410.9992, L506.0400, L501.9520, L3890.6301 #### [facility] [address] [facility] [place], [address] Hemoglobin (Bld) [Mass/Vol] 12.9 g/dL Normal 12.0-15.0 [facility] Comment on above: Performed By: #### L 509.4006, L509.8002, L3890.6102, L100.0100, L3890.6006, BTS, L3410.9992, L506.0400, L501.9520, L3890.6301 #### [facility] [address] [place], [address] IG% 0.900 Normal 0.0-0.9 [facility] Comment on above: Result Comment: IG% - Immature Granulocytes (promyelocytes, myelocytes and metamyelocytes) > 1% indicates that a LEFT SHIFT is Present. Performed By: #### L 509.4006, L509.8002, L3890.6102, L100.0100, L3890.6006, BTS, L3410.9992, L506.0400, L501.9520, L3890.6301 #### [facility] [address] [place], [address] Lymphocytes/100 WBC (Bld) 19.8 % Normal 19-41 [facility] Comment on above: Performed By: #### L 509.4006, L509.8002, L3890.6102, L100.0100, L3890.6006, BTS, L3410.9992, L506.0400, L501.9520, L3890.6301 #### [facility] [address] [place], [address] MCH (RBC) [Entitic mass] 27.4 pg Normal 27.0-32.0 [facility] Comment on above: Performed By: #### L 509.4006, L509.8002, L3890.6102, L100.0100, L3890.6006, BTS, L3410.9992, L506.0400, L501.9520, L3890.6301 #### [facility] [address] [place], [address] MCHC (RBC) [Mass/Vol] 33.2 g/dL Normal 32-36 [facility] Comment on above: Performed By: #### L 509.4006, L509.8002, L3890.6102, L100.0100, L3890.6006, BTS, L3410.9992, L506.0400, L501.9520, L3890.6301 #### [facility] [address] [place], [address] MCV (RBC) [Entitic vol] 82.6 fL Normal 81-99 [facility] Comment on above: Performed By: #### L 509.4006, L509.8002, L3890.6102, L100.0100, L3890.6006, BTS, L3410.9992, L506.0400, L501.9520, L3890.6301 #### [facility] [address] [place], [address] Monocytes/100 WBC (Bld) 6.1 % Normal 0-10 [facility] Comment on above: Performed By: #### L 509.4006, L509.8002, L3890.6102, L100.0100, L3890.6006, BTS, L3410.9992, L506.0400, L501.9520, L3890.6301 #### [facility] [address] [place], [address] Neutrophils/100 WBC (Bld) 72.4 % High 47-70 [facility] Comment on above: Performed By: #### L 509.4006, L509.8002, L3890.6102, L100.0100, L3890.6006, BTS, L3410.9992, L506.0400, L501.9520, L3890.6301 #### [facility] [address] [place], [address] Nucleated RBC (Bld) [#/Vol] 0 10*3/uL Normal 0-5 [facility] Comment on above: Performed By: #### L 509.4006, L509.8002, L3890.6102, L100.0100, L3890.6006, BTS, L3410.9992, L506.0400, L501.9520, L3890.6301 #### [facility] [address] [place], [address] Platelet mean volume (Bld) [Entitic vol] 10.8 fL Normal 6.2-12.0 [facility] Comment on above: Performed By: #### L 509.4006, L509.8002, L3890.6102, L100.0100, L3890.6006, BTS, L3410.9992, L506.0400, L501.9520, L3890.6301 #### [facility] [address] [place], [address] Platelets (Bld) [#/Vol] 220 10*3/uL Normal 150-450 [facility] Comment on above: Performed By: #### L 509.4006, L509.8002, L3890.6102, L100.0100, L3890.6006, BTS, L3410.9992, L506.0400, L501.9520, L3890.6301 #### [facility] [address] [place], [address] RBC (Bld) [#/Vol] 4.70 10*6/uL Normal 4.2-5.4 [facility] Comment on above: Performed By: #### L 509.4006, L509.8002, L3890.6102, L100.0100, L3890.6006, BTS, L3410.9992, L506.0400, L501.9520, L3890.6301 #### [facility] [address] [place], [place], [address] RDW SD 39.8 fl Normal 35.1-43.9 [facility] Comment on above: Performed By: #### L 509.4006, L509.8002, L3890.6102, L100.0100, L3890.6006, BTS, L3410.9992, L506.0400, L501.9520, L3890.6301 #### [facility] [address] [place], [place], [address] WBC (Bld) [#/Vol] 7.9 10*3/uL Normal 4.4-11.[address] [facility] Comment on above: Performed By: #### L 509.4006, L509.8002, L3890.6102, L100.0100, L3890.6006, BTS, L3410.9992, L506.0400, L501.9520, L3890.6301 #### [facility] [address] [place], [place], [address] Chlamydia trachomatis rRNA d etection by probe and target amplification methodOrdered By: Tammy Wagner on 04-22-2025 C. trachomatis rRNA VANCE+probe Ql (Unsp spec) Negative Negative [facility] Eosinophil percentageOrdered By: Tammy Wagner on 04-22-2025 Eosinophils/100 WBC (Bld) 0.3 % 0-5 [facility] Erythrocyte distribution wid th ratioOrdered By: Tammy Wagner on 04-22-2025 Erythrocyte distribution width (RBC) [Ratio] 13.2 % 11.6-14.6 [facility] Erythrocyte distribution wid th standard deviationOrdered By: Tammy Wagner on 04-22-2025 Erythrocyte distribution width (RBC) [Ratio] 39.8 fl 35.1-43.9 [facility] HIVon 04-22-2025 HIV Non-Reactive Normal Nonreactive [facility] Comment on above: Result Comment: Non- Reactive Reactive Repeatedly reactive samples must be confirmed according to CDC recommended confirmatory algorithms. The subresults for either HIVAG or AHIV can be used as an aid in the selection of the confirmation algorithm for reactive samples. Send out specimens with Reactive results to [facility] for confirmation. Order the HIV antibody detection and differentiation: #[id number] Performed By: #### B Rho(D) IG, BRHNM #### [facility] [address] [place], [address] Hematocrit Auto (Bld) [Volum e fraction]Ordered By: Tammy Wagner on 04-22-2025 Hematocrit (Bld) [Volume fraction] 38.8 % 37-47 [facility] Hemoglobin measurementOrdere d By: Tammy Wagner on 04-22-2025 Hemoglobin (Bld) [Mass/Vol] 12.9 g/dL 12.0-15.0 [facility] Hepatitis C Antibodyon 04-22 Hepatitis C Ab Non-Reactive Normal Nonreactive [facility] Comment on above: Result Comment: Reac tive: Presumptive evidence of antibodies to HCV. Follow CDC recommendations for supplemental testing. Non-Reactive: Antibodies to HCV were not detected; does not exclude the possibility of exposure to HCV Reactive Results are presumptive evidence of antibodies to HCV. Follow CDC recommendations for supplemental testing. Order confirmation testing: HCV Quant by PCR testing - HCVPCR #[id number] Non Reactive: < 0.8 Equivocal: >/= 0.8 to < 1.0 Reactive: >/= 1.0 The CDC requires that a reactive/equivocal HCV antibody result be sent out for confirmation. HCV Quant by PCR testing. Performed By: #### B Rho(D) IG, BRHNM #### [facility] [address] [place], [address] Immature granulocytes/100 WB C Auto (Bld)Ordered By: Tammy Wagner on 04-22-2025 Immature granulocytes/100 WBC (Bld) 0.900 % 0.0-0.9 [facility] Comment on above: IG% - Immature Granu locytes (promyelocytes, myelocytes and metamyelocytes) > 1% indicates that a LEFT SHIFT is Present. L3890.6102on 04-22-2025 HEP B Surf Ag Non-Reactive Normal Nonreactive [facility] Comment on above: Result Comment: Reac tive: Presumptive evidence of HBV. Repeatedly reactive samples must be confirmed using a neutralization test ([employer] HBsAg Confirmatory Test) Non-Reactive: HBsAg not detected; does not exclude the possibility of exposure to HBV Performed By: #### B Rho(D) IG, BRHNM #### [facility] [address] [facility]. [place], [place], [address] L509.4006on 04-22-2025 Rubella IgG REAC Normal Nonreactive [facility] Comment on above: Result Comment: Anti body Result: Interpretation Non-Reactive: Non-Immune Reactive: Immune The following results were obtained with the [employer] Rubella IgG assay. Results from assays of other manufacturers cannot be used interchangeably. Performed By: #### B Rho(D) IG, BRHNM #### [facility] [address] [facility]. [place], [place], [address] Laboratory - Microbiology an d Antimicrobial susceptibilityOrdered By: Tammy Wagner on 04-22-2025 HBV surface Ag Ql (S) Non-Reactive Nonreactive [facility] Comment on above: Reactive: Presumptiv e evidence of HBV. Repeatedly reactive samples must be confirmed using a neutralization test ([employer] HBsAg Confirmatory Test)Non-Reactive: HBsAg not detected; does not exclude the possibility of exposure to HBV MCV (mean corpuscular volume ) determinationOrdered By: Tammy Wagner on 04-22-2025 MCV (RBC) [Entitic vol] 82.6 fL 81-99 [facility] Mean corpuscular hemoglobin (MCH) determinationOrdered By: Tammy Wagner on 04-22-2025 MCH (RBC) [Entitic mass] 27.4 pg 27.0-32.0 [facility] Mean corpuscular hemoglobin concentration (MCHC) determinationOrdered By: Tammy Wagner on 04-22-2025 MCHC (RBC) [Mass/Vol] 33.2 g/dL 32-36 [facility] Mean platelet volume determi nationOrdered By: Tammy Wagner on 04-22-2025 Platelet mean volume (Bld) [Entitic vol] 10.8 fL 6.2-12.0 [facility] Monocyte percentageOrdered B y: Tammy Kristy on 04-22-2025 Monocytes/100 WBC (Bld) 6.1 % 0-10 [facility] Neisseria gonorrhoeae nuclei c acid detection by amplified probe techniqueOrdered By: Tammy Wagner on 04-22-2025 N. gonorrhoeae DNA VANCE+probe Ql (Unsp spec) Negative Negative [facility] Comment on above: Performed at: = - [address] [id number] Director: Kailey Petit MD, Phone: [phone] Neutrophil percentageOrdered By: Tammy Wagner on 04-22-2025 Neutrophils/100 WBC (Bld) 72.4 % High 47-70 [facility] No Panel InformationOrdered By: Tammy Wagner on 04-22-2025 HIV (1&2) Antibody Non-Reactive Nonreactive [facility] Comment on above: Non-ReactiveReactive Repeatedly reactive samples must be confirmed according to CDC recommended confirmatory algorithms. The subresults for either HIVAG or AHIV can be used as an aid in the selection of the confirmation algorithm for reactive samples.Send out specimens with Reactive results to [facility] for confirmation.Order the HIV antibody detection and differentiation: lc#[id number] Nucleated red blood cell per centageOrdered By: Tammy Wagner on 04-22-2025 Nucleated RBC/100 WBC (Bld) [Ratio] 0 % 0-5 [facility] Human Services Care Specialist Office Visit Reporton 04-22-2025 Human Services Care Specialist Office Visit Report [facility] [address], [address] [place] [address] OFFICE VISIT Date of Service: 04/22/25 MR#: [id number] Acct: [id number] Name: CHARLIE GORDON Rep #: [id number] : 2000 Provider: Dr. Tammy Lozano, Age/Sex: 25/F [place] [facility] [place]: Signed Intake Vital Signs 04/05/25 09:08 04/22/25 08:22 Height 5 ft 8 in 5 ft 8 in Weight: 187 lb 6 oz BMI 28.5 BP 104/63 Intake Visit Reasons: *NEW* NOB LMP 02/22, [place] 11/29 Filler Spreader Required: No Is patient in pain?: No [...] house current occupational status: employed current occupation: [employer] current occupational exposures/hazards: No pets and animals: Yes pets and animals: dog(s) history of recent travel: Yes ([place] in February) out of state: Yes out [...] 3-4 times per week duration: 15-30 minutes/day jimi/bahai: Jainism seatbelt use: always do you feel safe [...] Other, Hemophilia: (more content not included)... Normal [facility] Platelet countOrdered By: Ranjan Wagner on 04-22-2025 Platelets (Bld) [#/Vol] 220 10*3/uL 150-450 [facility] RBC Auto (Bld) [#/Vol]Ordere d By: Tammy Wagner on 04-22-2025 RBC (Bld) [#/Vol] 4.70 10*6/uL 4.2-5.4 [facility] Syphilis Antibodieson 2024 Syphilis Abs Non-Reactive Normal Nonreactive [facility] Comment on above: Performed By: #### B Edson(D) IG, BRHNM #### [facility] [address] [place], [place], [address] T4 Free Directon 04-22-2025 T4 FREE DIRECT 1.20 ng/dL Normal 0.76-1.46 [facility] Comment on above: Performed By: #### L 509.4006, L509.8002, L3890.6102, L100.0100, L3890.6006, BTS, L3410.9992, L506.0400, L501.9520, L3890.6301 #### [facility] [address] [place], [address] T4 freeOrdered By: Tammy Wagner on 04-22-2025 Free T4 [Mass/Vol] 1.20 ng/dL 0.76-1.[address] [facility] TSH DL <= 0.005 mIU/L QnOrde red By: Tammy Wagner on 04-22-2025 TSH Qn 1.250 uIU/mL 0.300-4.200 [facility] Thyroid Stim Hormone (TSH)on 04-22-2025 TSH 1.250 uIU/mL Normal 0.300-4.200 [facility] Comment on above: Performed By: #### L 509.4006, L509.8002, L3890.6102, L100.0100, L3890.6006, BTS, L3410.9992, L506.0400, L501.9520, L3890.6301 #### [facility] [address], [address] Type AND Screenon 04-22-2025 Ab SCREEN GEL Negative Normal [facility] Comment on above: Order Comment: Comme nts: Age > 13 Weeks SHE @WAS A FALL. NO BABY INFO AT THIS TIME PT IS NOT IN LABOR 0 0 0 Performed By: #### B Rho(D) IG, BRHNM #### [facility] [address] [place], [place], [address] Urine cultureOrdered By: Nell Wagner on 04-22-2025 Bacteria identified Cx Nom (U) Culture exhibits no growth. [facility] White blood cell (WBC) count Ordered By: Tammy Wagner on 04-22-2025 WBC (Bld) [#/Vol] 7.9 10*3/uL 4.4-11.[address] [facility] - Chemistry and C hemistry - challengeOrdered By: Iris Singer on 04-05-2025 HCG ( test) Ql (U) Positive [facility] Office Visit Reporton 2024 Office Visit Report [facility] [address] [place] [address] OFFICE VISIT Date of Service: 04/05/25 MR#: [id number] Acct: [id number] Patient: CHARLIE GORDON Rep #: [id number] : 2000 Provider: JOANNA brasher Age/Sex: 25/F [place] [facility] [place] Signed Intake Vital Signs 04/05/25 09:08 Height 5 ft 8 in Weight: 186 lb 8 oz BMI 28.3 BP 108/58 L Blood Pressure Location Lt brachial Position Sitting Intake Visit Reasons: Pre new ob, confirm preg, vitals Filler Spreader Required: No Is patient in pain?: No [...] Chavisigndawit Signature: Date (if applicable) CC: Normal [facility] CBC (INCLUDES DIFF/PLT)on Basophils (Bld) [#/Vol] 0.03 10*3/uL Normal 0-200 [facility] Comment on above: Performed By: #### 6 399, 899, 866, 81801 #### [facility] of [address], [address] [place] [address] Skein Yard Drier: Tucker Hoyos MD Basophils/100 WBC (Bld) 0.7 % Normal [facility] Comment on above: Performed By: #### 6 399, 899, 866, 26676 #### [facility] of [place] [address] [employer] Drier: Tucker Hoyos MD Eosinophils (Bld) [#/Vol] 0.039 10*3/uL Normal 15-500 [facility] Comment on above: Performed By: #### 6 399, 899, 866, 50851 #### [facility] [place] [address] [employer] Drier: Tucker Hoyos MD Eosinophils/100 WBC (Bld) 0.9 % Normal [facility] Comment on above: Performed By: #### 6 399, 899, 866, 77093 #### [facility] [place] [address] [employer] Drier: Tucker Hoyos MD Erythrocyte distribution width (RBC) [Ratio] 13.2 % Normal 11.0-15.0 [facility] Comment on above: Performed By: #### 6 399, 899, 866, 29622 #### [facility] [place] [address] [employer] Drier: Tucker Hoyos MD Hematocrit (Bld) [Volume fraction] 41.5 % Normal 35.0-45.0 [facility] Comment on above: Performed By: #### 6 399, 899, 866, 91924 #### [facility] [place] [address] [employer] Drier: Tucker Hoyos MD Hemoglobin (Bld) [Mass/Vol] 13.7 g/dL Normal 11.7-15.5 [facility] Comment on above: Performed By: #### 6 399, 899, 866, 38103 #### [facility] [place] [address] [employer] Drier: Tucker Hoyos MD Lymphocytes (Bld) [#/Vol] 1.509 10*3/uL Normal 850-3900 [facility] Comment on above: Performed By: #### 6 399, 899, 866, 33131 #### [facility] [place] [address] [employer] Drier: Tucker Hoyos MD Lymphocytes/100 WBC (Bld) 35.1 % Normal [facility] Comment on above: Performed By: #### 6 399, 899, 866, 96107 #### [facility] [place] [address] [employer] Drier: Tucker Hoyos MD MCH (RBC) [Entitic mass] 27.2 pg Normal 27.0-33.0 [facility] Comment on above: Performed By: #### 6 399, 899, 866, 52102 #### [facility] [place] [address] [employer] Drier: Tucker Hoyos MD MCHC (RBC) [Mass/Vol] 33.0 [...] Performed By: #### 6 399, 899, 866, 79374 #### [facility] [place] [address] [employer]rier: Tucker Hoyos MD MCV (RBC) [Entitic vol] 82.5 fL Normal 80.0-100.0 [facility] Comment on above: Performed By: #### 6 399, 899, 866, 26937 #### [facility] [place] [address] [employer] Drier: Tucker Hoyos MD Monocytes (Bld) [#/Vol] 0.262 10*3/uL Normal 200-950 [facility] Comment on above: Performed By: #### 6 399, 899, 866, 98656 #### [facility] [place] [address] [employer] Drier: Tucker Hoyos MD Monocytes/100 WBC (Bld) 6.1 % Normal [facility] Comment on above: Performed By: #### 6 399, 899, 866, 88454 #### [facility] [place] [address] [employer] Drier: Tucker Hoyos MD Neutrophils (Bld) [#/Vol] 2.46 10*3/uL Normal 5674-1515 [facility] Comment on above: Performed By: #### 6 399, 899, 866, 35353 #### [facility] [place] [address] Ske[employer] Drier: Tucker Hoyos MD Neutrophils/100 WBC (Bld) 57.2 % Normal [facility] Comment on above: Performed By: #### 6 399, 899, 866, 11119 #### [facility] [place] [address] [employer] Drier: Tucker Hoyos MD Platelet mean volume (Bld) [Entitic vol] 11.3 fL Normal 7.5-12.5 [facility] Comment on above: Performed By: #### 6 399, 899, 866, 34825 #### [facility] [place] [address] [employer] Drier: Tucker Hoyos MD Platelets (Bld) [#/Vol] 225 10*3/uL Normal 140-400 [facility] Comment on above: Performed By: #### 6 399, 899, 866, 38932 #### [facility] [place] [address] Ske[employer] Drier: Tucker Hoyos MD RBC (Bld) [#/Vol] 5.03 10*6/uL Normal 3.80-5.10 [facility] Comment on above: Performed By: #### 6 399, 899, 866, 52054 #### [facility] [place] [address] [employer] Drier: Tucker Hoyos MD WBC (Bld) [#/Vol] 4.3 10*3/uL Normal 3.8-10.8 [facility] Comment on above: Performed By: #### 6 399, 899, 866, 72725 #### [facility] [place] [address] [employer] Drier: Tucker Hoyos MD [facility] METABOLIC [facility] 08-10-2024 Albumin [Mass/Vol] 4.2 g/dL Normal 3.6-5.1 [facility] Comment on above: Performed By: #### 6 399, 899, 866, 36682 #### [facility] [place] [address] [employer] Drier: Tucker Hoyos MD Albumin/Globulin [Mass ratio] 1.7 {ratio} Normal 1.0-2.5 [facility] Comment on above: Performed By: #### 6 399, 899, 866, 21513 #### [facility] [place] [address] [employer] Drier: Tucker Hoyos MD ALP [Catalytic activity/Vol] 39 U/L Normal 31-125 [facility] Comment on above: Performed By: #### 6 399, 899, 866, 29970 #### [facility] [place] [address] [employer] Drier: Tucker Hoyos MD ALT [Catalytic activity/Vol] 17 U/L Normal 6-29 [facility] Comment on above: Performed By: #### 6 399, 899, 866, 14074 #### [facility] [place] [address] [employer] Drier: Tucker Hoyos MD AST [Catalytic activity/Vol] 17 U/L Normal 10-30 [facility] Comment on above: Performed By: #### 6 399, 899, 866, [id number] #### [facility] [place] [address] [employer] [employer]: Tucker Hoyos MD Bilirubin [Mass/Vol] 0.7 mg/dL Normal 0.2-1.2 [facility] Comment on above: Performed By: #### 6 399, 899, 866, 33392 #### [facility] [place] [address] [employer] [employer] Drier: Tucker Hoyos MD BUN/CREATININE RATIO SEE NOTE: Normal 6-22 [facility] Comment on above: Result Comment: Not Reported: BUN and Creatinine are within reference range. Performed By: #### 6 399, 899, 866, 86057 #### [facility] [place] [address] [address] [employer]rier: Tucker Hoyos MD Calcium [Mass/Vol] 9.1 mg/dL Normal 8.6-10.2 [facility] Comment on above: Performed By: #### 6 399, 899, 866, 75865 #### [facility] [place] [address] [employer] [employer]rier: Tucker Hoyos MD Chloride [Moles/Vol] 106 mmol/L Normal 98-110 [facility] Comment on above: Performed By: #### 6 399, 899, 866, 88909 #### [facility] [place] [address] [employer] [employer]rier: Tucker Hoyos MD CO2 [Moles/Vol] 26 mmol/L Normal 20-32 [facility] Comment on above: Performed By: #### 6 399, 899, 866, 94067 #### [facility] [place] [address] [employer] [employer]rier: Tucker Hoyos MD Creatinine [Mass/Vol] 0.74 mg/dL Normal 0.50-0.[address] [facility] Comment on above: Performed By: #### 6 399, 899, 866, 29134 #### [facility] [place] [address] [employer] [employer]rier: Tucker Hoyos MD GFR/1.73 sq M.predicted among non-blacks MDRD (S/P/Bld) [Vol rate/Area] 117 mL/min/{1.73_m2} Normal > OR = 60 [facility] Comment on above: Performed By: #### 6 399, 899, 866, 86229 #### [facility] [place] [address] [employer] [employer]rier: Tucker Hoyos MD Globulin (S) [Mass/Vol] 2.5 g/dL Normal 1.9-3.7 [facility] Comment on above: Performed By: #### 6 399, 899, 866, 38911 #### [facility] [place] [address] [employer] [employer] Drier: Tucker Hoyos MD Glucose [Mass/Vol] 81 mg/dL Normal 65-99 [facility] Comment on above: Result Comment: Fasting reference interval Performed By: #### 6 399, 899, 866, 15222 #### [facility] [place] [address] [employer] [employer] Drier: Tucker Hoyos MD Potassium [Moles/Vol] 4.1 mmol/L Normal 3.5-5.[address] [facility] Comment on above: Performed By: #### 6 399, 899, 866, 36459 #### [facility] [place] [address] [address] [employer] Drier: Tucker Hoyos MD Protein [Mass/Vol] 6.7 g/dL Normal 6.1-8.1 [facility] Comment on above: Performed By: #### 6 399, 899, 866, 24911 #### [facility] [place] [address] [employer] [employer] Drier: Tucker Hoyos MD Sodium [Moles/Vol] 138 mmol/L Normal 135-146 [facility] Comment on above: Performed By: #### 6 399, 899, 866, 03770 #### [facility] [place] [address] [employer] [employer] Drier: Tucker Hoyos MD Urea nitrogen [Mass/Vol] 11 mg/dL Normal 7-25 [facility] Comment on above: Performed By: #### 6 399, 899, 866, 77602 #### [facility] [place] [address] [address] [employer] Drier: Tucker Hoyos MD FERRITINon 08-10-2024 Ferritin [Mass/Vol] 36 ng/mL Normal 16-154 [facility] Comment on above: Performed By: #### 6 399, 899, 866, 05116 #### [facility] [place] [address] [address] [employer] Drier: Tucker Hoyos MD T4, FREEon 08-10-2024 Free T4 [Mass/Vol] 1.4 ng/dL Normal 0.8-1.8 [facility] Comment on above: Performed By: #### 6 399, 899, 866, 49048 #### [facility] [place] [address] [address] [employer] Drier: Tucker Hoyos MD TSHon 08-10-2024 TSH Qn 1.18 m[IU]/L Normal [facility] Comment on above: Result Comment: Refe rence Range > or = 20 Years 0.40-4.50 Ranges First trimester 0.26-2.66 Second trimester 0.55-2.73 Third trimester 0.43-2.91 Performed By: #### 6 399, 899, 866, 77885 #### [facility] [address], [address] [place] [address] Ske[employer] Drier: Tucker Hoyos MD Laboratory - Chemistry and C hemistry - challengeon 08-09-2024 Albumin [Mass/Vol] 4.2 g/dL Normal 3.6 - 5.1 g/dL [facility], [facility].; [facility], [facility] Albumin/Globulin [Mass ratio] 1.7 {ratio} Normal 1.0 - 2.5 [facility], [facility].; [facility], [facility]. ALP [Catalytic activity/Vol] 39 U/L Normal 31 - 125 U/L [facility], [facility].; [facility] ALT [Catalytic activity/Vol] 17 U/L Normal 6 - 29 U/L [facility], [facility].; [facility], [facility] AST [Catalytic activity/Vol] 17 U/L Normal 10 - 30 U/L [facility], [facility].; [facility], [facility]. Bilirubin [Mass/Vol] 0.7 mg/dL Normal 0.2 - 1 .2 mg/dL [facility], [facility].; [facility] [employer] [facility] Calcium [Mass/Vol] 9.1 mg/dL Normal 8.6 - 10. 2 mg/dL [facility], [facility].; [facility] Chloride [Moles/Vol] 106 mmol/L Normal 98 - 11 0 mmol/L [facility], [facility].; [facility], [facility] CO2 [Moles/Vol] 26 mmol/L Normal 20 - 32 mmol/L [facility], [facility].; [facility], [facility] Creatinine [Mass/Vol] 0.74 mg/dL Normal 0.50 - 0.96 mg/dL [facility], [facility].; [facility] [employer] Ferritin [Mass/Vol] 36 ng/mL Normal 16 - 154 ng/mL [facility].; [facility] Free T4 [Mass/Vol] 1.4 ng/dL Normal 0.8 - 1.8 ng/dL [facility], [facility].; [facility] GFR/1.73 sq M.predicted among non-blacks MDRD (S/P/Bld) [Vol rate/Area] 117 mL/min/{1.73_m2} Normal [facility], [facility].; [facility], [facility] Glucose [Mass/Vol] 81 mg/dL Normal 65 - 99 mg/dL [facility].; [facility], [facility]. Potassium [Moles/Vol] 4.1 mmol/L Normal 3.5 - 5.3 mmol/L [facility], [facility].; [facility], [facility] Protein [Mass/Vol] 6.7 g/dL Normal 6.1 - 8.1 g/dL [facility].; [facility], [facility] Sodium [Moles/Vol] 138 mmol/L Normal 135 - 146 mmol/L [facility], [facility]; [facility], [facility] TSH Qn 1.18 m[IU]/L Normal [facility], [facility]; [facility], [facility] Urea nitrogen [Mass/Vol] 11 mg/dL Normal 7 - 25 mg/d L [facility]; [facility], [facility] Laboratory - Hematology and Cell countson 08-09-2024 Basophils (Bld) [#/Vol] 0.03 10*3/uL Normal 0 - 200 {cells/uL} [facility], [facility].; [facility], [facility] Basophils/100 WBC (Bld) 0.7 % Normal [facility]; [facility], [facility] Eosinophils (Bld) [#/Vol] 0.039 10*3/uL Normal 15 - 500 {cells/uL} [facility], [facility].; [facility], [facility] Eosinophils/100 WBC (Bld) 0.9 % Normal [facility]; [facility], [facility] Erythrocyte distribution width (RBC) [Ratio] 13.2 % Normal 11.0 - 15.0 % [facility], [facility].; [facility], [facility]. Hematocrit (Bld) [Volume fraction] 41.5 % Normal 35.0 - 45.0 % [facility], [facility].; [facility], [facility] Hemoglobin (Bld) [Mass/Vol] 13.7 g/dL Normal 11.7 - 15.5 g/dL [facility].; [facility]. Lymphocytes (Bld) [#/Vol] 1.509 10*3/uL Normal 850 - 3900 {cells/uL} [facility].; [facility], [facility]. Lymphocytes/100 WBC (Bld) 35.1 % Normal [facility].; [employer], [facility]. MCH (RBC) [Entitic mass] 27.2 pg Normal 27.0 - 33.0 pg [facility].; [employer], [facility]. MCHC (RBC) [Mass/Vol] 33.0 g/dL Normal 32.0 - 36.0 g/dL [facility], [facility].; [employer], [facility]. MCV (RBC) [Entitic vol] 82.5 fL Normal 80.0 - 100.0 fL [facility].; [employer], [facility]. Monocytes (Bld) [#/Vol] 0.262 10*3/uL Normal 200 - 950 {cells/uL} [facility].; [employer], [facility]. Monocytes/100 WBC (Bld) 6.1 % Normal [facility].; [facility], [facility]. Neutrophils (Bld) [#/Vol] 2.46 10*3/uL Normal 1500 - 7800 {cells/uL} [facility].; [employer] Neutrophils/100 WBC (Bld) 57.2 % Normal [facility].; [employer], [facility]. Platelet mean volume (Bld) [Entitic vol] 11.3 fL Normal 7.5 - 12.5 fL [facility].; [employer] Platelets (Bld) [#/Vol] 225 10*3/uL Normal 140 - 400 [facility] Vitals ([email or web address]) [facility].; [employer] RBC (Bld) [#/Vol] 5.03 10*6/uL Normal 3.80 - 5.1 0 {Million/uL} [facility], [facility].; [employer] WBC (Bld) [#/Vol] 4.3 10*3/uL Normal 3.8 - 10.8 [facility] Vitals ([email or web address]) [facility].; [facility] [employer]. No Panel Informationon 10-14 -2024 BUN/CREATININE RATIO SEE NOTE: Normal 6 - 22 [facility] [employer].; [employer]. GLOBULIN 2.5 Normal 1.9 - 3.7 [employer], [employer]. No Panel Informationon 08-04 [id number] SEE NOTE Normal [employer].; [employer] CLINICAL INFORMATION: SEE NOTE Normal [facility] [employer].; [employer] INDUSTRIAL RADIOGRAPHER: SEE NOTE Normal [employer].; [employer] INTERPRETATION/RESULT: SEE NOTE Normal [facility] [employer] LMP: SEE NOTE Normal [employer].; [employer]. PREV. BX: SEE NOTE Normal [employer].; [employer], [employer]. PREV. PAP: SEE NOTE Normal [employer].; [employer] SOURCE: SEE NOTE Normal [employer].; [employer]. STATEMENT OF ADEQUACY: SEE NOTE Normal [facility] Inc.; [employer], [employer] THYROIDon 07-11-2021 [place] [id number] Patient: CHARLIE DUMONT Phone#: : 2000 Age: 21 Gender: F Pt. Type: Out Account: [id number] Location: Ordering: [facility] Exam Date: 07/11/2021/11:48 Family Phys: Charge Code: [id number] Physician: Tate Order #: [id number] DLP Dose#: PROCEDURE: THYROID ULTRASOUND COMPARISON: None. [...] Blanco MD on 07/11/2021 at 13:42 Normal [facility] Laboratory - Chemistry and C hemistry - challengeon 07-05-2021 Free T4 [Mass/Vol] 1.2 ng/dL Normal 0.8 - 1.4 ng/dL [facility], [facility].; [facility], [facility] TSH Qn 1.27 m[IU]/L Normal [facility]; [facility], [facility] Vital Signs Date Time Vital Sign Value Performing Clinician Facility 08-12-2025 16:14-0400 Body height 172.[address] Anthony Mercedes MD Work Phone: [facility] 08-12-2025 16:08-0400 Body mass index (BMI) [Ratio] 31.6 kg/m2 Dr. Anthony Mercedes MD Work Phone: [facility] 08-12-2025 16:08-0400 Body weight 94.[address] Anthony Mercedes MD Work Phone: [facility] 08-12-2025 16:08-0400 Diastolic blood pressure 69 mm[Hg] Dr. Anthony Mercedes MD Work Phone: [facility] 08-12-2025 16:08-0400 Systolic blood pressure 108 mm[Hg] Dr. Anthony Mercedes MD Work Phone: [facility] 07-15-2025 15:10-0400 Body height 172.[address] Anthony Mercedes MD Work Phone: [facility] 07-15-2025 15:09-0400 Body mass index (BMI) [Ratio] 30.7 kg/m2 Dr. Anthony Mercedes MD Work Phone: 0(319)144-031075 [place] [address] 07-15-2025 15:09-0400 Body weight 91.[address] Anthony Mercedes MD Work Phone: 5(977)026-540575 [place] [address] 07-15-2025 15:09-0400 Diastolic blood pressure 71 mm[Hg] Dr. Anthony Mercedes MD Work Phone: 3(266)523-074375 [place] [address] 07-15-2025 15:09-0400 Systolic blood pressure 116 mm[Hg] Dr. Anthony Mercedes MD Work Phone: 4(456)567-253675 [place] [address] 07-10-2025 12:33-0400 Body temperature 97.8 [degF] Dr. Anthony Mercedes MD Work Phone: 1(629)353-530775 [place] [address] 07-10-2025 12:33-0400 Respiratory rate 16 /min Dr. Anthony Mercedes MD Work Phone: 4(669)618-655475 [place] [address] 07-10-2025 12:32-0400 Diastolic blood pressure 61 mm[Hg] Dr. Anthony Mercedes MD Work Phone: 8(685)375-202675 [place] [address] 07-10-2025 12:32-0400 Heart rate 70 /min Dr. Anthony Mercedes MD Work Phone: 1(530)549-932775 [place] [address] 07-10-2025 12:32-0400 Systolic blood pressure 128 mm[Hg] Dr. Anthony Mercedes MD Work Phone: 8(663)722-767875 [place] [address] 07-10-2025 10:27-0400 Body height 172.[address] Anthony Mercedes MD Work Phone: 9(551)639-425375 [place] [address] 07-10-2025 10:27-0400 Body mass index (BMI) [Ratio] 30.2 kg/m2 Dr. Anthony Mercedes MD Work Phone: 0(128)075-664375 [place] [address] 07-10-2025 10:27-0400 Body weight [address] Anthony Mercedes MD Work Phone: 1(193)291-892175 [place] [address] 07-10-2025 09:48-0400 SaO2% (BldA) [Mass fraction] 96 % Dr. Anthony Mercedes MD Work Phone: 6(882)679-872907 [place] [address] 06-17-2025 14:39-0400 Body height 172.[address] Anthony Mercedes MD Work Phone: 5(008)793-395259 [address] 06-17-2025 14:39-0400 Body mass index (BMI) [Ratio] 29.8 kg/m2 Dr. Anthony Mercedes MD Work Phone: 7(876)809-860159 [address] 06-17-2025 14:39-0400 Body weight 89.[address] Anthony Mercedes MD Work Phone: 9(135)532-972275 [place] [address] 06-17-2025 14:39-0400 Diastolic blood pressure 74 mm[Hg] Dr. Anthony Mercedes MD Work Phone: 4(656)751-657759 [address] 06-17-2025 14:39-0400 Systolic blood pressure 119 mm[Hg] Dr. Anthony Mercedes MD Work Phone: 1(167)278-513459 [address] 05-20-2025 13:53-0400 Body height 172.[address] Anthony Mercedes MD Work Phone: 5(848)119-395159 [address] 05-20-2025 13:53-0400 Body mass index (BMI) [Ratio] 28.8 kg/m2 Dr. Anthony Mercedes MD Work Phone: 6(639)299-060459 [address] 05-20-2025 13:53-0400 Body weight 85.[address] Anthony Mercedes MD Work Phone: 0(043)806-335959 [address] 05-20-2025 13:53-0400 Diastolic blood pressure 72 mm[Hg] Dr. Anthony Mercedes MD Work Phone: 4(685)182-100059 [address] 05-20-2025 13:53-0400 Systolic blood pressure 120 mm[Hg] Dr. Anthony Mercedes MD Work Phone: 5(469)386-498759 [address] 04-22-2025 08:22-0400 Body height 172.[address] Anthony Mercedes MD Work Phone: 4(534)795-960807 [place] [address] 04-22-2025 08:22-0400 Body mass index (BMI) [Ratio] 28.5 kg/m2 Dr. Anthony Mercedes MD Work Phone: 7(050)956-828659 [address] 04-22-2025 08:22-0400 Body weight 84.[address] Anthony Mercedes MD Work Phone: 2(268)546-135775 [place] [address] 04-22-2025 08:22-0400 Diastolic blood pressure 63 mm[Hg] Dr. Anthony Mercedes MD Work Phone: 9(207)747-003475 [place] [address] 04-22-2025 08:22-0400 Systolic blood pressure 104 mm[Hg] Dr. Anthony Mercedes MD Work Phone: 1(952)223-602875 [place] [address] 04-05-2025 09:08-0400 Body mass index (BMI) [Ratio] 28.3 kg/m2 Dr. Anthony Mercedes MD Work Phone: 2(551)942-466175 [place] [address] 04-05-2025 09:08-0400 Body weight 84.[address] Anthony Mercedes MD Work Phone: 7(773)220-192375 [place] [address] 04-05-2025 09:08-0400 Diastolic blood pressure 58 mm[Hg] Dr. Anthony Mercedes MD Work Phone: 6(024)983-920975 [place] [address] 04-05-2025 09:08-0400 Systolic blood pressure 108 mm[Hg] Dr. Anthony Mercedes MD Work Phone: 1(144)116-043475 [place] [address] 12-13-2024 09:29-0500 Body height 172.72 cm Homero Truong LPN [facility], [facility].; [facility] 12-13-2024 09:29-0500 Body mass index (BMI) [Ratio] 27.22 kg/m2 Homero Truong LPN [facility], [facility].; [facility] 12-13-2024 09:29-0500 Body surface area Derived from formula 1.95 m2 Homero Truong LPN [facility], [facility].; [facility] 12-13-2024 09:29-0500 Body weight 81.19 kg Homero Truong PADMINI [facility], [facility].; [facility] 12-13-2024 09:29-0500 Diastolic blood pressure 75 mm[Hg] Homero Truong PADMINI [facility], [facility] Comment on above: Patient Position: Sitting; Cuff Location : Left Arm; Cuff Size: Standard 12-13-2024 09:29-0500 Heart rate 88 /min Homero Alexichava [place] [facility], [facility] Comment on above: Pattern: Regular 12-13-2024 09:29-0500 Systolic blood pressure 114 mm[Hg] Homero Truong OPERATING ROOM ASSISTANT [facility], [facility].; [employer] Comment on above: Patient Position: Sitting; Cuff Location : Left Arm; Cuff Size: Standard 08-09-2024 09:16-0400 Body height 168.91 cm Becky Hunter OPERATING ROOM ASSISTANT [facility], [facility] 08-09-2024 09:16-0400 Body mass index (BMI) [Ratio] 28.14 kg/m2 Becky Steve Hunter [facility], [facility].; [facility], [facility]. 08-09-2024 09:16-0400 Body surface area Derived from formula 1.91 m2 Becky Steve Hunter OPERATING ROOM ASSISTANT [facility], [facility].; [facility] [facility] 08-09-2024 09:160400 Body weight 80.29 kg Becky Steve Hunter LPN [facility], [facility] [facility] 08-09-2024 09:16-0400 Diastolic blood pressure 73 mm[Hg] Becky Steve Hunter OPERATING ROOM ASSISTANT [facility], [facility].; [facility] [employer] [facility], [employer]. Comment on above: Patient Position: Sitting; Cuff Location : Left Arm; Cuff Size: Standard 08-09-2024 09:16-0400 Heart rate 81 /min Becky Steve Hunter LPN [facility], [facility].; [employer]. Comment on above: Pattern: Regular 08-09-2024 09:16-0400 Systolic blood pressure 117 mm[Hg] Becky M Dale OPERATING ROOM ASSISTANT [facility], [facility].; [facility], [facility]. Comment on above: Patient Position: Sitting; Cuff Location : Left Arm; Cuff Size: Standard 08-04-2023 09:31-0400 Body height 168.91 cm Becky Wilson Dale OPERATING ROOM ASSISTANT [facility], [facility].; [facility], [facility] 08-04-2023 09:31-0400 Body mass index (BMI) [Ratio] 28.94 kg/m2 Becky Wilson Dale [facility], [facility].; [facility], [facility]. 08-04-2023 09:31-0400 Body surface area Derived from formula 1.93 m2 Becky Steve Dale [facility], [facility].; [facility], [facility]. 08-04-2023 09:31-0400 Body weight 82.56 kg Bekcy Hunter LPN [facility], [facility].; [facility], [facility]. 08-04-2023 09:31-0400 Diastolic blood pressure 77 mm[Hg] Becky Wilson Dale [facility].; [facility], [employer]. Comment on above: Patient Position: Sitting; Cuff Location : Left Arm; Cuff Size: Standard 08-04-2023 09:31-0400 Heart rate 81 /min Beckyjuan Hunter LPN [facility], [facility].; [facility] [employer] [facility] Comment on above: Pattern: Regular 08-04-2023 09:31-0400 Systolic blood pressure 127 mm[Hg] Becky Hunter LPN [facility], [facility].; [facility], [facility]. Comment on above: Patient Position: Sitting; Cuff Location : Left Arm; Cuff Size: Standard 04-30-2023 08:51-0400 Body weight 81.65 kg Homero Truong LPN [facility], [facility], [facility]. 04-30-2023 08:51-0400 Diastolic blood pressure 61 mm[Hg] Homero Truong LPN [facility], [facility].; [facility] [employer] [facility], [employer]. Comment on above: Patient Position: Sitting; Cuff Location : Left Arm; Cuff Size: Standard 04-30-2023 08:51-0400 Heart rate 87 /min Homero Truong LPN [facility].; [employer]. Comment on above: Pattern: Regular 04-30-2023 08:51-0400 Systolic blood pressure 106 mm[Hg] Homero Truong LPN [facility].; [employer]. Comment on above: Patient Position: Sitting; Cuff Location : Left Arm; Cuff Size: Standard 03-12-2023 08:11-0400 Body height 168.91 cm Jaye Hendrickson MA [facility], [facility].; [employer]. 03-12-2023 08:11-0400 Body mass index (BMI) [Ratio] 28.78 kg/m2 Jaye Hendrickson MA [facility] [employer] [facility].; [employer]. 03-12-2023 08:11-0400 Body surface area Derived from formula 1.93 m2 Jaye Hendrickson MA [facility] [employer] [facility].; [employer]. 03-12-2023 08:11-0400 Body weight 82.1 kg Jaye Hendrickson MA [facility] [facility].; [employer]. 03-12-2023 08:11-0400 Diastolic blood pressure 80 mm[Hg] Jaye Hendrickson MA [employer] [facility].; [employer]. Comment on above: Patient Position: Sitting; Cuff Location : Left Arm; Cuff Size: Standard 03-12-2023 08:11-0400 Heart rate 76 /min Jaye Hendrickson MA [employer] [facility].; [employer]. Comment on above: Pattern: Regular 03-12-2023 08:11-0400 Systolic blood pressure 116 mm[Hg] Jaye Hendrickson MA [place] [employer] [facility].; [employer]. Comment on above: Patient Position: Sitting; Cuff Location : Left Arm; Cuff Size: Standard 07-24-2022 09:18-0400 Body height 168.91 cm Becky Hunter LPN [facility] [employer] [facility].; [employer]. 07-24-2022 09:18-0400 Body mass index (BMI) [Ratio] 26.87 kg/m2 Becky Hunter LPN [place] [employer] [facility].; [employer]. 07-24-2022 09:180400 Body surface area Derived from formula 1.87 m2 Becky Wilson [place] [facility], [facility].; [place] [employer] [facility]. 07-24-2022 09:180400 Body weight 76.66 kg Becky Wilson [place] [facility], [facility].; [employer]. 07-24-2022 09:18-0400 Diastolic blood pressure 69 mm[Hg] Becky [facility] [place] [facility] [employer]. Comment on above: Patient Position: Sitting; Cuff Location : Left Arm; Cuff Size: Standard 07-24-2022 09:18040 Heart rate 71 /min Becky Hunter [facility], [facility].; [employer]. Comment on above: Pattern: Regular 07-24-2022 09:18-0400 Systolic blood pressure 111 mm[Hg] Becky Wilson [place] [facility], [facility].; [employer]. Comment on above: Patient Position: Sitting; Cuff Location : Left Arm; Cuff Size: Standard 07-05-2021 14:16040 Body height 168.91 cm Daija Martell LPN [facility], [facility].; [facility] [employer] [facility]. 07-05-2021 14:16-0400 Body mass index (BMI) [Percentile] Per age and sex 82 % Daija Martell LPN [facility], [facility].; [facility] [employer] [facility]. 07-05-2021 14:16-0400 Body mass index (BMI) [Ratio] 25.44 kg/m2 Daija Martell LPN [place] [employer] [facility].; [employer]. 07-05-2021 14:160400 Body surface area Derived from formula 1.83 m2 Daija Martell LPN [place] [employer] [facility].; [employer]. 07-05-2021 14:16040 Body weight 72.58 kg Daija Martell LPN [place] [employer] [facility].; [employer]. 07-05-2021 14:16-0400 Diastolic blood pressure 71 mm[Hg] Daija Martell LPN [facility], [facility].; [place] [facility], [facility]. Comment on above: Patient Position: Sitting; Cuff Location : Left Arm; Cuff Size: Standard 07-05-2021 14:16-0400 Heart rate 76 /min Daija Martell [facility], [facility].; [place] [employer] [facility] Comment on above: Pattern: Regular 07-05-2021 14:16-0400 Systolic blood pressure 115 mm[Hg] Daija Martell [facility], [facility].; [place] [employer], [facility]. Comment on above: Patient Position: Sitting; Cuff Location : Left Arm; Cuff Size: Standard 02-18-2020 08:22-0400 Body height 168.91 cm Yuliya Freeman LPN [facility], [facility].; [facility], [facility]. 02-18-2020 08:22-0400 Body mass index (BMI) [Percentile] Per age and sex 83 % Yuliya Freeman [facility], [facility].; [facility], [facility]. 02-18-2020 08:22-0400 Body mass index (BMI) [Ratio] 25.12 kg/m2 Yuliya Freeman [facility], [facility].; [place] [facility], [facility]. 02-18-2020 08:22-0400 Body surface area Derived from formula 1.82 m2 Yuliya Freeman OPERATING ROOM ASSISTANT [facility], [facility].; [place] [facility] 02-18-2020 08:22-0400 Body temperature 98.9 [degF] Yuliya Freeman OPERATING ROOM ASSISTANT [facility], [facility].; [facility] [facility], [employer]. Comment on above: Method: Tympanic 02-18-2020 08:22-0400 Body weight 71.67 kg Yuliya Freeman LPN [facility], [facility].; [facility], [facility]. 02-18-2020 08:22-0400 Diastolic blood pressure 84 mm[Hg] Yuliya Freeman LPN [facility], [facility].; [employer], [employer]. Comment on above: Patient Position: Sitting; Cuff Location : Left Arm; Cuff Size: Standard 02-18-2020 08:22-0400 Heart rate 109 /min Yuliya Freeman LPN [facility], [facility].; [employer] Comment on above: Pattern: Regular 02-18-2020 08:22-0400 Systolic blood pressure 127 mm[Hg] Yuliya Freeman [facility] [employer] [facility] [employer], [employer]. Comment on above: Patient Position: Sitting; Cuff Location : Left Arm; Cuff Size: Standard 05-19-2019 13:46-0400 Body height 168.91 cm Tammy Soliman LPN [place] [facility] [employer] 05-19-2019 13:46-0400 Body mass index (BMI) [Percentile] Per age and sex 86 % Tammy Soliman [facility] [employer] 05-19-2019 13:46-0400 Body mass index (BMI) [Ratio] 25.62 kg/m2 Tammy Soliman LPN [place] [employer] [facility] [employer], [employer]. 05-19-2019 13:46-0400 Body surface area Derived from formula 1.83 m2 [facility] [employer] 05-19-2019 13:46-0400 Body weight 73.09 kg Tammy Laminelisandro [facility], Inc.; [employer], [employer]. 05-19-2019 13:46-0400 Diastolic blood pressure 71 mm[Hg] Tammy Soliman LPN [employer], [employer]. Comment on above: Patient Position: Sitting; Cuff Location : Left Arm; Cuff Size: Standard 05-19-2019 13:46-0400 Heart rate 77 /min Tammy Soliman LPN [facility] [employer]. Comment on above: Pattern: Regular 05-19-2019 13:46-0400 Systolic blood pressure 115 mm[Hg] Tammy Soliman [facility].; [employer]. Comment on above: Patient Position: Sitting; Cuff Location : Left Arm; Cuff Size: Standard 05-03-2019 10:41-0400 Body height 171.45 cm Noris Mueller OPERATING ROOM ASSISTANT [employer], [employer]. 05-03-2019 10:41-0400 Body mass index (BMI) [Percentile] Per age and sex 82 % Noris Mueller LPN [facility] [employer]. 05-03-2019 10:41-0400 Body mass index (BMI) [Ratio] 24.69 kg/m2 Noris Mueller OPERATING ROOM ASSISTANT [facility] [employer] [employer], [employer]. 05-03-2019 10:41-0400 Body surface area Derived from formula 1.85 m2 Noris Mueller OPERATING ROOM ASSISTANT [facility] [employer]. 05-03-2019 10:41-0400 Body temperature 98.1 [degF] Noris Mueller OPERATING ROOM ASSISTANT [facility] [employer]. Comment on above: Method: Tympanic 05-03-2019 10:41-0400 Body weight 72.58 kg Noris Mueller LPN [facility] [employer]. 05-03-2019 10:41-0400 Inhaled oxygen concentration 21 % Noris Mueller [facility] [employer]. Comment on above: Room air 05-03-2019 10:41-0400 SaO2% (BldA) [Mass fraction] 99 % Noris Mueller OPERATING ROOM ASSISTANT [facility] [employer]. 06-15-2018 10:56-0400 Body height 170.18 cm Tammy Soliman LPN [place] [employer]. 06-15-2018 10:56-0400 Body mass index (BMI) [Percentile] Per age and sex 92 % Tammy Soliman LPN [employer]. 06-15-2018 10:56-0400 Body mass index (BMI) [Ratio] 27.27 kg/m2 Tammy Soliman LPN [employer], [employer].; [employer]. 06-15-2018 10:56-0400 Body surface area Derived from formula 1.91 m2 Tammy Soliman LPN [facility] [employer] 06-15-2018 10:56-0400 Body weight 78.98 kg Tammy Welisandro [place] [employer] [facility] [employer] 06-15-2018 10:56-0400 Diastolic blood pressure 64 mm[Hg] Tammycarleen Soliman LPN [place] [employer] [facility] [employer] Comment on above: Patient Position: Sitting; Cuff Location : Left Arm; Cuff Size: Standard 06-15-2018 10:56-0400 Heart rate 76 /min Tammycarleen Soliman LPN [facility] [employer] Comment on above: Pattern: Regular 06-15-2018 10:56-0400 Systolic blood pressure 105 mm[Hg] Tammy Janny [place] [employer] Comment on above: Patient Position: Sitting; Cuff Location : Left Arm; Cuff Size: Standard 08-08-2017 15:07-0400 Body height 167.64 cm Tammycarleen Soliman LPN [facility] [employer] 08-08-2017 15:07-0400 Body mass index (BMI) [Percentile] Per age and sex 93 % Tammy Laminelisandro [place] [facility] [employer] 08-08-2017 15:07-0400 Body mass index (BMI) [Ratio] 26.95 kg/m2 Tammy Soliman LPN [place] [employer] 08-08-2017 15:07-0400 Body surface area Derived from formula 1.85 m2 Tammy Soliman LPN [employer], [employer].; [employer] 08-08-2017 15:07-0400 Body weight 75.75 kg Tammy Soliman LPN [employer], [employer].; [employer] 08-08-2017 15:07-0400 Diastolic blood pressure 69 mm[Hg] Tammy Soliman LPN [employer], [employer].; [employer] Comment on above: Patient Position: Sitting; Cuff Location : Left Arm; Cuff Size: Standard 08-08-2017 15:07-0400 Heart rate 61 /min Tammy Soliman LPN [employer], [employer].; [employer], [employer]. Comment on above: Pattern: Regular 08-08-2017 15:07-0400 Systolic blood pressure 112 mm[Hg] Tammycarleen Soliman LPN [employer], [employer].; [employer] Comment on above: Patient Position: Sitting; Cuff Location : Left Arm; Cuff Size: Standard 08-09-2016 15:42-0400 Body height 167.64 cm Tammycarleen Soliman LPN [employer] 08-09-2016 15:42-0400 Body mass index (BMI) [Percentile] Per age and sex 93 % Tammycarleen Soliman LPN [employer] 08-09-2016 15:42-0400 Body mass index (BMI) [Ratio] 26.15 kg/m2 Tammy Soliman LPN [employer] 08-09-2016 15:42-0400 Body surface area Derived from formula 1.83 m2 Tammy Soliman LPN [employer] 08-09-2016 15:42-0400 Body weight 73.48 kg Tammy Soliman LPN [employer] 08-09-2016 15:42-0400 Diastolic blood pressure 76 mm[Hg] Tammy Soliman LPN [employer] Comment on above: Patient Position: Sitting; Cuff Location : Left Arm; Cuff Size: Standard 08-09-2016 15:42-0400 Heart rate 60 /min Tammy Soliman LPN [employer], [employer].; [employer] Comment on above: Pattern: Regular 08-09-2016 15:42-0400 Systolic blood pressure 121 mm[Hg] Tammy Soliman LPN [employer].; [employer]. Comment on above: Patient Position: Sitting; Cuff Location : Left Arm; Cuff Size: Standard 08-01-2015 16:36-0400 Body height 163.83 cm Cheryle Talberter PA-C Work Phone: [employer].; [employer]. 08-01-2015 16:36-0400 Body mass index (BMI) [Percentile] Per age and sex 95 % Cheryle Martinez Bazan PA-C Work Phone: [employer]. 08-01-2015 16:36-0400 Body mass index (BMI) [Ratio] 26.53 kg/m2 Cheryle Martinez Bazan PA-C Work Phone: [employer]. 08-01-2015 16:36-0400 Body surface area Derived from formula 1.77 m2 Cheryle Martinez Bazan PA-C Work Phone: [employer]. 08-01-2015 16:36-0400 Body weight 71.22 kg Cheryle Martinez Bazan PA-C Work Phone: [employer]; [employer]. 08-01-2015 16:36-0400 Heart rate 79 /min Cheryle Martinez Bazan PA-C Work Phone: [employer].; [employer]. Comment on above: Pattern: Regular 07-22-2014 15:26-0400 Body height 162.56 cm Tammy Soliman LPN [employer].; [employer]. 07-22-2014 15:26-0400 Body mass index (BMI) [Percentile] Per age and sex 93 % Tammy Soliman LPN [employer].; [employer]. 07-22-2014 15:26-0400 Body mass index (BMI) [Ratio] 24.56 kg/m2 Tammy Soliman LPN [employer].; [employer]. 07-22-2014 15:26-0400 Body surface area Derived from formula 1.7 m2 Tammy Soliman LPN [facility], [facility].; [employer] [facility]. 07-22-2014 15:26-0400 Body weight 64.89 kg Tammy Janny [place] [facility], [facility].; [employer]. 07-22-2014 15:26-0400 Diastolic blood pressure 64 mm[Hg] Tammy Janny [place] [employer] [facility].; [employer]. Comment on above: Patient Position: Sitting; Cuff Location : Left Arm; Cuff Size: Standard 07-22-2014 15:26-0400 Heart rate 73 /min Tammy Soliman LPN [facility], [facility].; [employer]. Comment on above: Pattern: Regular 07-22-2014 15:26-0400 Systolic blood pressure 111 mm[Hg] Tammy Janny [place] [employer] [facility].; [employer]. Comment on above: Patient Position: Sitting; Cuff Location : Left Arm; Cuff Size: Standard 05-28-2012 08:06-0400 Body temperature 97.7 [degF] Sanjana Lance RN [place] [employer] [facility].; [employer]. Comment on above: Method: Tympanic 05-28-2012 08:06-0400 Body weight 45.36 kg Sanjana Lance RN [place] [employer] [facility], [facility].; [employer]. 05-28-2012 08:06-0400 Diastolic blood pressure 77 mm[Hg] Sanjana Lance RN [place] [employer] [facility].; [employer]. Comment on above: Patient Position: Sitting; Cuff Location : Left Arm; Cuff Size: Standard 05-28-2012 08:06-0400 Heart rate 108 /min Sanjana Lance RN [place] [employer] [facility].; [employer]. Comment on above: Pattern: Regular 05-28-2012 08:06-0400 Systolic blood pressure 122 mm[Hg] Sanjana Lance RN [place] [employer] [facility].; [employer]. Comment on above: Patient Position: Sitting; Cuff Location : Left Arm; Cuff Size: Standard 08-02-2010 08:52-0400 Body temperature 98.3 [degF] Cheryle Bazan PA-C Work Phone: [facility]; [facility] Comment on above: Method: Tympanic 08-02-2010 08:52-0400 Body weight 36.29 kg Sterecycle PA-C Work Phone: [facility]; [facility] Encounters Encounter Date Encounter Type Care Provider Facility Start: 09-09-2025 ambulatory Anthony Galloway ty:[facility] Start: 08-12-2025 End: 08-12-[address] Tiffany Melendez MD -[facility] Work Phone: Start: 08-12-2025 End: 08-12-[address] Anthony Mercedes MD Work Phone: -[facility] Start: 07-19-2025 End: 07-19-20[facility] Start: 07-15-2025 End: 07-15-2025 Patient encounter procedure Keith Archuleta CNM -[facility] Work Phone: Start: 07-15-2025 End: 07-15-[address] Anthony Mercedes MD Work Phone: -[facility] Start: 07-10-2025 ambulatory Anthony Galloway ty:[facility] Start: 07-10-2025 Non-patient / Non-visit Dr. Tiffany Melendez MD -[facility] Start: 07-10-2025 End: 07-10-[address] Tiffany Melendez MD -[facility] Work Phone: Start: 07-10-2025 End: 07-10-[address] Anthony Mercedes MD Work Phone: -[facility] Start: 07-05-2025 End: 07-05-2025 ambulatory MELODIE GARCIAS [facility] Start: 06-17-2025 End: 06-17-2025 Patient encounter procedure Keith Archuleta CNM -[facility] Work Phone: Start: 06-17-2025 End: 06-17-[address] Anthony Mercedes MD Work Phone: -[facility] Start: 05-20-2025 End: 05-20-2025 Patient encounter procedure Keith Archuleta CNM -[facility] Work Phone: Start: 05-20-2025 End: 05-20-[address] Anthony Mercedes MD Work Phone: -[facility] Start: 04-22-2025 End: 04-22-[address] Tammy Cooley DO -[facility] Work Phone: Start: 04-22-2025 End: 04-22-[address] Anthony Mercedes MD Work Phone: [facility] Work Phone: Start: 04-22-2025 End: 04-22-2025 ambulatory Anthony Mercedes Facility:[facility] Start: 04-05-2025 End: 04-05-2025 Patient encounter procedure Iris MARSHALL -[facility] Work Phone: Start: 04-05-2025 End: 04-05-[address] Anthony Mercedes MD Work Phone: [facility] Work Phone: Start: 12-13-2024 End: 12-13-2024 Office outpatient visit 15 minutes Cheryle Bazan PA-C Work Phone: [facility] Start: 12-13-2024 Review Cheryle Bazan PA-C Work Phone: [facility] Start: 10-25-2024 End: 10-25-2024 Medication Cheryle Bazan PA-C Work Phone: [facility] Start: 08-09-2024 End: 08-09-2024 Patient encounter procedure Cheryle Bazan PA-C Work Phone: [facility].; [employer]. Start: 08-09-2024 End: 08-09-2024 Periodic preventive med est patient 18-39 yrs Cheryle Bazan PA-C Work Phone: [facility]. Start: 09-03-2023 End: 09-04-2023 Orders Cheryle Bazan PA-C Work Phone: [facility]. Start: 08-04-2023 End: 08-04-2023 Medication Cheryle Bazan PA-C Work Phone: [facility]. Start: 08-04-2023 End: 08-04-2023 Patient encounter procedure Cheryle Talberter PA-C Work Phone: [facility]. Start: 08-04-2023 End: 08-04-2023 Patient encounter status Cheryle Talberter PA-C Work Phone: [place] [employer].; [facility]. Start: 04-30-2023 End: 04-30-2023 Patient encounter procedure Cheryle Talberter PA-C Work Phone: [employer]. Start: 03-12-2023 End: 03-12-2023 Patient encounter procedure Cheryle Talberter PA-C Work Phone: [facility]. Start: 08-22-2022 End: 08-23-2022 Orders Cheryle Talberter PA-C Work Phone: [employer]. Start: 07-24-2022 End: 07-24-2022 Patient encounter procedure Cheryle Talberter PA-C Work Phone: [employer]. Start: 10-08-2021 End: 10-08-2021 Nursing evaluation of patient and report Cheryle Talberter PA-C Work Phone: [employer] Start: 07-11-2021 End: 07-11-2021 ambulatory CHERYLE BAZAN Esau [facility] Start: 07-05-2021 End: 07-05-2021 Patient encounter procedure Cheryle SAUNDERSC Work Phone: [employer] Start: 09-04-2020 End: 09-04-2020 Nursing evaluation of patient and report Cheryle Bazan PAKeiC Work Phone: [employer] Start: 02-18-2020 End: 02-18-2020 Patient encounter procedure Cheryle SAUNDERSC Work Phone: [employer] Start: 08-11-2019 End: 08-11-2019 Nursing evaluation of patient and report Cheryle Bazan PA-C Work Phone: [employer] Start: 07-22-2019 End: 07-22-2019 Medication Cheryle SAUNDERSC Work Phone: [employer] Start: 05-19-2019 End: 05-19-2019 Patient encounter procedure Cheryle SAUNDERSC Work Phone: [employer] Start: 05-19-2019 End: 05-19-2019 Patient encounter status Cheryle Bazan PA-C Work Phone: [employer]; [employer]. Start: 05-03-2019 End: 05-03-2019 Office outpatient visit 15 minutes Cheryle SAUNDERSC Work Phone: [employer] Start: 08-13-2018 End: 08-13-2018 Nursing evaluation of patient and report Cheryle Bazan PA-C Work Phone: [employer] Start: 06-15-2018 End: 06-15-2018 Patient encounter procedure Cheryle Bazan PA-C Work Phone: [employer] Start: 06-15-2018 End: 06-15-2018 Patient encounter status Tammy Soliman PADMINI [employer].; [employer]. Start: 08-08-2017 End: 08-08-2017 Patient encounter procedure Cheryle Bazan PA-C Work Phone: [employer]. Start: 08-08-2017 End: 08-08-2017 Patient encounter status Cheryle SAUNDERSC Work Phone: [employer].; [employer]. Start: 08-09-2016 End: 08-09-2016 Patient encounter procedure Cheryle Bazan PA-C Work Phone: [employer]. Start: 08-09-2016 End: 08-09-2016 Patient encounter status Cheryle SAUNDERSC Work Phone: [employer].; [employer]. Start: 08-01-2015 End: 08-01-2015 Patient encounter procedure Cheryle Bazan PA-C Work Phone: [employer]. Start: 08-01-2015 End: 08-01-2015 Patient encounter status Cheryle Bazan PA-C Work Phone: [employer].; [employer]. Start: 09-02-2014 End: 09-02-2014 Historical Summary Cheryle Bazan PA-C Work Phone: [employer]. Start: 07-22-2014 End: 07-22-2014 Patient encounter procedure Cheryle Bazan PA-C Work Phone: [employer]. Start: 07-22-2014 End: 07-22-2014 Routine or child health check Cheryle Bazan PA-C Work Phone: [employer].; [employer]. Start: 03-16-2014 End: 03-16-2014 Nursing evaluation of patient and report Cheryle DELGADILLO-C Work Phone: [employer]. Start: 08-12-2013 End: 08-12-2013 Office outpatient visit 5 minutes Cheryle Bazan PA-C Work Phone: [facility] Start: 09-01-2012 End: 09-01-2012 Nursing evaluation of patient and report Cheryle Bazan PA-C Work Phone: [facility] Start: 05-28-2012 End: 05-28-2012 Patient encounter procedure Cheryle Bazan PA-C Work Phone: [facility] Start: 08-16-2011 End: 08-16-2011 Nursing evaluation of patient and report Cheryle Bazan PA-C Work Phone: [facility]. Start: 03-07-2011 End: 03-07-2011 Medication Cheryle Bazan PA-C Work Phone: [place] [employer] [facility] Start: 09-01-2010 End: 09-01-2010 Nursing evaluation of patient and report Cheryle Bazan PA-C Work Phone: [facility] Start: 08-02-2010 End: 08-02-2010 Patient encounter procedure Cheryle Bazan PA-C Work Phone: [facility] Patient encounter status Becky Hunter LPN [facility].; [place] [employer] [facility] Patient encounter status Cheryle Bazan PA-C Work Phone: [employer] [facility].; [employer] Procedures Date Procedure Procedure Detail Performing Clinician Start: 07-10-[address] Anthony Mercedes MD Work Phone: Start: 07-10-2025 Complete ultrasound of kidneys and bladder Dr. Anthony Mercedes MD Work Phone: Start: 07-10-2025 Urnls dip stick/tabl et reagent auto microscopy Dr. Anthony Mercedes MD Work Phone: Start: 04-22-[address] Anthony Mercedes MD Work Phone: Start: 06-27-2025 Hepatitis C antibody measurement Dr. Anthony Mercedes [...] HCV Quant by PCR testing - HCVPCR #[id number] Non Reactive: < 0.8 Equivocal: >/= 0.8 to < 1.0 Reactive: >/= 1.0The CDC requires that a reactive/equivocal HCV antibody result be sent out for confirmation. HCV Quant by PCR testing. Start: 04-22-[address] Anthony abernathy MD Work Phone: Comment on above: Test Ordered: [id number] TSH Receptor Antibody (TBII)TSH Receptor Antibody (TBII) <0.3 U/L ES Reference Range: .Reference Range:Antibody Titer:<1.0 U/L = Negative1.1 - 1.5 U/L = Equivocal>1.5 U/L = PositivePerformed at: [facility] [address] [id number] Director: Sander Daugherty MD, Phone: [phone] at: [facility] Lab[address] [id number] Director: Fredis Pendleton PhD, Phone: [phone] Start: 04-22-[address] Anthony [...] 08-09-2024 End: 08-09-2024 Flu immunize order/admin Cheryle J Palme r PA-C Work Phone: Start: 08-09-2024 End: [...] End: 05-28-2012 Ketorolac tromethamine inj Rosario Holt lls PA-C Work Phone: Comment on above: 45mg [...] after glucose challenge for glucose tolerance test [facility] Start: 08-12-2025 Serologic test for syphilis [facility] Start: 08-12-2025 [facility] Start: 07-10-2025 Administration of drug or medicament by intravenous push THER/PROPH/DIAG INJ IV PUSH [facility] Start: 07-10-2025 Bacteria identified in Urine by Culture Urine Culture [facility] Start: 07-10-2025 End: 07-10-2025 [facility] Start: 07-10-2025 Administration of blood product [facility] Start: 07-10-2025 Obstetric monitoring [facility] Start: 07-10-2025 Vital signs measurements [facility] Start: 07-10-2025 Patient discharge [facility] Start: 04-22-2025 CBC W Auto Differential panel - Blood [facility] Start: 04-22-2025 Hepatitis C antibody measurement [facility] Start: 04-22-2025 Procedure [facility] Start: 04-22-2025 Rubella IgG measurement [facility] Start: 04-22-2025 Serologic test for syphilis [facility] Start: 04-22-2025 T4 free measurement [facility] Start: 04-22-2025 Thyroid stimulating hormone measurement [facility] Start: 04-22-2025 [facility] Start: 08-09-2024 Iiv4 vacc presrv free 0.5 ml dos for im use Influenza vaccine, quadrivalent (24724) Date: 09-Aug-2024 [employer] Start: 08-09-2024 Provider Instructions for Treatment [facility] HM Issues, 20-39 female Indication: Annual physical exam Start: 09-Aug-2024 Instruction Type: Provider Instructions for Treatment [employer]. Start: 08-09-2024 Assay of free thyroxine T4 FREE (70950) Start: 09-Aug-2024 09:51-04:00 Request [employer]. Start: 08-09-2024 Assay of thyroid stimulating hormone tsh TSH (THYROID STIMULATING HORMONE) (07815) Start: 09-Aug-2024 09:50-04:00 Request [employer]; [employer]. Start: 08-09-2024 Comprehensive metabolic panel CMP w/ GFR* (93318) Start: 09-Aug-2024 09:50-04:00 Request [employer]. Start: 08-09-2024 Assay of ferritin FERRITIN (55066) Start: 09-Aug-2024 09:50-04:00 Request [facility] [employer]. Start: 08-09-2024 Blood count complete auto&auto difrntl wbc CBC, PLATELETS & AUT DIFF (F) (48344) Start: 09-Aug-2024 09:50-04:00 Request [facility] [employer]. CBC W Auto Different ial panel - Blood [facility] Chlamydia deoxyribon ucleic acid detection [facility] Erythrocyte mean corpuscular volume determination [facility] Hematocrit [Volume Fraction] of Blood [facility] Hemoglobin [Mass/vol ume] in Blood [facility] Hepatitis B virus roberson rface Ag [Presence] in Serum [facility] Leukocytes [#/volume ] in Blood [facility] Mean corpuscular hem oglobin concentration determination [facility] Mean corpuscular hem oglobin determination [facility] Neutrophil count [facility] Neutrophil percent differential count [facility] Platelets [#/volume] in Blood [facility] Red blood cell count [facility] Red cell distributio n width determination [facility] Urine culture [facility] Phenergan 50 mg/ mL injection solution Ordered: 02-Aug-2010 MD Anthony Mercedes Intent [facility], [employer]. Work Phone: Phenergan 50 mg/ mL injection solution Ordered: 28-May-2012 PROSPER Gamble Intent [facility] [employer], [employer]. Work Phone: Influenza vaccin e, quadrivalent (IIV4), 0.5 mL Scheduled for Administration Intent [facility] [employer], [employer]. Immunizations Immunization Date Immunization Notes Care Provider Scott watts 08-09-2024 influenza, injectabl e, quadrivalent, preservative free Cheryle Bazan PA-C Work Phone: [facility] [employer]. Comment on above: Site: Right DeltoidV IS Given: * Influenza (Flu) Vaccine (Inactivated or Recombinant) (06/01/21) 09-03-2023 influenza, injectabl e, quadrivalent, preservative free Cheryle Bazan PA-C Work Phone: [employer] Comment on above: Site: Right Yinka kimball: * Influenza (Flu) Vaccine (Inactivated or Recombinant) (06/01/21) 08-22-2022 influenza, injectabl e, quadrivalent, contains preservative Cheryle Bazan PA-C Work Phone: [employer] Comment on above: Site: Right Yinka Ha iven: * Influenza Inactivated (06/01/21) 10-08-2021 influenza, injectabl e, quadrivalent, contains preservative Cheryle Bazan PA-C Work Phone: [employer]; [employer] Comment on above: Site: Left DeltoidVI S Given: * Influenza - Inactivated (06/10/19) 09-04-2020 influenza, injectabl e, quadrivalent, contains preservative Cheryle Bazan PA-C Work Phone: [employer]; [employer] Comment on above: Site: Right DeltoidV IS Given: * Influenza - Inactivated (06/10/19) 08-11-2019 influenza, injectabl e, quadrivalent, contains preservative Cheryle Bazan PA-C Work Phone: [employer]; [employer] Comment on above: Site: Right DeltoidV IS Given: * Influenza - Inactivated (06/02/15) 08-11-2019 Counseled parent on risks/benefits of vaccines (61041) Cheryle Bazan PA-C Work Phone: [employer]; [employer] 05-19-2019 Meningococcal, MCV4, unspecified conjugate formulation(groups A, C, Y and W-135) Cheryle Bazan PA-C Work Phone: [employer]; [employer] 05-19-2019 Counseled parent on risks/benefits of vaccines (38084) Cheryle Bazan PA-C Work Phone: [employer] 05-19-2019 meningococcal polysaccharide (groups A, C, Y and W-135) diphtheria toxoid conjugate vaccine (MCV4P) Cheryle Bazan PA-C Work Phone: [employer]. Comment on above: Site: Left DeltoidVI S Given: * MenACWY (06/19/18) 08-13-2018 influenza, injectabl e, quadrivalent, contains preservative Cheryle Bazan PA-C Work Phone: [employer]. Comment on above: Site: Left DeltoidVI S Given: * Influenza - Inactivated (06/02/15) 08-13-2018 Counseled parent on risks/benefits of vaccines (62669) Cheryle Bazan PA-C Work Phone: [employer]. 08-08-2017 influenza, injectabl e, quadrivalent, contains preservative Cheryle Bazan PA-C Work Phone: [employer].; [employer]. Comment on above: Site: Deltoid (Left) VIS Given: * Influenza - Inactivated (06/02/15) 08-09-2016 influenza, injectabl e, quadrivalent, contains preservative Cheryle Bazan PA-C Work Phone: [employer]. Comment on above: Site: Deltoid (Left) VIS Given: * Influenza - Inactivated (06/02/15) 08-09-2016 unknown vaccine or i mmune globulin Cheryle Bazan PA-C Work Phone: [employer]; [employer]. 08-01-2015 influenza, seasonal, injectable Cheryle Bazan PA-C Work Phone: [employer]. Comment on above: Site: Deltoid (Left) VIS Given: * Inactivated Influenza (06/02/2015) 08-01-2015 IMMUNIZATION ADMIN (92155) Cheryle Bazan PA-C Work Phone: [employer]. 09-02-2014 influenza, seasonal, injectable Cheryle Bazan PA-C Work Phone: [employer]. Comment on above: Site: Deltoid (Left) VIS Given: * Influenza, Inactivated () 09-02-2014 IMMUNIZATION ADMIN (76397) Cheryle Bazan PA-C Work Phone: [employer]. 03-16-2014 tetanus toxoid, redu ranjan diphtheria toxoid, and acellular pertussis vaccine, adsorbed Cheryle Bazan PA-C Work Phone: [employer] Comment on above: VIS Given: * TDAP, T d (03/04/2013) * Tetanus/Diphtheria/(Pertussis) (Td/Tdap) (09/13/08) * Tetanus/Diptheria/Pertussis (Tdap/Td) 11/19/11 08-12-2013 influenza, seasonal, injectable Cheryle Bazan PA-C Work Phone: [employer]. Comment on above: Site: Deltoid (Left) VIS Given: * Inactivated Influenza Vaccine (06/06/09) * Inactivated Influenza Vaccine (05/21/11) * Influenza vaccine 1426-8700, inactivated (04/27/2012) * VIS Given (Unspecified) 08-12-2013 IMMUNIZATION ADMIN (90599) Cheryle Bazan PA-C Work Phone: [employer]; [employer]. 09-01-2012 influenza, seasonal, injectable Cheryle Bazan PA-C Work Phone: [employer]; [employer]. Comment on above: Site: Deltoid (Left) VIS Given: * Inactivated Influenza Vaccine (06/06/09) * Inactivated Influenza Vaccine (05/21/11) * Influenza vaccine 8268-9012, inactivated (04/27/2012) * VIS Given (Unspecified) 09-01-2012 IMMUNIZATION ADMIN (86399) Cheryle Bazan PA-C Work Phone: [employer].; [employer]. 08-16-2011 influenza, seasonal, injectable Cheryle Bazan PA-C Work Phone: [employer].; [employer]. Comment on above: Site: Deltoid (Left) VIS Given: * Inactivated Influenza Vaccine (06/06/09) * Inactivated Influenza Vaccine (05/21/11) * Inactivated Influenza Vaccine (05/21/11) * Inactivated Influenza Vaccine (05/21/11) * Inactivated Influenza Vaccine (05/21/11) * Inactivated Influenza Vaccine (05/21/11) * Inactivated Influenza Vaccine (05/21/11) * VIS Given (Unspecified) * VIS Given (Unspecified) 08-16-2011 IMMUNIZATION ADMIN (82021) Cheryle Bazan PA-C Work Phone: [employer].; [employer]. 09-01-2010 influenza, seasonal, injectable Cheryle Bazan PA-C Work Phone: [employer].; [employer]. Comment on above: Site: Deltoid (Left) VIS Given: * Inactivated Influenza Vaccine (06/06/09) 09-01-2010 IMMUNIZATION ADMIN (46072) Cheryle Bazan PA-C Work Phone: [employer].; [employer]. 09-22-2009 Influenza, pandemic formulation, split, adj, IM Cheryle Bazan PA-C Work Phone: [employer].; [employer]. 08-15-2009 Influenza, pandemic formulation, split, adj, IM Cheryle Bazan PA-C Work Phone: [employer].; [employer]. 05-08-2007 diphtheria, tetanus toxoids and pertussis vaccine Cheryle Bazan PA-C Work Phone: [facility] 05-08-2007 measles, mumps and rubella virus vaccine Cheryle Bazan PA-C Work Phone: [facility] 05-08-2007 poliovirus vaccine, inactivated Cheryle Bazan PA-C Work Phone: [facility].; [facility] 07-26-2003 diphtheria, tetanus toxoids and pertussis vaccine Cheryle Bazan PA-C Work Phone: [facility].; [facility] 07-26-2003 poliovirus vaccine, inactivated Cheryle Bazan PA-C Work Phone: [facility].; [facility] 04-18-2003 haemophilus influenz ae type b conjugate and Hepatitis B vaccine Cheryle Bazan PA-C Work Phone: [facility].; [facility] 01-24-2003 measles, mumps and rubella virus vaccine Cheryle Bazan PA-C Work Phone: [facility].; [facility] 2002 diphtheria, tetanus toxoids and pertussis vaccine Cheryle Bazan PA-C Work Phone: [facility].; [facility] 2002 diphtheria, tetanus toxoids and pertussis vaccine Cheryle Bazan PA-C Work Phone: [facility].; [facility] 2002 haemophilus influenz ae type b conjugate and Hepatitis B vaccine Cheryle Bazan PA-C Work Phone: [facility].; [facility] 2002 poliovirus vaccine, inactivated Cheryle Bazan PA-C Work Phone: [facility].; [facility] 2002 diphtheria, tetanus toxoids and pertussis vaccine Cheryle Bazan LEONAChon Work Phone: [facility].; [facility] 2002 haemophilus influenz ae type b conjugate and Hepatitis B vaccine Cheryle Bazan PA-C Work Phone: [facility].; [facility] 2002 poliovirus vaccine, inactivated Cheryle [facility] Work Phone: [facility].; [facility] varicella virus vaccine Liane phillips [facility] Work Phone: [facility].; [facility] Comment on above: had disease Payers Date Payer Category Payer Self-pay 2025 Unknown [id number] 2007 Unknown MARIA DEL CARMEN [id number] 2002 Unknown [id number] 2.16.84 [id number] 2002 Unknown [id number] 2.16. [id number] 2002 Unknown [id number] 2.16. [id number] Unknown [id number] Unknown Unknown [id number] 2.16.8 [id number] Unknown [id number] 2.16.8 [id number] Unknown [id number] 2.16.8 [id number] Unknown [id number] 2.16.8 [id number] Unknown [id number] 2.16.8 [id number] Unknown [id number] 2.16.8 [id number] Unknown [id number] 2.16.8 [id number] Unknown [id number] 2.16.8 [id number] Unknown [id number] 2.16.8 [id number] Unknown [id number] 2.16.8 [id number] Social History Date Type Detail Facility Caffeine Use Caffeine Use [facility] [employer] [facility] [employer] Tobacco/Smoke Exposure: Tobacco/Smoke Exposure: ; None. [facility] [employer] Start: 2000 Female [facility] None [facility] [employer] [facility]; [facility] [employer] Work Phone: Start: 04-05-2025 Tobacco smoking stat [facility] Never smoked tobacco (finding) [facility] Gender Identity Identifies as fe male gender (finding) [facility] Clinical Notes 04-05-2025 to 08-12-2025 Note Date & Type Note Facility 08-12-2025 Progress note [facility] 08-12-2025 Progress note Note Date/Time August 12, 2025 4:33pm [facility] [address], [address] [place] [address] OFFICE VISIT Date of Service: 08/12/25 MR#: [id number] Acct: [id number] Name: CHARLIE GORDON Rep #: [id number] : 2000 Provider: Dr. Paulino Melendez MD Age/Sex: 25/F [place] [facility] [place]: Signed Intake Vital Signs 05/20/25 13:53 07/15/25 15:10 08/12/25 16:08 08/12/25 16:14 Height 5 ft 8 in 5 ft 8 in 5 ft 8 in 5 ft 8 in Weight: 208 lb 6 oz BMI 31.6 BP 108/69 Intake Visit Reasons: 24w 3d OB Filler Spreader Required: No Is patient in pain?: No [...] house current occupational status: employed current occupation: [employer] current occupational exposures/hazards: No pets and animals: Yes pets and animals: dog(s) history of recent travel: Yes ([place] in February) out of state: Yes out [...] 3-4 times per week duration: 15-30 minutes/day jimi/bahai: Jainism seatbelt use: always do you feel safe [...] Status: Acute Comment: PRR, , [place] 11/29/25, girl lilia Jose (4) : Status: Acute [...] arredondo MD> Date _ Tiffany Melendez MD [facility] Signature: Date (if applicable) CC: ~ [facility] Work Phone: 1(263) 969-865009-19-2025 Progress [facility] [address] [place] [address], [place] [address] OFFICE VISIT Date of Service: 07/15/25 MR#: [id number] Acct: [id number] Name: CHARLIE GORDON Rep #: [id number] : 2000 Provider: JODI Archuleta Age/Sex: 25/F [place] [facility] [place]: Signed Intake Vital Signs 04/22/25 08:22 07/10/25 10:27 07/15/25 15:09 07/15/25 15:10 Height 5 ft 8 in 5 ft 8 in 5 ft 8 in 5 ft 8 in Weight: 202 lb 1 oz BMI 30.7 BP 116/71 Intake Visit Reasons: 20wk ob Filler Spreader Required: No Is patient in pain?: No [...] house current occupational status: employed current occupation: [employer] current occupational exposures/hazards: No pets and animals: Yes pets and animals: dog(s) history of recent travel: Yes ([place] in February) out of state: Yes out [...] 3-4 times per week duration: 15-30 minutes/day jimi/bahai: Jainism seatbelt use: always do you feel safe [...] 150 20 -?-?-?-?-?-?-?-?-?-?-?-?- KW- no vb/lof/ct x. good fm. reviewed [place] and has follow up [...] 07/15/25 1524 s CNM> Date _ Keith Km JODI Cosigner Signature: Date (if applicable) CC: ~ [facility]09-19-2025 Progress note Author Keith Archuleta [facility] Note Date/Time July 15, 2025 3:24pm [facility] [address] [place] [address], [place] [address] OFFICE VISIT Date of Service: 07/15/25 MR#: [id number] Acct: [id number] Name: CHARLIE GORDON Rep #: [id number] : 2000 Provider: JODI Archuleta Age/Sex: 25/F [place] [facility] [place]: Signed Intake Vital Signs 04/22/25 08:22 07/10/25 10:27 07/15/25 15:09 07/15/25 15:10 Height 5 ft 8 in 5 ft 8 in 5 ft 8 in 5 ft 8 in Weight: 202 lb 1 oz BMI 30.7 BP 116/71 Intake Visit Reasons: 20wk ob Filler Spreader Required: No Is patient in pain?: No [...] house current occupational status: employed current occupation: [employer] current occupational exposures/hazards: No pets and animals: Yes pets and animals: dog(s) history of recent travel: Yes ([place] in February) out of state: Yes out [...] 3-4 times per week duration: 15-30 minutes/day jimi/bahai: Jainism seatbelt use: always do you feel safe [...] 150 20 -?-?-?-?-?-?-?-?-?-?-?-?- KW- no vb/lof/ct x. good fm. reviewed [place] and has follow up [...] Cosigner Signature: Date (if applicable) CC: ~ [facility] Work Phone: 1(890) 456-862209-14-2025 Radiology Diagnostic study note [facility] Imaging Services [address] [place] [address] Kidney and Bladder MR#: [id number] Acct: [id number] Name: CHARLIE GORDON Rep #: [id number] : 2000 F 25 From: Albaro Phillip MD PCP: Dr. Anthony Mercedes MD Status: R EG CLI Study:Kidney and Bladder Date of Exam: 0 07/10/25 Exam# [id number] Ordering Dr: Tiffany Hung MD PROCEDURE: KIDNEY [...] jets are patent and functional.. Reading Location: [facility] CC: Dr. Anthony Mercedes MD; Dr. Tiffany Melendez MD ~ Undercoater: Signed [facility]09-14-2025 Hospital Discharge instructionsAdditional Instructions Increase oral fluids - adding drinks higher in acidity such as orange juice and lemonade Tylenol for pain Antibiotic as ordered [facility] Work Phone: 1(848) 267-260609-14-2025 History and physical note Author Tiffany Melendez [facility] Note Date/Time July 10, 2025 11:30am [facility] Medical Records Department [address] [place] [address] OB Triage Physician Note 07/10/25 1125 MR#: [id number] Acct: [id number] Name: CHARLIE GORDON Rep #:[id number] : 2000 25 From: Tiffany carney MD PCP: Dr. Anthony Mercedes MD Status:R EG CLI Y Location: [place] [id number] HPI - General General Date of Admission: [...] house current occupational status: employed current occupation: [employer] current occupational exposures/hazards: No pets and animals: Yes pets and animals: dog(s) history of recent travel: Yes ([place] in February) out of state: Yes out [...] 3-4 times per week duration: 15-30 minutes/day jimi/bahai: Jainism seatbelt use: always do you feel safe [...] (1) Nephrolithiasis: COMMENT: Suspected, renal ultrasound ordered. Edyflex ordered urine culture sent (2) Hematuria: (3) [...] Multi Select Codes Visit Charges Office Visit/Consults: 40155 OV L3 Est 20min 07/10/25 1130 <Electronically signed by Tiffany arredondo MD> Date _ Tiffany Melendez MD Cosigner Signature (if applicable): Date CC: Dr. Anthony Mercedes MD; Dr. Tiffany Melendez MD ~ Signed [facility] Work Phone: 1(588) 313-786309-14-2025 History and physical note [facility] Medical Records Department [address] [place] [address] OB Triage Physician Note 07/10/25 1125 MR#: [id number] Acct: [id number] Name: CHARLIE GORDON Rep #:[id number] : 2000 25 From: Tiffany carney MD PCP: Dr. Anthony Mercedes MD Status:R EG CLI Y Location: [id number] HPI - General General Date of Admission: [...] house current occupational status: employed current occupation: [employer] current occupational exposures/hazards: No pets and animals: Yes pets and animals: dog(s) history of recent travel: [place] in [place] out of state: Yes out [...] 3-4 times per week duration: 15-30 minutes/day jimi/bahai: Jainism seatbelt use: always do you feel safe [...] Multi Select Codes Visit Charges Office Visit/Consults: 79301 OV L3 Est 20min 07/10/25 1130 arnulfo FELDMAN> Date _ Tiffany Melendez MD Cosigner Signature (if applicable): Date CC: Dr. Anthony Mercedes MD; Dr. Tiffany Melendez MD ~ Signed [facility]08-22-2025 Progress [facility] [address], [address] [place] [address] OFFICE VISIT Date of Service: 06/17/25 MR#: [id number] Acct: [id number] Name: CHARLIE GORDON Rep #: [id number] : 2000 Provider: JODI Archuleta Age/Sex: 25/F [place] [facility] [place]: Signed Intake Vital Signs 04/22/25 08:22 05/20/25 13:53 06/17/25 14:39 Height 5 ft 8 in 5 ft 8 in 5 ft 8 in Weight: 196 lb 7 oz BMI 29.8 BP 119/74 Intake Visit Reasons: 16wk ob Filler Spreader Required: No Is patient in pain?: No [...] house current occupational status: employed current occupation: [employer] current occupational exposures/hazards: No pets and animals: Yes pets and animals: dog(s) history of recent travel: Yes ([place] in February) out of state: Yes out [...] 3-4 times per week duration: 15-30 minutes/day jimi/bahai: Jainism seatbelt use: always do you feel safe [...] Cosigner Signature: Date (if applicable) CC: ~ [facility]08-22-2025 Progress note Author Keith Archuleta [facility] Note Date/Time June 17, 2025 3: 12pm [facility] [address], [address] [place] [address] OFFICE VISIT Date of Service: 06/17/25 MR#: [id number] Acct: [id number] Name: CHARLIE GORDON Rep #: [id number] : 2000 Provider: JODI Archuleta Age/Sex: 25/F [place] [facility] [place]: Signed Intake Vital Signs 04/22/25 08:22 05/20/25 13:53 06/17/25 14:39 Height 5 ft 8 in 5 ft 8 in 5 ft 8 in Weight: 196 lb 7 oz BMI 29.8 BP 119/74 Intake Visit Reasons: 16wk ob Filler Spreader Required: No Is patient in pain?: No [...] house current occupational status: employed current occupation: [employer] current occupational exposures/hazards: No pets and animals: Yes pets and animals: dog(s) history of recent travel: [place] in February) out of state: Yes out [...] 3-4 times per week duration: 15-30 minutes/day jimi/bahai: Jainism seatbelt use: always do you feel safe [...] this visit. [place] appropriate handout given. 06/17/25 8982 <Electronically signed by Keith fox CNM> Date _ Keith Archuleta CNM Cosigner Signature: Date (if applicable) CC: ~ [facility] Work Phone: [phone] [phone] Evaluation note* Diagnosis Onset Date Resolution Status [...] 3:56pm Thyroid nodule acute August 122024 3:56pm [facility] Work Phone: 1(643) 759-474407-25-2025 Progress [facility] [address] [place] [address], [address] [place] [address] OFFICE VISIT Date of Service: 05/20/25 MR#: [id number] Acct: [id number] Name: CHARLIE GORDON Rep #: [id number] : 2000 Provider: JODI Archuleta Age/Sex: 25/F [place] [facility] [place]: Signed Intake Vital Signs 04/22/25 08:22 05/20/25 13:53 Height 5 ft 8 in 5 ft 8 in Weight: 189 lb 8 oz BMI 28.8 BP 120/72 Intake Visit Reasons: 12 WK OB Chief Complaint: 12 Week OB Filler Spreader Required: No Is patient in pain?: No [...] house current occupational status: employed current occupation: [employer] current occupational exposures/hazards: No pets and animals: Yes pets and animals: dog(s) history of recent travel: Yes ([place] in February) out of state: Yes out [...] 3-4 times per week duration: 15-30 minutes/day jimi/bahai: Jainism seatbelt use: always do you feel safe [...] Urine Glucose Negative Last Edit by Rachana uDmont on 05/20/25 14 :02 Office Urine Protein [...] Cosigner Signature: Date (if applicable) CC: ~ [facility]07-25-2025 Progress note Author Keith Archuleta [facility] Note Date/Time May 20, 2025 2:23 pm [facility] [address] [place] [address], [address] [place] [address] OFFICE VISIT Date of Service: 05/20/25 MR#: [id number] Acct: [id number] Name: CHARLIE GORDON Rep #: [id number] : 2000 Provider: JODI Archuleta Age/Sex: 25/F [place] [facility] [place]: Signed Intake Vital Signs 04/22/25 08:22 05/20/25 13:53 Height 5 ft 8 in 5 ft 8 in Weight: 189 lb 8 oz BMI 28.8 BP 120/72 Intake Visit Reasons: 12 WK OB Chief Complaint: 12 Week OB Filler Spreader Required: No Is patient in pain?: No [...] house current occupational status: employed current occupation: [employer] current occupational exposures/hazards: No pets and animals: Yes pets and animals: dog(s) history of recent travel: Yes ([place] in February) out of state: Yes out [...] 3-4 times per week duration: 15-30 minutes/day jimi/bahai: Jainism seatbelt use: always do you feel safe [...] this visit. GA appropriate handout given. 05/20/25 5852 <Electronically signed by Keith Raphael s CNM> Date _ Keith Archuleta JFSteve Chavisigndawit Signature: Date (if applicable) CC: ~ [facility] Work Phone: 1(403) 275-838906-27-2025 Progress [facility] [address] [place] [address], [address] [place] [id number] OFFICE VISIT Date of Service: 04/22/25 MR#: [id number] Acct: [id number] Name: CHARLIE GORDON Rep #: [id number] : 2000 Provider: Dr. Niurka Cooley DO Age/Sex: 25/F [place] [facility] [place] Signed Intake Vital Signs 04/05/25 09:08 04/22/25 08:22 Height 5 ft 8 in 5 ft 8 in Weight: 187 lb 6 oz BMI 28.5 BP 104/63 Intake Visit Reasons: *NEW* NOB LMP 02/22, [place] 2/3 Filler Spreader Required: No Is patient in pain?: No [...] house current occupational status: employed current occupation: [employer] current occupational exposures/hazards: No pets and animals: Yes pets and animals: dog(s) history of recent travel: Yes ([place] in February) out of state: Yes out [...] 3-4 times per week duration: 15-30 minutes/day jimi/bahai: Jainism seatbelt use: always do you feel safe [...] (Rh) Sensitized, Pulmonary (e.g.,TB,Asthma), Seasonal allergies, Breast, 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 surgery, Anesthetic complications, History of abnormal pap [...] comfortable and no acute distress Orientation: alert [facility] Head: normal to inspection, normocephalic and [...] 0910 haile Wagner DO> Date _ Tammy Kumarigner Signature: Date (if applicable) CC: ~ [facility]06-10-2025 Evaluation note* Diagnosis Onset Date Resolution Status Admit Date Secondary amenorrhea acute April 05, 2025 7:54am acute April 22 8:16am Secondary amenorrhea acute April 22, 2025 8:16am Supervision of normal first acute April 22, 2025 8:16am Thyroid nodule acute April 22, 2025 8:16am [facility] Work Phone: [phone] Evaluation note* Diagnosis Onset Date Resolution Status [...] Thyroid nodule acute May 20, 2025 1:50pm [facility] Work Phone: 1([phone]) 780-523706-10-2025 Evaluation note* Diagnosis Onset Date Resolution Status [...] 17 2:28pm Thyroid nodule acute May 2:28pm [facility] Work Phone: 1([phone]) 992-423906-10-2025 Evaluation note* Diagnosis Onset Date Resolution Status [...] normal first acute July 10, 2025 8:55am [facility] Work Phone: 1([phone]) 564-978106-10-2025 Evaluation note* Diagnosis Onset Date Resolution Status [...] Thyroid nodule acute July 15, 2025 3:05pm [facility] Work Phone: Evaluation noteNo assessment information available [facility] Work Phone: Progress note Author Tammy Wagner [facility] Note Date/Time April 22, 2025 9:10 am [facility] [address] [place] [address], [address] [place] [address] OFFICE VISIT Date of Service: 04/22/25 MR#: [id number] Acct: [id number] Name: CHARLIE GORDON Rep #: [id number] : 2000 Provider: Dr. Niurka Cooley DO Age/Sex: 25/F [place] [facility] [place]: Signed Intake Vital Signs 04/05/25 09:08 04/22/25 08:22 Height 5 ft 8 in 5 ft 8 in Weight: 187 lb 6 oz BMI 28.5 BP 104/63 Intake Visit Reasons: *NEW* NOB LMP 02/22, [place] 11/29 Filler Spreader Required: No Is patient in pain?: No [...] house current occupational status: employed current occupation: [employer] current occupational exposures/hazards: No pets and animals: Yes pets and animals: dog(s) history of recent travel: Yes ([place] in February) out of state: Yes out [...] 3-4 times per week duration: 15-30 minutes/day jimi/bahai: Jainism seatbelt use: always do you feel safe [...] (Rh) Sensitized, Pulmonary (e.g.,TB,Asthma), Seasonal allergies, Breast, 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 - Encounter for supervision of normal first [...] Cosigner Signature: Date (if applicable) CC: ~ [facility] Work Phone: Reason for referral (narrative)No reason for referral [facility] Work Phone: Summary Purpose Family History No [...] 2025 2 :28pm Supervision of normal first Madisyn shields 2024 2:28pm Thyroid nodule June 17, 2025 [...] 2025 8:1 6am Supervision of normal first [facility] 2024 8:16am Thyroid nodule April 22, 2025 8:16 am May 20, 2025 1:50 pm Secondary amenorrhea May 20, 2025 1:5 0pm Supervision of normal first Ju 2024 1:50pm Thyroid nodule May 20, 2025 1:50 pm June 17, 2025 2: 28pm Secondary amenorrhea June 17, 2025 2 :28pm Supervision of normal first Madisyn shields 2024 2:28pm Thyroid nodule June 17, 2025 2: 28pm Hematuria July 10, 2025 8:55am Nephrolithiasis July 10, 2025 8:55am July 10, 2025 8:55am Rh negative status during Sept emb2024 8:55am Supervision of normal first Se ptember [...] section and content) DATE CREATED AUTHOR 07/13/2021 [facility] DATE CREATED AUTHOR AUTHOR'S ORGANIZ ATION 08/11/2024 [facility] DATE CREATED AUTHOR AUTHOR'S ORGANIZ ATION 07/20/2025 [facility] DATE CREATED AUTHOR AUTHOR'S ORGANIZ ATION [facility]/07/20[facility] (unrecognized sec tion and [...] 2025 End: April 05, 2025 Iris Singer IT SUPPORT SPECIALIST, IT SUPPORT SPECIALIST-C Attending Provider Active Start: April 05, [...] 2025 End: April 05, 2025 Iris Singer IT SUPPORT SPECIALIST, IT SUPPORT SPECIALIST-C Attending Provider Active Start: April 05, [...] 2025 End: April 22, 2025 Dr. Tammy Vande Velde , DO Referring Provider Activ e Start: April [...] 2025 End: April 05, 2025 Iris Singer IT SUPPORT SPECIALIST, IT SUPPORT SPECIALIST-C Attending physician Active Start: April 05, 2025 [...] BE BASED ON THE PRIMARY CLINICAL RECORDS. [employer] [facility]. provides no warranty or guarantee of the accuracy or completeness of information in this document.
== END | disposition home or self-care (01) ==
PROVIDERS: Obstetrics & Gynecology; PCP Family Medicine; Visit Provider Advanced Practice Midwife
DX: E04.1 Nontoxic single thyroid nodule (principal)
CPT/HCPCS: 36415; 84443; 86850; 86900; 86901